=== PATIENT | male | born 1950 | race Caucasian/White ===

== ENCOUNTER → 2017-10-05 | Outpatient (CLI) | payer MEDICARE, OTHER | END | disposition home or self-care (01) | LOC: ECHO 08:58 | DX: I48.2 Chronic atrial fibrillation (principal); I65.23 Occlusion and stenosis of bilateral carotid arteries; I27.20 Pulmonary hypertension, unspecified; I08.1 Rheumatic disorders of both mitral and tricuspid valves; Z86.73 Personal history of transient ischemic attack (TIA), and cerebral infarction without residual deficits | CPT/HCPCS: 93306; 93880 ==

== ENCOUNTER → 2017-10-23 | Outpatient (CLI) | payer MEDICARE ==
[2017-10-23] MEDS: REGADENOSON 0.4 MG/5 ML DISP.SYRIN. IV (10:56)
== END | disposition home or self-care (01) ==
LOC: NM 09:45
DX: Z01.810 Encounter for preprocedural cardiovascular examination (principal); I10 Essential (primary) hypertension; E11.9 Type 2 diabetes mellitus without complications; Z87.891 Personal history of nicotine dependence
CPT/HCPCS: 78452; 93017; 96374; 96375; 96376; A9500; J2785

== ENCOUNTER → 2017-12-23 | Outpatient (CLI) | payer MEDICARE ==
[~2017-12-23] MED LIST: CONTRAST GIVEN. MC
[2017-12-23] MEDS: IOHEXOL 300 MG/ML 100ML VIAL. IV (09:23)
== END | disposition home or self-care (01) ==
LOC: CT 07:29
DX: I70.201 Unspecified atherosclerosis of native arteries of extremities, right leg (principal); I70.1 Atherosclerosis of renal artery; I70.8 Atherosclerosis of other arteries; I10 Essential (primary) hypertension; E11.9 Type 2 diabetes mellitus without complications
CPT/HCPCS: 36415; 75635; 82565; Q9967

== ENCOUNTER 2018-02-11 06:34 | Observation (INO) | payer MEDICARE ==
[~2018-02-11] VITALS: Ht 182.9 cm; Wt 100.3 kg
[2018-02-11] VITALS (15 sets, daily range): BP systolic 112–154; BP diastolic 47–86
[~2018-02-11 06:34] MED LIST changes: +ASPI-630 PO; +ASPI325T11 PO; -CONTRAST GIVEN. MC; +INSU100C4 SQ; +INSU100V13 SQ; +LINA145C PO; +LOSA1TAB22 PO; +METF500T16 PO; +METO-239 PO; +PREG200C PO; +RIVA20TA2 PO; +SIMV40TA3 PO; +TADA5TAB PO
[2018-02-11 07:08] LABS: CALCIUM 9.6 mg/dL (8.5-10.1); CREATININE 0.8 mg/dL (0.7-1.3); POTASSIUM 4.4 mmol/L (3.5-5.1)
[2018-02-11 07:12] LABS: HEMATOCRIT 46.1 % (39.0-53.0); HEMOGLOBIN 16.2 g/dL (13.0-17.5); RED BLOOD COUNT 5.17 x10^6/uL (4.30-5.70); RED CELL DISTRIBUTION WIDTH 14.8 % (11.5-14.5); WHITE BLOOD COUNT 8.8 x10^3/uL (4.0-11.0)
[2018-02-11] MEDS ORDERED: IODIXANOL 320 MG/ML 100 ML VIAL. ONE (07:18)
[2018-02-11] MEDS ORDERED: LIDOCAINE 1% PF 30 ML VIAL. ONE (07:18)
[2018-02-11] MEDS ORDERED: MIDAZOLAM HCL/PF 2 MG/2 ML VIAL. ONE ×2 (08:04→09:08)
[2018-02-11] MEDS ORDERED: fentaNYL PF VIAL 100 MCG/2 ML VIAL ONE ×2 (08:04→09:08)
[2018-02-11] MEDS ORDERED: HEPARIN for IV BOLUS 10,000 UNIT/10 ML VIAL. ONE ×3 (08:19→09:52)
[2018-02-11] MEDS ORDERED: dilTIAZem IV PUSH 25 MG/5 ML VIAL ONE (08:30)
[2018-02-11] MEDS ORDERED: NITROGLYCERIN 4 MG/20 ML SYRINGE for CATH LAB. ONE ×2 (08:30→09:00)
[2018-02-11] MEDS ORDERED: NITROGLYCERIN 200 MCG/2 ML SYRINGE FOR CATH/VASC LAB. ONE (09:28)
[2018-02-11] MEDS ORDERED: fentaNYL PF VIAL 100 MCG/2 ML VIAL IV ONE ×2 (09:30→13:45)
[2018-02-11] MEDS ORDERED: HEPARIN for IV BOLUS 10,000 UNIT/10 ML VIAL. IV ONE (09:30)
[2018-02-11] MEDS ORDERED: LIDOCAINE 1% PF 30 ML VIAL. INJ ONE (09:30)
[2018-02-11] MEDS ORDERED: dilTIAZem INJ 10 MG, NITROGLYCERIN 4MG SYRINGE 4 MG, HEPARIN SODIUM 10,000 UNIT, VIPERS... INT CAT ONE ×5 (09:30)
[2018-02-11] MEDS ORDERED: NITROGLYCERIN 200 MCG/2 ML SYRINGE FOR CATH/VASC LAB. IART ONE (09:30)
[2018-02-11] MEDS ORDERED: IODIXANOL 320 MG/ML 100 ML VIAL. IART ONE (09:30)
[2018-02-11] MEDS ORDERED: MIDAZOLAM HCL/PF 2 MG/2 ML VIAL. IV ONE (09:30)
[2018-02-11] MEDS ORDERED: CONTRAST GIVEN. MC PRN (09:45)
[2018-02-11] MEDS ORDERED: ASPIRIN 325 MG TABLET ONE (10:22)
[2018-02-11] MEDS ORDERED: ASPIRIN 325 MG TABLET PO ONE (10:30)
[2018-02-11] MEDS: IV NORMAL SALINE 1000ML BAG 1,000 ML IV SCH ×2 (10:43→18:13)
[2018-02-11] MEDS ORDERED: traMADol 50 MG TABLET PO PRN (11:45)
--- NOTE | 2018-02-11 12:00 | CARD ---
MR#: [id number] Date of Study: 02/11/2018 Ordering Physician: SANDRA POE, Referring Physician: SANDRA POE, Tech: RT Jules (R) APPROVED REPORT Patient StatusOUT-PATIENT Take Out Waitress: Ishmael Person RT (R) Procedure(s) performed: Moderate Sedation: 167 min Unilateral LLE angiography LSFA atherectomy, COMPLAINT ADJUSTER and stent. MELANIE COMPLAINT ADJUSTER and stent. HISTORY : The patient is a 67 year-old male with a history of . INDICATION FOR PROCEDURE The indication(s) include : Bilateral claudication, Positive angiogram for stenosis: . PROCEDURE NARRATIVE Clinical information: Patient is a 67-year-old man with bilateral lifestyle limiting lower extremity claudication who previ ously underwent a right SFA angioplasty and right external iliac stent returns today for staged inter vention of his left lower extremity. Informed consent: After appropriate discussion of the risks and benefits of the procedure the patient was brought to the catheterization laboratory after written informed consent was obtained. Access: The right groin was prepped and draped in usual sterile fashion. Under 2% lidocaine local anesthesia a 5 Haitian sheath was placed in the right common femoral artery. Next using a 5 Haitian crossover cath eter the left common iliac was accessed and a J-tipped guidewire was placed in the left common femora l artery. Over this guidewire a 6 Haitian Sherwin 45 cm sheath was placed in the left common femoral art yvette. Diagnostic angiography: Unilateral left lower extremity DSA angiography was performed confirming the previously noted lesions in the mid to distal SFA at the level of the abductor canal and a 90% occlusion of the tibial perone al trunk with subtotal occlusions of the peroneal and posterior tibial vessels in the midsegment. The patient has 1 vessel runoff in the form of a anterior tibial vessel. There is distal reconstitution of the posterior tibial artery. A pullback across the external iliac artery revealed a 30 mm gradient and a 80% eccentric calcified lesion. Interventional procedure: With the aid of a fine cross catheter a 0.014 inch command wire was placed in the anterior tibial art yvette and this was exchanged to a Viper wire. Next, orbital atherectomy was performed with a 1.5 mm lester id CSI ld in the mid to distal SFA. Next sequential balloon angioplasty was performed in the mid to distal SFA with a 4.0 x 120 mm [place] balloon followed by a 6.0 x 80 mm chocolate balloon at nominal pressures. Next, the lesion was angioplastied with a admiral paclitaxel coated balloon (6.0 by 120 m m). Post-PVI angiography demonstrated a etq-ihrj-cnzcfget dissection with residual stenosis and there fore a decision was made to place a stent. Next, a Supera 6.0x 150mm stent was placed in the mid to d istal SFA and post-dilated with a 6.0 mm balloon at nominal pressures. Next, attention was turned to the external iliac vessel. The left external iliac was angioplastied with a 6.0 x 20 mm and a 7.0 x 4 0 mm [place] balloons. The lesion was stented with a absolute Pro self-expanding 8.0 x 40 mm stent. Th is was then postdilated with a 7.0 x 40 mm balloon at nominal pressures. Post-PCI angiography reveale d excellent stent expansion in the external iliac and superficial femoral arteries. There was no evid ence of distal muscles a she with excellent one-vessel runoff to the foot. Conclusion 1. Marinette category 3 claudication in the bilateral lower extremities 2. Successful PVI with a angioplasty and stent placement of the left external iliac artery with a 8.0 x 40 mm absolute Pro self-expanding stent 3. Successful PVI with atherectomy, angioplasty, drug-coated balloon angioplasty and stent placement in the mid to distal SFA with a Supera 6 x 150 mm Recommendations Smoking Cessation Aggressive Medical Therapy ASA and Xarelto indefinitely High dose statin therapy Initiate walking program. Signed by : Sandra Poe, Electronically Approved : 02/11/2018 11:59:10
[2018-02-11] MEDS ORDERED: NON FORMULARY ITEM (Insulin Aspart (Novolog) 100 UNIT) SQ SCH (14:00)
[2018-02-11] MEDS: hydroCHLOROthiazide 25 MG TABLET PO SCH (14:01)
[2018-02-11] MEDS: LOSARTAN POTASSIUM 50 MG TABLET. PO SCH (14:01)
[2018-02-11] MEDS: ASPIRIN ENTERIC COATED 325 MG TABLET.DR. PO SCH (14:07)
[2018-02-11] MEDS: HYDROcodone/APAP 5/325MG 1 TAB TABLET PO PRN ×2 (15:01→22:59)
[2018-02-11] MEDS ORDERED: RIVAROXABAN 10 MG TABLET. PO SCH (17:00)
[2018-02-11] MEDS: INSULIN LISPRO 300 UNITS/3 ML INSULN.PEN. SQ SCH (17:08)
[2018-02-11] MEDS ORDERED: MORPHINE SULFATE 4 MG/ML VIAL. IV PRN (19:15)
[2018-02-11] MEDS ORDERED: INSULIN GLARGINE 300 UNITS/3 ML INSULN.PEN. SQ SCH (21:00)
[2018-02-11] MEDS ORDERED: ATORVASTATIN CALCIUM 40 MG TABLET. PO SCH (21:00)
[2018-02-11] MEDS ORDERED: METOPROLOL SUCC 24HR ER 25 MG TAB.ER.24H. PO SCH (21:00)
[2018-02-12 03:34] VITALS: BP 147/67
[2018-02-12 05:23] LABS: CALCIUM 8.7 mg/dL (8.5-10.1); CREATININE 0.8 mg/dL (0.7-1.3); POTASSIUM 3.8 mmol/L (3.5-5.1)
[2018-02-12] MEDS: IV NORMAL SALINE 1000ML BAG 1,000 ML IV SCH ×2 (05:37→05:45)
[2018-02-12 06:44] VITALS: BP 157/72
[2018-02-12] MEDS: INSULIN LISPRO 300 UNITS/3 ML INSULN.PEN. SQ SCH (08:00)
[2018-02-12] MEDS ORDERED: ANTI-COAG MONITOR BY PHARMACY. MC PRN (08:00)
--- NOTE | 2018-02-12 08:49 | PDOC3 ---
*Discharge Summary* Date of Admission: Feb 11, 2018 Date of Discharge: Feb 12, 2018 Admitting Diagnosis PVD with claudication, [place] class 3 CAD with previous PCI hypertension hyperlipidemia permanent atrial fibrillation DM, II erectile dysfunction Final Diagnosis PVD with claudication, [place] class 3; s/p intervention CAD with previous PCI hypertension hyperlipidemia permanent atrial fibrillation DM, II erectile dysfunction Procedures PVI with a angioplasty and stent placement of the left external iliac artery with a 8.0 x 40 mm absolute Pro self-expanding stent PVI with atherectomy, angioplasty, drug-coated balloon angioplasty and stent placement in the mid to distal SFA with a Supera 6 x 150 mm Brief Hospital Course Mr. Ballard is a 67 old male with a known history of PAD and prior intervention to the LLE earlier this month. He returns for treatment of the RLE with details in the procedure report. He has been monitor overnight without complications. Right SKEINER site is soft without bruit auscultated at site ; residual ecchymosis present from prior procedure. DP pulses 1+ bilaterally. Remains in permanent atrial fibrillation and rate controlled. Walking without difficulty. Disposition/Orders: D/C to Home CONDITION AT DISCHARGE: Stable Diet: 2 gr sodium, Cardiac, Consistent Carbohydrate Home Meds Active Scripts Aspirin (ASPIRIN EC) 325 Mg Tablet.dr, 1 TAB PO DAILY, #120 TAB 0 Refills Prov:INDIANA OCONNOR COMPUTER ART INSTRUCTOR 01/27/18 Reported Medications Linaclotide (LINZESS) 145 Mcg Capsule, 145 MCG PO, CAP 01/26/18 Tadalafil (CIALIS) 5 Mg Tablet, 20 MG PO PRN, TAB 01/26/18 Insulin Aspart (NOVOLOG) 100 Unit/1 Ml Cartridge, 100 UNIT SQ TID, EACH 01/26/18 Insulin Detemir (LEVEMIR) 100 Unit/1 Ml Vial, 45 UNIT SQ HS, VIAL 01/26/18 Simvastatin (SIMVASTATIN) 40 Mg Tablet, 40 MG PO HS for FOR CHOLESTEROL, #30 TAB 0 Refills 11/05/17 Rivaroxaban (XARELTO) 20 Mg Tablet, 20 MG PO DAILY, TAB 11/05/17 Pregabalin (LYRICA) 200 Mg Capsule, 200 MG PO BID for 30 Days, CAP 0 Refills 11/05/17 Metoprolol Succinate (METOPROLOL SUCCINATE ( XL )) 25 Mg Tab.er.24h, 50 MG PO HS for FOR HYPERTENSION, #30 TAB 0 Refills 11/05/17 Metformin Hcl (METFORMIN HCL) 500 Mg Tablet, 500 MG PO BIDWMEALS for ANTI- DIABETIC, TAB 0 Refills 11/05/17 Losartan/Hydrochlorothiazide (LOSARTAN-HCTZ 100-25 MG TAB) 1 Each Tablet, 1 EACH PO HS, TAB 11/05/17 Scheduled Aspirin (Aspirin Ec), 1 TAB PO DAILY Insulin Aspart (Novolog), 100 UNIT SQ TID, (Reported) Insulin Detemir (Levemir), 45 UNIT SQ HS, (Reported) Losartan/Hydrochlorothiazide (Losartan-Hctz 100-25 Mg Tab), 1 EACH PO HS, ( Reported) Metformin Hcl (Metformin Hcl), 500 MG PO BIDWMEALS, (Reported) Metoprolol Succinate (Metoprolol Succinate ( Xl )), 50 MG PO HS, (Reported) Pregabalin (Lyrica), 200 MG PO BID, (Reported) Rivaroxaban (Xarelto), 20 MG PO DAILY, (Reported) Simvastatin (Simvastatin), 40 MG PO HS, (Reported) Tadalafil (Cialis), 20 MG PO PRN, (Reported) Miscellaneous Medications Linaclotide (Linzess), 145 MCG PO, (Reported) FOLLOW UP APPOINTMENT: [address] Lida Myles PCP 7-10 days Time Spent Total time spent with patient [30] minutes for coordination of care, counseling , and education. [place] OCONNOR APRN Feb 12, 2018 08:49
[2018-02-12] MEDS: hydroCHLOROthiazide 25 MG TABLET PO SCH (09:00)
[2018-02-12 09:01] VITALS: BP 157/72
[2018-02-12] MEDS: ASPIRIN ENTERIC COATED 325 MG TABLET.DR. PO SCH (09:01)
[2018-02-12] MEDS: LOSARTAN POTASSIUM 50 MG TABLET. PO SCH (09:01)
== END 2018-02-12 10:30 | disposition home or self-care (01) ==
LOC: CCL 06:34 → 2 NORTH 09:30 → INTOOBSV 09:30
PROVIDERS: ADMIT Internal Medicine Cardiovascular Disease; ATTEND Internal Medicine Cardiovascular Disease
DX: I70.213 Atherosclerosis of native arteries of extremities with intermittent claudication, bilateral legs (principal); E11.51 Type 2 diabetes mellitus with diabetic peripheral angiopathy without gangrene; E78.5 Hyperlipidemia, unspecified; I10 Essential (primary) hypertension; I25.10 Atherosclerotic heart disease of native coronary artery without angina pectoris; I48.2 Chronic atrial fibrillation; N52.9 Male erectile dysfunction, unspecified; Z98.61 Coronary angioplasty status
CPT/HCPCS: 36415; 37221; 37227; 80048; 82962; 85027; 85347; 85610; 90471; 90756; 96372; 96374; 96375; 96376; C1724; C1725; C1769; C1877; C1892; C2623; G0378; G0379; J1644; J1815; J2250; J3010; J3490; J7030; 37228; 99152; 99153; Q2035

== ENCOUNTER → 2018-08-20 | Outpatient (CLI) | payer MEDICARE ==
[~2018-08-20] MED LIST changes: +INSU100I17 SQ; -LINA145C PO; +LINZESS145 MCG PO; +METF10007 PO; +OMEP40CA5 PO; +POLY17PO29 PO
--- NOTE | 2018-08-20 15:13 | KCIC ---
Bilateral lower extremity arterial Doppler August 20, 2018 INDICATION: Peripheral arterial disease. Hypertension and smoker. History of stroke. Left mid to distal superficial femoral artery stent. COMPARISON: CTU runoff December 23, 2017 TECHNIQUE: Multiple sonographic images of the bilateral lower extremity arterial system was performed utilizing grayscale, color Doppler and spectral waveform analysis. FINDINGS: Right: There is atheromatous plaque identified throughout the right lower extremity. Biphasic waveforms are identified from the common femoral artery through the popliteal artery. Monophasic waveforms are identified from the posterior tibial artery through the dorsalis pedis artery and anterior tibial artery. Findings are most suggestive of peripheral arterial disease. Peak systolic velocities are detailed below (CM per second) Common femoral artery: 185 Deep femoral artery: 85 Superficial femoral artery, proximal: 111 Mid superficial femoral artery: 122 Superficial femoral artery, distal: 64 Popliteal artery: 73 Posterior tibial artery: 19 Peroneal artery: 26 Anterior tibial artery: 54 Dorsalis pedis artery: 24 Left: There is atheromatous plaque identified throughout the left lower extremity. There is a stent identified descending from the mid to distal superficial femoral artery. Biphasic waveforms are identified from the common femoral artery through the popliteal artery. Monophasic waveforms are identified involving the posterior tibial artery, anterior tibial artery and dorsalis pedis artery. Peroneal artery is not visualized. Peak systolic velocities are detailed below (CM per second) Common femoral artery: 167 Deep femoral artery: 138 Superficial femoral artery, proximal: 127 Mid superficial femoral artery: 85 Superficial femoral artery, distal: 72 Popliteal artery: 85 Posterior tibial artery: 34 Peroneal artery: Not visualized Anterior tibial artery: 53 Dorsalis pedis artery: 57 IMPRESSION: 1. Findings are suggestive of moderate peripheral arterial disease. There is nonvisualization of the left peroneal artery. Otherwise, no definite high-grade stenosis or complete occlusion as detailed above. Electronically signed by: Elda Morfin MD (08/20/2018 3:10 PM) [facility]
== END | disposition home or self-care (01) ==
LOC: KCIC US 12:06
PROVIDERS: ATTEND Internal Medicine Cardiovascular Disease
DX: I70.203 Unspecified atherosclerosis of native arteries of extremities, bilateral legs (principal); F17.200 Nicotine dependence, unspecified, uncomplicated; I10 Essential (primary) hypertension; E11.9 Type 2 diabetes mellitus without complications; Z86.73 Personal history of transient ischemic attack (TIA), and cerebral infarction without residual deficits
CPT/HCPCS: 93925

== ENCOUNTER 2018-10-26 12:17 | Inpatient (IN) | payer MEDICARE ==
[~2018-10-26] VITALS: Ht 182.9 cm; Wt 102.1 kg
[~2018-10-26 12:17] MED LIST changes: -INSU100I17 SQ; -METF10007 PO; -OMEP40CA5 PO; -POLY17PO29 PO
[2018-10-26] MEDS ORDERED: FUROSEMIDE 40 MG/4 ML VIAL. IVP ONE (13:30)
[2018-10-26] MEDS ORDERED: INSU100V13 SQ (13:40)
[2018-10-26] MEDS ORDERED: INSU100I17 SQ (13:40)
[2018-10-26] MEDS ORDERED: METF10007 PO (13:45)
[2018-10-26] MEDS ORDERED: LINZESS145 MCG PO (13:45)
[2018-10-26 13:50] VITALS: BP 183/85
--- NOTE | 2018-10-26 14:24 | EKG ---
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
[2018-10-26] MEDS ORDERED: POLY17PO29 PO (14:25)
[2018-10-26] MEDS ORDERED: NON FORMULARY ITEM (Linaclotide (Linzess) 145 MCG) PO PRN (14:30)
[2018-10-26] MEDS ORDERED: OMEP40CA5 PO (14:54)
[2018-10-26 15:00] VITALS: BP 194/88
[2018-10-26] MEDS ORDERED: DEXTROSE 50% 25 GM / 50ML DISP.SYRIN. IV PRN (15:00)
--- NOTE | 2018-10-26 15:00 | NUR ---
Direct admit from Dr. Pena office. Patient arrived to unit via wheelchair, transferred with minimal assist to bed. Vitals stable, patient alert and oriented x4, at bedside. Orders received and entered. Call light within reach. Will continue to monitor.
[2018-10-26] MEDS: IPRATRPIUM/ALBUTEROL 0.5/2.5MG 3 ML NEBU. NEB SCH ×3 (15:27→23:45)
[2018-10-26] MEDS: hydroCHLOROthiazide 25 MG TABLET PO SCH (15:37)
[2018-10-26] MEDS: LOSARTAN POTASSIUM 50 MG TABLET. PO SCH (15:37)
[2018-10-26] MEDS: predniSONE 10 MG TABLET PO SCH (15:38)
[2018-10-26 16:08] LABS: BASO # 0.1 x10^3/uL (0.0-0.2); BASO % 1 % (0-3); EOS # 0.1 x10^3/uL (0.0-0.7); EOS % 1 % (0-3); HEMATOCRIT 46.6 % (39.0-53.0); HEMOGLOBIN 16.1 g/dL (13.0-17.5); LYMPH # 1.4 x10^3/uL (1.0-4.8); LYMPH % 20 % (24-48); MEAN CORPUSCULAR HEMOGLOBIN 31 pg (25-35); MEAN CORPUSCULAR HGB CONC 35 g/dL (31-37); MEAN CORPUSCULAR VOLUME 89 fL (79-100); MONO # 0.9 x10^3/uL (0.0-1.1); MONO % 12 % (0-9); NEUT # 4.7 x10^3uL (1.8-7.7); NEUT % 66 % (31-73); PLATELET COUNT 132 x10^3/uL (140-400); RED BLOOD COUNT 5.23 x10^6/uL (4.30-5.70); RED CELL DISTRIBUTION WIDTH 14.2 % (11.5-14.5); WHITE BLOOD COUNT 7.1 x10^3/uL (4.0-11.0)
[2018-10-26 16:35] LABS: ALBUMIN 2.7 g/dL (3.4-5.0); ALBUMIN/GLOBULIN RATIO 0.7 (1.0-1.7); CALCIUM 8.8 mg/dL (8.5-10.1); CREATININE 0.9 mg/dL (0.7-1.3); GFR 84.4; POTASSIUM 3.5 mmol/L (3.5-5.1); TOTAL BILIRUBIN 0.7 mg/dL (0.2-1.0); TOTAL PROTEIN 6.5 g/dL (6.4-8.2)
--- NOTE | 2018-10-26 16:42 | CARD ---
MR#: [id number] Date of Study: 10/26/2018 Ordering Physician: ILIR WASSERMAN, Referring Physician: ILIR WASSERMAN Tech: Kary Hurley RDCS APPROVED REPORT EXAM: Two-dimensional and M-mode echocardiogram with Doppler and color Doppler. Other Information Quality : Fair INDICATION Dyspnea Pacemaker RISK FACTORS Smoking 2D DIMENSIONS RVDd2.0 (2.9-3.5cm)Left Atrium(2D)3.8 (1.6-4.0cm) IVSd1.2 (0.7-1.1cm)Aortic Root(2D)2.9 (2.0-3.7cm) LVDd4.8 (3.9-5.9cm)LVOT Diameter2.0 (1.8-2.4cm) PWd1.1 (0.7-1.1cm)LVDs3.8 (2.5-4.0cm) FS (%) 20.3 %SV45.2 ml LVEF(%)50.0 (>50%) Aortic Valve AoV Peak Andres.122.2cm/sAoV VTI22.0cm AO Peak GR.6.0mmHgLVOT Peak Andres.98.2cm/s LVOT VTI 16.71cmAO Mean GR.3mmHg YEFRI (VMAX)2.93kt0UZX (VTI)2.39cm2 Mitral Valve MV E Drlovkus718.8cm/sMV DECEL ZVNI226rk MV A Fgcyjpot50.8cm/sMV SRM92mn E/A Ratio3.7MVA (PHT)5.35cm2 TDI E/Lateral E'16.2E/Medial E'23.5 Tricuspid Valve TR P. Qupeglqi019uu/sRAP JVHSNCKH1wkRl TR Peak Gr.98gbPnOUSC57wzCo Pulmonary Vein S1 Pwpicvdm03.4cm/sD2 Enltnemo62.1cm/s LEFT VENTRICLE The left ventricle is normal size. There is mild concentric left ventricular hypertrophy. Left ventri jose systolic function is normal. The Ejection Fraction is 50-55%. There is normal LV segmental wall m otion. RIGHT VENTRICLE The right ventricle is normal size. The right ventricular systolic function is normal. There are michael ce leads in the right ventricle and atrium. ATRIA The left atrium size is normal. The right atrium size is normal. A device lead is seen in the right a trium consistent with history. The interatrial septum is intact with no evidence for an atrial septal defect or patent foramen ovale as noted on 2-D or Doppler imaging. AORTIC VALVE The aortic valve is mildly thickened but opens well. Doppler and Color Flow revealed no significant a ortic regurgitation. There is no significant aortic valvular stenosis. MITRAL VALVE The mitral valve is calcified but opens well. There is no evidence of mitral valve prolapse. There is no mitral valve stenosis. Doppler and Color-flow revealed trace mitral regurgitation. TRICUSPID VALVE The tricuspid valve is normal in structure and function. Doppler and Color Flow revealed mild tricusp id regurgitation. The PA pressure was estimated at 42 mmHg. There is no tricuspid valve stenosis. PULMONIC VALVE The pulmonic valve is not well visualized. Doppler and Color Flow revealed no pulmonic valvular regur gitation. There is no pulmonic valvular stenosis. GREAT VESSELS The aortic root is normal in size. The ascending aorta is normal in size. The IVC is normal in size a nd collapses >50% with inspiration. PERICARDIAL EFFUSION There is no evidence of significant pericardial effusion. Critical Notification Critical Value: No <Conclusion> The left ventricle is normal size. Left ventricle systolic function is normal. The Ejection Fraction is 50-55%. There is mild concentric left ventricular hypertrophy. There are device leads in the right ventricle and atrium. There is no significant aortic valvular stenosis. Doppler and Color Flow revealed no significant aortic regurgitation. Doppler and Color-flow revealed trace mitral regurgitation. Doppler and Color Flow revealed mild tricuspid regurgitation. The PA pressure was estimated at 42 mmHg. Signed by : Marc Fischer MD Electronically Approved : 10/26/2018 16:41:46
--- NOTE | 2018-10-26 16:56 | RAD ---
EXAM: CHEST 2 VIEWS. HISTORY: Shortness of breath. COMPARISON: None. FINDINGS: Frontal and lateral views of the chest are obtained. A left-sided pacemaker has its leads in the right atrium and right ventricle. Hyperinflation is consistent with chronic obstructive pulmonary disease. There are small bilateral pleural effusions with mild basilar atelectasis. There is no pneumothorax or pleural effusion. The heart is not enlarged. IMPRESSION: 1. Chronic obstructive pulmonary disease. 2. Small bilateral pleural effusions. Mild basilar atelectasis versus trace edema. Electronically signed by: Maddi Ayers MD (10/26/2018 4:53 PM) [facility]
[2018-10-26] MEDS ORDERED: metFORMIN 500 MG TABLET PO SCH (17:00)
[2018-10-26 17:27] VITALS: BP 185/90
[2018-10-26] MEDS: RIVAROXABAN 10 MG TABLET. PO SCH (17:29)
[2018-10-26] MEDS: INSULIN LISPRO 300 UNITS/3 ML INSULN.PEN. SQ SCH (17:32)
[2018-10-26] MEDS: POTASSIUM CHLORIDE 10 MEQ TABLET.ER. PO SCH (18:00)
--- NOTE | 2018-10-26 18:06 | NUR ---
Paged Dr. Gannon regarding patients high blood pressure reading of 185/90. No orders received from Dr. Gannon, will continue to monitor.
[2018-10-26 19:15] VITALS: BP 161/69
[2018-10-26] MEDS: PREGABALIN 50 MG CAPSULE PO SCH (20:35)
[2018-10-26] MEDS: METOPROLOL SUCC 24HR ER 50 MG TAB.ER.24H. PO SCH (20:36)
[2018-10-26] MEDS: INSULIN GLARGINE 300 UNITS/3 ML INSULN.PEN. SQ SCH (20:42)
[2018-10-26] MEDS ORDERED: NON FORMULARY ITEM (Losartan/Hydrochlorothiazide (Losartan-Hctz 100-25 Mg Tab) 1 EACH) PO SCH (21:00)
[2018-10-26] MEDS ORDERED: SIMVASTATIN 40 MG TABLET. PO SCH (21:00)
[2018-10-26] MEDS ORDERED: INSULIN GLARGINE 300 UNITS/3 ML INSULN.PEN. SQ SCH (21:00)
[2018-10-26 22:35] VITALS: BP 155/72
[2018-10-27 03:00] VITALS: BP 181/85
[2018-10-27] MEDS: IPRATRPIUM/ALBUTEROL 0.5/2.5MG 3 ML NEBU. NEB SCH ×6 (03:40→23:56)
[2018-10-27] MEDS: PANTOPRAZOLE 40 MG TABLET.DR. PO SCH (06:20)
[2018-10-27 07:12] VITALS: BP 173/83
[2018-10-27] MEDS: predniSONE 10 MG TABLET PO SCH (08:35)
[2018-10-27] MEDS: PREGABALIN 50 MG CAPSULE PO SCH ×2 (08:36→20:58)
[2018-10-27] MEDS: LOSARTAN POTASSIUM 50 MG TABLET. PO SCH (08:36)
[2018-10-27] MEDS: hydroCHLOROthiazide 25 MG TABLET PO SCH (08:36)
[2018-10-27] MEDS: POLYETHYLENE GLYCOL 3350 17 GM PACKET. PO PRN (08:37)
[2018-10-27] MEDS: INSULIN GLARGINE 300 UNITS/3 ML INSULN.PEN. SQ SCH ×2 (08:46→21:21)
[2018-10-27] MEDS: POTASSIUM CHLORIDE 10 MEQ TABLET.ER. PO SCH ×2 (08:47→17:28)
[2018-10-27] MEDS: INSULIN LISPRO 300 UNITS/3 ML INSULN.PEN. SQ SCH ×3 (08:47→17:41)
[2018-10-27] MEDS ORDERED: amLODIPine BESYLATE 5 MG TABLET PO SCH (09:00)
[2018-10-27] MEDS: methylPREDNISolone SOD SUCC PF 125 MG/2 ML VIAL. IV SCH ×2 (09:00→21:01)
--- NOTE | 2018-10-27 09:08 | PDOC ---
Provider Note Provider Note [id number] DELROY BASS MD Oct 27, 2018 09:08
--- NOTE | 2018-10-27 09:30 | HP ---
ADMIT DATE: 10/26/2018 CHIEF COMPLAINT: Shortness of breath. HISTORY OF PRESENT ILLNESS: A 68-year-old white male with known poorly controlled insulin-dependent diabetes and history of coronary artery disease and peripheral arterial disease, has a long tobacco history and has had increasing cough, wheezing and scant sputum production over the last several days. Chest x-ray was clear with minimal effusions and blood pressure still running high, and sugars are running high on the steroids he is on now. PAST MEDICAL HISTORY: He has had multiple stents in his heart. He has had bypasses in his legs. MEDICATIONS: He is on multiple meds. ALLERGIES: PENICILLIN. IMMUNIZATION STATUS: Up to date. Echocardiogram and MPI apparently in 01/2018 were within normal limits. SOCIAL HISTORY: Still smokes about half pack a day. He is . Nondrinker. Retired. FAMILY HISTORY: Unremarkable. REVIEW OF SYSTEMS: Negative. OBJECTIVE: ENT: All within normal limits. NECK: No bruits, nodes or masses. LUNGS: Good breath sounds, faint expiratory wheezes. No tachypnea. CARDIOVASCULAR: Regular rate. No irregular beat or atrial fibrillation at this time. ABDOMEN: Soft, obese, benign and nontender. EXTREMITIES: Decreased pedal pulses, 1+ edema of the ankles. No joint or skin lesions. He has 1-2+ clubbing of the fingernails. NEUROLOGIC: Physiologic. ASSESSMENT: 1. Acute exacerbation of chronic obstructive pulmonary disease is his primary diagnosis. 2. History of coronary artery disease and peripheral artery disease. 3. Poorly controlled type 2 diabetes mellitus. Last A1c 8.9 in 05/2018. PLAN: IV steroids. Augment his insulin as needed. Respiratory treatments and tobacco avoidance. Echo will be repeated as well, but feels this is more pulmonary than cardiogenic. DELROY BASS MD DR: RIZWANA/gary JOB#: [id number] / [id number]
[2018-10-27 10:37] VITALS: BP 183/88
--- NOTE | 2018-10-27 10:40 | PDOC2 ---
TAMEKA GONZALEZ REVOLVING INVENTORY CLERK 10/27/18 1040: CARDIAC CONSULT DATE OF CONSULT Date of Consult DATE: 10/27/18 TIME: 10:30 REASON FOR CONSULT Reason for Consult: CHF REFERRING PHYSICIAN Referring Physician: trusty SOURCE Source: Chart review, Patient HISTORY OF PRESENT ILLNESS HISTORY OF PRESENT ILLNESS This is a pleasant 68 yo male admitted for complains of SOA. This SOA has been occurring in the last 3 days. Positive for leg edema and orthopnea. No wheez ing but Positive for small productive cough with yellow sputum. No chest pain, palpitations. No dizziness, or passing out. Denies any nausea vomiting. Compliant with his medications but does not check his BP at home. Also he continues to smoke and has tried using vaping as well. PAST MEDICAL HISTORY Cardiovascular: AFIB, CAD, HTN, Hyperlipidemia, Other (PAD; SSS) Pulmonary: No pertinent hx CENTRAL NERVOUS SYSTEM: CVA GI: No pertinent hx Heme/Onc: No pertinent hx Hepatobiliary: No pertinent hx Psych: No pertinent hx Musculoskeletal: Osteoarthritis Rheumatologic: No pertinent hx Infectious disease: No pertinent hx ENT: No pertinent hx Renal/: Other (ED) Endocrine: Diabetes (2) Dermatology: No pertinent hx PAST SURGICAL HISTORY Past Surgical History: Pacemaker, Other (LLE COUNTER INSTALLER/stent, PCI/stents) SOCIAL HISTORY Smoke: <1 pack per day ALCOHOL: occassional Drugs: None Lives: with Family CURRENT MEDICATIONS CURRENT MEDICATIONS Current Medications Medications (Trade) Dose Ordered Sig/Joi Route PRN Reason Start Time Stop Time Status Last Admin Dose Admin Furosemide (Lasix) 40 mg 1X ONCE IVP 10/26/18 13:30 10/26/18 13:31 DC 10/26/18 16:31 Albuterol/ Ipratropium (Duoneb) 3 ml Q4HRS NEB 10/26/18 16:00 10/27/18 07:39 Prednisone (Prednisone) 50 mg DAILY PO 10/26/18 14:00 10/27/18 09:05 DC 10/27/18 08:35 Metoprolol Succinate (Toprol Xl) 50 mg HS PO 10/26/18 21:00 10/26/18 20:36 Pregabalin (Lyrica) 200 mg BID PO 10/26/18 21:00 10/27/18 08:36 Rivaroxaban (Xarelto) 20 mg DAILYWSUP PO 10/26/18 17:00 10/26/18 17:29 Simvastatin (Zocor) 40 mg QHS PO 10/26/18 21:00 10/27/18 08:57 DC 10/26/18 20:35 Polyethylene Glycol (miraLAX PACKET) 17 gm PRN DAILY PRN PO CONSTIPATION 10/27/18 09:00 10/27/18 08:37 Losartan Potassium (Cozaar) 100 mg DAILY PO 10/26/18 15:30 10/27/18 08:36 Hydrochlorothiazide (Hydrodiuril) 25 mg DAILY PO 10/26/18 15:30 10/27/18 08:36 Pantoprazole Sodium (Protonix) 40 mg DAILYAC PO 10/27/18 07:30 10/27/18 06:20 Insulin Glargine (Lantus) 50 units BID SQ 10/26/18 21:00 10/27/18 09:05 DC 10/27/18 08:46 Insulin Human Lispro (HumaLOG) 5 units TIDAC SQ 10/26/18 16:30 10/27/18 09:06 DC 10/27/18 08:47 Potassium Chloride (Klor-Con) 10 meq BID94 PO 10/26/18 18:00 10/27/18 08:47 Amlodipine Besylate (Norvasc) 5 mg DAILY PO 10/27/18 09:00 10/27/18 09:53 ALLERGIES ALLERGIES: Coded Allergies: Penicillins (Verified Allergy, Intermediate, RASH, 02/12/18) ROS Review of System 14 point ROS evaluated wth pertinent positives noted per HPI PHYSICAL EXAM General: Alert, Oriented X3, Cooperative, No acute distress HEENT: Atraumatic, Mucous membr. moist/pink Lungs: Other (faint crackles) Heart: Other (AFIB rate controlled) Abdomen: Soft, No tenderness Extremities: No cyanosis, Other (1-2+ bilateral LE pitting edema) Skin: No breakdown, No significant lesion Neuro: Normal speech, Sensation intact Psych/Mental Status: Mental status NL, Mood NL MUSCULOSKELETAL: Osteoarthritic changes both hands VITALS VITALS Vital Signs Date Time Temp Pulse Resp B/P (MAP) Pulse Ox O2 Delivery O2 Flow Rate FiO2 10/27/18 09:53 60 173/83 10/27/18 08:00 Room Air 10/27/18 07:39 93 10/27/18 07:12 97.5 18 97.5 10/27/18 03:00 2.0 LABS Lab: Laboratory Tests Test 10/26/18 13:19 10/26/18 15:45 10/26/18 16:43 10/26/18 20:33 Glucose (Fingerstick) 192 mg/dL (70-99) 195 mg/dL (70-99) 358 mg/dL (70-99) White Blood Count 7.1 x10^3/uL (4.0-11.0) Red Blood Count 5.23 x10^6/uL (4.30-5.70) Hemoglobin 16.1 g/dL (13.0-17.5) Hematocrit 46.6 % (39.0-53.0) Mean Corpuscular Volume 89 fL (79-100) Mean Corpuscular Hemoglobin 31 pg (25-35) Mean Corpuscular Hemoglobin Concent 35 g/dL (31-37) Red Cell Distribution Width 14.2 % (11.5-14.5) Platelet Count 132 x10^3/uL (140-400) Neutrophils (%) (Auto) 66 % (31-73) Lymphocytes (%) (Auto) 20 % (24-48) Monocytes (%) (Auto) 12 % (0-9) Eosinophils (%) (Auto) 1 % (0-3) Basophils (%) (Auto) 1 % (0-3) Neutrophils # (Auto) 4.7 x10^3uL (1.8-7.7) Lymphocytes # (Auto) 1.4 x10^3/uL (1.0-4.8) Monocytes # (Auto) 0.9 x10^3/uL (0.0-1.1) Eosinophils # (Auto) 0.1 x10^3/uL (0.0-0.7) Basophils # (Auto) 0.1 x10^3/uL (0.0-0.2) Sodium Level 138 mmol/L (136-145) Potassium Level 3.5 mmol/L (3.5-5.1) Chloride Level 100 mmol/L (98-107) Carbon Dioxide Level 29 mmol/L (21-32) Anion Gap 9 (6-14) Blood Urea Nitrogen 17 mg/dL (8-26) Creatinine 0.9 mg/dL (0.7-1.3) Estimated GFR (Cockcroft-Gault) 84.4 BUN/Creatinine Ratio 19 (6-20) Glucose Level 181 mg/dL (70-99) Calcium Level 8.8 mg/dL (8.5-10.1) Total Bilirubin 0.7 mg/dL (0.2-1.0) Aspartate Amino Transf (AST/SGOT) 17 U/L (15-37) Alanine Aminotransferase (ALT/SGPT) 29 U/L (16-63) Alkaline Phosphatase 105 U/L (46-116) HG-Txo-A-Type Natriuretic Peptide 1840 pg/mL (0-124) Total Protein 6.5 g/dL (6.4-8.2) Albumin 2.7 g/dL (3.4-5.0) Albumin/Globulin Ratio 0.7 (1.0-1.7) Test 10/26/18 20:48 10/27/18 08:01 10/27/18 08:50 Glucose (Fingerstick) 401 mg/dL (70-99) 257 mg/dL (70-99) Troponin I Quantitative 0.027 ng/mL (0.000-0.055) ECHOCARDIOGRAM ECHOCARDIOGRAM <Conclusion> The left ventricle is normal size. Left ventricle systolic function is normal. The Ejection Fraction is 50-55%. There is mild concentric left ventricular hypertrophy. There are device leads in the right ventricle and atrium. There is no significant aortic valvular stenosis. Doppler and Color Flow revealed no significant aortic regurgitation. Doppler and Color-flow revealed trace mitral regurgitation. Doppler and Color Flow revealed mild tricuspid regurgitation. The PA pressure was estimated at 42 mmHg. DATE: 10/26/18 1641 ASSESSMENT/PLAN ASSESSMENT/PLAN 1. AECOPD with continued tobaccoism: just started vaping as well 2. Acute on chronic diastolic CHF: COPD and possibly labile BP contributing. Better compensated 3. Permanent AFIB: rate controlled 4. PPM in situ: V paced wuth underlying AFIB. Medtronic 5. PAD: clinically stable 6. HTN: labile 7. HLP 8. CAD; past stents clinically stable Recommendations 1. Continue with secondary prevention measures 2. Smoking and vaping cessation 3. Will note interrogation if any persistent RVR episodes 4. Continue with xarelto for stroke prevention. BB. 5. Could increase norvasc if BP remains labile. Encouraged HBPM 6, Lipids and TSH. Replace K, Lasix x1 today. 7. Will need outpt PFT testing for further treatment of COPD SANDRA POE MD 10/27/18 7896: CARDIAC CONSULT ASSESSMENT/PLAN ASSESSMENT/PLAN Pt. seen and examined. Agree with above ANTENNA DESIGN ENGINEER note. Supportive care. Thanks. TAMEKA GONZALEZ APRN Oct 27, 2018 10:40 SANDRA POE MD Oct 27, 2018 17:47
--- NOTE | 2018-10-27 11:00 | NUR ---
Emar Documentation: Non-administered morning dose of solumedrol since patient had just received PO prednisone dose, advised by Celi in Pharmacy to hold this dose.
[2018-10-27 11:04] LABS: CHOLESTEROL/HDL RATIO 4.4
[2018-10-27] MEDS: ANTI-COAG MONITOR BY PHARMACY. MC PRN (11:10)
[2018-10-27] MEDS ORDERED: FUROSEMIDE 20 MG/2 ML VIAL. IVP ONE ×2 (11:15)
[2018-10-27] MEDS ORDERED: POTASSIUM CHLORIDE 20 MEQ TABLET.ER. PO ONE ×2 (11:15→11:30)
--- NOTE | 2018-10-27 12:35 | NUR ---
SS following for discharge planning. SS reviewed pt chart. Pt is from home and is currently on room air. No discharge needs notes at this time. SS will continue to follow for discharge planning.
[2018-10-27] MEDS ORDERED: MAGNESIUM SULFATE 2GM 50 ML IV ONE (13:00)
[2018-10-27 14:32] VITALS: BP 142/67
[2018-10-27] MEDS: ALPRAZolam 0.5 MG TABLET PO PRN (14:52)
[2018-10-27] MEDS: NICOTINE 21MG PATCH. TD PRN (14:53)
[2018-10-27] MEDS: RIVAROXABAN 10 MG TABLET. PO SCH (17:27)
[2018-10-27 19:27] VITALS: BP 126/56
[2018-10-27] MEDS: METOPROLOL SUCC 24HR ER 50 MG TAB.ER.24H. PO SCH (21:00)
[2018-10-27] MEDS ORDERED: ATORVASTATIN CALCIUM 20 MG TABLET PO SCH (21:00)
[2018-10-27] MEDS: SIMVASTATIN 20 MG TABLET PO SCH (21:01)
[2018-10-27 22:50] VITALS: BP 156/65
[2018-10-28] MEDS: ALPRAZolam 0.5 MG TABLET PO PRN ×2 (00:05→09:50)
[2018-10-28 02:13] LABS: HEMOGLOBIN A1C 9.5 % (4.8-5.6)
[2018-10-28 02:18] VITALS: BP 118/46
[2018-10-28] MEDS: IPRATRPIUM/ALBUTEROL 0.5/2.5MG 3 ML NEBU. NEB SCH ×6 (03:39→23:50)
[2018-10-28] MEDS: PANTOPRAZOLE 40 MG TABLET.DR. PO SCH ×2 (06:15→08:33)
[2018-10-28 07:53] VITALS: BP 130/63
[2018-10-28] MEDS: LOSARTAN POTASSIUM 50 MG TABLET. PO SCH (08:32)
[2018-10-28] MEDS: POTASSIUM CHLORIDE 10 MEQ TABLET.ER. PO SCH ×2 (08:33→17:29)
[2018-10-28] MEDS: PREGABALIN 50 MG CAPSULE PO SCH ×2 (08:33→09:40)
[2018-10-28] MEDS: POLYETHYLENE GLYCOL 3350 17 GM PACKET. PO PRN (08:33)
[2018-10-28] MEDS: hydroCHLOROthiazide 25 MG TABLET PO SCH (08:33)
[2018-10-28] MEDS: methylPREDNISolone SOD SUCC PF 125 MG/2 ML VIAL. IV SCH (08:34)
[2018-10-28] MEDS: INSULIN LISPRO 300 UNITS/3 ML INSULN.PEN. SQ SCH ×3 (08:46→17:34)
[2018-10-28] MEDS: INSULIN GLARGINE 300 UNITS/3 ML INSULN.PEN. SQ SCH ×3 (08:47→21:42)
[2018-10-28] MEDS ORDERED: amLODIPine BESYLATE 10 MG TABLET PO SCH (09:00)
[2018-10-28] MEDS: amLODIPine BESYLATE 5 MG TABLET PO SCH (09:00)
--- NOTE | 2018-10-28 09:22 | PDOC ---
Provider Note Provider Note feels better , still anxious- will reduce metop to see if pacer dependance persists- po pred, add zoloft re anxiety- more insulin- NEEDS TO BE IN HOSPITAL- poss dc 1-2 days DELROY BASS MD Oct 28, 2018 09:22
--- NOTE | 2018-10-28 09:33 | PDOC ---
Provider Note Provider Note vss, good sats, less wheezing- bp rosanna w/ amlo- shira herrera- DELROY BASS MD Oct 28, 2018 09:33
[2018-10-28] MEDS: NICOTINE 21MG PATCH. TD PRN (09:50)
--- NOTE | 2018-10-28 10:19 | PDOC ---
TAMEKA GONZALEZ TRAVEL MANAGER 10/28/18 1018: CARDIO Progress Notes Date and Time Date of Service 10/28/2018 Time of Evaluation 1010 Vitals Vitals Vital Signs Date Time Temp Pulse Resp B/P (MAP) Pulse Ox O2 Delivery O2 Flow Rate FiO2 10/28/18 08:34 60 130/63 10/28/18 07:53 97.3 18 96 Room Air 97.3 10/28/18 02:18 2.0 Weight Weight [ ] Input and Output Intake and Output Intake and Output 10/28/18 06:59 Intake Total 1280 ml Output Total 1850 ml Balance -570 ml Intake Oral 1280 ml Output Urine Total 1850 ml Laboratory Labs Laboratory Tests Test 10/27/18 11:50 10/27/18 17:14 10/27/18 20:40 10/28/18 07:52 Glucose (Fingerstick) 316 mg/dL (70-99) 392 mg/dL (70-99) 276 mg/dL (70-99) 418 mg/dL (70-99) Physical Exam HEENT: Neck Supple W Full Motion Chest: Symmetric LUNGS: Other (crackles) Heart: other (V paced with underlying AFIB) Abdomen: Soft N/T Extremities: Other (1+ bilateral LE pitting edema) Neurology: alert, oriented, follow commands Assessment Assessment 1. AECOPD with continued tobaccoism: just started vaping as well 2. Acute on chronic diastolic CHF: COPD and possibly labile BP contributing. Compensated. EF and WM nml 3. Permanent AFIB: rate controlled 4. PPM in situ: V paced. [facility], 1-2 yrs battery life, does not record RVR episodes, permanent afib VVIR, normal function 5. PAD: clinically stable 6. HTN: now controlled 7. HLP: controlled 8. CAD; past stents clinically stable Recommendations 1. Continue with secondary prevention measures. BMP and Mg today. 2. Smoking and vaping cessation 3. Continue with xarelto for stroke prevention. BB. Encouraged HBPM 6, Lasix PRN 7. Will need outpt PFT testing for further treatment of COPD 8. Follow up in office as scheduled SANDRA POE MD 10/28/18 1515: CARDIO Progress Notes Plan Plan Pt. seen and examined. Agree with above NEW GRAD RN note. Continue supportive care. Will d/w nursing to given amlodipine to avoid afternoon high BP's. Cr stable. TAMEKA GONZALEZ APRN Oct 28, 2018 10:18 SANDRA POE MD Oct 28, 2018 15:15
[2018-10-28 11:00] VITALS: BP 149/63
[2018-10-28 11:20] LABS: CALCIUM 8.8 mg/dL (8.5-10.1); CREATININE 1.1 mg/dL (0.7-1.3); POTASSIUM 3.8 mmol/L (3.5-5.1)
[2018-10-28] MEDS: ANTI-COAG MONITOR BY PHARMACY. MC PRN (12:55)
[2018-10-28 14:57] VITALS: BP 145/69
[2018-10-28] MEDS: RIVAROXABAN 10 MG TABLET. PO SCH (17:29)
[2018-10-28 19:20] VITALS: BP 138/60
[2018-10-28] MEDS ORDERED: SERTRALINE 25 MG TABLET. PO SCH (21:00)
[2018-10-28] MEDS ORDERED: METOPROLOL SUCC 24HR ER 25 MG TAB.ER.24H. PO SCH (21:00)
[2018-10-28] MEDS: SIMVASTATIN 20 MG TABLET PO SCH (21:11)
[2018-10-28 23:41] VITALS: BP 152/70
[2018-10-29 02:59] VITALS: BP 134/71
[2018-10-29] MEDS: IPRATRPIUM/ALBUTEROL 0.5/2.5MG 3 ML NEBU. NEB SCH ×2 (04:00→08:00)
--- NOTE | 2018-10-29 05:22 | NUR ---
Critical BS-Patient girlfriend call to nurses station [id number], stated that something was wrong with patient. Upon assessment of patient he was cool and clammy, with slurred speech. Patient stated that he thinks his BS was low. Checked BS - 52. gave patient 1 amp D50 and patient requested an apple juice. rechecked BS at 0500 BS- 119. patient eating peanut butter crackers. stated " i am feeling a little better but when you fuck with a diabetics sugar like that it does bad things. it makes me feel like shit. These doctors don't know shit, you have to be a diabetic to know how to treat a diabetic." patient also stated that he likes his sugar around 180 and anything lower than that he starts to feel bad. Stated that he was going to be leaving today (10/29) wether the doctors were letting him go or not and that " i am going to keep doing things the way i was before"
[2018-10-29 07:00] VITALS: BP 161/69
[2018-10-29] MEDS: PREGABALIN 50 MG CAPSULE PO SCH (08:21)
[2018-10-29] MEDS: hydroCHLOROthiazide 25 MG TABLET PO SCH (08:22)
[2018-10-29] MEDS: POTASSIUM CHLORIDE 10 MEQ TABLET.ER. PO SCH (08:22)
[2018-10-29] MEDS: LOSARTAN POTASSIUM 50 MG TABLET. PO SCH (08:23)
[2018-10-29 08:24] VITALS: BP 161/69
[2018-10-29] MEDS: NICOTINE 21MG PATCH. TD PRN (08:24)
[2018-10-29] MEDS: POLYETHYLENE GLYCOL 3350 17 GM PACKET. PO PRN (08:24)
[2018-10-29] MEDS: amLODIPine BESYLATE 5 MG TABLET PO SCH (08:24)
[2018-10-29] MEDS: ALPRAZolam 0.5 MG TABLET PO PRN (08:24)
[2018-10-29] MEDS: INSULIN LISPRO 300 UNITS/3 ML INSULN.PEN. SQ SCH (08:48)
--- NOTE | 2018-10-29 08:55 | PDOC ---
Provider Note Provider Note [phone] DELROY BASS MD Oct 29, 2018 08:55
[2018-10-29] MEDS: INSULIN GLARGINE 300 UNITS/3 ML INSULN.PEN. SQ SCH (09:00)
[2018-10-29] MEDS ORDERED: predniSONE 20 MG TABLET PO SCH (09:00)
--- NOTE | 2018-10-29 11:00 | NUR ---
Discharge Note: [facility] [address] [place] Discharge instructions and discharge home medications reviewed with Patient and a copy given. All questions have been answered and understanding verbalized. The following instructions and handouts were given: diabetes and your heart and blood vessels, diabetes FAQ Discontinued IV Patient discharged to home with self care via wheelchair
--- NOTE | 2018-10-29 16:33 | DS ---
DATE OF DISCHARGE: 10/29/2018 HOSPITAL SUMMARY: A 68-year-old white male with known history of coronary artery disease, pacemaker dependent, bradycardia, atrial fibrillation and COPD of chronic tobacco abuse, came in with increasing shortness of breath. CBC and chemistry profile unremarkable. Hemoglobin A1c was high at 9.5. TSH normal. Cholesterol very low at 127. Chest x-ray showed no acute change. He was treated with IV steroids, followed by oral steroids and respiratory treatments and showed improvement. Metoprolol dose was reduced to try to lessen the pacemaker dependence and amlodipine was added for high blood pressure despite multiple meds he is on now. Insulin was increased because of high A1c and steroids, and his sugars were better and improved with greater dose of Lantus. Sertraline was added because of chronic anxiety and some PTSD based on his son's about 20 years ago that he is not fully resolved guilt issues with. He is comfortable to be followed as an outpatient at this point. FINAL DIAGNOSES: 1. Acute exacerbation of chronic obstructive pulmonary disease. 2. Poorly controlled type 2 diabetes mellitus. 3. Posttraumatic stress disorder with chronic anxiety. OPERATIONS, PROCEDURES AND COMPLICATIONS: None. CONSULTATIONS: Dr. Myles, Dr. Sanz. DISPOSITION: Increase his Levemir from 45-60 units twice a day. We will add amlodipine 5 mg a day, prednisone taper over 6 days, sertraline is added at 50 mg daily in advance of seeing Dr. Garner in 1 week to address his anxiety and PTSD. I strongly encouraged to consider outpatient counseling, which he will consider as well. He also has a need for total hip replacement on the right, and he is advised that both poorly controlled diabetes and tobacco use will prevent him from getting that surgery, so he is going to use Nicoderm patches and try not to smoke at this point. PROGNOSIS: Good. DELROY BASS MD DR: RIZWANA/gary JOB#: [id number] / [id number]
== END 2018-10-29 11:02 | disposition home or self-care (01) | DRG 190 ==
LOC: 2 NORTH 12:51
PROVIDERS: ADMIT Family Medicine; ATTEND Family Medicine
DX: J44.1 Chronic obstructive pulmonary disease with (acute) exacerbation (principal); I50.33 Acute on chronic diastolic (congestive) heart failure; I48.2 Chronic atrial fibrillation; I25.10 Atherosclerotic heart disease of native coronary artery without angina pectoris; E11.51 Type 2 diabetes mellitus with diabetic peripheral angiopathy without gangrene; F17.210 Nicotine dependence, cigarettes, uncomplicated; E78.5 Hyperlipidemia, unspecified; I11.0 Hypertensive heart disease with heart failure; I49.5 Sick sinus syndrome; M19.90 Unspecified osteoarthritis, unspecified site; F43.10 Post-traumatic stress disorder, unspecified; E11.65 Type 2 diabetes mellitus with hyperglycemia; Z79.4 Long term (current) use of insulin; Z88.0 Allergy status to penicillin; Z86.73 Personal history of transient ischemic attack (TIA), and cerebral infarction without residual deficits; Z95.0 Presence of cardiac pacemaker
CPT/HCPCS: 36415; 71046; 80048; 80053; 80061; 82962; 83036; 83735; 83880; 84443; 84484; 85025; 93005; 93306; 94640; 94760; 99406; J1815; J1940; J2930; J3475; J7042; J7512; J7620

== ENCOUNTER 2018-11-05 00:42 | Inpatient (IN) | payer MEDICARE ==
[2018-11-05] VITALS (7 sets, daily range): BP systolic 141–217; BP diastolic 66–93
[~2018-11-05] VITALS: Ht 182.9 cm; Wt 92.6 kg
[~2018-11-05 00:42] MED LIST changes: +INSU100I17 SQ; +METF10007 PO; +OMEP40CA5 PO; +POLY17PO29 PO
[2018-11-05] MEDS ORDERED: FAMOTIDINE 20 MG/2 ML VIAL IVP ONE (01:00)
[2018-11-05] MEDS ORDERED: ONDANSETRON PF 4 MG/2 ML VIAL. IV ONE ×2 (01:00→02:15)
[2018-11-05 01:08] LABS: BASO # 0.1 x10^3/uL (0.0-0.2); BASO % 1 % (0-3); EOS % 0 % (0-3); HEMATOCRIT 54.1 % (39.0-53.0); HEMOGLOBIN 18.2 g/dL (13.0-17.5); LYMPH # 2.7 x10^3/uL (1.0-4.8); LYMPH % 13 % (24-48); MEAN CORPUSCULAR HEMOGLOBIN 30 pg (25-35); MEAN CORPUSCULAR HGB CONC 34 g/dL (31-37); MEAN CORPUSCULAR VOLUME 89 fL (79-100); MONO # 1.9 x10^3/uL (0.0-1.1); MONO % 10 % (0-9); NEUT # 15.2 x10^3uL (1.8-7.7); NEUT % 76 % (31-73); PLATELET COUNT 323 x10^3/uL (140-400); RED BLOOD COUNT 6.06 x10^6/uL (4.30-5.70); RED CELL DISTRIBUTION WIDTH 13.9 % (11.5-14.5)
[2018-11-05] MEDS ORDERED: IV NORMAL SALINE 1000ML BAG 1,000 ML IV ONE ×2 (01:15→03:15)
[2018-11-05 01:16] LABS: PROTHROMBIN TIME PATIENT 20.3 SEC (11.7-14.0)
[2018-11-05 01:20] LABS: CALCIUM 9.7 mg/dL (8.5-10.1); CREATININE 0.9 mg/dL (0.7-1.3); GFR 84.4; POTASSIUM 3.8 mmol/L (3.5-5.1)
[2018-11-05 01:25] LABS: ALBUMIN 3.1 g/dL (3.4-5.0); ALBUMIN/GLOBULIN RATIO 0.7 (1.0-1.7); MAGNESIUM 1.6 mg/dL (1.8-2.4); TOTAL BILIRUBIN 0.5 mg/dL (0.2-1.0); TOTAL PROTEIN 7.8 g/dL (6.4-8.2)
[2018-11-05] MEDS ORDERED: CONTRAST GIVEN. MC PRN (01:30)
[2018-11-05] MEDS ORDERED: IOHEXOL 300 MG/ML 100ML VIAL. IV ONE (01:30)
[2018-11-05 01:32] LABS: % LYMPHS 12 % (24-48); % MONOS 9 % (0-10); % SEGS 79 % (35-66); CREATINE KINASE 39 U/L (39-308); PLT ESTIMATE ADEQUATE (ADEQUATE); TOXIC GRANULATION SLIGHT
--- NOTE | 2018-11-05 01:35 | RAD ---
CT head without contrast: Reason for examination: Nausea and vomiting. Facial droop. History of prior CVA. Axial images were obtained through the brain. No contrast was administered. Exposure: One or more of the following individualized dose reduction techniques were utilized for this examination: 1. Automated exposure control 2. Adjustment of the mA and/or kV according to patient size 3. Use of iterative reconstruction technique. Ventricular systems are symmetric and not abnormally dilated. There is some generalized cerebral atrophy present. No midline shift is seen. There is no evidence of intracranial hemorrhage, acute infarct, mass or edema. There is chronic infarct with some encephalomalacia in the left occipital lobe. There is some basal ganglia calcification present on the right. No abnormalities are seen at the orbits. The paranasal sinuses show a large amount of mucosal disease in the right maxillary antrum. The main the paranasal sinuses and mastoid air cells are clear. No acute abnormality seen in the skull. IMPRESSION: Cerebral atrophy. Chronic infarct with encephalomalacia in the left occipital lobe. No acute intracranial abnormality evident. This report was called to Dr. Dickerson in the emergency room at 01:32 on 11/05/2018. Electronically signed by: Ayaka Ross MD (11/05/2018 1:32 AM) [facility]
[2018-11-05 01:41] LABS: BILIRUBIN,URINE NEGATIVE (NEG); CLARITY,URINE CLEAR; COLOR,URINE YELLOW; NITRITE,URINE NEGATIVE (NEG); PH,URINE 6.5; PROTEIN,URINE >=300 mg/dL (NEG-TRACE)
[2018-11-05 01:45] LABS: SQUAMOUS EPITHELIAL CELL,UR OCC /LPF
[2018-11-05] MEDS ORDERED: LABETALOL 20 MG/4 ML DISP.SYRIN. IVP ONE ×2 (01:45→02:15)
[2018-11-05] MEDS ORDERED: NITROGLYCERIN OINT 1 GM PACKET. TP ONE (01:45)
[2018-11-05] MEDS ORDERED: fentaNYL PF VIAL 100 MCG/2 ML VIAL IV ONE (01:45)
[2018-11-05 01:46] LABS: BACTERIA,URINE 0 /HPF (0-FEW)
[2018-11-05] MEDS ORDERED: ASPIRIN RECTAL 300 MG SUPP. PR ONE (02:00)
[2018-11-05] MEDS ORDERED: MAGNESIUM SULFATE 2GM 50 ML IV ONE (02:00)
--- NOTE | 2018-11-05 02:03 | PHYS DOC ---
Past Medical History Past Medical History: Anxiety, CAD, COPD, CVA, Diabetes-Type II, High Cholesterol, Hypertension Additional Past Medical Histor: PTSD, PAD Past Surgical History: Pacemaker Additional Past Surgical Histo: Cardiac Stents, Leg bypass grafts Smoking: Cigarettes Alcohol Use: None Drug Use: None Adult General Chief Complaint Chief Complaint: NAUSEA/VOMITING/DIARRHA HPI HPI 68-year-old male presents with report of dizziness and weakness with associated nausea and vomiting which is been ongoing for the past 30 minutes to 1 hour prior to arrival. Patient reports he has vomited 3 times prior to arrival. EMS was called and gave patient 4 mg of Zofran. Patient reports some increased sweatiness. Denies fever or chills. Reports was recently admitted for COPD exacerbation. Patient was also seen today in the office by Dr. Garner and adri garcia on keflex for presumed right foot cellulitis. Patient reports he just doesn't fell well. Spouse reports he is not acting like himself tonight. Reports some right arm "cramping" discomfort. Reports history of prior CVA. Denies chest pain. Denies trauma. Denies headache. Review of Systems Review of Systems Constitutional: Denies fever or chills Eyes: Denies redness or eye pain HENT: Denies nasal congestion or sore throat Respiratory: Denies cough; reports shortness of breath Cardiovascular: Denies chest pain or palpitations GI: Denies abdominal pain; reports nausea and vomiting : Denies dysuria or hematuria Musculoskeletal: Denies back pain or joint pain Integument: Denies rash or skin lesions Neurologic: Denies headache; reports right arm cramping Complete systems were reviewed and found to be within normal limits, except as documented in this note. Current Medications Current Medications Current Medications Medications (Trade) Dose Ordered Sig/[facility] Start Time Stop Time Status Last Admin Dose Admin Aspirin (Aspirin Rectal Supp) 300 mg 1X ONCE 11/05/18 02:00 11/05/18 02:01 DC 11/05/18 02:37 300 MG Dextrose (Dextrose 50%-Water Syringe) 12.5 gm PRN Q15MIN PRN 11/05/18 02:45 Famotidine (Pepcid Vial) 20 mg 1X ONCE 11/05/18 01:00 11/05/18 01:01 DC 11/05/18 01:41 20 MG Fentanyl Citrate (Fentanyl 2ml Vial) 50 mcg 1X ONCE 11/05/18 01:45 11/05/18 01:55 DC 11/05/18 01:52 50 MCG Info (CONTRAST GIVEN -- Rx MONITORING) 1 each PRN DAILY PRN 11/05/18 01:30 11/07/18 01:29 Insulin Human Lispro (HumaLOG) 0-7 UNITS TIDWMEALS 11/05/18 08:00 UNV Iohexol (Omnipaque 300 Mg/ml) 75 ml 1X ONCE 11/05/18 01:30 11/05/18 01:31 DC 11/05/18 01:32 75 ML Labetalol HCl (Normodyne Iv Push) 10 mg PRN Q2HR PRN 11/05/18 02:45 Magnesium Sulfate 50 ml @ 25 mls/hr 1X ONCE 11/05/18 02:00 11/05/18 03:59 11/05/18 02:37 25 MLS/HR Nitroglycerin (Nitro-Bid Oint) 0.5 inch 1X ONCE 11/05/18 01:45 11/05/18 01:55 DC 11/05/18 01:51 0.5 INCH Ondansetron HCl (Zofran) 4 mg PRN Q8HRS PRN 11/05/18 02:45 11/06/18 02:44 Sodium Chloride 1,000 ml @ 1,000 mls/hr 1X ONCE 11/05/18 01:15 11/05/18 02:14 DC 11/05/18 01:38 1,000 MLS/HR Allergies Allergies Allergies Coded Allergies Type Severity Reaction Last Updated Verified Penicillins Allergy Intermediate RASH 02/12/18 Yes Physical Exam Physical Exam Constitutional: Well developed, well nourished, ill appearing HENT: Normocephalic, atraumatic, oropharynx dry, edentulous Eyes: PERRL, EOMI, conjunctiva normal, no discharge Neck: Normal range of motion, no tenderness, supple, no meningeal signs Cardiovascular: Heart rate normal, regular rhythm Lungs & Thorax: Bilateral breath sounds clear to auscultation, no wheezing Abdomen: Soft, mild distention, LLQ pain on palpation Skin: Clammy, diaphoresis Extremities: No tenderness, ROM intact, mild edema BLE, DP not palpable bilaterally (chronic per patient), right anterior foot erythema noted- hx of recent dx of foot cellulitis Neurologic: Alert and oriented X 3, slight drift to right arm and leg without touching, slurred speech (patient without his dentures) Psychologic: Affect flat, judgement normal Current Patient Data Vital Signs Vital Signs Date Time Temp Pulse Resp B/P (MAP) Pulse Ox O2 Delivery O2 Flow Rate FiO2 11/05/18 02:18 60 206/98 11/05/18 02:03 95 11/05/18 01:52 Room Air 11/05/18 00:51 98.0 98.0 Lab Values Laboratory Tests Test 11/05/18 00:51 11/05/18 01:30 White Blood Count 20.0 x10^3/uL (4.0-11.0) H Red Blood Count 6.06 x10^6/uL (4.30-5.70) H Hemoglobin 18.2 g/dL (13.0-17.5) H Hematocrit 54.1 % (39.0-53.0) H Mean Corpuscular Volume 89 fL (79-100) Mean Corpuscular Hemoglobin 30 pg (25-35) Mean Corpuscular Hemoglobin Concent 34 g/dL (31-37) Red Cell Distribution Width 13.9 % (11.5-14.5) Platelet Count 323 x10^3/uL (140-400) Neutrophils (%) (Auto) 76 % (31-73) H Lymphocytes (%) (Auto) 13 % (24-48) L Monocytes (%) (Auto) 10 % (0-9) H Eosinophils (%) (Auto) 0 % (0-3) Basophils (%) (Auto) 1 % (0-3) Neutrophils # (Auto) 15.2 x10^3uL (1.8-7.7) H Lymphocytes # (Auto) 2.7 x10^3/uL (1.0-4.8) Monocytes # (Auto) 1.9 x10^3/uL (0.0-1.1) H Eosinophils # (Auto) 0.0 x10^3/uL (0.0-0.7) Basophils # (Auto) 0.1 x10^3/uL (0.0-0.2) Segmented Neutrophils % 79 % (35-66) H Lymphocytes % 12 % (24-48) L Monocytes % 9 % (0-10) Toxic Granulation Slight Platelet Estimate Adequate (ADEQUATE) Prothrombin Time 20.3 SEC (11.7-14.0) H Prothrombin Time INR 1.8 (0.8-1.1) H PTT 30 SEC (24-38) Sodium Level 138 mmol/L (136-145) Potassium Level 3.8 mmol/L (3.5-5.1) Chloride Level 97 mmol/L (98-107) L Carbon Dioxide Level 29 mmol/L (21-32) Anion Gap 12 (6-14) Blood Urea Nitrogen 28 mg/dL (8-26) H Creatinine 0.9 mg/dL (0.7-1.3) Estimated GFR (Cockcroft-Gault) 84.4 BUN/Creatinine Ratio 31 (6-20) H Glucose Level 233 mg/dL (70-99) H Calcium Level 9.7 mg/dL (8.5-10.1) Magnesium Level 1.6 mg/dL (1.8-2.4) L Total Bilirubin 0.5 mg/dL (0.2-1.0) Aspartate Amino Transferase (AST) 24 U/L (15-37) Alanine Aminotransferase (ALT) 40 U/L (16-63) Alkaline Phosphatase 144 U/L (46-116) H Creatine Kinase 39 U/L (39-308) Creatine Kinase MB (Mass) 2.4 ng/mL (0.0-3.6) Creatine Kinase MB Relative Index % (0-4) Troponin I Quantitative 0.028 ng/mL (0.000-0.055) QQ-Gvu-I-Type Natriuretic Peptide 659 pg/mL (0-124) H Total Protein 7.8 g/dL (6.4-8.2) Albumin 3.1 g/dL (3.4-5.0) L Albumin/Globulin Ratio 0.7 (1.0-1.7) L Lipase 224 U/L (73-393) Urine Collection Type Unknown Urine Color Yellow Urine Clarity Clear Urine pH 6.5 Urine Specific [place] 1.020 Urine Protein >=300 mg/dL (NEG-TRACE) Urine Glucose (UA) >=1000 mg/dL (NEG) Urine Ketones (Stick) Negative mg/dL (NEG) Urine Blood Moderate (NEG) Urine Nitrite Negative (NEG) Urine Bilirubin Negative (NEG) Urine Urobilinogen Dipstick 1.0 mg/dL (0.2 mg/dL) Urine Leukocyte Esterase Trace (NEG) Urine RBC 11-20 /HPF (0-2) Urine WBC 1-4 /HPF (0-4) Urine Squamous Epithelial Cells Occ /LPF Urine Bacteria 0 /HPF (0-FEW) Urine Mucus Slight /LPF Laboratory Tests 11/05/18 00:51 Laboratory Tests 11/05/18 00:51 EKG EKG @0053 Paced rhythm at 60bpm @0131 Paced rhythm at 60bpm Radiology/Procedures Radiology/Procedures PROCEDURE: CT CODE STROKE HEAD WO CT head without contrast: Reason for examination: Nausea and vomiting. Facial droop. History of prior CVA. Axial images were obtained through the brain. No contrast was administered. Exposure: One or more of the following individualized dose reduction techniques were utilized for this examination: 1. Automated exposure control 2. Adjustment of the mA and/or kV according to patient size 3. Use of iterative reconstruction technique. Ventricular systems are symmetric and not abnormally dilated. There is some generalized cerebral atrophy present. No midline shift is seen. There is no evidence of intracranial hemorrhage, acute infarct, mass or edema. There is chronic infarct with some encephalomalacia in the left occipital lobe. There is some basal ganglia calcification present on the right. No abnormalities are seen at the orbits. The paranasal sinuses show a large amount of mucosal disease in the right maxillary antrum. The main the paranasal sinuses and mastoid air cells are clear. No acute abnormality seen in the skull. IMPRESSION: Cerebral atrophy. Chronic infarct with encephalomalacia in the left occipital lobe. No acute intracranial abnormality evident. This report was called to Dr. Hong in the emergency room at 01:32 on 11/05/2018. Electronically signed by: Ayaka Ross MD (11/05/2018 1:32 AM) [facility] PROCEDURE: CT CHEST ABD PELVIS W/CONTRAST CT chest, abdomen and pelvis with contrast: Reason for examination: Nausea and vomiting. Helical images were obtained through the chest abdomen and pelvis with intravenous administration of 75 cc Omnipaque 300. Reconstruction was performed in sagittal and coronal planes. Exposure: One or more of the following individualized dose reduction techniques were utilized for this examination: 1. Automated exposure control 2. Adjustment of the mA and/or kV according to patient size 3. Use of iterative reconstruction technique. No abnormality seen at the thyroid gland. The trachea and mainstem bronchi show no intraluminal lesions. No abnormality seen at the esophagus. The thoracic aorta shows no aneurysmal dilatation or dissection. The heart size is normal with no pericardial effusion. The lung mejia show some small bulla in the upper lobes bilaterally. There is dependent atelectasis. No consolidative infiltrates or pleural effusions are seen. No pneumothorax is present. There are hypertrophic changes in the spine but no acute bony abnormalities are seen. Pacemaker is present over the left hemithorax. No abnormality seen at the liver, gallbladder, spleen, adrenal glands or pancreas. No acute abnormality is seen at the abdominal aorta or inferior vena cava. The stomach is not distended and shows no wall thickening. The small intestinal tract shows no wall thickening dilatation or evidence of obstruction. There is no evidence of diverticulosis, diverticulitis or colitis. No abnormality seen at the appendix. The kidneys show no renal masses, renal calculi, hydronephrosis or evidence of obstructive uropathy. No abnormality seen at the bladder. The prostate gland is enlarged and contains calcifications. No abnormalities are seen at the seminal vesicles. There is no evidence of free fluid or free air in the abdomen or pelvis. There are some hypertrophic changes in the spine but no acute bony abnormalities are seen. IMPRESSION: Small bullous changes in the upper lobes of the lungs bilaterally. Prostate gland is enlarged and contains calcification. No other acute abnormality seen in the chest, abdomen or pelvis. Electronically signed by: Ayaka Ross MD (11/05/2018 2:24 AM) [facility] Course & Med Decision Making Course & Med Decision Making Pertinent Labs and Imaging studies reviewed. (See chart for details) Patient presents with report of N/V and weakness. Patient appears to have increased weakness on right. Also with some slurred speech although patient is without dentures which he normally speaks with. NIHSS 5. CT head without acute process/hemorrhage. Patient not TPA candidate due to Xarelto use. CT chest/abd/pelvis without acute process. Labs obtained and posted to chart. Magnesium replaced. Leukocytosis with elevated hemoglobin noted. Patient recently started on antibiotics. IVF hydration given. Significantly elevated blood pressure also noted. Labetalol provided. Patient requiring admission for further evaluation and treatment. Discussed with Dr. Gannon (PCP) who is in agreement with admission. Discussed findings and plan with patient and family, who acknowledge understanding and agreement. Dragon Disclaimer Dragon Disclaimer This electronic medical record was generated, in whole or in part, using a voice recognition dictation system. Departure Departure Impression: Primary Impression: Hypertensive urgency Additional Impressions: Weakness Leukocytosis Nausea & vomiting Cellulitis of foot, right Hypomagnesemia Disposition: ADMITTED INPATIENT Admitting Physician: Martir Gannon Condition: GUARDED Referrals: ILIR GARNER MD (PCP) NIHSS Stroke Scale NIH Stroke Scale: NIH Stroke Scale Response (Comments) Value Level of Consciousness: 0 Alert/Responsive 0 LOC Questions: 0 Answers both correctly 0 Best Gaze: 0 Normal 0 Visual: 0 No visual loss 0 Facial Palsy: 1 Minor paralysis (right sided) 1 Motor - Left Arm 0 No drift 0 Motor - Right Arm 1 Drifts but can hold 1 Motor - Left Leg 0 No drift 0 Motor: Right Leg 1 Drift but can hold 1 Limb Ataxia: 1 One limb 1 Sensory: 0 No loss 0 Best Language: 0 Normal 0 Dysathria: 1 Mild to moderate 1 Extinction and Inattention: 0 Normal 0 Total 5 Critical Care Time Critical care time was 30 minutes which includes time at bedside, spent in discussion of patient's care with specialists and/or family members, with interpretation of laboratory and/or radiological studies and is exclusive of procedures. Problem Qualifiers Additional Impressions: Leukocytosis Leukocytosis type: unspecified Qualified Codes: D72.829 - Elevated white blood cell count, unspecified Nausea & vomiting Vomiting type: unspecified Vomiting Intractability: unspecified Qualified Codes: R11.2 - Nausea with vomiting, unspecified MARY GRACE HONG DO Nov 05, 2018 02:02
--- NOTE | 2018-11-05 02:27 | RAD ---
CT chest, abdomen and pelvis with contrast: Reason for examination: Nausea and vomiting. Helical images were obtained through the chest abdomen and pelvis with intravenous administration of 75 cc Omnipaque 300. Reconstruction was performed in sagittal and coronal planes. Exposure: One or more of the following individualized dose reduction techniques were utilized for this examination: 1. Automated exposure control 2. Adjustment of the mA and/or kV according to patient size 3. Use of iterative reconstruction technique. No abnormality seen at the thyroid gland. The trachea and mainstem bronchi show no intraluminal lesions. No abnormality seen at the esophagus. The thoracic aorta shows no aneurysmal dilatation or dissection. The heart size is normal with no pericardial effusion. The lung mejia show some small bulla in the upper lobes bilaterally. There is dependent atelectasis. No consolidative infiltrates or pleural effusions are seen. No pneumothorax is present. There are hypertrophic changes in the spine but no acute bony abnormalities are seen. Pacemaker is present over the left hemithorax. No abnormality seen at the liver, gallbladder, spleen, adrenal glands or pancreas. No acute abnormality is seen at the abdominal aorta or inferior vena cava. The stomach is not distended and shows no wall thickening. The small intestinal tract shows no wall thickening dilatation or evidence of obstruction. There is no evidence of diverticulosis, diverticulitis or colitis. No abnormality seen at the appendix. The kidneys show no renal masses, renal calculi, hydronephrosis or evidence of obstructive uropathy. No abnormality seen at the bladder. The prostate gland is enlarged and contains calcifications. No abnormalities are seen at the seminal vesicles. There is no evidence of free fluid or free air in the abdomen or pelvis. There are some hypertrophic changes in the spine but no acute bony abnormalities are seen. IMPRESSION: Small bullous changes in the upper lobes of the lungs bilaterally. Prostate gland is enlarged and contains calcification. No other acute abnormality seen in the chest, abdomen or pelvis. Electronically signed by: Ayaka Ross MD (11/05/2018 2:24 AM) [facility]
[2018-11-05] MEDS ORDERED: DEXTROSE 50% 25 GM / 50ML DISP.SYRIN. IV PRN (02:45)
[2018-11-05] MEDS ORDERED: LABETALOL 20 MG/4 ML DISP.SYRIN. IVP PRN (02:45)
[2018-11-05] MEDS ORDERED: ONDANSETRON PF 4 MG/2 ML VIAL. IV PRN (02:45)
[2018-11-05] MEDS ORDERED: METOCLOPRAMIDE HCL 10 MG/2 ML VIAL. IV ONE (03:30)
[2018-11-05] MEDS ORDERED: diphenhydrAMINE 50 MG/ML VIAL IVP ONE (03:30)
--- NOTE | 2018-11-05 04:00 | NUR ---
Pt was admitted from ER with c/o n/v, weakness, htn crisis. Pt is lethargic, speech is slurred and visual assessment shows right side facial drop, RUE/RLE weakness. Pt's family states pt started vomiting at home and continued to in the ER. Unable to assess neuro function, but pupils are unequal bilaterally and sluggish to stimulus. Pt has no c/o pain, is currently on 3L NC, will titrate down, Vpaced on telemetry with aflutter. Pt was started on keflex for possible right foot cellulitis, med reconciled, Dr. Gannon/Patsy, to restart meds in a.m. Bed in low/locked position, bed alarm activated, VSS, will continue to monitor for status changes.
[2018-11-05] MEDS ORDERED: FURO20TA3 PO (05:34)
[2018-11-05] MEDS ORDERED: ALPR0.5T6 PO (05:34)
[2018-11-05] MEDS ORDERED: PRED20TA PO (05:34)
[2018-11-05] MEDS ORDERED: CEPH500T PO (05:34)
[2018-11-05] MEDS ORDERED: SERT50TA PO (05:34)
[2018-11-05] MEDS ORDERED: MAGN400T22 PO (05:34)
--- NOTE | 2018-11-05 05:57 | EKG ---
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
[2018-11-05] MEDS: INSULIN LISPRO 300 UNITS/3 ML INSULN.PEN. SQ SCH ×3 (08:18→17:43)
--- NOTE | 2018-11-05 08:29 | PDOC ---
Provider Note Provider Note [id number] DELROY BASS MD Nov 05, 2018 08:29
--- NOTE | 2018-11-05 08:58 | HP ---
ADMIT DATE: 11/05/2018 CHIEF COMPLAINT: Right-sided weakness and aphasia. HISTORY OF PRESENT ILLNESS: A 68-year-old white male with known COPD, poorly controlled diabetes and atrial fibrillation, takes Xarelto and other meds, but his A1c was 9.5 last week when in the hospital for COPD exacerbation. He developed the abrupt onset of right-sided weakness, nausea, vomiting and aphasia during the night. CT scan showed no sign of intracranial bleed or tumor. He was admitted, but did not get TPA because he is already taking Xarelto. PAST MEDICAL HISTORY: Well documented in the old record. He has a pacemaker in place. ALLERGIES: HE HAS ALLERGIES TO PENICILLIN. MEDICATIONS: He is on multiple meds including insulin, but has been poorly compliant in the past. SOCIAL HISTORY: Heavy smoker, , employed, nondrinker. FAMILY HISTORY: Unremarkable. REVIEW OF SYSTEMS: No other known problems except for red, painful foot. He reports he was seen on the day of admission in the office and felt to be a degree of cellulitis. OBJECTIVE: HEENT: He has right-sided lower facial weakness. Pupils round and reactive. EOMs are full. Pharynx is clear. NECK: Revealed no carotid bruits, nodes or thyroid enlargement. LUNGS: Clear with faint wheezes noted and no tachypnea. CARDIOVASCULAR: Irregular rate, pacemaker dependent at 60. ABDOMEN: Benign, soft, nontender. NEUROLOGIC: He is not moving his right arm at all. He can move his right leg somewhat. He has some aphasia and right-sided facial weakness. No upper motor neuron signs are seen. ASSESSMENT: Left-sided cerebrovascular accident with secondary aphasia and right-sided hemiparesis. Risk factors include poorly controlled diabetes, tobacco abuse, chronic obstructive pulmonary disease and hypertension. He is on Xarelto for atrial fibrillation, though compliance is unknown. PLAN: Full stroke evaluation, n.p.o., IV fluids, insulin, labetalol. Family was counseled regarding a very guarded prognosis at this point. DELROY BASS MD DR: RIZWANA/gary JOB#: [id number] / [id number]
[2018-11-05] MEDS: IV 1/2 NORMAL SALINE 1,000 ML IV SCH ×2 (09:20→18:30)
[2018-11-05] MEDS: ASPIRIN RECTAL 300 MG SUPP. PR SCH (09:20)
[2018-11-05] MEDS: INSULIN GLARGINE 300 UNITS/3 ML INSULN.PEN. SQ SCH (09:27)
[2018-11-05] MEDS: LIDOCAINE (700MG/PATCH) PATCH. TD SCH (09:30)
[2018-11-05] MEDS: LABETALOL 20 MG/4 ML DISP.SYRIN. IVP PRN (11:11)
--- NOTE | 2018-11-05 11:43 | PDOC2 ---
TAMEKA GONZALEZ RADIOSONDE SPECIALIST 11/05/18 1143: CARDIAC CONSULT DATE OF CONSULT Date of Consult DATE: 11/05/18 TIME: 11:15 REASON FOR CONSULT Reason for Consult: HTn urgency REFERRING PHYSICIAN Referring Physician: Jayla SOURCE Source: Caregiver (spouse), Chart review HISTORY OF PRESENT ILLNESS HISTORY OF PRESENT ILLNESS This is a 68 yo male admitted for intractable vomiting. He is known to me treated recently for CHF and COPD. His BP at that time was erratic but improved after treatment adjustment. He has been having intractable vomiting in the last 24 hours but no fever and no diarrhea. No chest pain, SOA but noted with coughing spells. He was also noted with possible weakness to his RUE. P resently he is able to follow commands, talk with slightly slurred speech and with left facial droop which the mentioned that the speech is not new but the right facial appears to not move as well and spouse explain the droop possibly from not having his dentures. His RUE weakness which is now a little better per spouse. His spouse was hospitalized from Thursday to Thursday and he was taken care of by other family members. During that time he has refused his meds telling everyone he wants to wait for his and also has been smoking more spouse explaining he may have been stress out from her being in the hospital. He was given prednisone Rx but did not get started wtill this Thursday to which his BG have been high. He also was noted with right foot cellulitis and did not get started on keflex till yesterday. His BP has been high mentioning it was in the 200s on SBP. PAST MEDICAL HISTORY Past Medical History Cardiovascular: AFIB, CAD, HTN, Hyperlipidemia, Other (PAD; SSS) Pulmonary: No pertinent hx CENTRAL NERVOUS SYSTEM: CVA GI: No pertinent hx Heme/Onc: No pertinent hx Hepatobiliary: No pertinent hx Psych: No pertinent hx Musculoskeletal: Osteoarthritis Rheumatologic: No pertinent hx Infectious disease: No pertinent hx ENT: No pertinent hx Renal/: Other (ED) Endocrine: Diabetes (2) Dermatology: No pertinent hx PAST SURGICAL HISTORY Past Surgical History Pacemaker, Other ([employer]LE [employer]NER/stent, PCI/stents) FAMILY HISTORY Family History noncontributory to CV SOCIAL HISTORY Social History Smoke: <1 pack per day ALCOHOL: occassional Drugs: None Lives: with Family CURRENT MEDICATIONS CURRENT MEDICATIONS Current Medications Medications (Trade) Dose Ordered Sig/Joi Route PRN Reason Start Time Stop Time Status Last Admin Dose Admin Ondansetron HCl (Zofran) 4 mg 1X ONCE IV 11/05/18 01:00 11/05/18 01:01 DC 11/05/18 01:41 Famotidine (Pepcid Vial) 20 mg 1X ONCE IVP 11/05/18 01:00 11/05/18 01:01 DC 11/05/18 01:41 Sodium Chloride 1,000 ml @ 1,000 mls/hr 1X ONCE IV 11/05/18 01:15 11/05/18 02:14 DC 11/05/18 01:38 Iohexol (Omnipaque 300 Mg/ml) 75 ml 1X ONCE IV 11/05/18 01:30 11/05/18 01:31 DC 11/05/18 01:32 Labetalol HCl (Normodyne Iv Push) 20 mg 1X ONCE IVP 11/05/18 01:45 11/05/18 01:46 DC 11/05/18 01:38 Aspirin (Aspirin Rectal Supp) 300 mg 1X ONCE HI 11/05/18 02:00 11/05/18 02:01 DC 11/05/18 02:37 Fentanyl Citrate (Fentanyl 2ml Vial) 50 mcg 1X ONCE IV 11/05/18 01:45 11/05/18 01:55 DC 11/05/18 01:52 Nitroglycerin (Nitro-Bid Oint) 0.5 inch 1X ONCE TP 11/05/18 01:45 11/05/18 01:55 DC 11/05/18 01:51 Magnesium Sulfate 50 ml @ 25 mls/hr 1X ONCE IV 11/05/18 02:00 11/05/18 03:59 DC 11/05/18 02:37 Ondansetron HCl (Zofran) 4 mg 1X ONCE IV 11/05/18 02:15 11/05/18 02:16 DC 11/05/18 02:08 Labetalol HCl (Normodyne Iv Push) 20 mg 1X ONCE IVP 11/05/18 02:15 11/05/18 02:16 DC 11/05/18 02:18 Insulin Human Lispro (HumaLOG) 0-7 UNITS TIDWMEALS SQ 11/05/18 08:00 11/05/18 08:18 Labetalol HCl (Normodyne Iv Push) 10 mg PRN Q2HR PRN IVP ELEVATED BP, SEE COMMENTS 11/05/18 02:45 11/05/18 08:28 DC 11/05/18 08:10 Sodium Chloride 1,000 ml @ 100 mls/hr 1X ONCE IV 11/05/18 03:15 11/05/18 13:14 11/05/18 03:16 Metoclopramide HCl (Reglan Vial) 10 mg 1X ONCE IV 11/05/18 03:30 11/05/18 03:31 DC 11/05/18 03:37 Diphenhydramine HCl (Benadryl) 25 mg 1X ONCE IVP 11/05/18 03:30 11/05/18 03:31 DC 11/05/18 03:37 Labetalol HCl (Normodyne Iv Push) 20 mg PRN Q2HR PRN IVP HYPERTENSION 11/05/18 08:30 11/05/18 11:11 Insulin Glargine (Lantus) 30 units DAILY SQ 11/05/18 09:00 11/05/18 09:27 Sodium Chloride 1,000 ml @ 100 mls/hr Q10H IV 11/05/18 08:30 11/05/18 09:20 Aspirin (Aspirin Rectal Supp) 300 mg DAILY HI 11/05/18 09:00 11/05/18 09:20 Lidocaine (Lidoderm) 1 patch DAILY TD 11/05/18 09:30 11/05/18 09:30 ALLERGIES ALLERGIES: Coded Allergies: Penicillins (Verified Allergy, Intermediate, RASH, 02/12/18) ROS Review of System limited due to mentation, details given by spouse PHYSICAL EXAM General: No acute distress, Other (drowsy) HEENT: Atraumatic, Mucous membr. moist/pink, Other (left facial droop) Lungs: Clear to auscultation, Normal air movement Heart: Other (Paced with underlying AFIB rate controlled) Extremities: Other (right foot cellulitis, trace edema 2+ pedal pulse) Neuro: Sensation intact, Other (mils slurred speech) Psych/Mental Status: Other (drowsy) MUSCULOSKELETAL: Osteoarthritic changes both hands, Other (right arm weakness) VITALS VITALS Vital Signs Date Time Temp Pulse Resp B/P (MAP) Pulse Ox O2 Delivery O2 Flow Rate FiO2 11/05/18 11:11 60 178/83 11/05/18 11:00 98.0 18 96 Nasal Cannula 2.0 98.0 LABS Lab: Laboratory Tests Test 11/05/18 00:51 11/05/18 01:10 11/05/18 01:30 11/05/18 03:00 White Blood Count 20.0 x10^3/uL (4.0-11.0) Red Blood Count 6.06 x10^6/uL (4.30-5.70) Hemoglobin 18.2 g/dL (13.0-17.5) Hematocrit 54.1 % (39.0-53.0) Mean Corpuscular Volume 89 fL (79-100) Mean Corpuscular Hemoglobin 30 pg (25-35) Mean Corpuscular Hemoglobin Concent 34 g/dL (31-37) Red Cell Distribution Width 13.9 % (11.5-14.5) Platelet Count 323 x10^3/uL (140-400) Neutrophils (%) (Auto) 76 % (31-73) Lymphocytes (%) (Auto) 13 % (24-48) Monocytes (%) (Auto) 10 % (0-9) Eosinophils (%) (Auto) 0 % (0-3) Basophils (%) (Auto) 1 % (0-3) Neutrophils # (Auto) 15.2 x10^3uL (1.8-7.7) Lymphocytes # (Auto) 2.7 x10^3/uL (1.0-4.8) Monocytes # (Auto) 1.9 x10^3/uL (0.0-1.1) Eosinophils # (Auto) 0.0 x10^3/uL (0.0-0.7) Basophils # (Auto) 0.1 x10^3/uL (0.0-0.2) Segmented Neutrophils % 79 % (35-66) Lymphocytes % 12 % (24-48) Monocytes % 9 % (0-10) Toxic Granulation Slight Platelet Estimate Adequate (ADEQUATE) Prothrombin Time 20.3 SEC (11.7-14.0) Prothromb Time International Ratio 1.8 (0.8-1.1) Activated Partial Thromboplast Time 30 SEC (24-38) Sodium Level 138 mmol/L (136-145) Potassium Level 3.8 mmol/L (3.5-5.1) Chloride Level 97 mmol/L (98-107) Carbon Dioxide Level 29 mmol/L (21-32) Anion Gap 12 (6-14) Blood Urea Nitrogen 28 mg/dL (8-26) Creatinine 0.9 mg/dL (0.7-1.3) Estimated GFR (Cockcroft-Gault) 84.4 BUN/Creatinine Ratio 31 (6-20) Glucose Level 233 mg/dL (70-99) Calcium Level 9.7 mg/dL (8.5-10.1) Magnesium Level 1.6 mg/dL (1.8-2.4) Total Bilirubin 0.5 mg/dL (0.2-1.0) Aspartate Amino Transf (AST/SGOT) 24 U/L (15-37) Alanine Aminotransferase (ALT/SGPT) 40 U/L (16-63) Alkaline Phosphatase 144 U/L (46-116) Creatine Kinase 39 U/L (39-308) Creatine Kinase MB (Mass) 2.4 ng/mL (0.0-3.6) Creatine Kinase MB Relative Index % (0-4) Troponin I Quantitative 0.028 ng/mL (0.000-0.055) PH-Fpl-S-Type Natriuretic Peptide 659 pg/mL (0-124) Total Protein 7.8 g/dL (6.4-8.2) Albumin 3.1 g/dL (3.4-5.0) Albumin/Globulin Ratio 0.7 (1.0-1.7) Lipase 224 U/L (73-393) Glucose (Fingerstick) 196 mg/dL (70-99) Urine Collection Type Unknown Urine Color Yellow Urine Clarity Clear Urine pH 6.5 Urine Specific [place] 1.020 Urine Protein >=300 mg/dL (NEG-TRACE) Urine Glucose (UA) >=1000 mg/dL (NEG) Urine Ketones (Stick) Negative mg/dL (NEG) Urine Blood Moderate (NEG) Urine Nitrite Negative (NEG) Urine Bilirubin Negative (NEG) Urine Urobilinogen Dipstick 1.0 mg/dL (0.2 mg/dL) Urine Leukocyte Esterase Trace (NEG) Urine RBC 11-20 /HPF (0-2) Urine WBC 1-4 /HPF (0-4) Urine Squamous Epithelial Cells Occ /LPF Urine Bacteria 0 /HPF (0-FEW) Urine Mucus Slight /LPF Lactic Acid Level 2.1 mmol/L (0.4-2.0) Test 11/05/18 04:10 11/05/18 05:25 11/05/18 07:30 11/05/18 09:15 Glucose (Fingerstick) 232 mg/dL (70-99) 292 mg/dL (70-99) Lactic Acid Level 2.3 mmol/L (0.4-2.0) Troponin I Quantitative 0.059 ng/mL (0.000-0.055) 0.050 ng/mL (0.000-0.055) ASSESSMENT/PLAN ASSESSMENT/PLAN 1. Hypertensive encephalopathy vs CVA syndrome: Hx of CVA. neurology consulted. CT head negative for acute issues 2. Intractable vomiting: possibly from high BP 3. Malignant HTN: partly due to missed meds for several days, steroid initiation 4. Right foot cellulitis/leukocytosis: 2+pedal pulse. Per PCP 5. COPD with vaping and recently got started back with heavy tobacco use per spouse. 6. Anxiety 7. Permanent AFIB: V paced and rate controlled. Unclear if any missed xarelto. See HPI. 8. PPM in situ: [facility] [place]. recent interrogation with normal function 9. CAD; Clinically stable 10. DM2/HLP 11. Hx of PAD 12. Lactic acidosis with dehydration and cellulitis 13. Mild trop elevation peaked at 0.059, no EKG changes. CP free. Type 2 demand mediated. Assessment 1. Presently NPO and awaiting swallow eval. 2. Restart xarelto for stroke prevention if PO initiated otherwise will need IV anticoagulation pending neuro workup. Secondary prevention measures. 3. IV lopressor for now and change to PO when able. Vasotec IV while off home ARB. Labetolol IV PRN. NTG paste if BP remains labile 4. IVF 5. Discussed with RN, titrate BP meds per trend. SANDRA POE MD 11/08/18 1459: CARDIAC CONSULT ASSESSMENT/PLAN ASSESSMENT/PLAN Late entry for 11/05/2018 Pt. seen and examined. Agree with above LITIGATION LEGAL ASSISTANT note. Supportive care from CV standpoint. TAMEKA GONZALEZ APRN Nov 05, 2018 11:43 SANDRA POE MD Nov 08, 2018 14:59
[2018-11-05] MEDS: NITROGLYCERIN OINT 1 GM PACKET. TP SCH ×3 (12:00→23:53)
[2018-11-05] MEDS: METOPROLOL TARTRATE 5 MG/5 ML VIAL. IVP SCH ×2 (12:00→17:54)
--- NOTE | 2018-11-05 12:12 | NUR ---
Per patient family (significant other) request, 20 units Lantus given for morning blood glucose 292.
--- NOTE | 2018-11-05 12:35 | NUR ---
SS following for discharge planning. SS reviewed pt chart. Pt is from home and is currently requiring oxygen. No discharge needs noted at this time. SS will continue to follow for discharge planning.
[2018-11-05] MEDS: KETOROLAC 30 MG/ML VIAL. IV PRN (12:40)
[2018-11-05] MEDS: ENALAPRILAT 1.25 MG/ML VIAL. IVP SCH ×2 (12:42→18:11)
[2018-11-05 12:43] LABS: BARBITURATES NEG (NEG); BENZODIAZEPINES NEG (NEG); CANNABINOIDS NEG (NEG); COCAINE NEG (NEG); METHADONE NEG (NEG); OPIATES NEG (NEG); PHENCYCLIDINE NEG (NEG)
[2018-11-05 12:46] LABS: AMPHETAMINE/METHAMPHETAMINE NEG (NEG)
[2018-11-05] MEDS: ceFAZolin SODIUM IV Push 1 GM VIAL. IVP SCH ×2 (13:44→20:56)
[2018-11-05] MEDS ORDERED: BARIUM SULFATE 40% (APPLE) 148 GM PWD. PO ONE (13:45)
--- NOTE | 2018-11-05 14:48 | RAD ---
Video dysphasia study, 11/05/2018: HISTORY: Dysphasia, possible aspiration The swallowing mechanism was examined fluoroscopically in the lateral projection while the patient ingested a variety of food materials mixed with barium. 3.0 minutes of fluoroscopy time was utilized. One video fluoroscopic loop was recorded by a member of the speech Department. When ingesting the honey thickened material there was a delay in initiation of pharyngeal peristalsis. This resulted in laryngeal penetration with intermittent denzel aspiration. The chin tuck maneuver did not decrease the laryngeal penetration. We did not attempt swallows with the thin liquid or nectar consistency material. When the patient ingested the pureed material the laryngeal penetration abated with no further aspiration. When ingesting the barium coated solids there was a moderate delay in initiation of pharyngeal peristalsis. There was moderate residue following swallowing. IMPRESSION: Laryngeal penetration and intermittent aspiration of the honey thickened material. No aspiration was observed with the pureed material.
--- NOTE | 2018-11-05 15:31 | RAD ---
Right foot, 2 views, 11/05/2018: HISTORY: Cellulitis No fracture or destructive bony lesion is seen. There are mild scattered degenerative changes particularly at the mid foot level. There is mild inferior and posterior marginal spurring. Arterial calcifications are present. There is mild subcutaneous edema. IMPRESSION: No acute bony abnormality is detected. Electronically signed by: Bart Mcmullen MD (11/05/2018 3:29 PM) [facility]
--- NOTE | 2018-11-05 15:33 | PDOC2 ---
NEUROLOGY CONSULT Date of Admission Date of Admission DATE: 11/05/18 TIME: 15:18 Reason for Consult Reason for Consult: IMPRESSION: Increased weakness in right side UE and LE. Slurred speech. CVA syndrome. Metabolic encephalopathy. Dizziness. Leukocytosis. Vomiting. 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 Dysphagia. CAD s/p stent placement. DM. COPD. HTN. HLD. PAD. Pace maker in site. RECOMMENDATIONS/PLAN: ASA 300 mg rectal, change to PO when can swallow. Repeat HCT on 11/06/18. Lab: see orders. Treat medical diseases. No MRI due to pacemaker. Discussed with his -to-be at bedside on 11/05/18. HISTORY OF THE PRESENT ILLNESS: This is a 68-y-old male patient with above medical diseases and old stroke in left occipital lobe per HCT and consequence of right side hemiparesis. He was noted increased weakness in his right and slurred speech on 11/04/18, but his symptoms improved in some degree on 11/05/18. He has intractable vomiting in the last 24 hours but no fever and no diarrhea. PAST MEDICAL HISTORY Cardiovascular: AFIB, CAD, HTN, Hyperlipidemia, Other (PAD; SSS) Pulmonary: No pertinent hx CENTRAL NERVOUS SYSTEM: CVA GI: No pertinent hx Heme/Onc: No pertinent hx Hepatobiliary: No pertinent hx Psych: No pertinent hx Musculoskeletal: Osteoarthritis Rheumatologic: No pertinent hx Infectious disease: No pertinent hx ENT: No pertinent hx Renal/: Other (ED) Endocrine: Diabetes (2) Dermatology: No pertinent hx PAST SURGICAL HISTORY Pacemaker, Other ([employer]/stent, PCI/stents) FAMILY HISTORY Noncontributory to CV ALLERGIES Coded Allergies: Penicillins (Verified Allergy, Intermediate, RASH, 02/12/18) SOCIAL HISTORY Smoke: <1 pack per day ALCOHOL: occassional Drugs: None Lives: with Family MEDICATIONS: Refer to MAR REVIEW OF SYSTEMS: Constitutional: No malnutrition, weight loss, cachexia. Head: No traumatic brain or head injury. Skin: No edema, or rash. Ear: No infection. Eyes: No vision loss or color blindness. Nose: No bleeding or purulent discharges. Hearing: Hearing decrease. Neck: No injury. Cardiac: CAD, Pacemaker Placement, HTN, HLD. Pulmonary: No COPD. GI: Vomiting.. Urinary/genital: UTI. Endocrinologic: Diabetes Mellitus. Skeletomuscular: No muscular atrophy, deformity. Neurological: see HP. Psychiatric: Denies drug use/abuse. Otherwise, not [id number] review of systems. PHYSICAL EXAMINATION: General appearance is in acute distress. HEENT: Normocephalic and nontraumatic. Eyes, nose, ears, and throat are unremarkable. Neck is supple. No lymphadenopathy. No crepitus. Cardiovascular: S1, S2, regular rate and rhythm. Pulmonary: Clear to auscultation bilaterally. Abdomen: Bowel sounds are positive. Extremities: No rash, lesions, or edema. No restriction of range of motion NEUROLOGICAL EXAMINATION: Drowsiness. Not oriented to time, place but knew person. PERRL. EOMI. CN: Old right VII mild palsy. Muscle tone: Increased in right UE and NUNO. Within normal in left side. Muscle strength: 3+ right side, 5 left side. DTR: 1-2 Plantar reflex: Neutral response bilaterally Gait: not examined in bed. Sensory exam: no acute abnormal findings. No cerebellar signs elicited. F-T-N test fine. Current Medications Current Medications Current Medications Ondansetron HCl (Zofran) 4 mg 1X ONCE IV Last administered on 11/05/18at 01:41; Start 11/05/18 at 01:00; Stop 11/05/18 at 01:01; Status DC Famotidine (Pepcid Vial) 20 mg 1X ONCE IVP Last administered on 11/05/18at 01:41; Start 11/05/18 at 01:00; Stop 11/05/18 at 01:01; Status DC Sodium Chloride 1,000 ml @ 1,000 mls/hr 1X ONCE IV Last administered on 11/05/18at 01:38; Start 11/05/18 at 01:15; Stop 11/05/18 at 02:14; Status DC Iohexol (Omnipaque 300 Mg/ml) 75 ml 1X ONCE IV Last administered on 11/05/18at 01:32; Start 11/05/18 at 01:30; Stop 11/05/18 at 01:31; Status DC Info (CONTRAST GIVEN -- Rx MONITORING) 1 each PRN DAILY PRN MC SEE COMMENTS; Start 11/05/18 at 01:30; Stop 11/07/18 at 01:29 Labetalol HCl (Normodyne Iv Push) 20 mg 1X ONCE IVP Last administered on 11/05/18 01:38; Start 11/05/18 at 01:45; Stop 11/05/18 at 01:46; Status DC Aspirin (Aspirin Rectal Supp) 300 mg 1X ONCE MT Last administered on 11/05/18at 02:37; Start 11/05/18 at 02:00; Stop 11/05/18 at 02:01; Status DC Fentanyl Citrate (Fentanyl 2ml Vial) 50 mcg 1X ONCE IV Last administered on 11/05/18at 01:52; Start 11/05/18 at 01:45; Stop 11/05/18 at 01:55; Status DC Nitroglycerin (Nitro-Bid Oint) 0.5 inch 1X ONCE TP Last administered on 11/05/18 01:51; Start 11/05/18 at 01:45; Stop 11/05/18 at 01:55; Status DC Magnesium Sulfate 50 ml @ 25 mls/hr 1X ONCE IV Last administered on 11/05/18 02:37; Start 11/05/18 at 02:00; Stop 11/05/18 at 03:59; Status DC Ondansetron HCl (Zofran) 4 mg 1X ONCE IV Last administered on 11/05/18at 02:08; Start 11/05/18 at 02:15; Stop 11/05/18 at 02:16; Status DC Labetalol HCl (Normodyne Iv Push) 20 mg 1X ONCE IVP Last administered on 11/05/18 02:18; Start 11/05/18 at 02:15; Stop 11/05/18 at 02:16; Status DC Ondansetron HCl (Zofran) 4 mg PRN Q8HRS PRN IV NAUSEA/VOMITING Last administered on 11/05/18at 13:50; Start 11/05/18 at 02:45; Stop 11/06/18 at 02:44 Insulin Human Lispro (HumaLOG) 0-7 UNITS TIDWMEALS SQ Last administered on 11/05/18at 12:49; Start 11/05/18 at 08:00 Dextrose (Dextrose 50%-Water Syringe) 12.5 gm PRN Q15MIN PRN IV SEE COMMENTS; Start 11/05/18 at 02:45 Labetalol HCl (Normodyne Iv Push) 10 mg PRN Q2HR PRN IVP ELEVATED BP, SEE COMMENTS Last administered on 11/05/18 08:10; Start 11/05/18 at 02:45; Stop 11/05/18 at 08:28; Status DC Sodium Chloride 1,000 ml @ 100 mls/hr 1X ONCE IV Last administered on 03:16; Start 11/05/18 at 03:15; Stop 11/05/18 at 13:14; Status DC Metoclopramide HCl (Reglan Vial) 10 mg 1X ONCE IV Last administered on 11/05/18 03:37; Start 11/05/18 at 03:30; Stop 11/05/18 at 03:31; Status DC Diphenhydramine HCl (Benadryl) 25 mg 1X ONCE IVP Last administered on 11/05/18 03:37; Start 11/05/18 at 03:30; Stop 11/05/18 at 03:31; Status DC Nitroglycerin (Nitro-Bid Oint) 0.5 inch Q6HRS TP ; Start 11/05/18 at 12:00 Labetalol HCl (Normodyne Iv Push) 20 mg PRN Q2HR PRN IVP HYPERTENSION Last administered on 11/05/18 11:11; Start 11/05/18 at 08:30 Insulin Glargine (Lantus) 30 units DAILY SQ Last administered on 11/05/18 09:27; Start 11/05/18 at 09:00 Sodium Chloride 1,000 ml @ 100 mls/hr Q10H IV Last administered on 11/05/18 09:20; Start 11/05/18 at 08:30 Aspirin (Aspirin Rectal Supp) 300 mg DAILY MT Last administered on 11/05/18 09:20; Start 11/05/18 at 09:00 Lidocaine (Lidoderm) 1 patch DAILY TD Last administered on 11/05/18 09:30; Start 11/05/18 at 09:30 Miscellaneous (Lidoderm Patch Removal) 1 ea QHS MC ; Start 11/05/18 at 21:00 Metoprolol Tartrate (Lopressor Vial) 5 mg Q6HRS IVP ; Start 11/05/18 at 12:00 Enalaprilat (Vasotec Inj) 1.25 mg Q6HRS IVP Last administered on 6/14/19at 12:42; Start 11/05/18 at 12:00 Cefazolin Sodium 50 ml @ 100 mls/hr Q8HRS IV ; Start 11/05/18 at 14:00; Stop 11/06/18 at 18:00; Status UNV Ketorolac Tromethamine (Toradol 30mg Vial) 30 mg PRN Q6HRS PRN IV PAIN Last administered on 11/05/18at 12:40; Start 11/05/18 at 12:00; Stop 11/10/18 at 11:59 Cefazolin Sodium (Ancef) 1 gm Q8HRS IVP Last administered on 11/05/18at 13:44; Start 11/05/18 at 13:00 Barium Sulfate (Varibar Thin Liquid Apple) 148 gm 1X ONCE PO Last administered on 11/05/18at 13:45; Start 11/05/18 at 13:45; Stop 11/05/18 at 13:46; Status DC Active Scripts Active Aspirin Ec (Aspirin) 325 Mg Tablet.dr 1 Tab PO DAILY Reported Cephalexin 500 Mg Tablet 1 Tab PO TID 7 Days Prednisone 20 Mg Tablet 1 Tab PO DAILY 3 Days Mag-Oxide (Magnesium Oxide) 400 Mg Tablet 1 Tab PO DAILY Alprazolam 0.5 Mg Tablet 1 Tab PO PRN DAILY PRN Furosemide 20 Mg Tablet 1 Tab PO DAILY Zoloft (Sertraline Hcl) 50 Mg Tablet 50 Mg PO DAILY Omeprazole 40 Mg Capsule.dr 1 Cap PO DAILY Miralax (Polyethylene Glycol 3350) 17 Gm Powd.pack 1 Packet PO PRN DAILY PRN Linzess (Linaclotide) 145 Mcg Capsule 145 Mcg PO PRN DAILY PRN Metformin Hcl 1,000 Mg Tablet 1,000 Mg PO BIDWMEALS Novolog Flexpen (Insulin Aspart) 100 Unit/1 Ml Insuln.pen 0-10 Unit SQ TIDAC Levemir (Insulin Detemir) 100 Unit/1 Ml Vial 45 Unit SQ BID Simvastatin 40 Mg Tablet 40 Mg PO HS Xarelto (Rivaroxaban) 20 Mg Tablet 20 Mg PO DAILY Lyrica (Pregabalin) 200 Mg Capsule 200 Mg PO BID 30 Days Metoprolol Succinate ( Xl ) (Metoprolol Succinate) 25 Mg Tab.er.24h 50 Mg PO HS Losartan-Hctz 100-25 Mg Tab (Losartan/Hydrochlorothiazide) 1 Each Tablet 1 Each PO HS Allergies Allergies: Allergies Coded Allergies Type Severity Reaction Last Updated Verified Penicillins Allergy Intermediate RASH 02/12/18 Yes ROS Review of System The patient denies any associated fevers, chills, headache, ear pain, rhinorrhea, sore throat, stiff neck, productive cough, chest pain, shortness of breath, back or flank pain, abdominal pain, nausea, vomiting, diarrhea, constipation, dysuria, rash, numbness, weakness, tingling, incontinence, difficulty ambulating, or diaphoresis. Physical Exam Physical Exam General: Well developed, well nourished, no acute distress, well appearing HEENT: Pupils equally round and reactive to light, EOMI, no discharge, normal conjunctiva Neck: Supple, no nuchal rigidity, no JVD, trachea midline, no tenderness Cardiac: RRR, no murmurs, no gallops, no rubs Chest/Lungs: CTAB, no wheeze, no rhonchi, no crackles Abdomen: soft, non-distended, no guarding, no peritoneal signs, non-tender Back: No tenderness Extremities: no edema, pulses intact, non-tender,capillary refill <3 sec bilateral upper and lower extremities, Neuro: Alert and oriented x 4, no focal deficits, normal speech Vitals Vitals: Vital Signs Date Time Temp Pulse Resp B/P (MAP) Pulse Ox O2 Delivery O2 Flow Rate FiO2 11/05/18 15:00 98.0 60 18 154/72 (99) 97 Nasal Cannula 2.0 98.0 Labs Labs Laboratory Tests Test 11/05/18 00:51 11/05/18 01:10 11/05/18 01:30 11/05/18 03:00 White Blood Count 20.0 x10^3/uL (4.0-11.0) Red Blood Count 6.06 x10^6/uL (4.30-5.70) Hemoglobin 18.2 g/dL (13.0-17.5) Hematocrit 54.1 % (39.0-53.0) Mean Corpuscular Volume 89 fL (79-100) Mean Corpuscular Hemoglobin 30 pg (25-35) Mean Corpuscular Hemoglobin Concent 34 g/dL (31-37) Red Cell Distribution Width 13.9 % (11.5-14.5) Platelet Count 323 x10^3/uL (140-400) Neutrophils (%) (Auto) 76 % (31-73) Lymphocytes (%) (Auto) 13 % (24-48) Monocytes (%) (Auto) 10 % (0-9) Eosinophils (%) (Auto) 0 % (0-3) Basophils (%) (Auto) 1 % (0-3) Neutrophils # (Auto) 15.2 x10^3uL (1.8-7.7) Lymphocytes # (Auto) 2.7 x10^3/uL (1.0-4.8) Monocytes # (Auto) 1.9 x10^3/uL (0.0-1.1) Eosinophils # (Auto) 0.0 x10^3/uL (0.0-0.7) Basophils # (Auto) 0.1 x10^3/uL (0.0-0.2) Segmented Neutrophils % 79 % (35-66) Lymphocytes % 12 % (24-48) Monocytes % 9 % (0-10) Toxic Granulation Slight Platelet Estimate Adequate (ADEQUATE) Prothrombin Time 20.3 SEC (11.7-14.0) Prothromb Time International Ratio 1.8 (0.8-1.1) Activated Partial Thromboplast Time 30 SEC (24-38) Sodium Level 138 mmol/L (136-145) Potassium Level 3.8 mmol/L (3.5-5.1) Chloride Level 97 mmol/L (98-107) Carbon Dioxide Level 29 mmol/L (21-32) Anion Gap 12 (6-14) Blood Urea Nitrogen 28 mg/dL (8-26) Creatinine 0.9 mg/dL (0.7-1.3) Estimated GFR (Cockcroft-Gault) 84.4 BUN/Creatinine Ratio 31 (6-20) Glucose Level 233 mg/dL (70-99) Calcium Level 9.7 mg/dL (8.5-10.1) Magnesium Level 1.6 mg/dL (1.8-2.4) Total Bilirubin 0.5 mg/dL (0.2-1.0) Aspartate Amino Transf (AST/SGOT) 24 U/L (15-37) Alanine Aminotransferase (ALT/SGPT) 40 U/L (16-63) Alkaline Phosphatase 144 U/L (46-116) Creatine Kinase 39 U/L (39-308) Creatine Kinase MB (Mass) 2.4 ng/mL (0.0-3.6) Creatine Kinase MB Relative Index % (0-4) Troponin I Quantitative 0.028 ng/mL (0.000-0.055) OW-[id number]-Type Natriuretic Peptide 659 pg/mL (0-124) Total Protein 7.8 g/dL (6.4-8.2) Albumin 3.1 g/dL (3.4-5.0) Albumin/Globulin Ratio 0.7 (1.0-1.7) Lipase 224 U/L (73-393) Glucose (Fingerstick) 196 mg/dL (70-99) Urine Collection Type Unknown Urine Color Yellow Urine Clarity Clear Urine pH 6.5 Urine Specific Stuart 1.020 Urine Protein >=300 mg/dL (NEG-TRACE) Urine Glucose (UA) >=1000 mg/dL (NEG) Urine Ketones (Stick) Negative mg/dL (NEG) Urine Blood Moderate (NEG) Urine Nitrite Negative (NEG) Urine Bilirubin Negative (NEG) Urine Urobilinogen Dipstick 1.0 mg/dL (0.2 mg/dL) Urine Leukocyte Esterase Trace (NEG) Urine RBC 11-20 /HPF (0-2) Urine WBC 1-4 /HPF (0-4) Urine Squamous Epithelial Cells Occ /LPF Urine Bacteria 0 /HPF (0-FEW) Urine Mucus Slight /LPF Lactic Acid Level 2.1 mmol/L (0.4-2.0) Test 11/05/18 04:10 11/05/18 05:25 11/05/18 07:30 11/05/18 09:15 Glucose (Fingerstick) 232 mg/dL (70-99) 292 mg/dL (70-99) Lactic Acid Level 2.3 mmol/L (0.4-2.0) Troponin I Quantitative 0.059 ng/mL (0.000-0.055) 0.050 ng/mL (0.000-0.055) Test 11/05/18 10:18 11/05/18 11:31 Urine Opiates Screen Neg (NEG) Urine Methadone Screen Neg (NEG) Urine Barbiturates Neg (NEG) Urine Phencyclidine Screen Neg (NEG) Urine Amphetamine/Methamphetamine Neg (NEG) Urine Benzodiazepines Screen Neg (NEG) Urine Cocaine Screen Neg (NEG) Urine Cannabinoids Screen Neg (NEG) Urine Ethyl Alcohol Neg (NEG) Glucose (Fingerstick) 279 mg/dL (70-99) Laboratory Tests Test 11/05/18 00:51 11/05/18 01:10 11/05/18 01:30 11/05/18 03:00 White Blood Count 20.0 x10^3/uL (4.0-11.0) Red Blood Count 6.06 x10^6/uL (4.30-5.70) Hemoglobin 18.2 g/dL (13.0-17.5) Hematocrit 54.1 % (39.0-53.0) Mean Corpuscular Volume 89 fL (79-100) Mean Corpuscular Hemoglobin 30 pg (25-35) Mean Corpuscular Hemoglobin Concent 34 g/dL (31-37) Red Cell Distribution Width 13.9 % (11.5-14.5) Platelet Count 323 x10^3/uL (140-400) Neutrophils (%) (Auto) 76 % (31-73) Lymphocytes (%) (Auto) 13 % (24-48) Monocytes (%) (Auto) 10 % (0-9) Eosinophils (%) (Auto) 0 % (0-3) Basophils (%) (Auto) 1 % (0-3) Neutrophils # (Auto) 15.2 x10^3uL (1.8-7.7) Lymphocytes # (Auto) 2.7 x10^3/uL (1.0-4.8) Monocytes # (Auto) 1.9 x10^3/uL (0.0-1.1) Eosinophils # (Auto) 0.0 x10^3/uL (0.0-0.7) Basophils # (Auto) 0.1 x10^3/uL (0.0-0.2) Segmented Neutrophils % 79 % (35-66) Lymphocytes % 12 % (24-48) Monocytes % 9 % (0-10) Toxic Granulation Slight Platelet Estimate Adequate (ADEQUATE) Prothrombin Time 20.3 SEC (11.7-14.0) Prothromb Time International Ratio 1.8 (0.8-1.1) Activated Partial Thromboplast Time 30 SEC (24-38) Sodium Level 138 mmol/L (136-145) Potassium Level 3.8 mmol/L (3.5-5.1) Chloride Level 97 mmol/L (98-107) Carbon Dioxide Level 29 mmol/L (21-32) Anion Gap 12 (6-14) Blood Urea Nitrogen 28 mg/dL (8-26) Creatinine 0.9 mg/dL (0.7-1.3) Estimated GFR (Cockcroft-Gault) 84.4 BUN/Creatinine Ratio 31 (6-20) Glucose Level 233 mg/dL (70-99) Calcium Level 9.7 mg/dL (8.5-10.1) Magnesium Level 1.6 mg/dL (1.8-2.4) Total Bilirubin 0.5 mg/dL (0.2-1.0) Aspartate Amino Transf (AST/SGOT) 24 U/L (15-37) Alanine Aminotransferase (ALT/SGPT) 40 U/L (16-63) Alkaline Phosphatase 144 U/L (46-116) Creatine Kinase 39 U/L (39-308) Creatine Kinase MB (Mass) 2.4 ng/mL (0.0-3.6) Creatine Kinase MB Relative Index % (0-4) Troponin I Quantitative 0.028 ng/mL (0.000-0.055) [id number]-Gvk-[id number]-Type Natriuretic Peptide 659 pg/mL (0-124) Total Protein 7.8 g/dL (6.4-8.2) Albumin 3.1 g/dL (3.4-5.0) Albumin/Globulin Ratio 0.7 (1.0-1.7) Lipase 224 U/L (73-393) Glucose (Fingerstick) 196 mg/dL (70-99) Urine Collection Type Unknown Urine Color Yellow Urine Clarity Clear Urine pH 6.5 Urine Specific Stuart 1.020 Urine Protein >=300 mg/dL (NEG-TRACE) Urine Glucose (UA) >=1000 mg/dL (NEG) Urine Ketones (Stick) Negative mg/dL (NEG) Urine Blood Moderate (NEG) Urine Nitrite Negative (NEG) Urine Bilirubin Negative (NEG) Urine Urobilinogen Dipstick 1.0 mg/dL (0.2 mg/dL) Urine Leukocyte Esterase Trace (NEG) Urine RBC 11-20 /HPF (0-2) Urine WBC 1-4 /HPF (0-4) Urine Squamous Epithelial Cells Occ /LPF Urine Bacteria 0 /HPF (0-FEW) Urine Mucus Slight /LPF Lactic Acid Level 2.1 mmol/L (0.4-2.0) Test 11/05/18 04:10 11/05/18 05:25 11/05/18 07:30 11/05/18 09:15 Glucose (Fingerstick) 232 mg/dL (70-99) 292 mg/dL (70-99) Lactic Acid Level 2.3 mmol/L (0.4-2.0) Troponin I Quantitative 0.059 ng/mL (0.000-0.055) 0.050 ng/mL (0.000-0.055) Test 11/05/18 10:18 11/05/18 11:31 Urine Opiates Screen Neg (NEG) Urine Methadone Screen Neg (NEG) Urine Barbiturates Neg (NEG) Urine Phencyclidine Screen Neg (NEG) Urine Amphetamine/Methamphetamine Neg (NEG) Urine Benzodiazepines Screen Neg (NEG) Urine Cocaine Screen Neg (NEG) Urine Cannabinoids Screen Neg (NEG) Urine Ethyl Alcohol Neg (NEG) Glucose (Fingerstick) 279 mg/dL (70-99) PEYTON AVALOS MD Nov 05, 2018 15:33
--- NOTE | 2018-11-05 19:02 | CONS ---
DATE OF CONSULTATION: 11/05/2018 ATTENDING PHYSICIAN: Dr. Gannon. The patient was seen at the request of Dr. aGnnon for rehab evaluation. HISTORY OF PRESENT ILLNESS: This is a 68-year-old right-handed male with known chronic obstructive pulmonary disease, poorly controlled diabetes mellitus and atrial fibrillation, taking Xarelto and also permanent pacemaker placement in the past. Afterwards, he was on disability, also had old cerebrovascular accident with residual mild right upper and lower extremity incoordination, but he has been independent with his walking. Once in a while, he has to use a cane, especially recently since he had right hip joint injected for pain. The patient was noted with hemoglobin A1c of 9.5 last week when in the hospital for COPD exacerbation. He developed abrupt onset of right-sided weakness, nausea, vomiting and aphasia during last night. CT scan failed to reveal any evidence of new cerebrovascular accident or bleeding tumor. He did not receive TPA as he is already taking Xarelto. ALLERGIES: THE PATIENT IS KNOWN ALLERGIC TO PENICILLIN. He lives with his , has 3 steps with railing to enter the house plus there is a stair lift for stairs inside the house. The patient apparently is having numbness, tingling kind of pain in his feet. The patient used to be a heavy smoker. His does not work. PHYSICAL EXAMINATION: Today revealed a middle-aged male. He is somewhat lethargic. He is supine in bed, receiving oxygen by nasal cannula. He moves all 4 extremities voluntarily where he seems to have 4+/5 grade muscle strength with significant incoordination of right upper and lower extremities. Deep tendon reflexes are exaggerated in his right upper extremity and at right knee, absent at both ankles. He had equal perception of touch and pinprick sensation bilaterally. He had minimal tenderness to palpation over right sacroiliac joint area and right trochanteric bursa and some pain on range of motion of right hip. The patient needs help with bed mobility. I have not tested his transfers or ambulation skills at this time. He had right central facial paresis. I did not see any obvious visual field cut, but apparently, he had some right visual field neglect prior to this present stroke residuals from his old cerebrovascular accident. He had extensor plantar response on the right side. ASSESSMENT: A middle-aged male with known hypertension, old cerebrovascular accident with residual mild right upper and lower extremity incoordination and right visual field neglect with increased right upper and lower extremity incoordination and right central facial paresis probably from new onset cerebrovascular accident. No evidence of any new cerebral bleed. The patient with diabetes mellitus with peripheral neuropathy, hypertension, probably degenerative disk disease of lumbar vertebrae with lower back pain and mild right trochanteric bursitis. No clinical evidence of ongoing lumbar radiculopathy. RECOMMENDATION: To ask Physical Therapy, Occupational Therapy and Speech Pathology to see him to help with his deficits. To consider transfer to inpatient rehabilitation program when medically stable for continued inpatient rehabilitation program on as needed basis. Dr. Gannon, I appreciate asking me to participate in the care of this interesting patient. I will be glad to follow him with you as needed for his rehabilitation. ELISEO DUENAS MD DR: CARLEE/gary JOB#: [id number] / [id number]
[2018-11-05] MEDS: AMINO AC 3%/ELECTROLYTE/GLYCER 1,000 ML IV SCH (20:51)
[2018-11-05] MEDS: PATCH REMOVAL. MC SCH (20:52)
[2018-11-06] MEDS: ENALAPRILAT 1.25 MG/ML VIAL. IVP SCH ×4 (00:16→18:40)
[2018-11-06 03:00] VITALS: BP 161/79
[2018-11-06] MEDS: IV 1/2 NORMAL SALINE 1,000 ML IV SCH ×2 (04:30→14:26)
[2018-11-06] MEDS: NITROGLYCERIN OINT 1 GM PACKET. TP SCH ×3 (05:46→18:00)
[2018-11-06 05:47] LABS: CHOLESTEROL/HDL RATIO 4.6
[2018-11-06] MEDS: METOPROLOL TARTRATE 5 MG/5 ML VIAL. IVP SCH ×4 (05:48→18:00)
[2018-11-06] MEDS: ceFAZolin SODIUM IV Push 1 GM VIAL. IVP SCH ×3 (06:22→21:16)
[2018-11-06 07:00] VITALS: BP 169/69
--- NOTE | 2018-11-06 09:11 | RAD ---
EXAM: Carotid Doppler sonogram. HISTORY: Carotid stenosis. TECHNIQUE: Silva scale and color Doppler sonographic evaluation of the neck with spectral waveform analysis was performed and static images are submitted for review. FINDINGS: RIGHT: The peak systolic velocity within the common carotid artery is 81 cm/sec. The peak systolic velocity within the internal carotid artery is 102 cm/sec and the end diastolic velocity within the internal carotid artery is 19 cm/sec. The ICA/CCA ratio is 1.15. Grayscale images demonstrate no grayscale stenosis. LEFT: The peak systolic velocity within the common carotid artery is 63 cm/sec. The peak systolic velocity within the internal carotid artery is 165 cm/sec and the end diastolic velocity within the internal carotid artery is 22 cm/sec. The ICA/CCA ratio is 2.1. Grayscale images demonstrate moderate mostly calcified plaquing at the carotid bulb extending to the origin of the internal carotid artery. There is antegrade flow within both vertebral arteries. IMPRESSION: 1. 50-69% stenosis within the left internal carotid artery. PQRS Compliance Statement - Stenosis calculations for CT, MR and conventional angiography are based upon measurement of the distal ICA diameter in accordance with the NASCET methodology. Stenosis calculations for carotid ultrasound studies are derived from validated velocity criteria which are known to correlate with the NASCET methodology. Electronically signed by: Maddi Ayers MD (11/06/2018 9:08 AM) [facility]
--- NOTE | 2018-11-06 09:38 | RAD ---
EXAM: CT HEAD WITHOUT CONTRAST. HISTORY: Right weakness. TECHNIQUE: Computed tomography of the head was performed without intravenous contrast. COMPARISON: 11/05/2018. FINDINGS: There is no intracranial hemorrhage. A subacute infarct in the left thalamus measures 12 mm. There is a chronic infarct in the left occipital lobe medially. A chronic lacunar infarct is noted in the left putamen. There is mild chronic microangiopathic white matter change elsewhere. Prominence of the lateral ventricles and hemispheric sulci indicates moderate atrophy. There is fluid and moderate mucosal thickening in the right maxillary sinus. Lateral portions of the sphenoid sinus are opacified. There are changes of bilateral cataract surgery. The temporal bones are unremarkable. The calvarium reveals no suspicious lesions. There are atherosclerotic calcifications of the internal carotid and vertebral arteries. IMPRESSION: 1. Subacute 12 mm infarct in the left thalamus. 2. Chronic left basal ganglia and occipital infarcts. 3. Moderate atrophy. 4. Acute right maxillary sinusitis. *One or more of the following individualized dose reduction techniques were utilized for this examination: 1. Automated exposure control. 2. Adjustment of the mA and/or kV according to patient size. 3. Use of iterative reconstruction technique. Electronically signed by: Maddi Ayers MD (11/06/2018 9:35 AM) [facility]
[2018-11-06] MEDS: ASPIRIN RECTAL 300 MG SUPP. PR SCH (09:40)
[2018-11-06] MEDS: AMINO AC 3%/ELECTROLYTE/GLYCER 1,000 ML IV SCH ×2 (09:40→21:16)
[2018-11-06] MEDS: LIDOCAINE (700MG/PATCH) PATCH. TD SCH (09:40)
[2018-11-06] MEDS: INSULIN GLARGINE 300 UNITS/3 ML INSULN.PEN. SQ SCH (09:52)
--- NOTE | 2018-11-06 09:52 | PDOC ---
PROGRESS NOTES Subjective Subjective He c/o low back and right hip pain with mobility. Objective Objective Vital Signs Date Time Temp Pulse Resp B/P (MAP) Pulse Ox O2 Delivery O2 Flow Rate FiO2 11/06/18 07:00 98.1 59 12 169/69 (102) 94 Nasal Cannula 2.5 98.1 Intake and Output 11/06/18 07:00 Intake Total 740 ml Output Total 350 ml Balance 390 ml Intake Oral 0 ml IV Total 740 ml Output Urine Total 350 ml Physical Exam Physical Exam He is alert,comfortable and he continues with right central facial paresis,right upper and lower extremity [id number]. He apparently failed video dysphagia study yesterday. I hope it's from his lethargy yesterday. He had some low back and hip pain with mobility from his DDD of lumbar vertebrae with mild trochanteric bursitis. Repeat CT scan revealed left thalamic infarct,which is n ew. Assessment Assessment Problems Medical Problems: (1) Cellulitis of foot, right Status: Acute (2) Hypertensive urgency Status: Acute (3) Hypomagnesemia Status: Acute (4) Leukocytosis Status: Acute (5) Nausea & vomiting Status: Acute (6) Weakness Status: Acute Plan Plan of Care To continue present rehab efforts as tolerated and to rehab unit when medically stable. Comment Review of Relevant I have reviewed the following items sara (where applicable) has been applied. Labs Laboratory Tests Test 11/05/18 00:51 11/05/18 01:10 11/05/18 01:30 11/05/18 03:00 White Blood Count 20.0 x10^3/uL (4.0-11.0) Red Blood Count 6.06 x10^6/uL (4.30-5.70) Hemoglobin 18.2 g/dL (13.0-17.5) Hematocrit 54.1 % (39.0-53.0) Mean Corpuscular Volume 89 fL (79-100) Mean Corpuscular Hemoglobin 30 pg (25-35) Mean Corpuscular Hemoglobin Concent 34 g/dL (31-37) Red Cell Distribution Width 13.9 % (11.5-14.5) Platelet Count 323 x10^3/uL (140-400) Neutrophils (%) (Auto) 76 % (31-73) Lymphocytes (%) (Auto) 13 % (24-48) Monocytes (%) (Auto) 10 % (0-9) Eosinophils (%) (Auto) 0 % (0-3) Basophils (%) (Auto) 1 % (0-3) Neutrophils # (Auto) 15.2 x10^3uL (1.8-7.7) Lymphocytes # (Auto) 2.7 x10^3/uL (1.0-4.8) Monocytes # (Auto) 1.9 x10^3/uL (0.0-1.1) Eosinophils # (Auto) 0.0 x10^3/uL (0.0-0.7) Basophils # (Auto) 0.1 x10^3/uL (0.0-0.2) Segmented Neutrophils % 79 % (35-66) Lymphocytes % 12 % (24-48) Monocytes % 9 % (0-10) Toxic Granulation Slight Platelet Estimate Adequate (ADEQUATE) Prothrombin Time 20.3 SEC (11.7-14.0) Prothromb Time International Ratio 1.8 (0.8-1.1) Activated Partial Thromboplast Time 30 SEC (24-38) Sodium Level 138 mmol/L (136-145) Potassium Level 3.8 mmol/L (3.5-5.1) Chloride Level 97 mmol/L (98-107) Carbon Dioxide Level 29 mmol/L (21-32) Anion Gap 12 (6-14) Blood Urea Nitrogen 28 mg/dL (8-26) Creatinine 0.9 mg/dL (0.7-1.3) Estimated GFR (Cockcroft-Gault) 84.4 BUN/Creatinine Ratio 31 (6-20) Glucose Level 233 mg/dL (70-99) Calcium Level 9.7 mg/dL (8.5-10.1) Magnesium Level 1.6 mg/dL (1.8-2.4) Total Bilirubin 0.5 mg/dL (0.2-1.0) Aspartate Amino Transf (AST/SGOT) 24 U/L (15-37) Alanine Aminotransferase (ALT/SGPT) 40 U/L (16-63) Alkaline Phosphatase 144 U/L (46-116) Creatine Kinase 39 U/L (39-308) Creatine Kinase MB (Mass) 2.4 ng/mL (0.0-3.6) Creatine Kinase MB Relative Index % (0-4) Troponin I Quantitative 0.028 ng/mL (0.000-0.055) BJ-Glc-X-Type Natriuretic Peptide 659 pg/mL (0-124) Total Protein 7.8 g/dL (6.4-8.2) Albumin 3.1 g/dL (3.4-5.0) Albumin/Globulin Ratio 0.7 (1.0-1.7) Lipase 224 U/L (73-393) Glucose (Fingerstick) 196 mg/dL (70-99) Urine Collection Type Unknown Urine Color Yellow Urine Clarity Clear Urine pH 6.5 Urine Specific [place] 1.020 Urine Protein >=300 mg/dL (NEG-TRACE) Urine Glucose (UA) >=1000 mg/dL (NEG) Urine Ketones (Stick) Negative mg/dL (NEG) Urine Blood Moderate (NEG) Urine Nitrite Negative (NEG) Urine Bilirubin Negative (NEG) Urine Urobilinogen Dipstick 1.0 mg/dL (0.2 mg/dL) Urine Leukocyte Esterase Trace (NEG) Urine RBC 11-20 /HPF (0-2) Urine WBC 1-4 /HPF (0-4) Urine Squamous Epithelial Cells Occ /LPF Urine Bacteria 0 /HPF (0-FEW) Urine Mucus Slight /LPF Lactic Acid Level 2.1 mmol/L (0.4-2.0) Test 11/05/18 04:10 11/05/18 05:25 11/05/18 07:30 11/05/18 09:15 Glucose (Fingerstick) 232 mg/dL (70-99) 292 mg/dL (70-99) Lactic Acid Level 2.3 mmol/L (0.4-2.0) Troponin I Quantitative 0.059 ng/mL (0.000-0.055) 0.050 ng/mL (0.000-0.055) Test 11/05/18 10:18 11/05/18 11:31 11/05/18 17:34 11/05/18 20:42 Urine Opiates Screen Neg (NEG) Urine Methadone Screen Neg (NEG) Urine Barbiturates Neg (NEG) Urine Phencyclidine Screen Neg (NEG) Urine Amphetamine/Methamphetamine Neg (NEG) Urine Benzodiazepines Screen Neg (NEG) Urine Cocaine Screen Neg (NEG) Urine Cannabinoids Screen Neg (NEG) Urine Ethyl Alcohol Neg (NEG) Glucose (Fingerstick) 279 mg/dL (70-99) 239 mg/dL (70-99) 211 mg/dL (70-99) Test 11/06/18 04:15 11/06/18 07:43 Triglycerides Level 127 mg/dL (0-150) Cholesterol Level 110 mg/dL (0-200) LDL Cholesterol, Calculated 61 mg/dL (0-100) VLDL Cholesterol, Calculated 25 mg/dL (0-40) Non-HDL Cholesterol Calculated 86 mg/dL (0-129) HDL Cholesterol 24 mg/dL (40-60) Cholesterol/HDL Ratio 4.6 Glucose (Fingerstick) 211 mg/dL (70-99) Laboratory Tests Test 11/05/18 10:18 11/05/18 11:31 11/05/18 17:34 11/05/18 20:42 Urine Opiates Screen Neg (NEG) Urine Methadone Screen Neg (NEG) Urine Barbiturates Neg (NEG) Urine Phencyclidine Screen Neg (NEG) Urine Amphetamine/Methamphetamine Neg (NEG) Urine Benzodiazepines Screen Neg (NEG) Urine Cocaine Screen Neg (NEG) Urine Cannabinoids Screen Neg (NEG) Urine Ethyl Alcohol Neg (NEG) Glucose (Fingerstick) 279 mg/dL (70-99) 239 mg/dL (70-99) 211 mg/dL (70-99) Test 11/06/18 04:15 11/06/18 07:43 Triglycerides Level 127 mg/dL (0-150) Cholesterol Level 110 mg/dL (0-200) LDL Cholesterol, Calculated 61 mg/dL (0-100) VLDL Cholesterol, Calculated 25 mg/dL (0-40) Non-HDL Cholesterol Calculated 86 mg/dL (0-129) HDL Cholesterol 24 mg/dL (40-60) Cholesterol/HDL Ratio 4.6 Glucose (Fingerstick) 211 mg/dL (70-99) Medications Current Medications Ondansetron HCl (Zofran) 4 mg 1X ONCE IV Last administered on 11/05/18at 01:41; Start 11/05/18 at 01:00; Stop 11/05/18 at 01:01; Status DC Famotidine (Pepcid Vial) 20 mg 1X ONCE IVP Last administered on 11/05/18at 01:41; Start 11/05/18 at 01:00; Stop 11/05/18 at 01:01; Status DC Sodium Chloride 1,000 ml @ 1,000 mls/hr 1X ONCE IV Last administered on 11/05/18at 01:38; Start 11/05/18 at 01:15; Stop 11/05/18 at 02:14; Status DC Iohexol (Omnipaque 300 Mg/ml) 75 ml 1X ONCE IV Last administered on 11/05/18at 01:32; Start 11/05/18 at 01:30; Stop 11/05/18 at 01:31; Status DC Info (CONTRAST GIVEN -- Rx MONITORING) 1 each PRN DAILY PRN MC SEE COMMENTS; Start 11/05/18 at 01:30; Stop 11/07/18 at 01:29 Labetalol HCl (Normodyne Iv Push) 20 mg 1X ONCE IVP Last administered on 11/05/18at 01:38; Start 11/05/18 at 01:45; Stop 11/05/18 at 01:46; Status DC Aspirin (Aspirin Rectal Supp) 300 mg 1X ONCE MA Last administered on 11/05/18at 02:37; Start 11/05/18 at 02:00; Stop 11/05/18 at 02:01; Status DC Fentanyl Citrate (Fentanyl 2ml Vial) 50 mcg 1X ONCE IV Last administered on 11/05/18at 01:52; Start 11/05/18 at 01:45; Stop 11/05/18 at 01:55; Status DC Nitroglycerin (Nitro-Bid Oint) 0.5 inch 1X ONCE TP Last administered on 11/05/18at 01:51; Start 11/05/18 at 01:45; Stop 11/05/18 at 01:55; Status DC Magnesium Sulfate 50 ml @ 25 mls/hr 1X ONCE IV Last administered on 11/05/18at 02:37; Start 11/05/18 at 02:00; Stop 11/05/18 at 03:59; Status DC Ondansetron HCl (Zofran) 4 mg 1X ONCE IV Last administered on 11/05/18at 02:08; Start 11/05/18 at 02:15; Stop 11/05/18 at 02:16; Status DC Labetalol HCl (Normodyne Iv Push) 20 mg 1X ONCE IVP Last administered on 11/05/18at 02:18; Start 11/05/18 at 02:15; Stop 11/05/18 at 02:16; Status DC Ondansetron HCl (Zofran) 4 mg PRN Q8HRS PRN IV NAUSEA/VOMITING Last administ ered on 11/05/18at 13:50; Start 11/05/18 at 02:45; Stop 11/06/18 at 02:44; Status DC Insulin Human Lispro (HumaLOG) 0-7 UNITS TIDWMEALS SQ Last administered on 11/05/18at 17:43; Start 11/05/18 at 08:00 Dextrose (Dextrose 50%-Water Syringe) 12.5 gm PRN Q15MIN PRN IV SEE COMMENTS; Start 11/05/18 at 02:45 Labetalol HCl (Normodyne Iv Push) 10 mg PRN Q2HR PRN IVP ELEVATED BP, SEE COMM ENTS Last administered on 11/05/18 08:10; Start 11/05/18 at 02:45; Stop 11/05/18 at 08:28; Status DC Sodium Chloride 1,000 ml @ 100 mls/hr 1X ONCE IV Last administered on 11/05/18at 03:16; Start 11/05/18 at 03:15; Stop 11/05/18 at 13:14; Status DC Metoclopramide HCl (Reglan Vial) 10 mg 1X ONCE IV Last administered on 11/05/18at 03:37; Start 11/05/18 at 03:30; Stop 11/05/18 at 03:31; Status DC Diphenhydramine HCl (Benadryl) 25 mg 1X ONCE IVP Last administered on 11/05/18at 03:37; Start 11/05/18 at 03:30; Stop 11/05/18 at 03:31; Status DC Nitroglycerin (Nitro-Bid Oint) 0.5 inch Q6HRS TP ; Start 11/05/18 at 12:00 Labetalol HCl (Normodyne Iv Push) 20 mg PRN Q2HR PRN IVP HYPERTENSION Last administered on 11/05/18at 11:11; Start 11/05/18 at 08:30 Insulin Glargine (Lantus) 30 units DAILY SQ Last administered on 11/05/18at 09:27; Start 11/05/18 at 09:00 Sodium Chloride 1,000 ml @ 100 mls/hr Q10H IV Last administered on 11/05/18 09:20; Start 11/05/18 at 08:30 Aspirin (Aspirin Rectal Supp) 300 mg DAILY MA Last administered on 11/05/18 09:20; Start 11/05/18 at 09:00 Lidocaine (Lidoderm) 1 patch DAILY TD Last administered on 11/05/18 09:30; Start 11/05/18 at 09:30 Miscellaneous (Lidoderm Patch Removal) 1 ea QHS MC Last administered on 11/05/18 20:52; Start 11/05/18 at 21:00 Metoprolol Tartrate (Lopressor Vial) 5 mg Q6HRS IVP ; Start 11/05/18 at 12:00 Enalaprilat (Vasotec Inj) 1.25 mg Q6HRS IVP Last administered on 11/06/18 06:22; Start 11/05/18 at 12:00 Cefazolin Sodium 50 ml @ 100 mls/hr Q8HRS IV ; Start 11/05/18 at 14:00; Stop 11/06/18 at 18:00; Status UNV Ketorolac Tromethamine (Toradol 30mg Vial) 30 mg PRN Q6HRS PRN IV PAIN Last administered on 11/05/18 12:40; Start 11/05/18 at 12:00; Stop 11/10/18 at 11:59 Cefazolin Sodium (Ancef) 1 gm Q8HRS IVP Last administered on 11/06/18 06:22; Start 11/05/18 at 13:00 Barium Sulfate (Varibar Thin Liquid Apple) 148 gm 1X ONCE PO Last administered on 11/05/18 13:45; Start 11/05/18 at 13:45; Stop 11/05/18 at 13:46; Status DC Amino Acids/ Glycerin/ Electrolytes 1,000 ml @ 80 mls/hr [id number] IV Last administered on 11/05/18 20:51; Start 11/05/18 at 19:00 Active Scripts Active Aspirin Ec (Aspirin) 325 Mg Tablet.dr 1 Tab PO DAILY Reported Cephalexin 500 Mg Tablet 1 Tab PO TID 7 Days Prednisone 20 Mg Tablet 1 Tab PO DAILY 3 Days Mag-Oxide (Magnesium Oxide) 400 Mg Tablet 1 Tab PO DAILY Alprazolam 0.5 Mg Tablet 1 Tab PO PRN DAILY PRN Furosemide 20 Mg Tablet 1 Tab PO DAILY Zoloft (Sertraline Hcl) 50 Mg Tablet 50 Mg PO DAILY Omeprazole 40 Mg Capsule.dr 1 Cap PO DAILY Miralax (Polyethylene Glycol 3350) 17 Gm Powd.pack 1 Packet PO PRN DAILY PRN Linzess (Linaclotide) 145 Mcg Capsule 145 Mcg PO PRN DAILY PRN Metformin Hcl 1,000 Mg Tablet 1,000 Mg PO BIDWMEALS Novolog Flexpen (Insulin Aspart) 100 Unit/1 Ml Insuln.pen 0-10 Unit SQ TIDAC Levemir (Insulin Detemir) 100 Unit/1 Ml Vial 45 Unit SQ BID Simvastatin 40 Mg Tablet 40 Mg PO HS Xarelto (Rivaroxaban) 20 Mg Tablet 20 Mg PO DAILY Lyrica (Pregabalin) 200 Mg Capsule 200 Mg PO BID 30 Days Metoprolol Succinate ( Xl ) (Metoprolol Succinate) 25 Mg Tab.er.24h 50 Mg PO HS Losartan-Hctz 100-25 Mg Tab (Losartan/Hydrochlorothiazide) 1 Each Tablet 1 Each PO HS Vitals/I & O Vital Sign - Last 24 Hours 11/05/18 11/05/18 11/05/18 11/05/18 11:00 11:11 12:25 12:42 Temp 98.0 98.0 Pulse 60 60 60 60 Resp 18 B/P (MAP) 178/83 (114) 178/83 153/81 (105) 160/76 Pulse Ox 96 O2 Delivery Nasal Cannula O2 Flow Rate 2.0 11/05/18 11/05/18 11/05/18 11/05/18 15:00 18:11 19:00 20:00 Temp 98.0 98.5 98.0 98.5 Pulse 60 60 68 Resp 18 16 B/P (MAP) 154/72 (99) 159/74 176/79 (111) Pulse Ox 97 98 O2 Delivery Nasal Cannula Nasal Cannula Nasal Cannula O2 Flow Rate 2.0 2.0 2.0 11/05/18 11/05/18 11/06/18 11/06/18 23:18 23:53 00:00 00:16 Temp 98.4 98.4 Pulse 60 60 60 60 Resp 16 B/P (MAP) 141/66 (91) 141/66 141/66 141/66 Pulse Ox 98 O2 Delivery Nasal Cannula O2 Flow Rate 2.0 11/06/18 11/06/18 11/06/18 11/06/18 03:00 05:46 05:48 06:22 Temp 98.8 98.8 Pulse 60 60 60 60 Resp 16 B/P (MAP) 161/79 (106) 161/79 161/79 161/79 Pulse Ox 95 O2 Delivery Nasal Cannula O2 Flow Rate 2.0 11/06/18 07:00 Temp 98.1 98.1 Pulse 59 Resp 12 B/P (MAP) 169/69 (102) Pulse Ox 94 O2 Delivery Nasal Cannula O2 Flow Rate 2.5 Intake and Output 11/05/18 11/05/18 11/06/18 15:00 23:00 07:00 Intake Total 0 ml 0 ml 740 ml Output Total 150 ml 200 ml Balance 0 ml -150 ml 540 ml ELISEO DUENAS MD Nov 06, 2018 09:52
[2018-11-06] MEDS: INSULIN LISPRO 300 UNITS/3 ML INSULN.PEN. SQ SCH ×3 (09:53→17:00)
--- NOTE | 2018-11-06 10:40 | NUR ---
20 units of lantus given instead of 30 units per patients family request. Education given to patients family about insulin. They said they understand but still would like us to only give 20 units.
[2018-11-06 11:00] VITALS: BP 166/73
--- NOTE | 2018-11-06 11:54 | PDOC ---
PROGRESS NOTES Subjective Subjective Patient seen and examined He is feeling better today. Objective Objective Vital Signs Date Time Temp Pulse Resp B/P (MAP) Pulse Ox O2 Delivery O2 Flow Rate FiO2 11/06/18 11:00 97.8 60 12 166/73 (104) 97 Nasal Cannula 2.5 97.8 Intake and Output 11/06/18 07:00 Intake Total 740 ml Output Total 350 ml Balance 390 ml Intake Oral 0 ml IV Total 740 ml Output Urine Total 350 ml Physical Exam Abdomen: Normal bowel sounds Heart: Regular rate General: mild distress Lungs: Clear to auscultation Assessment Assessment Problems Medical Problems: (1) Cellulitis of foot, right Status: Acute (2) Hypertensive urgency Status: Acute (3) Hypomagnesemia Status: Acute (4) Leukocytosis Status: Acute (5) Nausea & vomiting Status: Acute (6) Weakness Status: Acute 1. Hypertensive encephalopathy vs CVA syndrome: Hx of CVA. neurology following. CT head scan shows a subacute 12 mm infarct in the left thalamus. Ultrasound sh ows a 50-69% left internal carotid artery stenosis. 2. Intractable vomiting: Improved. 3. Malignant HTN: Improved on restarting medications. 4. Right foot cellulitis/leukocytosis: 2+pedal pulse. Per PCP 5. COPD with vaping and recently got started back with heavy tobacco use per spouse. 6. Anxiety 7. Permanent AFIB: V paced and rate controlled. Unclear if any missed xarelto. 8. PPM in situ: [facility]. recent interrogation with normal function 9. CAD; Clinically stable 10. DM2/HLP 11. Hx of PAD 12. Mild trop elevation peaked at 0.059, no EKG changes. CP free. Type 2 demand mediated. Echo on 10/26/18 shows normal ejection fraction at 50-55%, mild tricuspid regurgitation and a pulmonary artery pressure 42 mmHg. Comment Review of Relevant I have reviewed the following items sara (where applicable) has been applied. Labs Laboratory Tests Test 11/05/18 00:51 11/05/18 01:10 11/05/18 01:30 11/05/18 03:00 White Blood Count 20.0 x10^3/uL (4.0-11.0) Red Blood Count 6.06 x10^6/uL (4.30-5.70) Hemoglobin 18.2 g/dL (13.0-17.5) Hematocrit 54.1 % (39.0-53.0) Mean Corpuscular Volume 89 fL (79-100) Mean Corpuscular Hemoglobin 30 pg (25-35) Mean Corpuscular Hemoglobin Concent 34 g/dL (31-37) Red Cell Distribution Width 13.9 % (11.5-14.5) Platelet Count 323 x10^3/uL (140-400) Neutrophils (%) (Auto) 76 % (31-73) Lymphocytes (%) (Auto) 13 % (24-48) Monocytes (%) (Auto) 10 % (0-9) Eosinophils (%) (Auto) 0 % (0-3) Basophils (%) (Auto) 1 % (0-3) Neutrophils # (Auto) 15.2 x10^3uL (1.8-7.7) Lymphocytes # (Auto) 2.7 x10^3/uL (1.0-4.8) Monocytes # (Auto) 1.9 x10^3/uL (0.0-1.1) Eosinophils # (Auto) 0.0 x10^3/uL (0.0-0.7) Basophils # (Auto) 0.1 x10^3/uL (0.0-0.2) Segmented Neutrophils % 79 % (35-66) Lymphocytes % 12 % (24-48) Monocytes % 9 % (0-10) Toxic Granulation Slight Platelet Estimate Adequate (ADEQUATE) Prothrombin Time 20.3 SEC (11.7-14.0) Prothromb Time International Ratio 1.8 (0.8-1.1) Activated Partial Thromboplast Time 30 SEC (24-38) Sodium Level 138 mmol/L (136-145) Potassium Level 3.8 mmol/L (3.5-5.1) Chloride Level 97 mmol/L (98-107) Carbon Dioxide Level 29 mmol/L (21-32) Anion Gap 12 (6-14) Blood Urea Nitrogen 28 mg/dL (8-26) Creatinine 0.9 mg/dL (0.7-1.3) Estimated GFR (Cockcroft-Gault) 84.4 BUN/Creatinine Ratio 31 (6-20) Glucose Level 233 mg/dL (70-99) Calcium Level 9.7 mg/dL (8.5-10.1) Magnesium Level 1.6 mg/dL (1.8-2.4) Total Bilirubin 0.5 mg/dL (0.2-1.0) Aspartate Amino Transf (AST/SGOT) 24 U/L (15-37) Alanine Aminotransferase (ALT/SGPT) 40 U/L (16-63) Alkaline Phosphatase 144 U/L (46-116) Creatine Kinase 39 U/L (39-308) Creatine Kinase MB (Mass) 2.4 ng/mL (0.0-3.6) Creatine Kinase MB Relative Index % (0-4) Troponin I Quantitative 0.028 ng/mL (0.000-0.055) LG-Fch-O-Type Natriuretic Peptide 659 pg/mL (0-124) Total Protein 7.8 g/dL (6.4-8.2) Albumin 3.1 g/dL (3.4-5.0) Albumin/Globulin Ratio 0.7 (1.0-1.7) Lipase 224 U/L (73-393) Glucose (Fingerstick) 196 mg/dL (70-99) Urine Collection Type Unknown Urine Color Yellow Urine Clarity Clear Urine pH 6.5 Urine Specific Virgin 1.020 Urine Protein >=300 mg/dL (NEG-TRACE) Urine Glucose (UA) >=1000 mg/dL (NEG) Urine Ketones (Stick) Negative mg/dL (NEG) Urine Blood Moderate (NEG) Urine Nitrite Negative (NEG) Urine Bilirubin Negative (NEG) Urine Urobilinogen Dipstick 1.0 mg/dL (0.2 mg/dL) Urine Leukocyte Esterase Trace (NEG) Urine RBC 11-20 /HPF (0-2) Urine WBC 1-4 /HPF (0-4) Urine Squamous Epithelial Cells Occ /LPF Urine Bacteria 0 /HPF (0-FEW) Urine Mucus Slight /LPF Lactic Acid Level 2.1 mmol/L (0.4-2.0) Test 11/05/18 04:10 11/05/18 05:25 11/05/18 07:30 11/05/18 09:15 Glucose (Fingerstick) 232 mg/dL (70-99) 292 mg/dL (70-99) Lactic Acid Level 2.3 mmol/L (0.4-2.0) Troponin I Quantitative 0.059 ng/mL (0.000-0.055) 0.050 ng/mL (0.000-0.055) Test 11/05/18 10:18 11/05/18 11:31 11/05/18 17:34 11/05/18 20:42 Urine Opiates Screen Neg (NEG) Urine Methadone Screen Neg (NEG) Urine Barbiturates Neg (NEG) Urine Phencyclidine Screen Neg (NEG) Urine Amphetamine/Methamphetamine Neg (NEG) Urine Benzodiazepines Screen Neg (NEG) Urine Cocaine Screen Neg (NEG) Urine Cannabinoids Screen Neg (NEG) Urine Ethyl Alcohol Neg (NEG) Glucose (Fingerstick) 279 mg/dL (70-99) 239 mg/dL (70-99) 211 mg/dL (70-99) Test 11/06/18 04:15 11/06/18 07:43 Triglycerides Level 127 mg/dL (0-150) Cholesterol Level 110 mg/dL (0-200) LDL Cholesterol, Calculated 61 mg/dL (0-100) VLDL Cholesterol, Calculated 25 mg/dL (0-40) Non-HDL Cholesterol Calculated 86 mg/dL (0-129) HDL Cholesterol 24 mg/dL (40-60) Cholesterol/HDL Ratio 4.6 Glucose (Fingerstick) 211 mg/dL (70-99) Laboratory Tests Test 11/05/18 17:34 11/05/18 20:42 11/06/18 04:15 11/06/18 07:43 Glucose (Fingerstick) 239 mg/dL (70-99) 211 mg/dL (70-99) 211 mg/dL (70-99) Triglycerides Level 127 mg/dL (0-150) Cholesterol Level 110 mg/dL (0-200) LDL Cholesterol, Calculated 61 mg/dL (0-100) VLDL Cholesterol, Calculated 25 mg/dL (0-40) Non-HDL Cholesterol Calculated 86 mg/dL (0-129) HDL Cholesterol 24 mg/dL (40-60) Cholesterol/HDL Ratio 4.6 Medications Current Medications Ondansetron HCl (Zofran) 4 mg 1X ONCE IV Last administered on 11/05/18at 01:41; Start 11/05/18 at 01:00; Stop 11/05/18 at 01:01; Status DC Famotidine (Pepcid Vial) 20 mg 1X ONCE IVP Last administered on 11/05/18at 01:41; Start 11/05/18 at 01:00; Stop 11/05/18 at 01:01; Status DC Sodium Chloride 1,000 ml @ 1,000 mls/hr 1X ONCE IV Last administered on 11/05/18at 01:38; Start 11/05/18 at 01:15; Stop 11/05/18 at 02:14; Status DC Iohexol (Omnipaque 300 Mg/ml) 75 ml 1X ONCE IV Last administered on 11/05/18at 01:32; Start 11/05/18 at 01:30; Stop 11/05/18 at 01:31; Status DC Info (CONTRAST GIVEN -- Rx MONITORING) 1 each PRN DAILY PRN MC SEE COMMENTS; Start 11/05/18 at 01:30; Stop 11/07/18 at 01:29 Labetalol HCl (Normodyne Iv Push) 20 mg 1X ONCE IVP Last administered on 11/05/18at 01:38; Start 11/05/18 at 01:45; Stop 11/05/18 at 01:46; Status DC Aspirin (Aspirin Rectal Supp) 300 mg 1X ONCE MN Last administered on 11/05/18at 02:37; Start 11/05/18 at 02:00; Stop 11/05/18 at 02:01; Status DC Fentanyl Citrate (Fentanyl 2ml Vial) 50 mcg 1X ONCE IV Last administered on 11/05/18at 01:52; Start 11/05/18 at 01:45; Stop 11/05/18 at 01:55; Status DC Nitroglycerin (Nitro-Bid Oint) 0.5 inch 1X ONCE TP Last administered on 11/05/18at 01:51; Start 11/05/18 at 01:45; Stop 11/05/18 at 01:55; Status DC Magnesium Sulfate 50 ml @ 25 mls/hr 1X ONCE IV Last administered on 11/05/18at 02:37; Start 11/05/18 at 02:00; Stop 11/05/18 at 03:59; Status DC Ondansetron HCl (Zofran) 4 mg 1X ONCE IV Last administered on 11/05/18 02:08; Start 11/05/18 at 02:15; Stop 11/05/18 at 02:16; Status DC Labetalol HCl (Normodyne Iv Push) 20 mg 1X ONCE IVP Last administered on 11/05/18 02:18; Start 11/05/18 at 02:15; Stop 11/05/18 at 02:16; Status DC Ondansetron HCl (Zofran) 4 mg PRN Q8HRS PRN IV NAUSEA/VOMITING Last administered on 11/05/18at 13:50; Start 11/05/18 at 02:45; Stop 11/06/18 at 02:44; Status DC Insulin Human Lispro (HumaLOG) 0-7 UNITS TIDWMEALS SQ Last administered on 11/06/18 09:53; Start 11/05/18 at 08:00 Dextrose (Dextrose 50%-Water Syringe) 12.5 gm PRN Q15MIN PRN IV SEE COMMENTS; Start 11/05/18 at 02:45 Labetalol HCl (Normodyne Iv Push) 10 mg PRN Q2HR PRN IVP ELEVATED BP, SEE COMMENTS Last administered on 11/05/18at 08:10; Start 11/05/18 at 02:45; Stop 11/05/18 at 08:28; Status DC Sodium Chloride 1,000 ml @ 100 mls/hr 1X ONCE IV Last administered on 11/05/18 03:16; Start 11/05/18 at 03:15; Stop 11/05/18 at 13:14; Status DC Metoclopramide HCl (Reglan Vial) 10 mg 1X ONCE IV Last administered on 11/05/18at 03:37; Start 11/05/18 at 03:30; Stop 11/05/18 at 03:31; Status DC Diphenhydramine HCl (Benadryl) 25 mg 1X ONCE IVP Last administered on 11/05/18at 03:37; Start 11/05/18 at 03:30; Stop 11/05/18 at 03:31; Status DC Nitroglycerin (Nitro-Bid Oint) 0.5 inch Q6HRS TP ; Start 11/05/18 at 12:00 Labetalol HCl (Normodyne Iv Push) 20 mg PRN Q2HR PRN IVP HYPERTENSION Last administered on 11/05/18at 11:11; Start 11/05/18 at 08:30 Insulin Glargine (Lantus) 30 units DAILY SQ Last administered on 11/06/18at 09:52; Start 11/05/18 at 09:00 Sodium Chloride 1,000 ml @ 100 mls/hr Q10H IV Last administered on 11/05/18 09:20; Start 11/05/18 at 08:30 Aspirin (Aspirin Rectal Supp) 300 mg DAILY MN Last administered on 11/06/18 09:40; Start 11/05/18 at 09:00 Lidocaine (Lidoderm) 1 patch DAILY TD Last administered on 11/06/18 09:40; Start 11/05/18 at 09:30 Miscellaneous (Lidoderm Patch Removal) 1 ea QHS MC Last administered on 11/05/18 20:52; Start 11/05/18 at 21:00 Metoprolol Tartrate (Lopressor Vial) 5 mg Q6HRS IVP ; Start 11/05/18 at 12:00 Enalaprilat (Vasotec Inj) 1.25 mg Q6HRS IVP Last administered on 11/06/18 06:22; Start 11/05/18 at 12:00 Cefazolin Sodium 50 ml @ 100 mls/hr Q8HRS IV ; Start 11/05/18 at 14:00; Stop 11/06/18 at 18:00; Status UNV Ketorolac Tromethamine (Toradol 30mg Vial) 30 mg PRN Q6HRS PRN IV PAIN Last administered on 11/05/18 12:40; Start 11/05/18 at 12:00; Stop 11/10/18 at 11:59 Cefazolin Sodium (Ancef) 1 gm Q8HRS IVP Last administered on 11/06/18 06:22; Start 11/05/18 at 13:00 Barium Sulfate (Varibar Thin Liquid Apple) 148 gm 1X ONCE PO Last administered on 11/05/18 13:45; Start 11/05/18 at 13:45; Stop 11/05/18 at 13:46; Status DC Amino Acids/ Glycerin/ Electrolytes 1,000 ml @ 80 mls/hr [id number] IV Last administered on 11/06/18 09:40; Start 11/05/18 at 19:00 Active Scripts Active Aspirin Ec (Aspirin) 325 Mg Tablet.dr 1 Tab PO DAILY Reported Cephalexin 500 Mg Tablet 1 Tab PO TID 7 Days Prednisone 20 Mg Tablet 1 Tab PO DAILY 3 Days Mag-Oxide (Magnesium Oxide) 400 Mg Tablet 1 Tab PO DAILY Alprazolam 0.5 Mg Tablet 1 Tab PO PRN DAILY PRN Furosemide 20 Mg Tablet 1 Tab PO DAILY Zoloft (Sertraline Hcl) 50 Mg Tablet 50 Mg PO DAILY Omeprazole 40 Mg Capsule.dr 1 Cap PO DAILY Miralax (Polyethylene Glycol 3350) 17 Gm Powd.pack 1 Packet PO PRN DAILY PRN Linzess (Linaclotide) 145 Mcg Capsule 145 Mcg PO PRN DAILY PRN Metformin Hcl 1,000 Mg Tablet 1,000 Mg PO BIDWMEALS Novolog Flexpen (Insulin Aspart) 100 Unit/1 Ml Insuln.pen 0-10 Unit SQ TIDAC Levemir (Insulin Detemir) 100 Unit/1 Ml Vial 45 Unit SQ BID Simvastatin 40 Mg Tablet 40 Mg PO HS Xarelto (Rivaroxaban) 20 Mg Tablet 20 Mg PO DAILY Lyrica (Pregabalin) 200 Mg Capsule 200 Mg PO BID 30 Days Metoprolol Succinate ( Xl ) (Metoprolol Succinate) 25 Mg Tab.er.24h 50 Mg PO HS Losartan-Hctz 100-25 Mg Tab (Losartan/Hydrochlorothiazide) 1 Each Tablet 1 Each PO HS Vitals/I & O Vital Sign - Last 24 Hours 11/05/18 11/05/18 11/05/18 11/05/18 12:25 12:42 15:00 18:11 Temp 98.0 98.0 Pulse 60 60 60 60 Resp 18 B/P (MAP) 153/81 (105) 160/76 154/72 (99) 159/74 Pulse Ox 97 O2 Delivery Nasal Cannula O2 Flow Rate 2.0 11/05/18 11/05/18 11/05/18 11/05/18 19:00 20:00 23:18 23:53 Temp 98.5 98.4 98.5 98.4 Pulse 68 60 60 Resp 16 16 B/P (MAP) 176/79 (111) 141/66 (91) 141/66 Pulse Ox 98 98 O2 Delivery Nasal Cannula Nasal Cannula Nasal Cannula O2 Flow Rate 2.0 2.0 2.0 11/06/18 11/06/18 11/06/18 11/06/18 00:00 00:16 03:00 05:46 Temp 98.8 98.8 Pulse 60 60 60 60 Resp 16 B/P (MAP) 141/66 141/66 161/79 (106) 161/79 Pulse Ox 95 O2 Delivery Nasal Cannula O2 Flow Rate 2.0 11/06/18 11/06/18 11/06/18 11/06/18 05:48 06:22 07:00 11:00 Temp 98.1 97.8 98.1 97.8 Pulse 60 60 59 60 Resp 12 12 B/P (MAP) 161/79 161/79 169/69 (102) 166/73 (104) Pulse Ox 94 97 O2 Delivery Nasal Cannula Nasal Cannula O2 Flow Rate 2.5 2.5 Intake and Output 11/05/18 11/05/18 11/06/18 15:00 23:00 07:00 Intake Total 0 ml 0 ml 740 ml Output Total 150 ml 200 ml Balance 0 ml -150 ml 540 ml KENDY LARA MD Nov 06, 2018 11:54
[2018-11-06] MEDS: ONDANSETRON PF 4 MG/2 ML VIAL. IV PRN ×2 (13:15→22:30)
[2018-11-06 15:00] VITALS: BP 134/68
--- NOTE | 2018-11-06 18:34 | NUR ---
Dr. Cummings paged around 1000 this am. Received no call back. Second attempt unsuccessful. Tried to inform them of new stroke. Talked to Dr. Thayer when he was rounding about anticoagulation. He recommended lovenox but asked to defer to neurology r/t new stroke. Dr. Blanco was paged this pm about anticoagulation. Patients current condition and history explained to Dr. Blanco. Dr. Blanco stated that they will continue to monitor the patient and no other orders were given at this time.
[2018-11-06 19:30] VITALS: BP 161/81
--- NOTE | 2018-11-06 19:39 | PN ---
DATE: 11/06/2018 ROOM: 258. SUBJECTIVE: The patient is awake, alert with multiple family members in attendance. Family believes his speech is a little bit better today. OBJECTIVE: VITAL SIGNS: Stable. He is afebrile. GENERAL: He has partial right hemiparesis and definite dysphagia on exam. He did fail a swallow test and is n.p.o. currently. CHEST: Clear. HEART: Regular. ABDOMEN: Benign. He does have a pacemaker present in the left upper chest and has a paced rhythm with my assumption he has an underlying rhythm of AFib as he has been on Xarelto for this prior to admission. The patient does admit to taking the Xarelto, but has not been taking his aspirin on a regular basis prior to this admission. CT scanning shows subacute left thalamic infarct of 12 mm, which I think explains all of his current symptoms. IMPRESSION: 1. Cerebrovascular accident. 2. Hypertension. 3. Diabetes. 4. Dysphagia due to cerebrovascular accident. PLAN: Continue present therapy. I am going to ask nursing who is going to call waiter/waitress captain regarding him being off his Xarelto at this point in time, whether we would want to go to some sort of Lovenox, like for the short term. An repeat CBC with leukocytosis present on admission and magnesium with him being low and that will be repeated in the morning. He will need therapy. CECILIA COLMENARES MD DR: DELPHINE/gary JOB#: [id number] / [id number]
--- NOTE | 2018-11-06 20:00 | NUR ---
Pt had been taking xarelto at home for his afib/flutter, VTE was proposed to cardiology but deferred to neurology. Dr. Yancey, neurology, ordered a NG tube to be placed and pts xarelto restarted and crushed. Spoke with pt, significant other Yasmine, and pts daughter Shelley, about the purpose of NG being placed and restarting the pts xarelto. Pt and family refused placement of NG, stating "it will just make him upset and angry, and pt agreed." Pt and family want to discuss other options with doctors in a.m. Will continue to monitor for status changes.
[2018-11-06] MEDS: PATCH REMOVAL. MC SCH (20:48)
[2018-11-06] MEDS: KETOROLAC 30 MG/ML VIAL. IV PRN (22:26)
[2018-11-06 23:40] VITALS: BP 167/86
[2018-11-07] MEDS: ENALAPRILAT 1.25 MG/ML VIAL. IVP SCH ×5 (00:20→23:43)
[2018-11-07 03:26] VITALS: BP 216/99
[2018-11-07] MEDS: LABETALOL 20 MG/4 ML DISP.SYRIN. IVP PRN (03:42)
[2018-11-07 05:15] LABS: BASO % 0 % (0-3); EOS # 0.1 x10^3/uL (0.0-0.7); EOS % 1 % (0-3); HEMATOCRIT 42.7 % (39.0-53.0); HEMOGLOBIN 14.6 g/dL (13.0-17.5); LYMPH # 1.6 x10^3/uL (1.0-4.8); LYMPH % 14 % (24-48); MEAN CORPUSCULAR HEMOGLOBIN 31 pg (25-35); MEAN CORPUSCULAR HGB CONC 34 g/dL (31-37); MEAN CORPUSCULAR VOLUME 90 fL (79-100); MONO % 9 % (0-9); NEUT # 8.1 x10^3uL (1.8-7.7); NEUT % 75 % (31-73); PLATELET COUNT 199 x10^3/uL (140-400); RED BLOOD COUNT 4.77 x10^6/uL (4.30-5.70); WHITE BLOOD COUNT 10.8 x10^3/uL (4.0-11.0)
[2018-11-07 05:32] LABS: CALCIUM 8.1 mg/dL (8.5-10.1); CREATININE 0.6 mg/dL (0.7-1.3); GFR 134.8; MAGNESIUM 1.9 mg/dL (1.8-2.4); POTASSIUM 3.5 mmol/L (3.5-5.1)
[2018-11-07] MEDS: NITROGLYCERIN OINT 1 GM PACKET. TP SCH ×5 (05:58→23:43)
[2018-11-07] MEDS: METOPROLOL TARTRATE 5 MG/5 ML VIAL. IVP SCH ×4 (06:39→18:34)
[2018-11-07] MEDS: ceFAZolin SODIUM IV Push 1 GM VIAL. IVP SCH ×3 (06:39→22:47)
[2018-11-07 07:00] VITALS: BP 175/82
[2018-11-07] MEDS: KETOROLAC 30 MG/ML VIAL. IV PRN ×2 (08:40→22:47)
[2018-11-07] MEDS: LIDOCAINE (700MG/PATCH) PATCH. TD SCH (08:40)
[2018-11-07] MEDS: ASPIRIN RECTAL 300 MG SUPP. PR SCH (08:40)
[2018-11-07] MEDS: ONDANSETRON PF 4 MG/2 ML VIAL. IV PRN ×2 (08:47→14:02)
[2018-11-07] MEDS: INSULIN GLARGINE 300 UNITS/3 ML INSULN.PEN. SQ SCH (08:54)
[2018-11-07] MEDS: INSULIN LISPRO 300 UNITS/3 ML INSULN.PEN. SQ SCH ×3 (08:55→17:00)
[2018-11-07 11:00] VITALS: BP 163/72
[2018-11-07] MEDS ORDERED: cloNIDine TTS-1 1 PATCH PATCH.TDWK TD SCH (13:00)
[2018-11-07] MEDS: AMINO AC 3%/ELECTROLYTE/GLYCER 1,000 ML IV SCH (14:02)
[2018-11-07 15:00] VITALS: BP 143/71
--- NOTE | 2018-11-07 18:11 | PDOC ---
PROGRESS NOTES Assessment Problems Medical Problems: (1) Cellulitis of foot, right Status: Acute (2) Hypertensive urgency Status: Acute (3) Hypomagnesemia Status: Acute (4) Leukocytosis Status: Acute (5) Nausea & vomiting Status: Acute (6) Weakness Status: Acute Plan Metabolic encephalopathy CVA. Dizziness. Leukocytosis. Vomiting. 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 Dysphagia. CAD s/p stent placement. DM. CT brain showing some of acute infarct in left thalamus with areas of chronic lacunar strokes with changes noted for atrophy. Patient has history of A fib on anticoagulation. If patient is not able to take po will recommend changed to injectable anticoagulation Will get MRI of brain to evaluate further will get 2-D echo carotid Doppler PT OT speech evaluation. Plan discussed with patient, patient's family at bedside in detail Subjective Patient is resting in bed. Family at bedside. Denies any complaint of headache nausea or vomiting. Objective Vital Signs Date Time Temp Pulse Resp B/P (MAP) Pulse Ox O2 Delivery O2 Flow Rate FiO2 11/07/18 15:00 97.8 60 14 143/71 (95) 95 Room Air 97.8 11/07/18 11:00 2.0 Intake and Output 11/07/18 06:59 Intake Total 1705 ml Output Total 1325 ml Balance 380 ml Intake Oral 0 ml IV Total 1705 ml Output Urine Total 1325 ml PHYSICAL EXAM General appearance is in acute distress. HEENT: Normocephalic and nontraumatic. Eyes, nose, ears, and throat are unremarkable. Neck is supple. No lymphadenopathy. No crepitus. Cardiovascular: S1, S2, regular rate and rhythm. Pulmonary: Clear to auscultation bilaterally. Abdomen: Bowel sounds are positive. Extremities: No rash, lesions, or edema. No restriction of range of motion NEUROLOGICAL EXAMINATION: sleepy PERRL. EOMI. CN: Old right VII mild palsy.. Muscle strength: 3+ right side weakness , 5/5 left side. DTR: 1-2 Plantar reflex: Neutral response bilaterally Gait: not examined in bed. Sensory exam: no acute abnormal findings. No cerebellar signs elicited. F-T-N test fine. Review of Relevant I have reviewed the following items sara (where applicable) has been applied. Labs Laboratory Tests Test 11/05/18 20:42 11/06/18 04:15 11/06/18 07:43 11/06/18 12:16 Glucose (Fingerstick) 211 mg/dL (70-99) 211 mg/dL (70-99) 229 mg/dL (70-99) Triglycerides Level 127 mg/dL (0-150) Cholesterol Level 110 mg/dL (0-200) LDL Cholesterol, Calculated 61 mg/dL (0-100) VLDL Cholesterol, Calculated 25 mg/dL (0-40) Non-HDL Cholesterol Calculated 86 mg/dL (0-129) HDL Cholesterol 24 mg/dL (40-60) Cholesterol/HDL Ratio 4.6 Test 11/06/18 17:33 11/06/18 20:38 11/07/18 04:30 11/07/18 07:11 Glucose (Fingerstick) 158 mg/dL (70-99) 167 mg/dL (70-99) 194 mg/dL (70-99) White Blood Count 10.8 x10^3/uL (4.0-11.0) Red Blood Count 4.77 x10^6/uL (4.30-5.70) Hemoglobin 14.6 g/dL (13.0-17.5) Hematocrit 42.7 % (39.0-53.0) Mean Corpuscular Volume 90 fL (79-100) Mean Corpuscular Hemoglobin 31 pg (25-35) Mean Corpuscular Hemoglobin Concent 34 g/dL (31-37) Red Cell Distribution Width 14.0 % (11.5-14.5) Platelet Count 199 x10^3/uL (140-400) Neutrophils (%) (Auto) 75 % (31-73) Lymphocytes (%) (Auto) 14 % (24-48) Monocytes (%) (Auto) 9 % (0-9) Eosinophils (%) (Auto) 1 % (0-3) Basophils (%) (Auto) 0 % (0-3) Neutrophils # (Auto) 8.1 x10^3uL (1.8-7.7) Lymphocytes # (Auto) 1.6 x10^3/uL (1.0-4.8) Monocytes # (Auto) 1.0 x10^3/uL (0.0-1.1) Eosinophils # (Auto) 0.1 x10^3/uL (0.0-0.7) Basophils # (Auto) 0.0 x10^3/uL (0.0-0.2) Sodium Level 138 mmol/L (136-145) Potassium Level 3.5 mmol/L (3.5-5.1) Chloride Level 103 mmol/L (98-107) Carbon Dioxide Level 30 mmol/L (21-32) Anion Gap 5 (6-14) Blood Urea Nitrogen 19 mg/dL (8-26) Creatinine 0.6 mg/dL (0.7-1.3) Estimated GFR (Cockcroft-Gault) 134.8 Glucose Level 183 mg/dL (70-99) Calcium Level 8.1 mg/dL (8.5-10.1) Magnesium Level 1.9 mg/dL (1.8-2.4) Test 11/07/18 11:39 11/07/18 16:59 Glucose (Fingerstick) 178 mg/dL (70-99) 146 mg/dL (70-99) Laboratory Tests Test 11/06/18 20:38 11/07/18 04:30 11/07/18 07:11 11/07/18 11:39 Glucose (Fingerstick) 167 mg/dL (70-99) 194 mg/dL (70-99) 178 mg/dL (70-99) White Blood Count 10.8 x10^3/uL (4.0-11.0) Red Blood Count 4.77 x10^6/uL (4.30-5.70) Hemoglobin 14.6 g/dL (13.0-17.5) Hematocrit 42.7 % (39.0-53.0) Mean Corpuscular Volume 90 fL (79-100) Mean Corpuscular Hemoglobin 31 pg (25-35) Mean Corpuscular Hemoglobin Concent 34 g/dL (31-37) Red Cell Distribution Width 14.0 % (11.5-14.5) Platelet Count 199 x10^3/uL (140-400) Neutrophils (%) (Auto) 75 % (31-73) Lymphocytes (%) (Auto) 14 % (24-48) Monocytes (%) (Auto) 9 % (0-9) Eosinophils (%) (Auto) 1 % (0-3) Basophils (%) (Auto) 0 % (0-3) Neutrophils # (Auto) 8.1 x10^3uL (1.8-7.7) Lymphocytes # (Auto) 1.6 x10^3/uL (1.0-4.8) Monocytes # (Auto) 1.0 x10^3/uL (0.0-1.1) Eosinophils # (Auto) 0.1 x10^3/uL (0.0-0.7) Basophils # (Auto) 0.0 x10^3/uL (0.0-0.2) Sodium Level 138 mmol/L (136-145) Potassium Level 3.5 mmol/L (3.5-5.1) Chloride Level 103 mmol/L (98-107) Carbon Dioxide Level 30 mmol/L (21-32) Anion Gap 5 (6-14) Blood Urea Nitrogen 19 mg/dL (8-26) Creatinine 0.6 mg/dL (0.7-1.3) Estimated GFR (Cockcroft-Gault) 134.8 Glucose Level 183 mg/dL (70-99) Calcium Level 8.1 mg/dL (8.5-10.1) Magnesium Level 1.9 mg/dL (1.8-2.4) Test 11/07/18 16:59 Glucose (Fingerstick) 146 mg/dL (70-99) Microbiology 11/05/18 Urine Culture - Final, Complete 11/05/18 Urine Culture Result 1 (MERVAT) - Final, Complete Medications Current Medications Ondansetron HCl (Zofran) 4 mg 1X ONCE IV Last administered on 11/05/18at 01:41; Start 11/05/18 at 01:00; Stop 11/05/18 at 01:01; Status DC Famotidine (Pepcid Vial) 20 mg 1X ONCE IVP Last administered on 11/05/18at 01:41; Start 11/05/18 at 01:00; Stop 11/05/18 at 01:01; Status DC Sodium Chloride 1,000 ml @ 1,000 mls/hr 1X ONCE IV Last administered on 11/05/18at 01:38; Start 11/05/18 at 01:15; Stop 11/05/18 at 02:14; Status DC Iohexol (Omnipaque 300 Mg/ml) 75 ml 1X ONCE IV Last administered on 11/05/18at 01:32; Start 11/05/18 at 01:30; Stop 11/05/18 at 01:31; Status DC Info (CONTRAST GIVEN -- Rx MONITORING) 1 each PRN DAILY PRN MC SEE COMMENTS; Start 11/05/18 at 01:30; Stop 11/07/18 at 01:29; Status DC Labetalol HCl (Normodyne Iv Push) 20 mg 1X ONCE IVP Last administered on 11/05/18at 01:38; Start 11/05/18 at 01:45; Stop 11/05/18 at 01:46; Status DC Aspirin (Aspirin Rectal Supp) 300 mg 1X ONCE NE Last administered on 11/05/18at 02:37; Start 11/05/18 at 02:00; Stop 11/05/18 at 02:01; Status DC Fentanyl Citrate (Fentanyl 2ml Vial) 50 mcg 1X ONCE IV Last administered on 11/05/18at 01:52; Start 11/05/18 at 01:45; Stop 11/05/18 at 01:55; Status DC Nitroglycerin (Nitro-Bid Oint) 0.5 inch 1X ONCE TP Last administered on 11/05/18at 01:51; Start 11/05/18 at 01:45; Stop 11/05/18 at 01:55; Status DC Magnesium Sulfate 50 ml @ 25 mls/hr 1X ONCE IV Last administered on 11/05/18at 02:37; Start 11/05/18 at 02:00; Stop 11/05/18 at 03:59; Status DC Ondansetron HCl (Zofran) 4 mg 1X ONCE IV Last administered on 11/05/18at 02:08; Start 11/05/18 at 02:15; Stop 11/05/18 at 02:16; Status DC Labetalol HCl (Normodyne Iv Push) 20 mg 1X ONCE IVP Last administered on 11/05/18at 02:18; Start 11/05/18 at 02:15; Stop 11/05/18 at 02:16; Status DC Ondansetron HCl (Zofran) 4 mg PRN Q8HRS PRN IV NAUSEA/VOMITING Last administered on 11/05/18at 13:50; Start 11/05/18 at 02:45; Stop 11/06/18 at 02:44; Status DC Insulin Human Lispro (HumaLOG) 0-7 UNITS TIDWMEALS SQ Last administered on 11/07/18 08:55; Start 11/05/18 at 08:00 Dextrose (Dextrose 50%-Water Syringe) 12.5 gm PRN Q15MIN PRN IV SEE COMMENTS; Start 11/05/18 at 02:45 Labetalol HCl (Normodyne Iv Push) 10 mg PRN Q2HR PRN IVP ELEVATED BP, SEE COMMENTS Last administered on 11/05/18 08:10; Start 11/05/18 at 02:45; Stop 11/05/18 at 08:28; Status DC Sodium Chloride 1,000 ml @ 100 mls/hr 1X ONCE IV Last administered on 11/05/18 03:16; Start 11/05/18 at 03:15; Stop 11/05/18 at 13:14; Status DC Metoclopramide HCl (Reglan Vial) 10 mg 1X ONCE IV Last administered on 11/05/18 03:37; Start 11/05/18 at 03:30; Stop 11/05/18 at 03:31; Status DC Diphenhydramine HCl (Benadryl) 25 mg 1X ONCE IVP Last administered on 11/05/18 03:37; Start 11/05/18 at 03:30; Stop 11/05/18 at 03:31; Status DC Nitroglycerin (Nitro-Bid Oint) 0.5 inch Q6HRS TP ; Start 11/05/18 at 12:00 Labetalol HCl (Normodyne Iv Push) 20 mg PRN Q2HR PRN IVP HYPERTENSION Last administered on 11/07/18 03:42; Start 11/05/18 at 08:30 Insulin Glargine (Lantus) 30 units DAILY SQ Last administered on 11/07/18 08:54; Start 11/05/18 at 09:00 Sodium Chloride 1,000 ml @ 100 mls/hr Q10H IV Last administered on 11/05/18 09:20; Start 11/05/18 at 08:30; Stop 11/07/18 at 00:06; Status DC Aspirin (Aspirin Rectal Supp) 300 mg DAILY NE Last administered on 11/07/18 08:40; Start 11/05/18 at 09:00 Lidocaine (Lidoderm) 1 patch DAILY TD Last administered on 11/07/18 08:40; Start 11/05/18 at 09:30 Miscellaneous (Lidoderm Patch Removal) 1 ea QHS MC Last administered on 20:48; Start 11/05/18 at 21:00 Metoprolol Tartrate (Lopressor Vial) 5 mg Q6HRS IVP Last administered on 11/07/18 12:29; Start 11/05/18 at 12:00 Enalaprilat (Vasotec Inj) 1.25 mg Q6HRS IVP Last administered on 11/07/18 10:31; Start 11/05/18 at 12:00 Cefazolin Sodium 50 ml @ 100 mls/hr Q8HRS IV ; Start 11/05/18 at 14:00; Stop 11/06/18 at 18:00; Status UNV Ketorolac Tromethamine (Toradol 30mg Vial) 30 mg PRN Q6HRS PRN IV PAIN Last administered on 11/07/18 08:40; Start 11/05/18 at 12:00; Stop 11/10/18 at 11:59 Cefazolin Sodium (Ancef) 1 gm Q8HRS IVP Last administered on 11/07/18 14:05; Start 11/05/18 at 13:00 Barium Sulfate (Varibar Thin Liquid Apple) 148 gm 1X ONCE PO Last administered on 11/05/18 13:45; Start 11/05/18 at 13:45; Stop 11/05/18 at 13:46; Status DC Amino Acids/ Glycerin/ Electrolytes 1,000 ml @ 80 mls/hr [id number] IV Last administered on 11/07/18 14:02; Start 11/05/18 at 19:00 Ondansetron HCl (Zofran) 4 mg PRN Q4HRS PRN IV NAUSEA/VOMITING Last administered on 11/07/18 14:02; Start 11/06/18 at 13:00 Clonidine HCl (Catapres Tts-1) 1 patch WEEKLY TD Last administered on 11/07/18 12:57; Start 11/07/18 at 13:00 Enoxaparin Sodium (Lovenox Per Pharmacy Treatment Dosing) 1 each PRN DAILY PRN MC SEE COMMENTS; Start 11/07/18 at 15:15 Enoxaparin Sodium (Lovenox 100mg Syringe) 100 mg Q12HR SQ Last administered on 11/07/18at 15:53; Start 11/07/18 at 15:00 Active Scripts Active Aspirin Ec (Aspirin) 325 Mg Tablet.dr 1 Tab PO DAILY Reported Cephalexin 500 Mg Tablet 1 Tab PO TID 7 Days Prednisone 20 Mg Tablet 1 Tab PO DAILY 3 Days Mag-Oxide (Magnesium Oxide) 400 Mg Tablet 1 Tab PO DAILY Alprazolam 0.5 Mg Tablet 1 Tab PO PRN DAILY PRN Furosemide 20 Mg Tablet 1 Tab PO DAILY Zoloft (Sertraline Hcl) 50 Mg Tablet 50 Mg PO DAILY Omeprazole 40 Mg Capsule. 1 Cap PO DAILY Miralax (Polyethylene Glycol 3350) 17 Gm Powd.pack 1 Packet PO PRN DAILY PRN Linzess (Linaclotide) 145 Mcg Capsule 145 Mcg PO PRN DAILY PRN Metformin Hcl 1,000 Mg Tablet 1,000 Mg PO BIDWMEALS Novolog Flexpen (Insulin Aspart) 100 Unit/1 Ml Insuln.pen 0-10 Unit SQ TIDAC Levemir (Insulin Detemir) 100 Unit/1 Ml Vial 45 Unit SQ BID Simvastatin 40 Mg Tablet 40 Mg PO HS Xarelto (Rivaroxaban) 20 Mg Tablet 20 Mg PO DAILY Lyrica (Pregabalin) 200 Mg Capsule 200 Mg PO BID 30 Days Metoprolol Succinate ( Xl ) (Metoprolol Succinate) 25 Mg Tab.er.24h 50 Mg PO HS Losartan-Hctz 100-25 Mg Tab (Losartan/Hydrochlorothiazide) 1 Each Tablet 1 Each PO HS Vitals/I & O Vital Sign - Last 24 Hours 11/06/18 11/06/18 11/06/18 11/06/18 18:40 19:30 20:00 23:40 Temp 97.5 97.9 97.5 97.9 Pulse 60 60 60 Resp 22 B/P (MAP) 183/93 161/81 (107) 167/86 (113) Pulse Ox 96 96 O2 Delivery Nasal Cannula Nasal Cannula Nasal Cannula O2 Flow Rate 2.0 2.0 2.0 11/07/18 11/07/18 11/07/18 11/07/18 00:00 00:00 00:20 03:26 Temp 98.2 98.2 Pulse 60 60 60 60 Resp 22 B/P (MAP) 167/86 167/86 167/86 216/99 (138) Pulse Ox 94 O2 Delivery Nasal Cannula O2 Flow Rate 2.0 11/07/18 11/07/18 11/07/18 11/07/18 03:42 05:58 06:00 06:39 Pulse 60 60 60 60 B/P (MAP) 216/99 139/64 139/64 139/64 11/07/18 11/07/18 11/07/18 11/07/18 07:00 07:26 10:31 11:00 Temp 97.5 97.5 97.5 97.5 Pulse 60 60 60 Resp 12 12 B/P (MAP) 175/82 (113) 168/81 163/72 (102) Pulse Ox 98 97 O2 Delivery Room Air Nasal Cannula Nasal Cannula O2 Flow Rate 2.0 2.0 11/07/18 11/07/18 11/07/18 12:00 12:29 15:00 Temp 97.8 97.8 Pulse 60 60 60 Resp 14 B/P (MAP) 168/81 168/81 143/71 (95) Pulse Ox 95 O2 Delivery Room Air Intake and Output 11/06/18 11/06/18 11/07/18 14:59 22:59 06:59 Intake Total 1705 ml Output Total 200 ml 525 ml 600 ml Balance -200 ml -525 ml 1105 ml GERALDINE PATINO MD Nov 07, 2018 18:11
[2018-11-07 19:55] VITALS: BP 181/85
[2018-11-07] MEDS: PATCH REMOVAL. MC SCH (21:00)
--- NOTE | 2018-11-07 22:35 | PN ---
DATE: 11/07/2018 SUBJECTIVE: The patient is awake, alert. is present at the bedside. They both believe he is speaking better and I would agree by talking to him today. They have questions about the swallow again. On further questioning, the patient has lost a fair amount of weight over the last year or so and has what sounds like early satiety and may need a gastric emptying test prior to discharge once he is able to swallow. He states he does not know where his right hand is all the time and has a prior right field cut from his prior occipital infarct. OBJECTIVE: VITAL SIGNS: Stable. He is afebrile. Blood pressure is somewhat elevated. I am going to add Catapres patch in the short term here until he is able to swallow again, which I would anticipate will be coming next week with his speech improving. CHEST: Clear. HEART: Regular. ABDOMEN: Benign. EXTREMITIES: Without cyanosis, clubbing, edema. NEUROLOGIC: Again speech is improved. International Project Manager on the right is somewhat improved. There is definitely some incoordination of the right hand on having him point. IMPRESSION: 1. Acute left thalamic cerebrovascular accident. 2. Hypertension. 3. Diabetes. 4. Dysphagia. 5. Possible gastroparesis. PLAN: Continue present therapy. Add the Catapres patch for his blood pressure at this point in time. Anticoagulation at this point is per Neurology, they had suggested a possible NG tube with giving him the Xarelto, which he has refused and I will leave that up to them upon seeing him today for the underlying AFib. In addition, his leukocytosis has resolved and his magnesium has returned to normal on this morning's lab. CECILIA COLMENARES MD DR: DELPHINE/gary JOB#: [id number] / [id number]
[2018-11-07 23:18] VITALS: BP 174/97
[2018-11-08] MEDS: METOPROLOL TARTRATE 5 MG/5 ML VIAL. IVP SCH ×4 (00:18→19:45)
[2018-11-08 03:15] VITALS: BP 157/105
[2018-11-08] MEDS: AMINO AC 3%/ELECTROLYTE/GLYCER 1,000 ML IV SCH ×3 (04:25→22:00)
[2018-11-08] MEDS: ceFAZolin SODIUM IV Push 1 GM VIAL. IVP SCH ×3 (06:21→22:26)
[2018-11-08] MEDS: NITROGLYCERIN OINT 1 GM PACKET. TP SCH ×3 (06:21→18:27)
[2018-11-08] MEDS: ENALAPRILAT 1.25 MG/ML VIAL. IVP SCH ×4 (06:22→22:25)
[2018-11-08 07:22] VITALS: BP 201/91
[2018-11-08] MEDS: INSULIN LISPRO 300 UNITS/3 ML INSULN.PEN. SQ SCH (08:00)
--- NOTE | 2018-11-08 08:58 | PDOC ---
Provider Note Provider Note bp labile on 4 meds- glucose ok- R foot less red on ancef- swallow re- eval toda- R arm weaknes less,speech better- cons dr agustin re rehab placement DELROY BASS MD Nov 08, 2018 08:58
[2018-11-08] MEDS ORDERED: INSULIN GLARGINE 300 UNITS/3 ML INSULN.PEN. SQ SCH (09:00)
--- NOTE | 2018-11-08 09:11 | PDOC ---
PROGRESS NOTES Subjective Subjective He admits left side low back pain while rolling in bed. Objective Objective Vital Signs Date Time Temp Pulse Resp B/P (MAP) Pulse Ox O2 Delivery O2 Flow Rate FiO2 11/08/18 07:23 60 201/91 11/08/18 03:15 97.8 12 96 Room Air 97.8 11/07/18 19:30 2.0 Intake and Output 11/08/18 07:00 Intake Total 0 ml Output Total 900 ml Balance -900 ml Intake Oral 0 ml Output Urine Total 900 ml Physical Exam Physical Exam He is supine in bed and continues with right central facial paresis and right hemiparesis and mobility,self care and swallowing deficits. He had tenderness to palpation over sacroiliac joints. Assessment Assessment Problems Medical Problems: (1) Cellulitis of foot, right Status: Acute (2) Hypertensive urgency Status: Acute (3) Hypomagnesemia Status: Acute (4) Leukocytosis Status: Acute (5) Nausea & vomiting Status: Acute (6) Weakness Status: Acute Plan Plan of Care To proceed with sacroiliac joint injection to help ease his pain. To in-patient rehab unit when medically stable. Comment Review of Relevant I have reviewed the following items sara (where applicable) has been applied. Labs Laboratory Tests Test 11/06/18 12:16 11/06/18 17:33 11/06/18 20:38 11/07/18 04:30 Glucose (Fingerstick) 229 mg/dL (70-99) 158 mg/dL (70-99) 167 mg/dL (70-99) White Blood Count 10.8 x10^3/uL (4.0-11.0) Red Blood Count 4.77 x10^6/uL (4.30-5.70) Hemoglobin 14.6 g/dL (13.0-17.5) Hematocrit 42.7 % (39.0-53.0) Mean Corpuscular Volume 90 fL (79-100) Mean Corpuscular Hemoglobin 31 pg (25-35) Mean Corpuscular Hemoglobin Concent 34 g/dL (31-37) Red Cell Distribution Width 14.0 % (11.5-14.5) Platelet Count 199 x10^3/uL (140-400) Neutrophils (%) (Auto) 75 % (31-73) Lymphocytes (%) (Auto) 14 % (24-48) Monocytes (%) (Auto) 9 % (0-9) Eosinophils (%) (Auto) 1 % (0-3) Basophils (%) (Auto) 0 % (0-3) Neutrophils # (Auto) 8.1 x10^3uL (1.8-7.7) Lymphocytes # (Auto) 1.6 x10^3/uL (1.0-4.8) Monocytes # (Auto) 1.0 x10^3/uL (0.0-1.1) Eosinophils # (Auto) 0.1 x10^3/uL (0.0-0.7) Basophils # (Auto) 0.0 x10^3/uL (0.0-0.2) Sodium Level 138 mmol/L (136-145) Potassium Level 3.5 mmol/L (3.5-5.1) Chloride Level 103 mmol/L (98-107) Carbon Dioxide Level 30 mmol/L (21-32) Anion Gap 5 (6-14) Blood Urea Nitrogen 19 mg/dL (8-26) Creatinine 0.6 mg/dL (0.7-1.3) Estimated GFR (Cockcroft-Gault) 134.8 Glucose Level 183 mg/dL (70-99) Calcium Level 8.1 mg/dL (8.5-10.1) Magnesium Level 1.9 mg/dL (1.8-2.4) Test 11/07/18 07:11 11/07/18 11:39 11/07/18 16:59 11/07/18 20:20 Glucose (Fingerstick) 194 mg/dL (70-99) 178 mg/dL (70-99) 146 mg/dL (70-99) 114 mg/dL (70-99) Test 11/07/18 23:48 11/08/18 07:43 Glucose (Fingerstick) 85 mg/dL (70-99) 112 mg/dL (70-99) Laboratory Tests Test 11/07/18 11:39 11/07/18 16:59 11/07/18 20:20 11/07/18 23:48 Glucose (Fingerstick) 178 mg/dL (70-99) 146 mg/dL (70-99) 114 mg/dL (70-99) 85 mg/dL (70-99) Test 11/08/18 07:43 Glucose (Fingerstick) 112 mg/dL (70-99) Microbiology 11/05/18 Urine Culture - Final, Complete 11/05/18 Urine Culture Result 1 (MERVAT) - Final, Complete Medications Current Medications Ondansetron HCl (Zofran) 4 mg 1X ONCE IV Last administered on 11/05/18 01:41; Start 11/05/18 at 01:00; Stop 11/05/18 at 01:01; Status DC Famotidine (Pepcid Vial) 20 mg 1X ONCE IVP Last administered on 11/05/18at 01:41; Start 11/05/18 at 01:00; Stop 11/05/18 at 01:01; Status DC Sodium Chloride 1,000 ml @ 1,000 mls/hr 1X ONCE IV Last administered on 11/05/18at 01:38; Start 11/05/18 at 01:15; Stop 11/05/18 at 02:14; Status DC Iohexol (Omnipaque 300 Mg/ml) 75 ml 1X ONCE IV Last administered on 11/05/18at 01:32; Start 11/05/18 at 01:30; Stop 11/05/18 at 01:31; Status DC Info (CONTRAST GIVEN -- Rx MONITORING) 1 each PRN DAILY PRN MC SEE COMMENTS; Start 11/05/18 at 01:30; Stop 11/07/18 at 01:29; Status DC Labetalol HCl (Normodyne Iv Push) 20 mg 1X ONCE IVP Last administered on 11/05/18at 01:38; Start 11/05/18 at 01:45; Stop 11/05/18 at 01:46; Status DC Aspirin (Aspirin Rectal Supp) 300 mg 1X ONCE CO Last administered on 11/05/18at 02:37; Start 11/05/18 at 02:00; Stop 11/05/18 at 02:01; Status DC Fentanyl Citrate (Fentanyl 2ml Vial) 50 mcg 1X ONCE IV Last administered on 11/05/18at 01:52; Start 11/05/18 at 01:45; Stop 11/05/18 at 01:55; Status DC Nitroglycerin (Nitro-Bid Oint) 0.5 inch 1X ONCE TP Last administered on 11/05/18at 01:51; Start 11/05/18 at 01:45; Stop 11/05/18 at 01:55; Status DC Magnesium Sulfate 50 ml @ 25 mls/hr 1X ONCE IV Last administered on 11/05/18at 02:37; Start 11/05/18 at 02:00; Stop 11/05/18 at 03:59; Status DC Ondansetron HCl (Zofran) 4 mg 1X ONCE IV Last administered on 11/05/18at 02:08; Start 11/05/18 at 02:15; Stop 11/05/18 at 02:16; Status DC Labetalol HCl (Normodyne Iv Push) 20 mg 1X ONCE IVP Last administered on 11/05/18at 02:18; Start 11/05/18 at 02:15; Stop 11/05/18 at 02:16; Status DC Ondansetron HCl (Zofran) 4 mg PRN Q8HRS PRN IV NAUSEA/VOMITING Last administered on 11/05/18at 13:50; Start 11/05/18 at 02:45; Stop 11/06/18 at 02:44; Status DC Insulin Human Lispro (HumaLOG) 0-7 UNITS TIDWMEALS SQ Last administered on 11/07/18at 08:55; Start 11/05/18 at 08:00; Stop 11/08/18 at 08:37; Status DC Dextrose (Dextrose 50%-Water Syringe) 12.5 gm PRN Q15MIN PRN IV SEE COMMENTS; Start 11/05/18 at 02:45 Labetalol HCl (Normodyne Iv Push) 10 mg PRN Q2HR PRN IVP ELEVATED BP, SEE COMMENTS Last administered on 11/05/18at 08:10; Start 11/05/18 at 02:45; Stop 11/05/18 at 08:28; Status DC Sodium Chloride 1,000 ml @ 100 mls/hr 1X ONCE IV Last administered on 11/05/18at 03:16; Start 11/05/18 at 03:15; Stop 11/05/18 at 13:14; Status DC Metoclopramide HCl (Reglan Vial) 10 mg 1X ONCE IV Last administered on 11/05/18at 03:37; Start 11/05/18 at 03:30; Stop 11/05/18 at 03:31; Status DC Diphenhydramine HCl (Benadryl) 25 mg 1X ONCE IVP Last administered on 11/05/18 03:37; Start 11/05/18 at 03:30; Stop 11/05/18 at 03:31; Status DC Nitroglycerin (Nitro-Bid Oint) 0.5 inch Q6HRS TP Last administered on 11/08/18 06:21; Start 11/05/18 at 12:00 Labetalol HCl (Normodyne Iv Push) 20 mg PRN Q2HR PRN IVP HYPERTENSION Last administered on 11/07/18 03:42; Start 11/05/18 at 08:30 Insulin Glargine (Lantus) 30 units DAILY SQ Last administered on 11/07/18 08:54; Start 11/05/18 at 09:00; Stop 11/08/18 at 08:37; Status DC Sodium Chloride 1,000 ml @ 100 mls/hr Q10H IV Last administered on 11/05/18 0 9:20; Start 11/05/18 at 08:30; Stop 11/07/18 at 00:06; Status DC Aspirin (Aspirin Rectal Supp) 300 mg DAILY CO Last administered on 11/07/18 08:40; Start 11/05/18 at 09:00 Lidocaine (Lidoderm) 1 patch DAILY TD Last administered on 11/07/18 08:40; Start 11/05/18 at 09:30 Miscellaneous (Lidoderm Patch Removal) 1 ea QHS MC Last administered on 11/07/18 21:00; Start 11/05/18 at 21:00 Metoprolol Tartrate (Lopressor Vial) 5 mg Q6HRS IVP Last administered on 11/08/18 07:23; Start 11/05/18 at 12:00 Enalaprilat (Vasotec Inj) 1.25 mg Q6HRS IVP Last administered on 11/08/18 06:22; Start 11/05/18 at 12:00 Cefazolin Sodium 50 ml @ 100 mls/hr Q8HRS IV ; Start 11/05/18 at 14:00; Stop 11/06/18 at 18:00; Status UNV Ketorolac Tromethamine (Toradol 30mg Vial) 30 mg PRN Q6HRS PRN IV PAIN Last administered on 6/16/19at 22:47; Start 11/05/18 at 12:00; Stop 11/10/18 at 11:59 Cefazolin Sodium (Ancef) 1 gm Q8HRS IVP Last administered on 11/08/18at 06:21; Start 11/05/18 at 13:00 Barium Sulfate (Varibar Thin Liquid Apple) 148 gm 1X ONCE PO Last administered on 11/05/18at 13:45; Start 11/05/18 at 13:45; Stop 11/05/18 at 13:46; Status DC Amino Acids/ Glycerin/ Electrolytes 1,000 ml @ 80 mls/hr [id number] IV Last administered on 11/08/18at 04:25; Start 11/05/18 at 19:00 Ondansetron HCl (Zofran) 4 mg PRN Q4HRS PRN IV NAUSEA/VOMITING Last administered on 11/07/18at 14:02; Start 11/06/18 at 13:00 Clonidine HCl (Catapres Tts-1) 1 patch WEEKLY TD Last administered on 11/07/18at 12:57; Start 11/07/18 at 13:00 Enoxaparin Sodium (Lovenox Per Pharmacy Treatment Dosing) 1 each PRN DAILY PRN MC SEE COMMENTS; Start 11/07/18 at 15:15 Enoxaparin Sodium (Lovenox 100mg Syringe) 100 mg Q12HR SQ Last administered on 11/07/18at 21:13; Start 11/07/18 at 15:00 Insulin Glargine (Lantus) 26 units DAILY SQ ; Start 11/08/18 at 09:00 Lorazepam (Ativan Inj) 1 mg PRN Q6HRS PRN IV ANXIETY / AGITATION; Start 11/08/18 at 08:45 Active Scripts Active Aspirin Ec (Aspirin) 325 Mg Tablet.dr 1 Tab PO DAILY Reported Cephalexin 500 Mg Tablet 1 Tab PO TID 7 Days Prednisone 20 Mg Tablet 1 Tab PO DAILY 3 Days Mag-Oxide (Magnesium Oxide) 400 Mg Tablet 1 Tab PO DAILY Alprazolam 0.5 Mg Tablet 1 Tab PO PRN DAILY PRN Furosemide 20 Mg Tablet 1 Tab PO DAILY Zoloft (Sertraline Hcl) 50 Mg Tablet 50 Mg PO DAILY Omeprazole 40 Mg Capsule.dr 1 Cap PO DAILY Miralax (Polyethylene Glycol 3350) 17 Gm Powd.pack 1 Packet PO PRN DAILY PRN Linzess (Linaclotide) 145 Mcg Capsule 145 Mcg PO PRN DAILY PRN Metformin Hcl 1,000 Mg Tablet 1,000 Mg PO BIDWMEALS Novolog Flexpen (Insulin Aspart) 100 Unit/1 Ml Insuln.pen 0-10 Unit SQ TIDAC Levemir (Insulin Detemir) 100 Unit/1 Ml Vial 45 Unit SQ BID Simvastatin 40 Mg Tablet 40 Mg PO HS Xarelto (Rivaroxaban) 20 Mg Tablet 20 Mg PO DAILY Lyrica (Pregabalin) 200 Mg Capsule 200 Mg PO BID 30 Days Metoprolol Succinate ( Xl ) (Metoprolol Succinate) 25 Mg Tab.er.24h 50 Mg PO HS Losartan-Hctz 100-25 Mg Tab (Losartan/Hydrochlorothiazide) 1 Each Tablet 1 Each PO HS Vitals/I & O Vital Sign - Last 24 Hours 11/07/18 11/07/18 11/07/18 11/07/18 10:31 11:00 12:00 12:29 Temp 97.5 97.5 Pulse 60 60 60 60 Resp 12 B/P (MAP) 168/81 163/72 (102) 168/81 168/81 Pulse Ox 97 O2 Delivery Nasal Cannula O2 Flow Rate 2.0 11/07/18 11/07/18 11/07/18 11/07/18 15:00 18:34 19:15 19:30 Temp 97.8 97.8 Pulse 60 60 60 Resp 14 B/P (MAP) 143/71 (95) 189/84 196/84 Pulse Ox 95 O2 Delivery Room Air Nasal Cannula O2 Flow Rate 2.0 11/07/18 11/07/18 11/07/18 11/07/18 19:55 23:18 23:43 23:43 Temp 98.4 97.8 98.4 97.8 Pulse 60 60 60 60 Resp 17 12 B/P (MAP) 181/85 (117) 174/97 (122) 174/97 174/97 Pulse Ox 95 95 O2 Delivery Room Air Room Air 11/08/18 11/08/18 11/08/18 11/08/18 00:18 03:15 06:21 06:22 Temp 97.8 97.8 Pulse 60 60 60 60 Resp 12 B/P (MAP) 150/65 157/105 (122) 157/105 157/105 Pulse Ox 96 O2 Delivery Room Air 11/08/18 11/08/18 07:22 07:23 Pulse 60 60 B/P (MAP) 201/91 (127) 201/91 Intake and Output 11/07/18 11/07/18 11/08/18 15:00 23:00 07:00 Intake Total 0 ml Output Total 250 ml 150 ml 500 ml Balance -250 ml -150 ml -500 ml ELISEO DUENAS MD Nov 08, 2018 09:11
[2018-11-08] MEDS ORDERED: BUPIVACAINE MPF 0.25% 10 ML VIAL. IJ ONE (09:15)
[2018-11-08] MEDS ORDERED: methylPREDNISolone ACETATE 40 MG/ML VIAL. IM ONE (09:15)
[2018-11-08] MEDS: ASPIRIN RECTAL 300 MG SUPP. PR SCH (09:27)
[2018-11-08] MEDS: LIDOCAINE (700MG/PATCH) PATCH. TD SCH (09:28)
[2018-11-08] MEDS: ONDANSETRON PF 4 MG/2 ML VIAL. IV PRN (09:45)
--- NOTE | 2018-11-08 10:25 | PDOC4 ---
PROCEDURE Procedure At his request,I have injected painful left sacroiliac joint under aseptic skin technique with alcohol swab, with 2 ml of 0.25% bupivacaine solution mixed with 1 ml of methylprednisone 40 mg/ 1 ml solution and he tolerated the procedure satisfactorily without any side effects. ELISEO DUENAS MD Nov 08, 2018 10:25
[2018-11-08 10:50] VITALS: BP 150/71
--- NOTE | 2018-11-08 12:25 | NUR ---
SS following up with discharge planning. PT/OT recommended acute rehabilitation. SS met with pt and pt's spouse in room and discussed acute rehabilitation and options. Pt and pt's spouse agreeable to [facility] as first choice, ; fax [phone], and [facility] as a second choice, ; fax [phone]. SS phoned and faxed referral to [facility]. SS awaiting acceptance decision and will proceed accordingly. Pt's RN notified.
[2018-11-08] MEDS: ANTI-COAG MONITOR BY PHARMACY. MC PRN ×2 (12:44→12:46)
--- NOTE | 2018-11-08 13:06 | NUR ---
SS following up with discharge planning. [facility] contacted SS and declined stating they are out of network with pt's HMO plan. SS phoned and faxed referral to [facility], ; fax [phone]. SS will await acceptance decision and insurance determination and will proceed accordingly.
--- NOTE | 2018-11-08 14:55 | PDOC ---
PROGRESS NOTES Assessment Assessment Subacute left thalamus infarct, 1.2 cm. Increased weakness in right side UE and LE. Slurred speech. Metabolic encephalopathy. Carotid A stenosis, left side 50-69%. Dizziness. Leukocytosis. Vomiting. 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 Dysphagia. CAD s/p stent placement. DM. COPD. HTN. HLD. PAD. Pace maker in site. RECOMMENDATIONS/PLAN: ASA 300 mg rectal, change to PO when can swallow. Repeated HCT on 11/06/18. Treat medical diseases. No MRI due to pacemaker. See Vascular Surgery for carotid A stenosis. [place]. His stroke is thought posterior circulation etiology. Discussed with his -to-be at bedside on 11/08/18. Lipids: WNL. HISTORY OF THE PRESENT ILLNESS: This is a 68-y-old male patient with above medical diseases and old stroke in left occipital lobe per HCT and consequence of right side hemiparesis. He was noted increased weakness in his right and slurred speech on 11/04/18, but his symptoms improved in some degree on 11/05/18. He has intractable vomiting in the last 24 hours but no fever and no diarrhea. PAST MEDICAL HISTORY Cardiovascular: AFIB, CAD, HTN, Hyperlipidemia, Other (PAD; SSS) Pulmonary: No pertinent hx CENTRAL NERVOUS SYSTEM: CVA GI: No pertinent hx Heme/Onc: No pertinent hx Hepatobiliary: No pertinent hx Psych: No pertinent hx Musculoskeletal: Osteoarthritis Rheumatologic: No pertinent hx Infectious disease: No pertinent hx ENT: No pertinent hx Renal/: Other (ED) Endocrine: Diabetes (2) Dermatology: No pertinent hx PAST SURGICAL HISTORY Pacemaker, Other (LLE CAR SPOTTER/stent, PCI/stents) FAMILY HISTORY Noncontributory to CV ALLERGIES Coded Allergies: Penicillins (Verified Allergy, Intermediate, RASH, 02/12/18) SOCIAL HISTORY Smoke: <1 pack per day ALCOHOL: occassional Drugs: None Lives: with Family MEDICATIONS: Refer to [facility] REVIEW OF SYSTEMS: Constitutional: No malnutrition, weight loss, cachexia. Head: No traumatic brain or head injury. Skin: No edema, or rash. Ear: No infection. Eyes: No vision loss or color blindness. Nose: No bleeding or purulent discharges. Hearing: Hearing decrease. Neck: No injury. Cardiac: CAD, Pacemaker Placement, HTN, HLD. Pulmonary: No COPD. GI: Vomiting.. Urinary/genital: UTI. Endocrinologic: Diabetes Mellitus. Skeletomuscular: No muscular atrophy, deformity. Neurological: see HP. Psychiatric: Denies drug use/abuse. Otherwise, not [id number] review of systems. PHYSICAL EXAMINATION: General appearance is in subacute distress. HEENT: Normocephalic and nontraumatic. Eyes, nose, ears, and throat are unremarkable. Neck is supple. No lymphadenopathy. No crepitus. Cardiovascular: S1, S2, regular rate and rhythm. Pulmonary: Clear to auscultation bilaterally. Abdomen: Bowel sounds are positive. Extremities: No rash, lesions, or edema. No restriction of range of motion NEUROLOGICAL EXAMINATION: Drowsiness. Not oriented to time, place but knew person. PERRL. EOMI. CN: Old right VII mild palsy. Muscle tone: Increased in right UE and LE. Within normal in left side. Muscle strength: 3+ right side, 5 left side. DTR: 1-2 Plantar reflex: Neutral response bilaterally Gait: not examined in bed. Sensory exam: no acute abnormal findings. No cerebellar signs elicited. F-T-N test fine. Objective Objective Vital Signs Date Time Temp Pulse Resp B/P (MAP) Pulse Ox O2 Delivery O2 Flow Rate FiO2 11/08/18 12:46 60 142/61 11/08/18 10:50 97.7 18 98 Room Air 97.7 11/07/18 19:30 2.0 Intake and Output 11/08/18 06:59 Intake Total 0 ml Output Total 900 ml Balance -900 ml Intake Oral 0 ml Output Urine Total 900 ml Vitals Signs Vitals VS - Last 72 Hours, by Label Date Time Temp Pulse Resp B/P (MAP) Pulse Ox O2 Delivery O2 Flow Rate FiO2 11/08/18 12:46 60 142/61 11/08/18 12:39 60 142/61 11/08/18 10:50 97.7 60 18 150/71 (97) 98 Room Air 97.7 11/08/18 08:00 Nasal Cannula 11/08/18 07:23 60 201/91 11/08/18 07:22 60 201/91 (127) 11/08/18 06:22 60 157/105 11/08/18 06:21 60 157/105 11/08/18 03:15 97.8 60 12 157/105 (122) 96 Room Air 97.8 11/08/18 00:18 60 150/65 11/07/18 23:43 60 174/97 11/07/18 23:43 60 174/97 11/07/18 23:18 97.8 60 12 174/97 (122) 95 Room Air 97.8 11/07/18 19:55 98.4 60 17 181/85 (117) 95 Room Air 98.4 11/07/18 19:30 Nasal Cannula 2.0 11/07/18 19:15 60 196/84 11/07/18 18:34 60 189/84 11/07/18 15:00 97.8 60 14 143/71 (95) 95 Room Air 97.8 11/07/18 12:29 60 168/81 11/07/18 12:00 60 168/81 11/07/18 11:00 97.5 60 12 163/72 (102) 97 Nasal Cannula 2.0 97.5 11/07/18 10:31 60 168/81 11/07/18 07:26 Nasal Cannula 2.0 11/07/18 07:00 97.5 60 12 175/82 (113) 98 Room Air 97.5 Laboratory Laboratory Laboratory Tests Test 11/07/18 16:59 11/07/18 20:20 11/07/18 23:48 11/08/18 07:43 Glucose (Fingerstick) 146 mg/dL (70-99) 114 mg/dL (70-99) 85 mg/dL (70-99) 112 mg/dL (70-99) Test 11/08/18 11:29 Glucose (Fingerstick) 139 mg/dL (70-99) Microbiology 11/05/18 Urine Culture - Final, Complete 11/05/18 Urine Culture Result 1 (MERVAT) - Final, Complete Medication Medications Current Medications Bupivacaine HCl (Sensorcaine-Mpf 0.25%) 10 ml 1X ONCE IJ Last administered on 11/08/18at 09:15; Start 11/08/18 at 09:15; Stop 11/08/18 at 09:16; Status DC Enoxaparin Sodium (Lovenox 100mg Syringe) 100 mg Q12HR SQ Last administered on 11/08/18at 09:27; Start 11/07/18 at 15:00 Enoxaparin Sodium (Lovenox Per Pharmacy Treatment Dosing) 1 each PRN DAILY PRN MC SEE COMMENTS; Start 11/07/18 at 15:15 Info (Anti-Coagulation Monitoring By Pharmacy) 1 each PRN DAILY PRN MC SEE COMMENTS Last administered on 11/08/18at 12:46; Start 11/08/18 at 12:45 Insulin Glargine (Lantus) 26 units DAILY SQ ; Start 11/08/18 at 09:00 Lorazepam (Ativan Inj) 1 mg PRN Q6HRS PRN IV ANXIETY / AGITATION Last administered on 11/08/18at 09:44; Start 11/08/18 at 08:45 Methylprednisolone Acetate (DEPO-Medrol 40MG VIAL) 40 mg 1X ONCE IM Last administered on 11/08/18at 09:15; Start 11/08/18 at 09:15; Stop 11/08/18 at 09:16; Status DC Comment Review of Relevant I have reviewed the following items sara (where applicable) has been applied. PEYTON AVALOS MD Nov 08, 2018 14:55
[2018-11-08 15:00] VITALS: BP 159/76
[2018-11-08 20:40] VITALS: BP 186/84
[2018-11-08] MEDS: PATCH REMOVAL. MC SCH (21:00)
[2018-11-08 23:00] VITALS: BP 175/81
[2018-11-09] MEDS: NITROGLYCERIN OINT 1 GM PACKET. TP SCH ×5 (02:42→23:12)
[2018-11-09] MEDS: METOPROLOL TARTRATE 5 MG/5 ML VIAL. IVP SCH ×4 (02:47→18:04)
[2018-11-09 03:15] VITALS: BP 166/78
[2018-11-09] MEDS: ceFAZolin SODIUM IV Push 1 GM VIAL. IVP SCH ×3 (06:03→22:58)
[2018-11-09] MEDS: ENALAPRILAT 1.25 MG/ML VIAL. IVP SCH (06:05)
[2018-11-09 07:00] VITALS: BP 162/77
[2018-11-09] MEDS: AMINO AC 3%/ELECTROLYTE/GLYCER 1,000 ML IV SCH ×2 (08:33→21:47)
[2018-11-09] MEDS: ASPIRIN RECTAL 300 MG SUPP. PR SCH (08:33)
[2018-11-09] MEDS: LIDOCAINE (700MG/PATCH) PATCH. TD SCH (08:34)
--- NOTE | 2018-11-09 08:57 | PDOC ---
PROGRESS NOTES Subjective Subjective No new complaints. Objective Objective Vital Signs Date Time Temp Pulse Resp B/P (MAP) Pulse Ox O2 Delivery O2 Flow Rate FiO2 11/09/18 07:00 98.2 59 12 162/77 (105) 94 Room Air 98.2 11/07/18 19:30 2.0 Intake and Output 11/09/18 06:59 Intake Total 0 ml Output Total 650 ml Balance -650 ml Intake Oral 0 ml Output Urine Total 650 ml Physical Exam Physical Exam He is alert,comfortable,supine in bed and continues with right central facialparesis and [id number] using right upper and lower extremities and dysphagia. He is participating with therapy and some easing of back pain. Assessment Assessment Problems Medical Problems: (1) Cellulitis of foot, right Status: Acute (2) Hypertensive urgency Status: Acute (3) Hypomagnesemia Status: Acute (4) Leukocytosis Status: Acute (5) Nausea & vomiting Status: Acute (6) Weakness Status: Acute Plan Plan of Care To rehab unit or SNF of choice to his family when we decide on her nutritional needs. He may need PEG tube placement. Comment Review of Relevant I have reviewed the following items sara (where applicable) has been applied. Labs Laboratory Tests Test 11/07/18 11:39 11/07/18 16:59 11/07/18 20:20 11/07/18 23:48 Glucose (Fingerstick) 178 mg/dL (70-99) 146 mg/dL (70-99) 114 mg/dL (70-99) 85 mg/dL (70-99) Test 11/08/18 07:43 11/08/18 11:29 11/08/18 17:06 11/08/18 21:28 Glucose (Fingerstick) 112 mg/dL (70-99) 139 mg/dL (70-99) 151 mg/dL (70-99) 154 mg/dL (70-99) Test 11/09/18 07:27 Glucose (Fingerstick) 190 mg/dL (70-99) Laboratory Tests Test 11/08/18 11:29 11/08/18 17:06 11/08/18 21:28 11/09/18 07:27 Glucose (Fingerstick) 139 mg/dL (70-99) 151 mg/dL (70-99) 154 mg/dL (70-99) 190 mg/dL (70-99) Microbiology 11/05/18 Urine Culture - Final, Complete 11/05/18 Urine Culture Result 1 (MERVAT) - Final, Complete Medications Current Medications Ondansetron HCl (Zofran) 4 mg 1X ONCE IV Last administered on 11/05/18at 01:41; Start 11/05/18 at 01:00; Stop 11/05/18 at 01:01; Status DC Famotidine (Pepcid Vial) 20 mg 1X ONCE IVP Last administered on 11/05/18at 01:41; Start 11/05/18 at 01:00; Stop 11/05/18 at 01:01; Status DC Sodium Chloride 1,000 ml @ 1,000 mls/hr 1X ONCE IV Last administered on 11/05/18at 01:38; Start 11/05/18 at 01:15; Stop 11/05/18 at 02:14; Status DC Iohexol (Omnipaque 300 Mg/ml) 75 ml 1X ONCE IV Last administered on 11/05/18at 01:32; Start 11/05/18 at 01:30; Stop 11/05/18 at 01:31; Status DC Info (CONTRAST GIVEN -- Rx MONITORING) 1 each PRN DAILY PRN MC SEE COMMENTS; Start 11/05/18 at 01:30; Stop 11/07/18 at 01:29; Status DC Labetalol HCl (Normodyne Iv Push) 20 mg 1X ONCE IVP Last administered on 11/05/18at 01:38; Start 11/05/18 at 01:45; Stop 11/05/18 at 01:46; Status DC Aspirin (Aspirin Rectal Supp) 300 mg 1X ONCE AK Last administered on 11/05/18at 02:37; Start 11/05/18 at 02:00; Stop 11/05/18 at 02:01; Status DC Fentanyl Citrate (Fentanyl 2ml Vial) 50 mcg 1X ONCE IV Last administered on 11/05/18at 01:52; Start 11/05/18 at 01:45; Stop 11/05/18 at 01:55; Status DC Nitroglycerin (Nitro-Bid Oint) 0.5 inch 1X ONCE TP Last administered on 11/05/18at 01:51; Start 11/05/18 at 01:45; Stop 11/05/18 at 01:55; Status DC Magnesium Sulfate 50 ml @ 25 mls/hr 1X ONCE IV Last administered on 11/05/18at 02:37; Start 11/05/18 at 02:00; Stop 11/05/18 at 03:59; Status DC Ondansetron HCl (Zofran) 4 mg 1X ONCE IV Last administered on 11/05/18at 02:08; Start 11/05/18 at 02:15; Stop 11/05/18 at 02:16; Status DC Labetalol HCl (Normodyne Iv Push) 20 mg 1X ONCE IVP Last administered on 11/05/18at 02:18; Start 11/05/18 at 02:15; Stop 11/05/18 at 02:16; Status DC Ondansetron HCl (Zofran) 4 mg PRN Q8HRS PRN IV NAUSEA/VOMITING Last administered on 11/05/18at 13:50; Start 11/05/18 at 02:45; Stop 11/06/18 at 02:44; Status DC Insulin Human Lispro (HumaLOG) 0-7 UNITS TIDWMEALS SQ Last administered on 11/07/18at 08:55; Start 11/05/18 at 08:00; Stop 11/08/18 at 08:37; Status DC Dextrose (Dextrose 50%-Water Syringe) 12.5 gm PRN Q15MIN PRN IV SEE COMMENTS; Start 11/05/18 at 02:45 Labetalol HCl (Normodyne Iv Push) 10 mg PRN Q2HR PRN IVP ELEVATED BP, SEE COMMENTS Last administered on 11/05/18at 08:10; Start 11/05/18 at 02:45; Stop 11/05/18 at 08:28; Status DC Sodium Chloride 1,000 ml @ 100 mls/hr 1X ONCE IV Last administered on 11/05/18at 03:16; Start 11/05/18 at 03:15; Stop 11/05/18 at 13:14; Status DC Metoclopramide HCl (Reglan Vial) 10 mg 1X ONCE IV Last administered on 11/05/18at 03:37; Start 11/05/18 at 03:30; Stop 11/05/18 at 03:31; Status DC Diphenhydramine HCl (Benadryl) 25 mg 1X ONCE IVP Last administered on 6/14/19at 03:37; Start 11/05/18 at 03:30; Stop 11/05/18 at 03:31; Status DC Nitroglycerin (Nitro-Bid Oint) 0.5 inch Q6HRS TP Last administered on 11/09/18 06:08; Start 11/05/18 at 12:00 Labetalol HCl (Normodyne Iv Push) 20 mg PRN Q2HR PRN IVP HYPERTENSION Last administered on 11/07/18 03:42; Start 11/05/18 at 08:30 Insulin Glargine (Lantus) 30 units DAILY SQ Last administered on 11/07/18 08:54; Start 11/05/18 at 09:00; Stop 11/08/18 at 08:37; Status DC Sodium Chloride 1,000 ml @ 100 mls/hr Q10H IV Last administered on 11/05/18 09:20; Start 11/05/18 at 08:30; Stop 11/07/18 at 00:06; Status DC Aspirin (Aspirin Rectal Supp) 300 mg DAILY AK Last administered on 11/09/18 08:33; Start 11/05/18 at 09:00 Lidocaine (Lidoderm) 1 patch DAILY TD Last administered on 11/09/18 08:34; Start 11/05/18 at 09:30 Miscellaneous (Lidoderm Patch Removal) 1 ea QHS MC Last administered on 11/08/18 21:00; Start 11/05/18 at 21:00 Metoprolol Tartrate (Lopressor Vial) 5 mg Q6HRS IVP Last administered on 11/09/18 06:16; Start 11/05/18 at 12:00 Enalaprilat (Vasotec Inj) 1.25 mg Q6HRS IVP Last administered on 11/09/18 06:05; Start 11/05/18 at 12:00 Cefazolin Sodium 50 ml @ 100 mls/hr Q8HRS IV ; Start 11/05/18 at 14:00; Stop 11/06/18 at 18:00; Status UNV Ketorolac Tromethamine (Toradol 30mg Vial) 30 mg PRN Q6HRS PRN IV PAIN Last administered on 11/07/18 22:47; Start 11/05/18 at 12:00; Stop 11/10/18 at 11:59 Cefazolin Sodium (Ancef) 1 gm Q8HRS IVP Last administered on 11/09/18 06:03; Start 11/05/18 at 13:00 Barium Sulfate (Varibar Thin Liquid Apple) 148 gm 1X ONCE PO Last administered on 11/05/18 13:45; Start 11/05/18 at 13:45; Stop 11/05/18 at 13:46; Status DC Amino Acids/ Glycerin/ Electrolytes 1,000 ml @ 100 mls/hr Q10H IV Last ad ministered on 11/09/18 08:33; Start 11/05/18 at 19:00 Ondansetron HCl (Zofran) 4 mg PRN Q4HRS PRN IV NAUSEA/VOMITING Last admi nistered on 11/08/18 09:45; Start 11/06/18 at 13:00 Clonidine HCl (Catapres Tts-1) 1 patch WEEKLY TD Last administered on 11/07/18at 12:57; Start 11/07/18 at 13:00 Enoxaparin Sodium (Lovenox Per Pharmacy Treatment Dosing) 1 each PRN DAILY PRN MC SEE COMMENTS; Start 11/07/18 at 15:15 Enoxaparin Sodium (Lovenox 100mg Syringe) 100 mg Q12HR SQ Last administered on 11/09/18 08:33; Start 11/07/18 at 15:00 Insulin Glargine (Lantus) 26 units DAILY SQ ; Start 11/08/18 at 09:00 Lorazepam (Ativan Inj) 1 mg PRN Q6HRS PRN IV ANXIETY / AGITATION Last administered on 11/08/18at 09:44; Start 11/08/18 at 08:45 Methylprednisolone Acetate (DEPO-Medrol 40MG VIAL) 40 mg 1X ONCE IM Last administered on 11/08/18 09:15; Start 11/08/18 at 09:15; Stop 11/08/18 at 09:16; Status DC Bupivacaine HCl (Sensorcaine-Mpf 0.25%) 10 ml 1X ONCE IJ Last administered on 11/08/18 09:15; Start 11/08/18 at 09:15; Stop 11/08/18 at 09:16; Status DC Info (Anti-Coagulation Monitoring By Pharmacy) 1 each PRN DAILY PRN MC SEE COMMENTS Last administered on 11/08/18at 12:46; Start 11/08/18 at 12:45 Active Scripts Active Aspirin Ec (Aspirin) 325 Mg Tablet. 1 Tab PO DAILY Reported Cephalexin 500 Mg Tablet 1 Tab PO TID 7 Days Prednisone 20 Mg Tablet 1 Tab PO DAILY 3 Days Mag-Oxide (Magnesium Oxide) 400 Mg Tablet 1 Tab PO DAILY Alprazolam 0.5 Mg Tablet 1 Tab PO PRN DAILY PRN Furosemide 20 Mg Tablet 1 Tab PO DAILY Zoloft (Sertraline Hcl) 50 Mg Tablet 50 Mg PO DAILY Omeprazole 40 Mg Capsule. 1 Cap PO DAILY Miralax (Polyethylene Glycol 3350) 17 Gm Powd.pack 1 Packet PO PRN DAILY PRN Linzess (Linaclotide) 145 Mcg Capsule 145 Mcg PO PRN DAILY PRN Metformin Hcl 1,000 Mg Tablet 1,000 Mg PO BIDWMEALS Novolog Flexpen (Insulin Aspart) 100 Unit/1 Ml Insuln.pen 0-10 Unit SQ TIDAC Levemir (Insulin Detemir) 100 Unit/1 Ml Vial 45 Unit SQ BID Simvastatin 40 Mg Tablet 40 Mg PO HS Xarelto (Rivaroxaban) 20 Mg Tablet 20 Mg PO DAILY Lyrica (Pregabalin) 200 Mg Capsule 200 Mg PO BID 30 Days Metoprolol Succinate ( Xl ) (Metoprolol Succinate) 25 Mg Tab.er.24h 50 Mg PO HS Losartan-Hctz 100-25 Mg Tab (Losartan/Hydrochlorothiazide) 1 Each Tablet 1 Each PO HS Vitals/I & O Vital Sign - Last 24 Hours 11/08/18 11/08/18 11/08/18 11/08/18 10:50 12:39 12:46 15:00 Temp 97.7 97.6 97.7 97.6 Pulse 60 60 60 60 Resp 18 16 B/P (MAP) 150/71 (97) 142/61 142/61 159/76 (103) Pulse Ox 98 96 O2 Delivery Room Air Room Air 11/08/18 11/08/18 11/08/18 11/08/18 15:25 18:27 18:30 19:45 Pulse 60 60 60 60 B/P (MAP) 159/76 179/73 179/73 200/87 11/08/18 11/08/18 11/08/18 11/08/18 20:00 20:40 22:25 23:00 Temp 98.2 98.0 98.2 98.0 Pulse 60 60 63 Resp 16 16 B/P (MAP) 186/84 (118) 198/90 175/81 (112) Pulse Ox 94 95 O2 Delivery Room Air Room Air Room Air 11/09/18 11/09/18 11/09/18 11/09/18 02:42 02:47 03:15 06:05 Temp 97.9 97.9 Pulse 63 63 60 60 Resp 16 B/P (MAP) 175/81 175/81 166/78 (107) 171/79 Pulse Ox 94 O2 Delivery Room Air 11/09/18 11/09/18 11/09/18 06:08 06:16 07:00 Temp 98.2 98.2 Pulse 60 60 59 Resp 12 B/P (MAP) 179/79 172/78 162/77 (105) Pulse Ox 94 O2 Delivery Room Air Intake and Output 11/08/18 11/08/18 11/09/18 14:59 22:59 06:59 Intake Total 0 ml Output Total 400 ml 250 ml Balance -400 ml -250 ml Nutrition Consultation Dietary Evaluation: Recommendations by RD: PPN/TPN Comments: Continue w/PPN for short-term non-oral nutrition needs Advance diet within 24 - 72 hrs as able 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
--- NOTE | 2018-11-09 08:58 | PDOC ---
Provider Note Provider Note vss, glucose good, bp fair on 4 drugs- d/w him option of peg given failed swallow- gi consult made to consider- ppn until then DELROY BASS MD Nov 09, 2018 08:58
[2018-11-09] MEDS: INSULIN GLARGINE 300 UNITS/3 ML INSULN.PEN. SQ SCH (09:12)
[2018-11-09 11:00] VITALS: BP 144/67
[2018-11-09] MEDS: ENALAPRILAT 2.5 MG/2 ML VIAL. IVP SCH ×3 (12:01→23:11)
--- NOTE | 2018-11-09 12:28 | PDOC2 ---
GI CONSULT Reason For Consult: Consideration for PEG HPI: HPI: 68 y/o male who had a stroke and has failed swallow evaluations. We are asked to see re: possible PEG placement. He and have previously d/w Dr. Gannon - they do not want an NG tube. Has been on PPN. Might have had an ulcer years ago, maybe had an EGD in [place], [place]. No heartburn/reflux, previous dysphagia, vomiting, abd pain, diarrhea, constipation, hematochezia, melena, or weight loss. Has a little nausea - attributes to being hungry. No previous colonoscopy. No GB, liver, or pancreas history. Previously on Xarelto, currently on Lovenox and ASA FL. 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, hip surgery FH: Family History: Cancer (uncle - unknown kind) Social History: Smoke: <1 pack per day ALCOHOL: occassional Drugs: None ROS: GEN: Denies fevers, chills, sweats HEENT: Denies blurred vision, sore throat CV: Denies chest pain RESP: Denies shortness of air, cough GI: Per HPI : Denies hematuria, dysuria ENDO: Denies weight changes NEURO: Denies confusion, dizziness MSK: +weakness (right) SKIN: Denies jaundice, pruritus Vitals: Vitals: Vital Signs Date Time Temp Pulse Resp B/P (MAP) Pulse Ox O2 Delivery O2 Flow Rate FiO2 11/09/18 12:01 60 144/67 11/09/18 11:00 97.9 16 93 Room Air 97.9 11/09/18 08:00 2.0 Labs: Labs: Laboratory Tests Test 11/08/18 17:06 11/08/18 21:28 11/09/18 07:27 Glucose (Fingerstick) 151 mg/dL (70-99) 154 mg/dL (70-99) 190 mg/dL (70-99) Allergies: Coded Allergies: Penicillins (Verified Allergy, Intermediate, RASH, 02/12/18) Medications: Current Medications Medications (Trade) Dose Ordered Sig/Joi Route PRN Reason Start Time Stop Time Status Last Admin Dose Admin Info (Anti-Coagulation Monitoring By Pharmacy) 1 each PRN DAILY PRN MC SEE COMMENTS 11/08/18 12:45 11/08/18 12:46 Insulin Glargine (Lantus) 24 units DAILY SQ 11/09/18 09:00 11/09/18 09:12 Enalaprilat (Vasotec Inj) 1.25 mg Q6HRS IVP 11/09/18 12:00 11/09/18 12:01 Imaging: Imaging: C/A/P CT IMPRESSION: Small bullous changes in the upper lobes of the lungs bilaterally. Prostate gland is enlarged and contains calcification. No other acute abnormality seen in the chest, abdomen or pelvis. Head CT IMPRESSION: Cerebral atrophy. Chronic infarct with encephalomalacia in the left occipital lobe. No acute intracranial abnormality evident. Right foot x-ray IMPRESSION: No acute bony abnormality is detected. Videoswallow IMPRESSION: Laryngeal penetration and intermittent aspiration of the honey thickened material. No aspiration was observed with the pureed material. Carotid Doppler Study IMPRESSION: 1. 50-69% stenosis within the left internal carotid artery. Head CT IMPRESSION: 1. Subacute 12 mm infarct in the left thalamus. 2. Chronic left basal ganglia and occipital infarcts. 3. Moderate atrophy. 4. Acute right maxillary sinusitis. PRECISION HONER Dysphagia F/U: Pt continues w/ consistent overt & subtle s/s aspiration w/ PO intake, though frequency of s/s has decreased since SOC. Pt continues to need non-oral nutrition for immediate future. Repeat videoswallow eval not indicated d/t consistent overt s/s aspiration present clinically. See [facility]CISION [facility]ONER Swallow Tx Note 11/08/18 for add'l details. Recommendations: Continue NPO meds & nutrition. Will continue PRECISION HONER f/u per POC. PE: GEN: NAD, up in chair HEENT: Atraumatic LUNGS: CTAB HEART: RRR ABD: NABS, S/ND/NT EXTREMITY: right-sided weakness SKIN: No rashes, no jaundice NEURO/PSYCH: A & O �3 A/P: A/P: CVA, dysphagia, need for non-oral nutrition Remote h/o "ulcer" CRC screen - none A Fib, CAD, PVD -- PRECISION HONER note indicates swallowing issues have improved but still not safe for PO intake. Discussed PEG procedure w/ possible risks w/ pt and spouse - they would like to proceed. Will review timing w/ Dr. Nicole along w/ Lovenox and ASA. Note on Ancef. INR was 1.8 on 11/05 - will recheck. TAMIKO RODRIGUEZ Nov 09, 2018 12:28
--- NOTE | 2018-11-09 13:14 | NUR ---
SS following up with discharge planning. Pt accepted at [facility] pending insurance authorization. SS will await insurance authorization from [facility] and will proceed accordingly with discharge planning.
[2018-11-09 15:00] VITALS: BP 137/77
[2018-11-09 15:25] LABS: PROTHROMBIN TIME PATIENT 15.1 SEC (11.7-14.0)
--- NOTE | 2018-11-09 17:52 | PDOC ---
PROGRESS NOTES Assessment Assessment Subacute left thalamus infarct, 1.2 cm. Increased weakness in right side UE and LE. Slurred speech. Metabolic encephalopathy. Carotid A stenosis, left side 50-69%. Dizziness. Leukocytosis. Vomiting. 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 Dysphagia. CAD s/p stent placement. DM. COPD. HTN. HLD. PAD. Pace maker in site. RECOMMENDATIONS/PLAN: ASA 300 mg rectal, change to PO when can swallow. Treat medical diseases. Control hyperglycemia. No MRI due to pacemaker. See Vascular Surgery for carotid A stenosis. [place]. His stroke is thought posterior circulation etiology. Discussed with his -to-be at bedside on 11/09/18. Lipids: WNL. HISTORY OF THE PRESENT ILLNESS: This is a 68-y-old male patient with above medical diseases and old stroke in left occipital lobe per HCT and consequence of right side hemiparesis. He was noted increased weakness in his right and slurred speech on 11/04/18, but his symptoms improved in some degree on 11/05/18. PAST MEDICAL HISTORY Cardiovascular: AFIB, CAD, HTN, Hyperlipidemia, Other (PAD; SSS) Pulmonary: No pertinent hx CENTRAL NERVOUS SYSTEM: CVA GI: No pertinent hx Heme/Onc: No pertinent hx Hepatobiliary: No pertinent hx Psych: No pertinent hx Musculoskeletal: Osteoarthritis Rheumatologic: No pertinent hx Infectious disease: No pertinent hx ENT: No pertinent hx Renal/: Other (ED) Endocrine: Diabetes (2) Dermatology: No pertinent hx PAST SURGICAL HISTORY Pacemaker, Other (LLE RELIEF MATE/stent, PCI/stents) FAMILY HISTORY Noncontributory to CV ALLERGIES Coded Allergies: Penicillins (Verified Allergy, Intermediate, RASH, 02/12/18) SOCIAL HISTORY Smoke: <1 pack per day ALCOHOL: occassional Drugs: None Lives: with Family MEDICATIONS: Refer to [facility] REVIEW OF SYSTEMS: Constitutional: No malnutrition, weight loss, cachexia. Head: No traumatic brain or head injury. Skin: No edema, or rash. Ear: No infection. Eyes: No vision loss or color blindness. Nose: No bleeding or purulent discharges. Hearing: Hearing decrease. Neck: No injury. Cardiac: CAD, Pacemaker Placement, HTN, HLD. Pulmonary: No COPD. GI: Vomiting.. Urinary/genital: UTI. Endocrinologic: Diabetes Mellitus. Skeletomuscular: No muscular atrophy, deformity. Neurological: see HP. Psychiatric: Denies drug use/abuse. Otherwise, not [id number] review of systems. PHYSICAL EXAMINATION: General appearance is in subacute distress. HEENT: Normocephalic and nontraumatic. Eyes, nose, ears, and throat are unremarkable. Neck is supple. No lymphadenopathy. No crepitus. Cardiovascular: S1, S2, regular rate and rhythm. Pulmonary: Clear to auscultation bilaterally. Abdomen: Bowel sounds are positive. Extremities: No rash, lesions, or edema. No restriction of range of motion NEUROLOGICAL EXAMINATION: Awake. Not fully oriented to time, but knew place and person. PERRL. EOMI. CN: Old right VII mild palsy. Muscle tone: Increased in right UE and LE. Within normal in left side. Muscle strength: 4 right side, 5 left side. DTR: 1-2 Plantar reflex: Neutral response bilaterally Gait: not examined in bed. Sensory exam: no acute abnormal findings. No cerebellar signs elicited. F-T-N test fine. Objective Objective Vital Signs Date Time Temp Pulse Resp B/P (MAP) Pulse Ox O2 Delivery O2 Flow Rate FiO2 11/09/18 15:00 97.5 60 16 137/77 (97) 97 Room Air 97.5 11/09/18 08:00 2.0 Intake and Output 11/09/18 07:00 Intake Total 0 ml Output Total 650 ml Balance -650 ml Intake Oral 0 ml Output Urine Total 650 ml Vitals Signs Vitals VS - Last 72 Hours, by Label Date Time Temp Pulse Resp B/P (MAP) Pulse Ox O2 Delivery O2 Flow Rate FiO2 11/09/18 15:00 97.5 60 16 137/77 (97) 97 Room Air 97.5 11/09/18 13:48 60 144/67 11/09/18 12:01 60 144/67 11/09/18 12:01 60 144/67 11/09/18 11:00 97.9 60 16 144/67 (92) 93 Room Air 97.9 11/09/18 08:00 Room Air 2.0 11/09/18 07:00 98.2 59 12 162/77 (105) 94 Room Air 98.2 11/09/18 06:16 60 172/78 11/09/18 06:08 60 179/79 11/09/18 06:05 60 171/79 11/09/18 03:15 97.9 60 16 166/78 (107) 94 Room Air 97.9 11/09/18 02:47 63 175/81 11/09/18 02:42 63 175/81 11/08/18 23:00 98.0 63 16 175/81 (112) 95 Room Air 98.0 11/08/18 22:25 60 198/90 11/08/18 20:40 98.2 60 16 186/84 (118) 94 Room Air 98.2 11/08/18 20:00 Room Air 11/08/18 19:45 60 200/87 11/08/18 18:30 60 179/73 11/08/18 18:27 60 179/73 11/08/18 15:25 60 159/76 11/08/18 15:00 97.6 60 16 159/76 (103) 96 Room Air 97.6 11/08/18 12:46 60 142/61 11/08/18 12:39 60 142/61 11/08/18 10:50 97.7 60 18 150/71 (97) 98 Room Air 97.7 11/08/18 08:00 Nasal Cannula 11/08/18 07:23 60 201/91 11/08/18 07:22 60 201/91 (127) Laboratory Laboratory Laboratory Tests Test 11/08/18 21:28 11/09/18 07:27 11/09/18 12:32 11/09/18 14:45 Glucose (Fingerstick) 154 mg/dL (70-99) 190 mg/dL (70-99) 181 mg/dL (70-99) Prothrombin Time 15.1 SEC (11.7-14.0) Prothromb Time International Ratio 1.2 (0.8-1.1) Test 11/09/18 17:14 Glucose (Fingerstick) 167 mg/dL (70-99) Microbiology 11/05/18 Urine Culture - Final, Complete 11/05/18 Urine Culture Result 1 (MERVAT) - Final, Complete Medication Medications Current Medications Enalaprilat (Vasotec Inj) 1.25 mg Q6HRS IVP Last administered on 11/09/18at 12:01; Start 11/09/18 at 12:00 Insulin Glargine (Lantus) 24 units DAILY SQ Last administered on 11/09/18at 09:12; Start 11/09/18 at 09:00 Comment Review of Relevant I have reviewed the following items sara (where applicable) has been applied. PEYTON AVALOS MD Nov 09, 2018 17:52
--- NOTE | 2018-11-09 18:18 | PDOC ---
CARDIOLOGY PROGRESS NOTE SUBJECTIVE: No acute cardiac events overnight. Slowly improving neurologically. BP stable. OBJECTIVE: Vital SIgns: Vital Signs Date Time Temp Pulse Resp B/P (MAP) Pulse Ox O2 Delivery O2 Flow Rate FiO2 11/09/18 18:04 60 137/77 11/09/18 15:00 97.5 16 97 Room Air 97.5 11/09/18 08:00 2.0 I & O Intake and Output 11/09/18 07:00 Intake Total 0 ml Output Total 650 ml Balance -650 ml Intake Oral 0 ml Output Urine Total 650 ml Objective: Irregular heart tones no edema. soft abd right sided weakness persists. CURRENT MEDICATIONS: Current Medications Medications (Trade) Dose Ordered Sig/Joi Start Time Stop Time Status Last Admin Dose Admin Amino Acids/ Glycerin/ Electrolytes 1,000 ml @ 100 mls/hr Q10H 11/05/18 19:00 11/09/18 08:33 80 MLS/HR Aspirin (Aspirin Rectal Supp) 300 mg DAILY 11/05/18 09:00 11/09/18 08:33 300 MG Barium Sulfate (Varibar Thin Liquid Apple) 148 gm 1X ONCE 11/05/18 13:45 11/05/18 13:46 DC 11/05/18 13:45 148 GM Bupivacaine HCl (Sensorcaine-Mpf 0.25%) 10 ml 1X ONCE 11/08/18 09:15 11/08/18 09:16 DC 11/08/18 09:15 10 ML Cefazolin Sodium (Ancef) 1 gm Q8HRS 11/05/18 13:00 11/09/18 13:47 1 GM Clonidine HCl (Catapres Tts-1) 1 patch WEEKLY 11/07/18 13:00 11/07/18 12:57 1 PATCH Dextrose (Dextrose 50%-Water Syringe) 12.5 gm PRN Q15MIN PRN 11/05/18 02:45 Diphenhydramine HCl (Benadryl) 25 mg 1X ONCE 11/05/18 03:30 11/05/18 03:31 DC 11/05/18 03:37 25 MG Enalaprilat (Vasotec Inj) 1.25 mg Q6HRS 11/09/18 12:00 11/09/18 18:04 1.25 MG Enoxaparin Sodium (Lovenox 100mg Syringe) 100 mg Q12HR 11/07/18 15:00 11/09/18 08:33 100 MG Enoxaparin Sodium (Lovenox Per Pharmacy Treatment Dosing) 1 each PRN DAILY PRN 11/07/18 15:15 Famotidine (Pepcid Vial) 20 mg 1X ONCE 11/05/18 01:00 11/05/18 01:01 DC 11/05/18 01:41 20 MG Fentanyl Citrate (Fentanyl 2ml Vial) 50 mcg 1X ONCE 11/05/18 01:45 11/05/18 01:55 DC 11/05/18 01:52 50 MCG Info (Anti-Coagulation Monitoring By Pharmacy) 1 each PRN DAILY PRN 11/08/18 12:45 11/08/18 12:46 1 EACH Info (CONTRAST GIVEN -- Rx MONITORING) 1 each PRN DAILY PRN 11/05/18 01:30 11/07/18 01:29 DC Insulin Glargine (Lantus) 24 units DAILY 11/09/18 09:00 11/09/18 09:12 24 UNITS Insulin Human Lispro (HumaLOG) 0-7 UNITS TIDWMEALS 11/05/18 08:00 11/08/18 08:37 DC 11/07/18 08:55 3 UNITS Iohexol (Omnipaque 300 Mg/ml) 75 ml 1X ONCE 11/05/18 01:30 11/05/18 01:31 DC 11/05/18 01:32 75 ML Ketorolac Tromethamine (Toradol 30mg Vial) 30 mg PRN Q6HRS PRN 11/05/18 12:00 11/10/18 11:59 11/07/18 22:47 30 MG Labetalol HCl (Normodyne Iv Push) 20 mg PRN Q2HR PRN 11/05/18 08:30 11/07/18 03:42 20 MG Lidocaine (Lidoderm) 1 patch DAILY 11/05/18 09:30 11/09/18 08:34 1 PATCH Lorazepam (Ativan Inj) 1 mg PRN Q6HRS PRN 11/08/18 08:45 11/08/18 09:44 1 MG Magnesium Sulfate 50 ml @ 25 mls/hr 1X ONCE 11/05/18 02:00 11/05/18 03:59 DC 11/05/18 02:37 25 MLS/HR Methylprednisolone Acetate (DEPO-Medrol 40MG VIAL) 40 mg 1X ONCE 11/08/18 09:15 11/08/18 09:16 DC 11/08/18 09:15 40 MG Metoclopramide HCl (Reglan Vial) 10 mg 1X ONCE 11/05/18 03:30 11/05/18 03:31 DC 11/05/18 03:37 10 MG Metoprolol Tartrate (Lopressor Vial) 5 mg Q6HRS 11/05/18 12:00 11/09/18 18:04 5 MG Miscellaneous (Lidoderm Patch Removal) 1 ea QHS 11/05/18 21:00 11/08/18 21:00 1 EA Nitroglycerin (Nitro-Bid Oint) 0.5 inch Q6HRS 11/05/18 12:00 11/09/18 18:03 0.5 INCH Ondansetron HCl (Zofran) 4 mg PRN Q4HRS PRN 11/06/18 13:00 11/08/18 09:45 4 MG Sodium Chloride 1,000 ml @ 100 mls/hr Q10H 11/05/18 08:30 11/07/18 00:06 DC 11/05/18 09:20 100 MLS/HR DIAGNOSTIC TESTING: No new labs ASSESSMENT: 1. CVA with right sided weakness. 2. HTN 3. Permanent afib 4. PAD PLAN: 1. Continue present meds. 2. When able to take p.o, restart home meds. 3. Moderate left carotid disease. Given stroke, would qualify for revasc ularization. Agree with neurology for outpt referral for CE[facility]. Supportive care. Thanks. SANDRA POE MD Nov 09, 2018 18:18
[2018-11-09 19:47] VITALS: BP 140/67
[2018-11-09] MEDS: PATCH REMOVAL. MC SCH (21:00)
[2018-11-09] MEDS: KETOROLAC 30 MG/ML VIAL. IV PRN (22:37)
[2018-11-09 23:45] VITALS: BP 147/71
[2018-11-10] MEDS: METOPROLOL TARTRATE 5 MG/5 ML VIAL. IVP SCH ×4 (00:03→17:35)
[2018-11-10 03:58] VITALS: BP 154/76
[2018-11-10 04:49] LABS: BASO % 0 % (0-3); EOS # 0.1 x10^3/uL (0.0-0.7); EOS % 1 % (0-3); HEMATOCRIT 39.9 % (39.0-53.0); HEMOGLOBIN 13.7 g/dL (13.0-17.5); LYMPH # 1.5 x10^3/uL (1.0-4.8); LYMPH % 18 % (24-48); MEAN CORPUSCULAR HEMOGLOBIN 31 pg (25-35); MEAN CORPUSCULAR HGB CONC 34 g/dL (31-37); MEAN CORPUSCULAR VOLUME 89 fL (79-100); MONO # 0.8 x10^3/uL (0.0-1.1); MONO % 9 % (0-9); NEUT # 6.2 x10^3uL (1.8-7.7); NEUT % 72 % (31-73); PLATELET COUNT 185 x10^3/uL (140-400); RED BLOOD COUNT 4.47 x10^6/uL (4.30-5.70); RED CELL DISTRIBUTION WIDTH 13.9 % (11.5-14.5); WHITE BLOOD COUNT 8.7 x10^3/uL (4.0-11.0)
[2018-11-10 05:17] LABS: CALCIUM 8.3 mg/dL (8.5-10.1); CREATININE 0.7 mg/dL (0.7-1.3); GFR 112.8; POTASSIUM 4.1 mmol/L (3.5-5.1)
[2018-11-10] MEDS: NITROGLYCERIN OINT 1 GM PACKET. TP SCH ×4 (06:00→23:48)
[2018-11-10] MEDS: ceFAZolin SODIUM IV Push 1 GM VIAL. IVP SCH (06:10)
[2018-11-10] MEDS: ENALAPRILAT 2.5 MG/2 ML VIAL. IVP SCH ×4 (06:20→23:54)
[2018-11-10 07:00] VITALS: BP 146/74
[2018-11-10] MEDS: AMINO AC 3%/ELECTROLYTE/GLYCER 1,000 ML IV SCH ×2 (07:26→21:22)
--- NOTE | 2018-11-10 08:33 | PDOC ---
Provider Note Provider Note vss, bp /glucose ok- labs same- still want to do peg if needed, will see if speech can re-eval today- rest of meds same DELROY BASS MD Nov 10, 2018 08:33
[2018-11-10] MEDS: LIDOCAINE (700MG/PATCH) PATCH. TD SCH (08:53)
[2018-11-10] MEDS: ASPIRIN RECTAL 300 MG SUPP. PR SCH (08:54)
[2018-11-10] MEDS: INSULIN GLARGINE 300 UNITS/3 ML INSULN.PEN. SQ SCH (09:05)
--- NOTE | 2018-11-10 09:07 | PDOC ---
PROGRESS NOTES Subjective Subjective He admits low back pain that disturbed his sleep last night. Objective Objective Vital Signs Date Time Temp Pulse Resp B/P (MAP) Pulse Ox O2 Delivery O2 Flow Rate FiO2 11/10/18 07:00 97.6 60 14 146/74 (98) 94 Room Air 97.6 11/09/18 08:00 2.0 Intake and Output 11/10/18 07:00 Intake Total 1000 ml Output Total 650 ml Balance 350 ml Intake Oral 0 ml IV Total 1000 ml Output Urine Total 650 ml Physical Exam Physical Exam He is sitting in bedside recliner and he continues with mild right hemiparesis,right central facial paresis and apparently speech pathology feels he is making progress with his dysphagia but he continues with being NPO. He had small nodular lesion just above left sacroiliac joint area injection site,tender to pressure,may be small hematoma and on right side he had bigger subcutaneous cystic lesion in his buttock area,may be a lipoma or hematoma. 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) Status: Acute (2) Cellulitis of foot, right Status: Acute (3) Hemiparesis affecting right side as late effect of cerebrovascular accident (CVA) Status: Acute (4) Hypertensive encephalopathy Status: Acute (5) Hypertensive urgency Status: Acute (6) Hypomagnesemia Status: Acute (7) Left thalamic infarction Status: Acute (8) Leukocytosis Status: Acute (9) Malignant essential hypertension Status: Acute (10) Metabolic encephalopathy Status: Acute (11) Nausea & vomiting Status: Acute (12) Persistent atrial fibrillation Status: Acute (13) Right maxillary sinusitis Status: Acute (14) Vomiting Status: Acute (15) Weakness Status: Acute Plan Plan of Care As he could not have lumbar epidural steroid injection,secondary to being on anticoagulation,and being on NPO status,to try fentanyl patch for better pain control. To hold off rehab unit transfer until we decide on his swallowing. Comment Review of Relevant I have reviewed the following items sara (where applicable) has been applied. Labs Laboratory Tests Test 11/08/18 11:29 11/08/18 17:06 11/08/18 21:28 11/09/18 07:27 Glucose (Fingerstick) 139 mg/dL (70-99) 151 mg/dL (70-99) 154 mg/dL (70-99) 190 mg/dL (70-99) Test 11/09/18 12:32 11/09/18 14:45 11/09/18 17:14 11/09/18 21:07 Glucose (Fingerstick) 181 mg/dL (70-99) 167 mg/dL (70-99) 140 mg/dL (70-99) Prothrombin Time 15.1 SEC (11.7-14.0) Prothromb Time International Ratio 1.2 (0.8-1.1) Test 11/10/18 03:20 11/10/18 03:25 11/10/18 07:36 Sodium Level 137 mmol/L (136-145) Potassium Level 4.1 mmol/L (3.5-5.1) Chloride Level 104 mmol/L (98-107) Carbon Dioxide Level 27 mmol/L (21-32) Anion Gap 6 (6-14) Blood Urea Nitrogen 23 mg/dL (8-26) Creatinine 0.7 mg/dL (0.7-1.3) Estimated GFR (Cockcroft-Gault) 112.8 Glucose Level 132 mg/dL (70-99) Calcium Level 8.3 mg/dL (8.5-10.1) White Blood Count 8.7 x10^3/uL (4.0-11.0) Red Blood Count 4.47 x10^6/uL (4.30-5.70) Hemoglobin 13.7 g/dL (13.0-17.5) Hematocrit 39.9 % (39.0-53.0) Mean Corpuscular Volume 89 fL (79-100) Mean Corpuscular Hemoglobin 31 pg (25-35) Mean Corpuscular Hemoglobin Concent 34 g/dL (31-37) Red Cell Distribution Width 13.9 % (11.5-14.5) Platelet Count 185 x10^3/uL (140-400) Neutrophils (%) (Auto) 72 % (31-73) Lymphocytes (%) (Auto) 18 % (24-48) Monocytes (%) (Auto) 9 % (0-9) Eosinophils (%) (Auto) 1 % (0-3) Basophils (%) (Auto) 0 % (0-3) Neutrophils # (Auto) 6.2 x10^3uL (1.8-7.7) Lymphocytes # (Auto) 1.5 x10^3/uL (1.0-4.8) Monocytes # (Auto) 0.8 x10^3/uL (0.0-1.1) Eosinophils # (Auto) 0.1 x10^3/uL (0.0-0.7) Basophils # (Auto) 0.0 x10^3/uL (0.0-0.2) Glucose (Fingerstick) 137 mg/dL (70-99) Laboratory Tests Test 11/09/18 12:32 11/09/18 14:45 11/09/18 17:14 11/09/18 21:07 Glucose (Fingerstick) 181 mg/dL (70-99) 167 mg/dL (70-99) 140 mg/dL (70-99) Prothrombin Time 15.1 SEC (11.7-14.0) Prothromb Time International Ratio 1.2 (0.8-1.1) Test 11/10/18 03:20 11/10/18 03:25 11/10/18 07:36 Sodium Level 137 mmol/L (136-145) Potassium Level 4.1 mmol/L (3.5-5.1) Chloride Level 104 mmol/L (98-107) Carbon Dioxide Level 27 mmol/L (21-32) Anion Gap 6 (6-14) Blood Urea Nitrogen 23 mg/dL (8-26) Creatinine 0.7 mg/dL (0.7-1.3) Estimated GFR (Cockcroft-Gault) 112.8 Glucose Level 132 mg/dL (70-99) Calcium Level 8.3 mg/dL (8.5-10.1) White Blood Count 8.7 x10^3/uL (4.0-11.0) Red Blood Count 4.47 x10^6/uL (4.30-5.70) Hemoglobin 13.7 g/dL (13.0-17.5) Hematocrit 39.9 % (39.0-53.0) Mean Corpuscular Volume 89 fL (79-100) Mean Corpuscular Hemoglobin 31 pg (25-35) Mean Corpuscular Hemoglobin Concent 34 g/dL (31-37) Red Cell Distribution Width 13.9 % (11.5-14.5) Platelet Count 185 x10^3/uL (140-400) Neutrophils (%) (Auto) 72 % (31-73) Lymphocytes (%) (Auto) 18 % (24-48) Monocytes (%) (Auto) 9 % (0-9) Eosinophils (%) (Auto) 1 % (0-3) Basophils (%) (Auto) 0 % (0-3) Neutrophils # (Auto) 6.2 x10^3uL (1.8-7.7) Lymphocytes # (Auto) 1.5 x10^3/uL (1.0-4.8) Monocytes # (Auto) 0.8 x10^3/uL (0.0-1.1) Eosinophils # (Auto) 0.1 x10^3/uL (0.0-0.7) Basophils # (Auto) 0.0 x10^3/uL (0.0-0.2) Glucose (Fingerstick) 137 mg/dL (70-99) Microbiology 11/05/18 Urine Culture - Final, Complete 11/05/18 Urine Culture Result 1 (MERVAT) - Final, Complete Medications Current Medications Ondansetron HCl (Zofran) 4 mg 1X ONCE IV Last administered on 11/05/18at 01:41; Start 11/05/18 at 01:00; Stop 11/05/18 at 01:01; Status DC Famotidine (Pepcid Vial) 20 mg 1X ONCE IVP Last administered on 11/05/18at 01:41; Start 11/05/18 at 01:00; Stop 11/05/18 at 01:01; Status DC Sodium Chloride 1,000 ml @ 1,000 mls/hr 1X ONCE IV Last administered on 11/05/18at 01:38; Start 11/05/18 at 01:15; Stop 11/05/18 at 02:14; Status DC Iohexol (Omnipaque 300 Mg/ml) 75 ml 1X ONCE IV Last administered on 11/05/18at 01:32; Start 11/05/18 at 01:30; Stop 11/05/18 at 01:31; Status DC Info (CONTRAST GIVEN -- Rx MONITORING) 1 each PRN DAILY PRN MC SEE COMMENTS; Start 11/05/18 at 01:30; Stop 11/07/18 at 01:29; Status DC Labetalol HCl (Normodyne Iv Push) 20 mg 1X ONCE IVP Last administered on 11/05/18at 01:38; Start 11/05/18 at 01:45; Stop 11/05/18 at 01:46; Status DC Aspirin (Aspirin Rectal Supp) 300 mg 1X ONCE GA Last administered on 11/05/18at 02:37; Start 11/05/18 at 02:00; Stop 11/05/18 at 02:01; Status DC Fentanyl Citrate (Fentanyl 2ml Vial) 50 mcg 1X ONCE IV Last administered on 11/05/18at 01:52; Start 11/05/18 at 01:45; Stop 11/05/18 at 01:55; Status DC Nitroglycerin (Nitro-Bid Oint) 0.5 inch 1X ONCE TP Last administered on 11/05/18at 01:51; Start 11/05/18 at 01:45; Stop 11/05/18 at 01:55; Status DC Magnesium Sulfate 50 ml @ 25 mls/hr 1X ONCE IV Last administered on 11/05/18at 02:37; Start 11/05/18 at 02:00; Stop 11/05/18 at 03:59; Status DC Ondansetron HCl (Zofran) 4 mg 1X ONCE IV Last administered on 11/05/18at 02:08; Start 11/05/18 at 02:15; Stop 11/05/18 at 02:16; Status DC Labetalol HCl (Normodyne Iv Push) 20 mg 1X ONCE IVP Last administered on 11/05/18at 02:18; Start 11/05/18 at 02:15; Stop 11/05/18 at 02:16; Status DC Ondansetron HCl (Zofran) 4 mg PRN Q8HRS PRN IV NAUSEA/VOMITING Last administered on 11/05/18at 13:50; Start 11/05/18 at 02:45; Stop 11/06/18 at 02:44; Status DC Insulin Human Lispro (HumaLOG) 0-7 UNITS TIDWMEALS SQ Last administered on 11/07/18at 08:55; Start 11/05/18 at 08:00; Stop 11/08/18 at 08:37; Status DC Dextrose (Dextrose 50%-Water Syringe) 12.5 gm PRN Q15MIN PRN IV SEE COMMENTS; Start 11/05/18 at 02:45 Labetalol HCl (Normodyne Iv Push) 10 mg PRN Q2HR PRN IVP ELEVATED BP, SEE COMMENTS Last administered on 11/05/18at 08:10; Start 11/05/18 at 02:45; Stop 11/05/18 at 08:28; Status DC Sodium Chloride 1,000 ml @ 100 mls/hr 1X ONCE IV Last administered on 9at 03:16; Start 11/05/18 at 03:15; Stop 11/05/18 at 13:14; Status DC Metoclopramide HCl (Reglan Vial) 10 mg 1X ONCE IV Last administered on 11/05/18at 03:37; Start 11/05/18 at 03:30; Stop 11/05/18 at 03:31; Status DC Diphenhydramine HCl (Benadryl) 25 mg 1X ONCE IVP Last administered on 11/05/18at 03:37; Start 11/05/18 at 03:30; Stop 11/05/18 at 03:31; Status DC Nitroglycerin (Nitro-Bid Oint) 0.5 inch Q6HRS TP Last administered on 11/09/18at 23:12; Start 11/05/18 at 12:00 Labetalol HCl (Normodyne Iv Push) 20 mg PRN Q2HR PRN IVP HYPERTENSION Last administered on 11/07/18at 03:42; Start 11/05/18 at 08:30 Insulin Glargine (Lantus) 30 units DAILY SQ Last administered on 11/07/18at 08:54; Start 11/05/18 at 09:00; Stop 11/08/18 at 08:37; Status DC Sodium Chloride 1,000 ml @ 100 mls/hr Q10H IV Last administered on 11/05/18at 09:20; Start 11/05/18 at 08:30; Stop 11/07/18 at 00:06; Status DC Aspirin (Aspirin Rectal Supp) 300 mg DAILY GA Last administered on 11/09/18at 08:33; Start 11/05/18 at 09:00 Lidocaine (Lidoderm) 1 patch DAILY TD Last administered on 11/09/18at 08:34; Start 11/05/18 at 09:30 Miscellaneous (Lidoderm Patch Removal) 1 ea QHS MC Last administered on 11/09/18at 21:00; Start 11/05/18 at 21:00 Metoprolol Tartrate (Lopressor Vial) 5 mg Q6HRS IVP Last administered on 11/10/18 06:28; Start 11/05/18 at 12:00 Enalaprilat (Vasotec Inj) 1.25 mg Q6HRS IVP Last administered on 11/09/18 06:05; Start 11/05/18 at 12:00; Stop 11/09/18 at 11:55; Status DC Cefazolin Sodium 50 ml @ 100 mls/hr Q8HRS IV ; Start 11/05/18 at 14:00; Stop 11/06/18 at 18:00; Status UNV Ketorolac Tromethamine (Toradol 30mg Vial) 30 mg PRN Q6HRS PRN IV PAIN Last administered on 11/09/18 22:37; Start 11/05/18 at 12:00; Stop 11/10/18 at 11:59 Cefazolin Sodium (Ancef) 1 gm Q8HRS IVP Last administered on 11/10/18 06:10; Start 11/05/18 at 13:00; Stop 11/10/18 at 08:34; Status DC Barium Sulfate (Varibar Thin Liquid Apple) 148 gm 1X ONCE PO Last administered on 11/05/18 13:45; Start 11/05/18 at 13:45; Stop 11/05/18 at 13:46; Status DC Amino Acids/ Glycerin/ Electrolytes 1,000 ml @ 100 mls/hr Q10H IV Last administered on 11/10/18at 07:26; Start 11/05/18 at 19:00 Ondansetron HCl (Zofran) 4 mg PRN Q4HRS PRN IV NAUSEA/VOMITING Last administered on 11/08/18 09:45; Start 11/06/18 at 13:00 Clonidine HCl (Catapres Tts-1) 1 patch WEEKLY TD Last administered on 11/07/18 12:57; Start 11/07/18 at 13:00; Stop 11/10/18 at 08:38; Status DC Enoxaparin Sodium (Lovenox Per Pharmacy Treatment Dosing) 1 each PRN DAILY PRN MC SEE COMMENTS; Start 11/07/18 at 15:15 Enoxaparin Sodium (Lovenox 100mg Syringe) 100 mg Q12HR SQ Last administered on 11/09/18at 21:47; Start 11/07/18 at 15:00 Insulin Glargine (Lantus) 26 units DAILY SQ ; Start 11/08/18 at 09:00; Stop 11/09/18 at 09:00; Status DC Lorazepam (Ativan Inj) 1 mg PRN Q6HRS PRN IV ANXIETY / AGITATION Last administered on 11/08/18at 09:44; Start 11/08/18 at 08:45 Methylprednisolone Acetate (DEPO-Medrol 40MG VIAL) 40 mg 1X ONCE IM Last administered on 11/08/18at 09:15; Start 11/08/18 at 09:15; Stop 11/08/18 at 09:16; Status DC Bupivacaine HCl (Sensorcaine-Mpf 0.25%) 10 ml 1X ONCE IJ Last administered on 11/08/18at 09:15; Start 11/08/18 at 09:15; Stop 11/08/18 at 09:16; Status DC Info (Anti-Coagulation Monitoring By Pharmacy) 1 each PRN DAILY PRN MC SEE COMMENTS Last administered on 11/08/18at 12:46; Start 11/08/18 at 12:45 Insulin Glargine (Lantus) 24 units DAILY SQ Last administered on 11/09/18at 09:12; Start 11/09/18 at 09:00 Enalaprilat (Vasotec Inj) 1.25 mg Q6HRS IVP Last administered on 11/10/18at 06:20; Start 11/09/18 at 12:00 Active Scripts Active Aspirin Ec (Aspirin) 325 Mg Tablet.dr 1 Tab PO DAILY Reported Cephalexin 500 Mg Tablet 1 Tab PO TID 7 Days Prednisone 20 Mg Tablet 1 Tab PO DAILY 3 Days Mag-Oxide (Magnesium Oxide) 400 Mg Tablet 1 Tab PO DAILY Alprazolam 0.5 Mg Tablet 1 Tab PO PRN DAILY PRN Furosemide 20 Mg Tablet 1 Tab PO DAILY Zoloft (Sertraline Hcl) 50 Mg Tablet 50 Mg PO DAILY Omeprazole 40 Mg Capsule.dr 1 Cap PO DAILY Miralax (Polyethylene Glycol 3350) 17 Gm Powd.pack 1 Packet PO PRN DAILY PRN Linzess (Linaclotide) 145 Mcg Capsule 145 Mcg PO PRN DAILY PRN Metformin Hcl 1,000 Mg Tablet 1,000 Mg PO BIDWMEALS Novolog Flexpen (Insulin Aspart) 100 Unit/1 Ml Insuln.pen 0-10 Unit SQ TIDAC Levemir (Insulin Detemir) 100 Unit/1 Ml Vial 45 Unit SQ BID Simvastatin 40 Mg Tablet 40 Mg PO HS Xarelto (Rivaroxaban) 20 Mg Tablet 20 Mg PO DAILY Lyrica (Pregabalin) 200 Mg Capsule 200 Mg PO BID 30 Days Metoprolol Succinate ( Xl ) (Metoprolol Succinate) 25 Mg Tab.er.24h 50 Mg PO HS Losartan-Hctz 100-25 Mg Tab (Losartan/Hydrochlorothiazide) 1 Each Tablet 1 Each PO HS Vitals/I & O Vital Sign - Last 24 Hours 11/09/18 11/09/18 11/09/18 11/09/18 11:00 12:01 12:01 13:48 Temp 97.9 97.9 Pulse 60 60 60 60 Resp 16 B/P (MAP) 144/67 (92) 144/67 144/67 144/67 Pulse Ox 93 O2 Delivery Room Air 11/09/18 11/09/18 11/09/18 11/09/18 15:00 18:03 18:04 18:04 Temp 97.5 97.5 Pulse 60 60 60 60 Resp 16 B/P (MAP) 137/77 (97) 137/77 137/77 137/77 Pulse Ox 97 O2 Delivery Room Air 11/09/18 11/09/18 11/09/18 11/09/18 19:47 20:00 23:11 23:12 Temp 97.7 97.7 Pulse 60 60 60 Resp 16 B/P (MAP) 140/67 (91) 140/67 140/67 Pulse Ox 96 O2 Delivery Room Air Room Air 11/09/18 11/10/18 11/10/18 11/10/18 23:45 00:03 03:58 06:20 Temp 97.5 98.1 97.5 98.1 Pulse 60 60 60 60 Resp 16 16 B/P (MAP) 147/71 (96) 147/71 154/76 (102) 169/83 Pulse Ox 95 96 O2 Delivery Room Air Room Air 11/10/18 11/10/18 06:28 07:00 Temp 97.6 97.6 Pulse 60 60 Resp 14 B/P (MAP) 153/72 146/74 (98) Pulse Ox 94 O2 Delivery Room Air Intake and Output 11/09/18 11/09/18 11/10/18 15:00 23:00 07:00 Intake Total 0 ml 1000 ml 0 ml Output Total 500 ml 150 ml Balance 0 ml 500 ml -150 ml Nutrition Consultation Dietary Evaluation: Recommendations by RD: PPN/TPN Comments: Continue w/PPN for short-term non-oral nutrition needs Advance diet within 24 - 72 hrs as able 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
--- NOTE | 2018-11-10 09:21 | PDOC ---
Subjective: Subjective: Tired - didn't sleep well due to back pain. asks about nutrition if he's not going to have a feeding tube. Objective: Objective: On TPN. Vital Signs: Vital Signs Date Time Temp Pulse Resp B/P (MAP) Pulse Ox O2 Delivery O2 Flow Rate FiO2 11/10/18 07:00 97.6 60 14 146/74 (98) 94 Room Air 97.6 11/09/18 08:00 2.0 Labs: Laboratory Tests Test 11/09/18 12:32 11/09/18 14:45 11/09/18 17:14 11/09/18 21:07 Glucose (Fingerstick) 181 mg/dL 167 mg/dL 140 mg/dL Prothrombin Time 15.1 SEC Prothromb Time International Ratio 1.2 Test 11/10/18 03:20 11/10/18 03:25 11/10/18 07:36 Sodium Level 137 mmol/L Potassium Level 4.1 mmol/L Chloride Level 104 mmol/L Carbon Dioxide Level 27 mmol/L Anion Gap 6 Blood Urea Nitrogen 23 mg/dL Creatinine 0.7 mg/dL Estimated GFR (Cockcroft-Gault) 112.8 Glucose Level 132 mg/dL Calcium Level 8.3 mg/dL White Blood Count 8.7 x10^3/uL Red Blood Count 4.47 x10^6/uL Hemoglobin 13.7 g/dL Hematocrit 39.9 % Mean Corpuscular Volume 89 fL Mean Corpuscular Hemoglobin 31 pg Mean Corpuscular Hemoglobin Concent 34 g/dL Red Cell Distribution Width 13.9 % Platelet Count 185 x10^3/uL Neutrophils (%) (Auto) 72 % Lymphocytes (%) (Auto) 18 % Monocytes (%) (Auto) 9 % Eosinophils (%) (Auto) 1 % Basophils (%) (Auto) 0 % Neutrophils # (Auto) 6.2 x10^3uL Lymphocytes # (Auto) 1.5 x10^3/uL Monocytes # (Auto) 0.8 x10^3/uL Eosinophils # (Auto) 0.1 x10^3/uL Basophils # (Auto) 0.0 x10^3/uL Glucose (Fingerstick) 137 mg/dL PE: GEN: NAD - looks better today, sitting up in chair LUNGS: CTAB HEART: RRR ABD: S/ND/NT NEURO/PSYCH: A & O �3 A/P: CVA, dysphagia -- Follow STOCK TRADER evals - pt and like the idea of "wait and see" but also wondering if he needs more nutrition now - still doesn't want NG tube. TAMIKO RODRIGUEZ Nov 10, 2018 09:21
[2018-11-10] MEDS: fentaNYL 25MCG/HR PATCH 1 PATCH PATCH.TD72 TD SCH (09:48)
[2018-11-10] MEDS: ANTI-COAG MONITOR BY PHARMACY. MC PRN (10:22)
[2018-11-10 11:00] VITALS: BP 155/74
[2018-11-10 15:00] VITALS: BP 102/69
--- NOTE | 2018-11-10 15:04 | PDOC ---
PROGRESS NOTES Assessment Assessment Subacute left thalamus infarct, 1.2 cm. Increased weakness in right side UE and LE. Slurred speech. Metabolic encephalopathy. Carotid A stenosis, left side 50-69%. Dizziness. Leukocytosis. Vomiting. 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 Dysphagia. CAD s/p stent placement. DM. COPD. HTN. HLD. PAD. Pace maker in site. RECOMMENDATIONS/PLAN: ASA 300 mg rectal, change to PO when can swallow. Repeat swallow test on 11/10/18. Treat medical diseases. Control hyperglycemia. No MRI due to pacemaker. See Vascular Surgery for carotid A stenosis. [place]. His stroke is thought posterior circulation etiology. Discussed with his -to-be at bedside on 11/09/18. Lipids: WNL. HISTORY OF THE PRESENT ILLNESS: This is a 68-y-old male patient with above medical diseases and old stroke in left occipital lobe per HCT and consequence of right side hemiparesis. He was noted increased weakness in his right and slurred speech on 11/04/18, but his symptoms improved in some degree on 11/05/18. PAST MEDICAL HISTORY Cardiovascular: AFIB, CAD, HTN, Hyperlipidemia, Other (PAD; SSS) Pulmonary: No pertinent hx CENTRAL NERVOUS SYSTEM: CVA GI: No pertinent hx Heme/Onc: No pertinent hx Hepatobiliary: No pertinent hx Psych: No pertinent hx Musculoskeletal: Osteoarthritis Rheumatologic: No pertinent hx Infectious disease: No pertinent hx ENT: No pertinent hx Renal/: Other (ED) Endocrine: Diabetes (2) Dermatology: No pertinent hx PAST SURGICAL HISTORY Pacemaker, Other (LLE SENIOR CARE ASSISTANT/stent, PCI/stents) FAMILY HISTORY Noncontributory to CV ALLERGIES Coded Allergies: Penicillins (Verified Allergy, Intermediate, RASH, 02/12/18) SOCIAL HISTORY Smoke: <1 pack per day ALCOHOL: occassional Drugs: None Lives: with Family MEDICATIONS: Refer to MAR REVIEW OF SYSTEMS: Constitutional: No malnutrition, weight loss, cachexia. Head: No traumatic brain or head injury. Skin: No edema, or rash. Ear: No infection. Eyes: No vision loss or color blindness. Nose: No bleeding or purulent discharges. Hearing: Hearing decrease. Neck: No injury. Cardiac: CAD, Pacemaker Placement, HTN, HLD. Pulmonary: No COPD. GI: Vomiting.. Urinary/genital: UTI. Endocrinologic: Diabetes Mellitus. Skeletomuscular: No muscular atrophy, deformity. Neurological: see HP. Psychiatric: Denies drug use/abuse. Otherwise, not [id number] review of systems. PHYSICAL EXAMINATION: General appearance is in subacute distress. HEENT: Normocephalic and nontraumatic. Eyes, nose, ears, and throat are unremarkable. Neck is supple. No lymphadenopathy. No crepitus. Cardiovascular: S1, S2, regular rate and rhythm. Pulmonary: Clear to auscultation bilaterally. Abdomen: Bowel sounds are positive. Extremities: No rash, lesions, or edema. No restriction of range of motion NEUROLOGICAL EXAMINATION: Awake. Not fully oriented to time, but knew place and person. PERRL. EOMI. CN: Old right VII mild palsy. Muscle tone: Increased in right UE and LE. Within normal in left side. Muscle strength: 4 right side, 5 left side. DTR: 1-2 Plantar reflex: Neutral response bilaterally Gait: not examined in bed. Sensory exam: no acute abnormal findings. No cerebellar signs elicited. F-T-N test fine. Objective Objective Vital Signs Date Time Temp Pulse Resp B/P (MAP) Pulse Ox O2 Delivery O2 Flow Rate FiO2 11/10/18 15:00 97.7 60 18 102/69 (80) 96 Room Air 97.7 11/10/18 08:00 2.0 Intake and Output 11/10/18 07:00 Intake Total 1000 ml Output Total 650 ml Balance 350 ml Intake Oral 0 ml IV Total 1000 ml Output Urine Total 650 ml Vitals Signs Vitals VS - Last 72 Hours, by Label Date Time Temp Pulse Resp B/P (MAP) Pulse Ox O2 Delivery O2 Flow Rate FiO2 11/10/18 15:00 97.7 60 18 102/69 (80) 96 Room Air 97.7 11/10/18 12:08 60 146/74 11/10/18 12:02 60 146/74 11/10/18 12:02 60 146/74 11/10/18 11:00 98.0 60 16 155/74 (101) 95 Room Air 98.0 11/10/18 09:48 20 Room Air 11/10/18 08:00 Room Air 2.0 11/10/18 07:00 97.6 60 14 146/74 (98) 94 Room Air 97.6 11/10/18 06:28 60 153/72 11/10/18 06:20 60 169/83 11/10/18 03:58 98.1 60 16 154/76 (102) 96 Room Air 98.1 11/10/18 00:03 60 147/71 11/09/18 23:45 97.5 60 16 147/71 (96) 95 Room Air 97.5 11/09/18 23:12 60 140/67 11/09/18 23:11 60 140/67 11/09/18 20:00 Room Air 11/09/18 19:47 97.7 60 16 140/67 (91) 96 Room Air 97.7 11/09/18 18:04 60 137/77 11/09/18 18:04 60 137/77 11/09/18 18:03 60 137/77 11/09/18 15:00 97.5 60 16 137/77 (97) 97 Room Air 97.5 11/09/18 13:48 60 144/67 11/09/18 12:01 60 144/67 11/09/18 12:01 60 144/67 11/09/18 11:00 97.9 60 16 144/67 (92) 93 Room Air 97.9 11/09/18 08:00 Room Air 2.0 11/09/18 07:00 98.2 59 12 162/77 (105) 94 Room Air 98.2 Laboratory Laboratory Laboratory Tests Test 11/09/18 17:14 11/09/18 21:07 11/10/18 03:20 11/10/18 03:25 Glucose (Fingerstick) 167 mg/dL (70-99) 140 mg/dL (70-99) Sodium Level 137 mmol/L (136-145) Potassium Level 4.1 mmol/L (3.5-5.1) Chloride Level 104 mmol/L (98-107) Carbon Dioxide Level 27 mmol/L (21-32) Anion Gap 6 (6-14) Blood Urea Nitrogen 23 mg/dL (8-26) Creatinine 0.7 mg/dL (0.7-1.3) Estimated GFR (Cockcroft-Gault) 112.8 Glucose Level 132 mg/dL (70-99) Calcium Level 8.3 mg/dL (8.5-10.1) White Blood Count 8.7 x10^3/uL (4.0-11.0) Red Blood Count 4.47 x10^6/uL (4.30-5.70) Hemoglobin 13.7 g/dL (13.0-17.5) Hematocrit 39.9 % (39.0-53.0) Mean Corpuscular Volume 89 fL (79-100) Mean Corpuscular Hemoglobin 31 pg (25-35) Mean Corpuscular Hemoglobin Concent 34 g/dL (31-37) Red Cell Distribution Width 13.9 % (11.5-14.5) Platelet Count 185 x10^3/uL (140-400) Neutrophils (%) (Auto) 72 % (31-73) Lymphocytes (%) (Auto) 18 % (24-48) Monocytes (%) (Auto) 9 % (0-9) Eosinophils (%) (Auto) 1 % (0-3) Basophils (%) (Auto) 0 % (0-3) Neutrophils # (Auto) 6.2 x10^3uL (1.8-7.7) Lymphocytes # (Auto) 1.5 x10^3/uL (1.0-4.8) Monocytes # (Auto) 0.8 x10^3/uL (0.0-1.1) Eosinophils # (Auto) 0.1 x10^3/uL (0.0-0.7) Basophils # (Auto) 0.0 x10^3/uL (0.0-0.2) Test 11/10/18 07:36 11/10/18 12:02 11/10/18 13:00 Glucose (Fingerstick) 137 mg/dL (70-99) 138 mg/dL (70-99) Low Molecular Weight Heparin 1.16 IU/mL Microbiology 11/05/18 Urine Culture - Final, Complete 11/05/18 Urine Culture Result 1 (MERVAT) - Final, Complete Medication Medications Current Medications Enoxaparin Sodium (Lovenox 80mg Syringe) 80 mg Q12HR SQ ; Start 11/10/18 at 21:00 Fentanyl (Duragesic 25mcg/ Hr Patch) 1 patch Q3DAYS TD Last administered on 11/10/18at 09:48; Start 11/10/18 at 09:00 Comment Review of Relevant I have reviewed the following items sara (where applicable) has been applied. PEYTON AVALOS MD Nov 10, 2018 15:04
[2018-11-10] MEDS: CLOTRIMAZOLE 10 MG TROCHE. MM SCH ×2 (17:35→20:36)
[2018-11-10 19:04] VITALS: BP 148/73
[2018-11-10] MEDS: PATCH REMOVAL. MC SCH (21:00)
[2018-11-10 22:39] VITALS: BP 168/77
[2018-11-11 02:24] VITALS: BP 157/77
[2018-11-11] MEDS: NITROGLYCERIN OINT 1 GM PACKET. TP SCH ×3 (06:00→17:39)
[2018-11-11] MEDS: AMINO AC 3%/ELECTROLYTE/GLYCER 1,000 ML IV SCH ×2 (06:23→17:18)
[2018-11-11] MEDS: METOPROLOL TARTRATE 5 MG/5 ML VIAL. IVP SCH ×4 (06:24→17:39)
[2018-11-11] MEDS: CLOTRIMAZOLE 10 MG TROCHE. MM SCH ×5 (06:25→21:57)
[2018-11-11] MEDS: ENALAPRILAT 2.5 MG/2 ML VIAL. IVP SCH ×3 (06:25→18:24)
[2018-11-11 07:00] VITALS: BP 155/76
--- NOTE | 2018-11-11 08:03 | PDOC ---
Provider Note Provider Note vss, bp ok, no change in status- still declined dobbhoff- speech to se today re swallow- sleeping at present DELROY BASS MD Nov 11, 2018 08:03
[2018-11-11] MEDS: LIDOCAINE (700MG/PATCH) PATCH. TD SCH (09:24)
[2018-11-11] MEDS: ASPIRIN RECTAL 300 MG SUPP. PR SCH (09:24)
--- NOTE | 2018-11-11 09:24 | PDOC ---
PROGRESS NOTES Subjective Subjective No new complaints. Objective Objective Vital Signs Date Time Temp Pulse Resp B/P (MAP) Pulse Ox O2 Delivery O2 Flow Rate FiO2 11/11/18 07:00 98.0 60 12 155/76 (102) 96 Room Air 98.0 11/10/18 08:00 2.0 Intake and Output 11/11/18 06:59 Intake Total 1570 ml Output Total 1775 ml Balance -205 ml Intake Oral 0 ml IV Total 1570 ml Output Urine Total 1775 ml Physical Exam Physical Exam He is awake,supine in bed and no change with heis right central facial paresis and [id number] using right upper and lower extremities and he did walk for 30' with physical therapy yesterday. Speech pathology is still worried about potential aspiration and feels he needs non oral feedings for a while and it is too early for repeat video dysphagia study. 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) Status: Acute (2) Cellulitis of foot, right Status: Acute (3) Dizziness Status: Acute (4) Dysphagia Status: Acute (5) Hemiparesis affecting right side as late effect of cerebrovascular accident (CVA) Status: Acute (6) Hypertensive encephalopathy Status: Acute (7) Hypertensive urgency Status: Acute (8) Hypomagnesemia Status: Acute (9) Left thalamic infarction Status: Acute (10) Leukocytosis Status: Acute (11) Malignant essential hypertension Status: Acute (12) Metabolic encephalopathy Status: Acute (13) Nausea & vomiting Status: Acute (14) Persistent atrial fibrillation Status: Acute (15) Right maxillary sinusitis Status: Acute (16) Vomiting Status: Acute (17) Weakness Status: Acute Plan Plan of Care To ask to proceed with PEG tube placement and to rehab unit when medically stable,hopefully early next week. Comment Review of Relevant I have reviewed the following items sara (where applicable) has been applied. Labs Laboratory Tests Test 11/09/18 12:32 11/09/18 14:45 11/09/18 17:14 11/09/18 21:07 Glucose (Fingerstick) 181 mg/dL (70-99) 167 mg/dL (70-99) 140 mg/dL (70-99) Prothrombin Time 15.1 SEC (11.7-14.0) Prothromb Time International Ratio 1.2 (0.8-1.1) Test 11/10/18 03:20 11/10/18 03:25 11/10/18 07:36 11/10/18 12:02 Sodium Level 137 mmol/L (136-145) Potassium Level 4.1 mmol/L (3.5-5.1) Chloride Level 104 mmol/L (98-107) Carbon Dioxide Level 27 mmol/L (21-32) Anion Gap 6 (6-14) Blood Urea Nitrogen 23 mg/dL (8-26) Creatinine 0.7 mg/dL (0.7-1.3) Estimated GFR (Cockcroft-Gault) 112.8 Glucose Level 132 mg/dL (70-99) Calcium Level 8.3 mg/dL (8.5-10.1) White Blood Count 8.7 x10^3/uL (4.0-11.0) Red Blood Count 4.47 x10^6/uL (4.30-5.70) Hemoglobin 13.7 g/dL (13.0-17.5) Hematocrit 39.9 % (39.0-53.0) Mean Corpuscular Volume 89 fL (79-100) Mean Corpuscular Hemoglobin 31 pg (25-35) Mean Corpuscular Hemoglobin Concent 34 g/dL (31-37) Red Cell Distribution Width 13.9 % (11.5-14.5) Platelet Count 185 x10^3/uL (140-400) Neutrophils (%) (Auto) 72 % (31-73) Lymphocytes (%) (Auto) 18 % (24-48) Monocytes (%) (Auto) 9 % (0-9) Eosinophils (%) (Auto) 1 % (0-3) Basophils (%) (Auto) 0 % (0-3) Neutrophils # (Auto) 6.2 x10^3uL (1.8-7.7) Lymphocytes # (Auto) 1.5 x10^3/uL (1.0-4.8) Monocytes # (Auto) 0.8 x10^3/uL (0.0-1.1) Eosinophils # (Auto) 0.1 x10^3/uL (0.0-0.7) Basophils # (Auto) 0.0 x10^3/uL (0.0-0.2) Glucose (Fingerstick) 137 mg/dL (70-99) 138 mg/dL (70-99) Test 11/10/18 13:00 11/10/18 17:08 11/10/18 20:57 11/11/18 07:06 Low Molecular Weight Heparin 1.16 IU/mL Glucose (Fingerstick) 126 mg/dL (70-99) 111 mg/dL (70-99) 101 mg/dL (70-99) Laboratory Tests Test 11/10/18 12:02 11/10/18 13:00 11/10/18 17:08 11/10/18 20:57 Glucose (Fingerstick) 138 mg/dL (70-99) 126 mg/dL (70-99) 111 mg/dL (70-99) Low Molecular Weight Heparin 1.16 IU/mL Test 11/11/18 07:06 Glucose (Fingerstick) 101 mg/dL (70-99) Microbiology 11/05/18 Urine Culture - Final, Complete 11/05/18 Urine Culture Result 1 (MERVAT) - Final, Complete Medications Current Medications Ondansetron HCl (Zofran) 4 mg 1X ONCE IV Last administered on 11/05/18at 01:41; Start 11/05/18 at 01:00; Stop 11/05/18 at 01:01; Status DC Famotidine (Pepcid Vial) 20 mg 1X ONCE IVP Last administered on 11/05/18at 01:41; Start 11/05/18 at 01:00; Stop 11/05/18 at 01:01; Status DC Sodium Chloride 1,000 ml @ 1,000 mls/hr 1X ONCE IV Last administered on 11/05/18at 01:38; Start 11/05/18 at 01:15; Stop 11/05/18 at 02:14; Status DC Iohexol (Omnipaque 300 Mg/ml) 75 ml 1X ONCE IV Last administered on 11/05/18at 01:32; Start 11/05/18 at 01:30; Stop 11/05/18 at 01:31; Status DC Info (CONTRAST GIVEN -- Rx MONITORING) 1 each PRN DAILY PRN MC SEE COMMENTS; Start 11/05/18 at 01:30; Stop 11/07/18 at 01:29; Status DC Labetalol HCl (Normodyne Iv Push) 20 mg 1X ONCE IVP Last administered on 11/05/18at 01:38; Start 11/05/18 at 01:45; Stop 11/05/18 at 01:46; Status DC Aspirin (Aspirin Rectal Supp) 300 mg 1X ONCE AL Last administered on 11/05/18at 02:37; Start 11/05/18 at 02:00; Stop 11/05/18 at 02:01; Status DC Fentanyl Citrate (Fentanyl 2ml Vial) 50 mcg 1X ONCE IV Last administered on 11/05/18at 01:52; Start 11/05/18 at 01:45; Stop 11/05/18 at 01:55; Status DC Nitroglycerin (Nitro-Bid Oint) 0.5 inch 1X ONCE TP Last administered on 11/05/18at 01:51; Start 11/05/18 at 01:45; Stop 11/05/18 at 01:55; Status DC Magnesium Sulfate 50 ml @ 25 mls/hr 1X ONCE IV Last administered on 11/05/18at 02:37; Start 11/05/18 at 02:00; Stop 11/05/18 at 03:59; Status DC Ondansetron HCl (Zofran) 4 mg 1X ONCE IV Last administered on 11/05/18at 02:08; Start 11/05/18 at 02:15; Stop 11/05/18 at 02:16; Status DC Labetalol HCl (Normodyne Iv Push) 20 mg 1X ONCE IVP Last administered on 11/05/18at 02:18; Start 11/05/18 at 02:15; Stop 11/05/18 at 02:16; Status DC Ondansetron HCl (Zofran) 4 mg PRN Q8HRS PRN IV NAUSEA/VOMITING Last administered on 11/05/18at 13:50; Start 11/05/18 at 02:45; Stop 11/06/18 at 02:44; Status DC Insulin Human Lispro (HumaLOG) 0-7 UNITS TIDWMEALS SQ Last administered on 11/07/18at 08:55; Start 11/05/18 at 08:00; Stop 11/08/18 at 08:37; Status DC Dextrose (Dextrose 50%-Water Syringe) 12.5 gm PRN Q15MIN PRN IV SEE COMMENTS; Start 11/05/18 at 02:45 Labetalol HCl (Normodyne Iv Push) 10 mg PRN Q2HR PRN IVP ELEVATED BP, SEE COMMENTS Last administered on 11/05/18 08:10; Start 11/05/18 at 02:45; Stop 11/05/18 at 08:28; Status DC Sodium Chloride 1,000 ml @ 100 mls/hr 1X ONCE IV Last administered on 11/05/18 03:16; Start 11/05/18 at 03:15; Stop 11/05/18 at 13:14; Status DC Metoclopramide HCl (Reglan Vial) 10 mg 1X ONCE IV Last administered on 11/05/18 03:37; Start 11/05/18 at 03:30; Stop 11/05/18 at 03:31; Status DC Diphenhydramine HCl (Benadryl) 25 mg 1X ONCE IVP Last administered on 11/05/18 03:37; Start 11/05/18 at 03:30; Stop 11/05/18 at 03:31; Status DC Nitroglycerin (Nitro-Bid Oint) 0.5 inch Q6HRS TP Last administered on 11/10/18 12:08; Start 11/05/18 at 12:00 Labetalol HCl (Normodyne Iv Push) 20 mg PRN Q2HR PRN IVP HYPERTENSION Last administered on 11/07/18 03:42; Start 11/05/18 at 08:30 Insulin Glargine (Lantus) 30 units DAILY SQ Last administered on 11/07/18 08:54; Start 11/05/18 at 09:00; Stop 11/08/18 at 08:37; Status DC Sodium Chloride 1,000 ml @ 100 mls/hr Q10H IV Last administered on 11/05/18 09:20; Start 11/05/18 at 08:30; Stop 11/07/18 at 00:06; Status DC Aspirin (Aspirin Rectal Supp) 300 mg DAILY AL Last administered on 11/10/18 08:54; Start 11/05/18 at 09:00 Lidocaine (Lidoderm) 1 patch DAILY TD Last administered on 11/10/18 08:53; Start 11/05/18 at 09:30 Miscellaneous (Lidoderm Patch Removal) 1 ea QHS MC Last administered on 6/18/19at 21:00; Start 11/05/18 at 21:00 Metoprolol Tartrate (Lopressor Vial) 5 mg Q6HRS IVP Last administered on 9at 06:24; Start 11/05/18 at 12:00 Enalaprilat (Vasotec Inj) 1.25 mg Q6HRS IVP Last administered on 11/09/18at 06:05; Start 11/05/18 at 12:00; Stop 11/09/18 at 11:55; Status DC Cefazolin Sodium 50 ml @ 100 mls/hr Q8HRS IV ; Start 11/05/18 at 14:00; Stop 11/06/18 at 18:00; Status UNV Ketorolac Tromethamine (Toradol 30mg Vial) 30 mg PRN Q6HRS PRN IV PAIN Last administered on 11/09/18at 22:37; Start 11/05/18 at 12:00; Stop 11/10/18 at 11:59; Status DC Cefazolin Sodium (Ancef) 1 gm Q8HRS IVP Last administered on 11/10/18at 06:10; Start 11/05/18 at 13:00; Stop 11/10/18 at 08:34; Status DC Barium Sulfate (Varibar Thin Liquid Apple) 148 gm 1X ONCE PO Last administered on 11/05/18at 13:45; Start 11/05/18 at 13:45; Stop 11/05/18 at 13:46; Status DC Amino Acids/ Glycerin/ Electrolytes 1,000 ml @ 100 mls/hr Q10H IV Last administered on 11/11/18at 06:23; Start 11/05/18 at 19:00 Ondansetron HCl (Zofran) 4 mg PRN Q4HRS PRN IV NAUSEA/VOMITING Last administered on 11/08/18at 09:45; Start 11/06/18 at 13:00 Clonidine HCl (Catapres Tts-1) 1 patch WEEKLY TD Last administered on 11/07/18at 12:57; Start 11/07/18 at 13:00; Stop 11/10/18 at 08:38; Status DC Enoxaparin Sodium (Lovenox Per Pharmacy Treatment Dosing) 1 each PRN DAILY PRN MC SEE COMMENTS; Start 11/07/18 at 15:15 Enoxaparin Sodium (Lovenox 100mg Syringe) 100 mg Q12HR SQ Last administered on 11/10/18 08:53; Start 11/07/18 at 15:00; Stop 11/10/18 at 14:45; Status DC Insulin Glargine (Lantus) 26 units DAILY SQ ; Start 11/08/18 at 09:00; Stop 11/09/18 at 09:00; Status DC Lorazepam (Ativan Inj) 1 mg PRN Q6HRS PRN IV ANXIETY / AGITATION Last administered on 11/08/18at 09:44; Start 11/08/18 at 08:45 Methylprednisolone Acetate (DEPO-Medrol 40MG VIAL) 40 mg 1X ONCE IM Last administered on 11/08/18 09:15; Start 11/08/18 at 09:15; Stop 11/08/18 at 09:16; Status DC Bupivacaine HCl (Sensorcaine-Mpf 0.25%) 10 ml 1X ONCE IJ Last administered on 11/08/18at 09:15; Start 11/08/18 at 09:15; Stop 11/08/18 at 09:16; Status DC Info (Anti-Coagulation Monitoring By Pharmacy) 1 each PRN DAILY PRN MC SEE COMMENTS Last administered on 11/10/18at 10:22; Start 11/08/18 at 12:45 Insulin Glargine (Lantus) 24 units DAILY SQ Last administered on 11/10/18 09:05; Start 11/09/18 at 09:00 Enalaprilat (Vasotec Inj) 1.25 mg Q6HRS IVP Last administered on 11/11/18 06:25; Start 11/09/18 at 12:00 Fentanyl (Duragesic 25mcg/ Hr Patch) 1 patch Q3DAYS TD Last administered on 11/10/18 09:48; Start 11/10/18 at 09:00 Enoxaparin Sodium (Lovenox 80mg Syringe) 80 mg Q12HR SQ Last administered on 11/10/18 20:36; Start 11/10/18 at 21:00 Clotrimazole (Mycelex) 10 mg 5XDAY MM Last administered on 11/11/18 06:25; Start 11/10/18 at 18:00 Active Scripts Active Aspirin Ec (Aspirin) 325 Mg Tablet.dr 1 Tab PO DAILY Reported Cephalexin 500 Mg Tablet 1 Tab PO TID 7 Days Prednisone 20 Mg Tablet 1 Tab PO DAILY 3 Days Mag-Oxide (Magnesium Oxide) 400 Mg Tablet 1 Tab PO DAILY Alprazolam 0.5 Mg Tablet 1 Tab PO PRN DAILY PRN Furosemide 20 Mg Tablet 1 Tab PO DAILY Zoloft (Sertraline Hcl) 50 Mg Tablet 50 Mg PO DAILY Omeprazole 40 Mg Capsule.dr 1 Cap PO DAILY Miralax (Polyethylene Glycol 3350) 17 Gm Powd.pack 1 Packet PO PRN DAILY PRN Linzess (Linaclotide) 145 Mcg Capsule 145 Mcg PO PRN DAILY PRN Metformin Hcl 1,000 Mg Tablet 1,000 Mg PO BIDWMEALS Novolog Flexpen (Insulin Aspart) 100 Unit/1 Ml Insuln.pen 0-10 Unit SQ TIDAC Levemir (Insulin Detemir) 100 Unit/1 Ml Vial 45 Unit SQ BID Simvastatin 40 Mg Tablet 40 Mg PO HS Xarelto (Rivaroxaban) 20 Mg Tablet 20 Mg PO DAILY Lyrica (Pregabalin) 200 Mg Capsule 200 Mg PO BID 30 Days Metoprolol Succinate ( Xl ) (Metoprolol Succinate) 25 Mg Tab.er.24h 50 Mg PO HS Losartan-Hctz 100-25 Mg Tab (Losartan/Hydrochlorothiazide) 1 Each Tablet 1 Each PO HS Vitals/I & O Vital Sign - Last 24 Hours 11/10/18 11/10/18 11/10/18 11/10/18 09:48 11:00 12:02 12:02 Temp 98.0 98.0 Pulse 60 60 60 Resp 20 16 B/P (MAP) 155/74 (101) 146/74 146/74 Pulse Ox 95 O2 Delivery Room Air Room Air 11/10/18 11/10/18 11/10/18 11/10/18 12:08 15:00 17:35 17:35 Temp 97.7 97.7 Pulse 60 60 60 60 Resp 18 B/P (MAP) 146/74 102/69 (80) 102/69 102/69 Pulse Ox 96 O2 Delivery Room Air 11/10/18 11/10/18 11/10/18 11/10/18 17:35 19:04 20:00 22:39 Temp 97.8 97.7 97.8 97.7 Pulse 60 60 60 Resp 16 16 B/P (MAP) 102/69 148/73 (98) 168/77 (107) Pulse Ox 95 97 O2 Delivery Room Air Room Air Room Air 11/10/18 11/10/18 11/11/18 11/11/18 23:48 23:54 00:00 02:24 Temp 97.6 97.6 Pulse 60 60 60 60 Resp 16 B/P (MAP) 168/77 168/77 157/77 157/77 (103) Pulse Ox 94 O2 Delivery Room Air 11/11/18 11/11/18 11/11/18 11/11/18 06:00 06:24 06:25 07:00 Temp 98.0 98.0 Pulse 60 60 60 60 Resp 12 B/P (MAP) 152/74 152/74 152/74 155/76 (102) Pulse Ox 96 O2 Delivery Room Air Intake and Output 11/10/18 11/10/18 11/11/18 14:59 22:59 06:59 Intake Total 0 ml 1570 ml Output Total 250 ml 350 ml 1175 ml Balance -250 ml -350 ml 395 ml Nutrition Consultation Dietary Evaluation: Recommendations by RD: PPN/TPN Comments: Continue w/PPN for short-term non-oral nutrition needs REC TF per following pending PEG placement: Glucerna 1.5 bolus feeds, 2 cans TID (6 cans total/day) w/75 ml water flushes before and after each can Expected Outcomes/Goals: Diet advancement - not met, new goal established New goal: TF via PEG pending placement Malnutrition Findings: Food and Nutrition Intake (Mod: <75% est energy req 7days Weight Status: Overweight ELISEO DUENAS MD Nov 11, 2018 09:24
[2018-11-11] MEDS: INSULIN GLARGINE 300 UNITS/3 ML INSULN.PEN. SQ SCH (09:32)
[2018-11-11 10:41] VITALS: BP 135/68
--- NOTE | 2018-11-11 13:14 | PDOC ---
Subjective: Subjective: Magali upset - says pt's daughter was upset earlier - "discouraging" speech evaluation and they don't want him to be depressed and give up. (Daughter not present when I saw.) She mentioned he coughed when he took a big gulp of water - questioning the significance of this because he has a "smoker's cough" and he has "coughed while eating for years." She discusses many things - initial videoswallow report was "exaggerated" and says they were told that he was getting better (first passed "1 out of 4 steps" and then passed "3 out of 4"). They are worried about nutrition - still not interested in Dobhoff/NGT. She is also worried about possibility of infection w/ PEG placement. She says her brother had an infection (but did not have a PEG tube) and things spiraled out of control. She has a doctor's appointment this afternoon but she wants to talk with Dr. Nicole. Says his speech is less clear today because he's upset. Objective: Objective: D/w Keerthi/COOLER TENDER yesterday - no improvement when she evaluated on 11/10. Also reviewed with her this afternoon. Additionally d/w DOYLE Duval. Remains on PPN. Vital Signs: Vital Signs Date Time Temp Pulse Resp B/P (MAP) Pulse Ox O2 Delivery O2 Flow Rate FiO2 11/11/18 10:41 98.0 60 12 135/68 (90) 97 Room Air 98.0 11/10/18 08:00 2.0 Labs: Laboratory Tests Test 11/10/18 17:08 11/10/18 20:57 11/11/18 07:06 Glucose (Fingerstick) 126 mg/dL 111 mg/dL 101 mg/dL PE: GEN: NAD, up in chair ABD: S/ND/NT NEURO/PSYCH: A & O �3, very calm, pleasant, speech a bit less clear compared to my encounter yesterday morning A/P: CVA, dysphagia -- Family upset w/ lack of improvement. Will review all w/ Dr. Nicole. TAMIKO RODRIGUEZ Nov 11, 2018 13:14
--- NOTE | 2018-11-11 14:32 | NUR ---
Dysphagia Follow Up: Pt pleasant and cooperative PO trials/swallow re-assessment w/ single ice chips, honey thick liquids and puree. Hyolaryngeal excursion grossly WNLs to minimally decreased via palp. S/s aspiration noted on 40% of po trials of puree & honey thick liquid, typically throat clearing and delayed cough that was NOT present during 15 min of tx prior to PO. Pt demo'd pattern of throat clear p.swallow which eventually led up to overt coughing. This remains concerning for aspiration, c/w results from videoswallow eval 11/05/18 which noted silent aspiration, along w/ subtle s/s aspiration. No safe consistency identified. Repeat videoswallow eval premature, given continued subtle and overt s/s aspiration. ALERTNESS HAS NOT BEEN A FACTOR IN RESULTS. Pt has min-mild R labial weakness, min lingual weakness to resistance today. IMPRESSIONS: Continued Moderate oropharyngeal dysphagia w/ aspiration of honey thick liquids & puree, (solids n/a). Pt demo'd pattern of throat clear p.swallow which eventually led up to overt coughing. Suspect con't pharyngeal delay (as noted on videoswallow), though mild, impacts swallow and con't to contribute to s/s aspiration. However, s/s remain present, as does aspiration risk. Etiology of current dysphagia is c/w acute CVA. See videoswallow rpt of 11/05 for details. Pt alertness was NOT a factor in current results. RECOMMENDATIONS: Continue NPO meds and nutrition. Pt may con't to require non-oral nutrition for immediate future. Recommend repeat videoswallow prior to advancing to PO diet d/t silent aspiration. Will continue ZIGZAG ELASTIC ATTACHER f/u per POC.
[2018-11-11 15:00] VITALS: BP 132/66
--- NOTE | 2018-11-11 18:19 | PDOC ---
PROGRESS NOTES Assessment Assessment Subacute left thalamus infarct, 1.2 cm. Increased weakness in right side UE and LE. Slurred speech. Metabolic encephalopathy. Carotid A stenosis, left side 50-69%. Dizziness. Leukocytosis. Vomiting. 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 Dysphagia. CAD s/p stent placement. DM. COPD. HTN. HLD. PAD. Pace maker in site. RECOMMENDATIONS/PLAN: ASA 300 mg rectal, change to PO when can swallow. Suggest PEG after failed swallow test. Treat medical diseases. Control hyperglycemia. No MRI due to pacemaker. See Vascular Surgery for carotid A stenosis. [place]. His stroke is thought posterior circulation etiology. Discussed with his -to-be at bedside on 11/09/18. Lipids: WNL. HISTORY OF THE PRESENT ILLNESS: This is a 68-y-old male patient with above medical diseases and old stroke in left occipital lobe per HCT and consequence of right side hemiparesis. He was noted increased weakness in his right and slurred speech on 11/04/18, but his symptoms improved in some degree on 11/05/18. PAST MEDICAL HISTORY Cardiovascular: AFIB, CAD, HTN, Hyperlipidemia, Other (PAD; SSS) Pulmonary: No pertinent hx CENTRAL NERVOUS SYSTEM: CVA GI: No pertinent hx Heme/Onc: No pertinent hx Hepatobiliary: No pertinent hx Psych: No pertinent hx Musculoskeletal: Osteoarthritis Rheumatologic: No pertinent hx Infectious disease: No pertinent hx ENT: No pertinent hx Renal/: Other (ED) Endocrine: Diabetes (2) Dermatology: No pertinent hx PAST SURGICAL HISTORY Pacemaker, Other (LLE WIRE THREADER/stent, PCI/stents) FAMILY HISTORY Noncontributory to CV ALLERGIES Coded Allergies: Penicillins (Verified Allergy, Intermediate, RASH, 02/12/18) SOCIAL HISTORY Smoke: <1 pack per day ALCOHOL: occassional Drugs: None Lives: with Family MEDICATIONS: Refer to [facility] REVIEW OF SYSTEMS: Constitutional: No malnutrition, weight loss, cachexia. Head: No traumatic brain or head injury. Skin: No edema, or rash. Ear: No infection. Eyes: No vision loss or color blindness. Nose: No bleeding or purulent discharges. Hearing: Hearing decrease. Neck: No injury. Cardiac: CAD, Pacemaker Placement, HTN, HLD. Pulmonary: No COPD. GI: Vomiting.. Urinary/genital: UTI. Endocrinologic: Diabetes Mellitus. Skeletomuscular: No muscular atrophy, deformity. Neurological: see HP. Psychiatric: Denies drug use/abuse. Otherwise, not [id number] review of systems. PHYSICAL EXAMINATION: General appearance is in subacute distress. HEENT: Normocephalic and nontraumatic. Eyes, nose, ears, and throat are unremarkable. Neck is supple. No lymphadenopathy. No crepitus. Cardiovascular: S1, S2, regular rate and rhythm. Pulmonary: Clear to auscultation bilaterally. Abdomen: Bowel sounds are positive. Extremities: No rash, lesions, or edema. No restriction of range of motion NEUROLOGICAL EXAMINATION: Awake. Not fully oriented to time, but knew place and person. PERRL. EOMI. CN: Old right VII mild palsy. Muscle tone: Increased in right UE and LE. Within normal in left side. Muscle strength: 4 right side, 5 left side. DTR: 1-2 Plantar reflex: Neutral response bilaterally Gait: not examined in bed. Sensory exam: no acute abnormal findings. No cerebellar signs elicited. F-T-N test fine. Objective Objective Vital Signs Date Time Temp Pulse Resp B/P (MAP) Pulse Ox O2 Delivery O2 Flow Rate FiO2 11/11/18 17:39 60 155/61 11/11/18 15:00 98.1 16 92 Room Air 98.1 11/10/18 08:00 2.0 Intake and Output 11/11/18 07:00 Intake Total 1570 ml Output Total 1775 ml Balance -205 ml Intake Oral 0 ml IV Total 1570 ml Output Urine Total 1775 ml Vitals Signs Vitals VS - Last 72 Hours, by Label Date Time Temp Pulse Resp B/P (MAP) Pulse Ox O2 Delivery O2 Flow Rate FiO2 11/11/18 17:39 60 155/61 11/11/18 17:39 60 155/61 11/11/18 15:00 98.1 60 16 132/66 (88) 92 Room Air 98.1 11/11/18 14:26 60 132/66 11/11/18 13:22 60 131/55 11/11/18 13:02 60 131/55 11/11/18 10:41 98.0 60 12 135/68 (90) 97 Room Air 98.0 11/11/18 08:00 Room Air 11/11/18 07:00 98.0 60 12 155/76 (102) 96 Room Air 98.0 11/11/18 06:25 60 152/74 11/11/18 06:24 60 152/74 11/11/18 06:00 60 152/74 11/11/18 02:24 97.6 60 16 157/77 (103) 94 Room Air 97.6 11/11/18 00:00 60 157/77 11/10/18 23:54 60 168/77 11/10/18 23:48 60 168/77 11/10/18 22:39 97.7 60 16 168/77 (107) 97 Room Air 97.7 11/10/18 20:00 Room Air 11/10/18 19:04 97.8 60 16 148/73 (98) 95 Room Air 97.8 11/10/18 17:35 60 102/69 11/10/18 17:35 60 102/69 11/10/18 17:35 60 102/69 11/10/18 15:00 97.7 60 18 102/69 (80) 96 Room Air 97.7 11/10/18 12:08 60 146/74 11/10/18 12:02 60 146/74 11/10/18 12:02 60 146/74 11/10/18 11:00 98.0 60 16 155/74 (101) 95 Room Air 98.0 11/10/18 09:48 20 Room Air 11/10/18 08:00 Room Air 2.0 11/10/18 07:00 97.6 60 14 146/74 (98) 94 Room Air 97.6 Laboratory Laboratory Laboratory Tests Test 11/10/18 20:57 11/11/18 07:06 11/11/18 11:49 11/11/18 17:07 Glucose (Fingerstick) 111 mg/dL (70-99) 101 mg/dL (70-99) 122 mg/dL (70-99) 123 mg/dL (70-99) Microbiology 11/05/18 Urine Culture - Final, Complete 11/05/18 Urine Culture Result 1 (MERVAT) - Final, Complete Medication Medications Current Medications Enoxaparin Sodium (Lovenox 80mg Syringe) 80 mg Q12HR SQ Last administered on 11/11/18at 09:24; Start 11/10/18 at 21:00 Comment Review of Relevant I have reviewed the following items sara (where applicable) has been applied. PEYTON AVALOS MD Nov 11, 2018 18:19
[2018-11-11 19:12] VITALS: BP 139/62
[2018-11-11] MEDS: PATCH REMOVAL. MC SCH (20:31)
[2018-11-11 23:25] VITALS: BP 142/65
[2018-11-12] MEDS: METOPROLOL TARTRATE 5 MG/5 ML VIAL. IVP SCH ×4 (00:38→18:42)
[2018-11-12] MEDS: ENALAPRILAT 2.5 MG/2 ML VIAL. IVP SCH ×4 (00:38→17:55)
[2018-11-12] MEDS: AMINO AC 3%/ELECTROLYTE/GLYCER 1,000 ML IV SCH ×3 (02:51→23:52)
[2018-11-12 03:18] VITALS: BP 150/69
[2018-11-12] MEDS: NITROGLYCERIN OINT 1 GM PACKET. TP SCH ×4 (06:00→18:00)
[2018-11-12] MEDS: CLOTRIMAZOLE 10 MG TROCHE. MM SCH ×5 (06:38→22:00)
[2018-11-12 07:00] VITALS: BP 153/79
--- NOTE | 2018-11-12 09:10 | PDOC ---
Provider Note Provider Note VSS, GLUCOSE OK- SAD RE DYSPHAGIA- IS WILLING TO PROCEED ONLY W/ PEG, NO DOBBHOFF- meds same for now, cont ppn until enteral access DELROY BASS MD Nov 12, 2018 09:10
[2018-11-12] MEDS: ASPIRIN RECTAL 300 MG SUPP. PR SCH (09:41)
[2018-11-12] MEDS: LIDOCAINE (700MG/PATCH) PATCH. TD SCH (09:45)
[2018-11-12] MEDS: INSULIN GLARGINE 300 UNITS/3 ML INSULN.PEN. SQ SCH (09:54)
[2018-11-12 11:00] VITALS: BP 188/69
--- NOTE | 2018-11-12 11:10 | NUR ---
Ss following up with discharge planning. Per physician note pt is now agreeable to peg tube. SS provided [facility] with an update. SS will continue to follow for discharge planning.
--- NOTE | 2018-11-12 11:36 | PDOC ---
Subjective: Subjective: No new issues. They are interested in repeating videoswallow at some point. Objective: Vital Signs: Vital Signs Date Time Temp Pulse Resp B/P (MAP) Pulse Ox O2 Delivery O2 Flow Rate FiO2 11/12/18 11:17 60 188/69 11/12/18 11:00 97.4 20 94 Room Air 97.4 Labs: Laboratory Tests Test 11/11/18 11:49 11/11/18 17:07 11/11/18 20:12 11/12/18 07:44 Glucose (Fingerstick) 122 mg/dL 123 mg/dL 115 mg/dL 122 mg/dL PE: GEN: NAD LUNGS: CTAB HEART: RRR ABD: S/ND/NT NEURO/PSYCH: A & O �3 A/P: CVA, dysphagia -- Await ongoing LINEMAN eval/treatment. TAMIKO RODRIGUEZ Nov 12, 2018 11:36
--- NOTE | 2018-11-12 14:00 | PDOC ---
PROGRESS NOTES Subjective Subjective No new complaints. Objective Objective Vital Signs Date Time Temp Pulse Resp B/P (MAP) Pulse Ox O2 Delivery O2 Flow Rate FiO2 11/12/18 11:17 60 188/69 11/12/18 11:00 97.4 20 94 Room Air 97.4 11/10/18 08:00 2.0 l Intake and Output 11/12/18 07:00 Intake Total 1121.89 ml Output Total 1325 ml Balance -203.11 ml Intake Oral 0 ml IV Total 1121.89 ml Output Urine Total 1325 ml Physical Exam Physical Exam He is supine in bedside recliner and participating satisfactorily with therapies and walking but continues with dysphagia. 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) Status: Acute (2) Cellulitis of foot, right Status: Acute (3) Dizziness Status: Acute (4) Dysphagia Status: Acute (5) Hemiparesis affecting right side as late effect of cerebrovascular accident (CVA) Status: Acute (6) Hypertensive encephalopathy Status: Acute (7) Hypertensive urgency Status: Acute (8) Hypomagnesemia Status: Acute (9) Left thalamic infarction Status: Acute (10) Leukocytosis Status: Acute (11) Malignant essential hypertension Status: Acute (12) Metabolic encephalopathy Status: Acute (13) Nausea & vomiting Status: Acute (14) Persistent atrial fibrillation Status: Acute (15) Right maxillary sinusitis Status: Acute (16) Vomiting Status: Acute (17) Weakness Status: Acute Plan Plan of Care To ask GI to proceed with PEG tube placement. Comment Review of Relevant I have reviewed the following items sara (where applicable) has been applied. Labs Laboratory Tests Test 11/10/18 17:08 11/10/18 20:57 11/11/18 07:06 11/11/18 11:49 Glucose (Fingerstick) 126 mg/dL (70-99) 111 mg/dL (70-99) 101 mg/dL (70-99) 122 mg/dL (70-99) Test 11/11/18 17:07 11/11/18 20:12 11/12/18 07:44 11/12/18 12:01 Glucose (Fingerstick) 123 mg/dL (70-99) 115 mg/dL (70-99) 122 mg/dL (70-99) 129 mg/dL (70-99) Laboratory Tests Test 11/11/18 17:07 11/11/18 20:12 11/12/18 07:44 11/12/18 12:01 Glucose (Fingerstick) 123 mg/dL (70-99) 115 mg/dL (70-99) 122 mg/dL (70-99) 129 mg/dL (70-99) Microbiology 11/05/18 Urine Culture - Final, Complete 11/05/18 Urine Culture Result 1 (MERVAT) - Final, Complete Medications Current Medications Ondansetron HCl (Zofran) 4 mg 1X ONCE IV Last administered on 11/05/18 01:41; Start 11/05/18 at 01:00; Stop 11/05/18 at 01:01; Status DC Famotidine (Pepcid Vial) 20 mg 1X ONCE IVP Last administered on 11/05/18at 01:41; Start 11/05/18 at 01:00; Stop 11/05/18 at 01:01; Status DC Sodium Chloride 1,000 ml @ 1,000 mls/hr 1X ONCE IV Last administered on 11/05/18at 01:38; Start 11/05/18 at 01:15; Stop 11/05/18 at 02:14; Status DC Iohexol (Omnipaque 300 Mg/ml) 75 ml 1X ONCE IV Last administered on 11/05/18at 01:32; Start 11/05/18 at 01:30; Stop 11/05/18 at 01:31; Status DC Info (CONTRAST GIVEN -- Rx MONITORING) 1 each PRN DAILY PRN MC SEE COMMENTS; Start 11/05/18 at 01:30; Stop 11/07/18 at 01:29; Status DC Labetalol HCl (Normodyne Iv Push) 20 mg 1X ONCE IVP Last administered on 11/05/18at 01:38; Start 11/05/18 at 01:45; Stop 11/05/18 at 01:46; Status DC Aspirin (Aspirin Rectal Supp) 300 mg 1X ONCE RI Last administered on 11/05/18at 02:37; Start 11/05/18 at 02:00; Stop 11/05/18 at 02:01; Status DC Fentanyl Citrate (Fentanyl 2ml Vial) 50 mcg 1X ONCE IV Last administered on 11/05/18at 01:52; Start 11/05/18 at 01:45; Stop 11/05/18 at 01:55; Status DC Nitroglycerin (Nitro-Bid Oint) 0.5 inch 1X ONCE TP Last administered on 11/05/18at 01:51; Start 11/05/18 at 01:45; Stop 11/05/18 at 01:55; Status DC Magnesium Sulfate 50 ml @ 25 mls/hr 1X ONCE IV Last administered on 11/05/18at 02:37; Start 11/05/18 at 02:00; Stop 11/05/18 at 03:59; Status DC Ondansetron HCl (Zofran) 4 mg 1X ONCE IV Last administered on 11/05/18at 02:08; Start 11/05/18 at 02:15; Stop 11/05/18 at 02:16; Status DC Labetalol HCl (Normodyne Iv Push) 20 mg 1X ONCE IVP Last administered on 11/05/18at 02:18; Start 11/05/18 at 02:15; Stop 11/05/18 at 02:16; Status DC Ondansetron HCl (Zofran) 4 mg PRN Q8HRS PRN IV NAUSEA/VOMITING Last administered on 11/05/18at 13:50; Start 11/05/18 at 02:45; Stop 11/06/18 at 02:44; Status DC Insulin Human Lispro (HumaLOG) 0-7 UNITS TIDWMEALS SQ Last administered on 11/07/18at 08:55; Start 11/05/18 at 08:00; Stop 11/08/18 at 08:37; Status DC Dextrose (Dextrose 50%-Water Syringe) 12.5 gm PRN Q15MIN PRN IV SEE COMMENTS; Start 11/05/18 at 02:45 Labetalol HCl (Normodyne Iv Push) 10 mg PRN Q2HR PRN IVP ELEVATED BP, SEE COMMENTS Last administered on 11/05/18at 08:10; Start 11/05/18 at 02:45; Stop 11/05/18 at 08:28; Status DC Sodium Chloride 1,000 ml @ 100 mls/hr 1X ONCE IV Last administered on 11/05/18at 03:16; Start 11/05/18 at 03:15; Stop 11/05/18 at 13:14; Status DC Metoclopramide HCl (Reglan Vial) 10 mg 1X ONCE IV Last administered on 11/05/18 03:37; Start 11/05/18 at 03:30; Stop 11/05/18 at 03:31; Status DC Diphenhydramine HCl (Benadryl) 25 mg 1X ONCE IVP Last administered on 11/05/18 03:37; Start 11/05/18 at 03:30; Stop 11/05/18 at 03:31; Status DC Nitroglycerin (Nitro-Bid Oint) 0.5 inch Q6HRS TP Last administered on 11/11/18 17:39; Start 11/05/18 at 12:00 Labetalol HCl (Normodyne Iv Push) 20 mg PRN Q2HR PRN IVP HYPERTENSION Last administered on 11/07/18 03:42; Start 11/05/18 at 08:30 Insulin Glargine (Lantus) 30 units DAILY SQ Last administered on 11/07/18 08:54; Start 11/05/18 at 09:00; Stop 11/08/18 at 08:37; Status DC Sodium Chloride 1,000 ml @ 100 mls/hr Q10H IV Last administered on 11/05/18at 0 9:20; Start 11/05/18 at 08:30; Stop 11/07/18 at 00:06; Status DC Aspirin (Aspirin Rectal Supp) 300 mg DAILY RI Last administered on 11/12/18at 09:41; Start 11/05/18 at 09:00 Lidocaine (Lidoderm) 1 patch DAILY TD Last administered on 11/12/18 09:45; Start 11/05/18 at 09:30 Miscellaneous (Lidoderm Patch Removal) 1 ea QHS MC Last administered on 11/11/18 20:31; Start 11/05/18 at 21:00 Metoprolol Tartrate (Lopressor Vial) 5 mg Q6HRS IVP Last administered on 11/12/18 06:38; Start 11/05/18 at 12:00 Enalaprilat (Vasotec Inj) 1.25 mg Q6HRS IVP Last administered on 11/09/18 06:05; Start 11/05/18 at 12:00; Stop 11/09/18 at 11:55; Status DC Cefazolin Sodium 50 ml @ 100 mls/hr Q8HRS IV ; Start 11/05/18 at 14:00; Stop 11/06/18 at 18:00; Status UNV Ketorolac Tromethamine (Toradol 30mg Vial) 30 mg PRN Q6HRS PRN IV PAIN Last administered on 11/09/18 22:37; Start 11/05/18 at 12:00; Stop 11/10/18 at 11:59; Status DC Cefazolin Sodium (Ancef) 1 gm Q8HRS IVP Last administered on 11/10/18 06:10; Start 11/05/18 at 13:00; Stop 11/10/18 at 08:34; Status DC Barium Sulfate (Varibar Thin Liquid Apple) 148 gm 1X ONCE PO Last administered on 11/05/18 13:45; Start 11/05/18 at 13:45; Stop 11/05/18 at 13:46; Status DC Amino Acids/ Glycerin/ Electrolytes 1,000 ml @ 100 mls/hr Q10H IV Last administered on 11/12/18at 02:51; Start 11/05/18 at 19:00 Ondansetron HCl (Zofran) 4 mg PRN Q4HRS PRN IV NAUSEA/VOMITING Last administered on 11/08/18 09:45; Start 11/06/18 at 13:00 Clonidine HCl (Catapres Tts-1) 1 patch WEEKLY TD Last administered on 11/07/18 12:57; Start 11/07/18 at 13:00; Stop 11/10/18 at 08:38; Status DC Enoxaparin Sodium (Lovenox Per Pharmacy Treatment Dosing) 1 each PRN DAILY PRN MC SEE COMMENTS; Start 11/07/18 at 15:15 Enoxaparin Sodium (Lovenox 100mg Syringe) 100 mg Q12HR SQ Last administered on 11/10/18 08:53; Start 11/07/18 at 15:00; Stop 11/10/18 at 14:45; Status DC Insulin Glargine (Lantus) 26 units DAILY SQ ; Start 11/08/18 at 09:00; Stop 11/09/18 at 09:00; Status DC Lorazepam (Ativan Inj) 1 mg PRN Q6HRS PRN IV ANXIETY / AGITATION Last administered on 11/08/18 09:44; Start 11/08/18 at 08:45 Methylprednisolone Acetate (DEPO-Medrol 40MG VIAL) 40 mg 1X ONCE IM Last administered on 11/08/18 09:15; Start 11/08/18 at 09:15; Stop 11/08/18 at 09:16; Status DC Bupivacaine HCl (Sensorcaine-Mpf 0.25%) 10 ml 1X ONCE IJ Last administered on 11/08/18 09:15; Start 11/08/18 at 09:15; Stop 11/08/18 at 09:16; Status DC Info (Anti-Coagulation Monitoring By Pharmacy) 1 each PRN DAILY PRN MC SEE COMMENTS Last administered on 11/10/18 10:22; Start 11/08/18 at 12:45 Insulin Glargine (Lantus) 24 units DAILY SQ Last administered on 11/12/18 09:54; Start 11/09/18 at 09:00 Enalaprilat (Vasotec Inj) 1.25 mg Q6HRS IVP Last administered on 11/12/18 11:17; Start 11/09/18 at 12:00 Fentanyl (Duragesic 25mcg/ Hr Patch) 1 patch Q3DAYS TD Last administered on 11/10/18 09:48; Start 11/10/18 at 09:00 Enoxaparin Sodium (Lovenox 80mg Syringe) 80 mg Q12HR SQ Last administered on 11/12/18 09:47; Start 11/10/18 at 21:00 Clotrimazole (Mycelex) 10 mg 5XDAY MM Last administered on 11/12/18 06:38; Start 11/10/18 at 18:00 Active Scripts Active Aspirin Ec (Aspirin) 325 Mg Tablet.dr 1 Tab PO DAILY Reported Cephalexin 500 Mg Tablet 1 Tab PO TID 7 Days Prednisone 20 Mg Tablet 1 Tab PO DAILY 3 Days Mag-Oxide (Magnesium Oxide) 400 Mg Tablet 1 Tab PO DAILY Alprazolam 0.5 Mg Tablet 1 Tab PO PRN DAILY PRN Furosemide 20 Mg Tablet 1 Tab PO DAILY Zoloft (Sertraline Hcl) 50 Mg Tablet 50 Mg PO DAILY Omeprazole 40 Mg Capsule.dr 1 Cap PO DAILY Miralax (Polyethylene Glycol 3350) 17 Gm Powd.pack 1 Packet PO PRN DAILY PRN Linzess (Linaclotide) 145 Mcg Capsule 145 Mcg PO PRN DAILY PRN Metformin Hcl 1,000 Mg Tablet 1,000 Mg PO BIDWMEALS Novolog Flexpen (Insulin Aspart) 100 Unit/1 Ml Insuln.pen 0-10 Unit SQ TIDAC Levemir (Insulin Detemir) 100 Unit/1 Ml Vial 45 Unit SQ BID Simvastatin 40 Mg Tablet 40 Mg PO HS Xarelto (Rivaroxaban) 20 Mg Tablet 20 Mg PO DAILY Lyrica (Pregabalin) 200 Mg Capsule 200 Mg PO BID 30 Days Metoprolol Succinate ( Xl ) (Metoprolol Succinate) 25 Mg Tab.er.24h 50 Mg PO HS Losartan-Hctz 100-25 Mg Tab (Losartan/Hydrochlorothiazide) 1 Each Tablet 1 Each PO HS Vitals/I & O Vital Sign - Last 24 Hours 11/11/18 11/11/18 11/11/18 11/11/18 14:26 15:00 17:39 17:39 Temp 98.1 98.1 Pulse 60 60 60 60 Resp 16 B/P (MAP) 132/66 132/66 (88) 155/61 155/61 Pulse Ox 92 O2 Delivery Room Air 11/11/18 11/11/18 11/11/18 11/11/18 18:24 19:12 20:00 23:25 Temp 97.5 97.9 97.5 97.9 Pulse 60 57 60 Resp 18 16 B/P (MAP) 155/61 139/62 (87) 142/65 (90) Pulse Ox 96 98 O2 Delivery Room Air Room Air Room Air 11/12/18 11/12/18 11/12/18 11/12/18 00:00 00:38 00:38 03:18 Temp 97.6 97.6 Pulse 60 60 60 60 Resp 20 B/P (MAP) 142/65 142/65 142/65 150/69 (96) Pulse Ox 95 O2 Delivery Room Air 11/12/18 11/12/18 11/12/18 11/12/18 06:38 06:38 07:00 07:15 Temp 97.7 97.7 Pulse 60 60 60 Resp 20 B/P (MAP) 150/69 150/69 153/79 (103) Pulse Ox 94 O2 Delivery Room Air Room Air 11/12/18 11/12/18 11:00 11:17 Temp 97.4 97.4 Pulse 60 60 Resp 20 B/P (MAP) 188/69 (108) 188/69 Pulse Ox 94 O2 Delivery Room Air Intake and Output 11/11/18 11/11/18 11/12/18 15:00 23:00 07:00 Intake Total 1121.89 ml 0 ml Output Total 425 ml 900 ml Balance -425 ml 1121.89 ml -900 ml Nutrition Consultation Dietary Evaluation: Recommendations by RD: PPN/TPN Comments: Continue w/PPN for short-term non-oral nutrition needs REC TF per following pending PEG placement: Glucerna 1.5 bolus feeds, 2 cans TID (6 cans total/day) w/75 ml water flushes before and after each can Expected Outcomes/Goals: Diet advancement - not met, new goal established New goal: TF via PEG pending placement Malnutrition Findings: Food and Nutrition Intake (Mod: <75% est energy req 7days Weight Status: Overweight ELISEO DUENAS MD Nov 12, 2018 14:00
[2018-11-12 15:00] VITALS: BP 154/72
--- NOTE | 2018-11-12 16:20 | PDOC ---
PROGRESS NOTES Assessment Assessment Subacute left thalamus infarct, 1.2 cm. Increased weakness in right side UE and LE. Slurred speech. Metabolic encephalopathy. Carotid A stenosis, left side 50-69%. Dizziness. Leukocytosis. Vomiting. 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 Dysphagia. CAD s/p stent placement. DM. COPD. HTN. HLD. PAD. Pace maker in site. RECOMMENDATIONS/PLAN: ASA 300 mg rectal, change to PO when can swallow. Suggest PEG after failed swallow test. Treat medical diseases. Control hyperglycemia. No MRI due to pacemaker. See Vascular Surgery for carotid A stenosis. [place]. His stroke is thought posterior circulation etiology. Discussed with his -to-be at bedside on 11/09/18. Lipids: WNL. HISTORY OF THE PRESENT ILLNESS: This is a 68-y-old male patient with above medical diseases and old stroke in left occipital lobe per HCT and consequence of right side hemiparesis. He was noted increased weakness in his right and slurred speech on 11/04/18, but his symptoms improved in some degree on 11/05/18. PAST MEDICAL HISTORY Cardiovascular: AFIB, CAD, HTN, Hyperlipidemia, Other (PAD; SSS) Pulmonary: No pertinent hx CENTRAL NERVOUS SYSTEM: CVA GI: No pertinent hx Heme/Onc: No pertinent hx Hepatobiliary: No pertinent hx Psych: No pertinent hx Musculoskeletal: Osteoarthritis Rheumatologic: No pertinent hx Infectious disease: No pertinent hx ENT: No pertinent hx Renal/: Other (ED) Endocrine: Diabetes (2) Dermatology: No pertinent hx PAST SURGICAL HISTORY Pacemaker, Other (LLE HOP WEIGHER/stent, PCI/stents) FAMILY HISTORY Noncontributory to CV ALLERGIES Coded Allergies: Penicillins (Verified Allergy, Intermediate, RASH, 02/12/18) SOCIAL HISTORY Smoke: <1 pack per day ALCOHOL: occassional Drugs: None Lives: with Family MEDICATIONS: Refer to [facility] REVIEW OF SYSTEMS: Constitutional: No malnutrition, weight loss, cachexia. Head: No traumatic brain or head injury. Skin: No edema, or rash. Ear: No infection. Eyes: No vision loss or color blindness. Nose: No bleeding or purulent discharges. Hearing: Hearing decrease. Neck: No injury. Cardiac: CAD, Pacemaker Placement, HTN, HLD. Pulmonary: No COPD. GI: Vomiting.. Urinary/genital: UTI. Endocrinologic: Diabetes Mellitus. Skeletomuscular: No muscular atrophy, deformity. Neurological: see HP. Psychiatric: Denies drug use/abuse. Otherwise, not [id number] review of systems. PHYSICAL EXAMINATION: General appearance is in subacute distress. HEENT: Normocephalic and nontraumatic. Eyes, nose, ears, and throat are unremarkable. Neck is supple. No lymphadenopathy. No crepitus. Cardiovascular: S1, S2, regular rate and rhythm. Pulmonary: Clear to auscultation bilaterally. Abdomen: Bowel sounds are positive. Extremities: No rash, lesions, or edema. No restriction of range of motion NEUROLOGICAL EXAMINATION: Awake. Not fully oriented to time, but knew place and person. PERRL. EOMI. CN: Old right VII mild palsy. Muscle tone: Increased in right UE and LE. Within normal in left side. Muscle strength: 4 right side, 5 left side. DTR: 1-2 Plantar reflex: Neutral response bilaterally Gait: not examined in bed. Sensory exam: no acute abnormal findings. No cerebellar signs elicited. F-T-N test fine. Objective Objective Vital Signs Date Time Temp Pulse Resp B/P (MAP) Pulse Ox O2 Delivery O2 Flow Rate FiO2 11/12/18 15:00 97.6 60 20 154/72 (99) 97 Room Air 97.6 Intake and Output 11/12/18 07:00 Intake Total 1121.89 ml Output Total 1325 ml Balance -203.11 ml Intake Oral 0 ml IV Total 1121.89 ml Output Urine Total 1325 ml Vitals Signs Vitals VS - Last 72 Hours, by Label Date Time Temp Pulse Resp B/P (MAP) Pulse Ox O2 Delivery O2 Flow Rate FiO2 11/12/18 15:00 97.6 60 20 154/72 (99) 97 Room Air 97.6 11/12/18 13:56 60 138/75 11/12/18 11:17 60 188/69 11/12/18 11:00 97.4 60 20 188/69 (108) 94 Room Air 97.4 11/12/18 07:15 Room Air 11/12/18 07:00 97.7 60 20 153/79 (103) 94 Room Air 97.7 11/12/18 06:38 60 150/69 11/12/18 06:38 60 150/69 11/12/18 03:18 97.6 60 20 150/69 (96) 95 Room Air 97.6 11/12/18 00:38 60 142/65 11/12/18 00:38 60 142/65 11/12/18 00:00 60 142/65 11/11/18 23:25 97.9 60 16 142/65 (90) 98 Room Air 97.9 11/11/18 20:00 Room Air 11/11/18 19:12 97.5 57 18 139/62 (87) 96 Room Air 97.5 11/11/18 18:24 60 155/61 11/11/18 17:39 60 155/61 11/11/18 17:39 60 155/61 11/11/18 15:00 98.1 60 16 132/66 (88) 92 Room Air 98.1 11/11/18 14:26 60 132/66 11/11/18 13:22 60 131/55 11/11/18 13:02 60 131/55 11/11/18 10:41 98.0 60 12 135/68 (90) 97 Room Air 98.0 11/11/18 08:00 Room Air 11/11/18 07:00 98.0 60 12 155/76 (102) 96 Room Air 98.0 Laboratory Laboratory Laboratory Tests Test 11/11/18 17:07 11/11/18 20:12 11/12/18 07:44 11/12/18 12:01 Glucose (Fingerstick) 123 mg/dL (70-99) 115 mg/dL (70-99) 122 mg/dL (70-99) 129 mg/dL (70-99) Microbiology 11/05/18 Urine Culture - Final, Complete 11/05/18 Urine Culture Result 1 (MERVAT) - Final, Complete Comment Review of Relevant I have reviewed the following items sara (where applicable) has been applied. PEYTON AVALOS MD Nov 12, 2018 16:20
[2018-11-12 19:30] VITALS: BP 132/69
--- NOTE | 2018-11-12 19:42 | NUR ---
Patient is agreeable to Dobbhoff or peg tube now. Spoke with Reina with GI earlier today & they could possibly place peg tube Thursday or Thursday if that is what patient & Dr. Gannon wants to do. Message left for Dr. Gannon to call back to discuss.
[2018-11-12] MEDS: PATCH REMOVAL. MC SCH (21:00)
[2018-11-12 23:50] VITALS: BP 171/76
[2018-11-13] MEDS: METOPROLOL TARTRATE 5 MG/5 ML VIAL. IVP SCH ×5 (00:24→23:52)
[2018-11-13] MEDS: ENALAPRILAT 2.5 MG/2 ML VIAL. IVP SCH ×5 (00:25→23:53)
[2018-11-13 03:30] VITALS: BP 170/75
[2018-11-13] MEDS: NITROGLYCERIN OINT 1 GM PACKET. TP SCH ×4 (06:00→17:52)
[2018-11-13] MEDS: CLOTRIMAZOLE 10 MG TROCHE. MM SCH ×5 (06:09→21:15)
[2018-11-13 07:00] VITALS: BP 163/71
[2018-11-13] MEDS: LIDOCAINE (700MG/PATCH) PATCH. TD SCH (09:00)
[2018-11-13] MEDS: AMINO AC 3%/ELECTROLYTE/GLYCER 1,000 ML IV SCH ×2 (09:29→17:51)
[2018-11-13] MEDS: ASPIRIN RECTAL 300 MG SUPP. PR SCH (09:29)
[2018-11-13] MEDS: fentaNYL 25MCG/HR PATCH 1 PATCH PATCH.TD72 TD SCH (09:31)
[2018-11-13] MEDS: INSULIN GLARGINE 300 UNITS/3 ML INSULN.PEN. SQ SCH (09:31)
[2018-11-13 11:00] VITALS: BP 154/72
--- NOTE | 2018-11-13 12:18 | PDOC ---
PROGRESS NOTES Subjective Subjective He had no new complaints. Objective Objective Vital Signs Date Time Temp Pulse Resp B/P (MAP) Pulse Ox O2 Delivery O2 Flow Rate FiO2 11/13/18 09:31 95 Room Air 2.0 11/13/18 07:00 97.5 60 18 163/71 (101) 97.5 Intake and Output 11/13/18 07:00 Intake Total 2770 ml Output Total 1550 ml Balance 1220 ml Intake Oral 0 ml IV Total 2770 ml Output Urine Total 1550 ml Physical Exam Physical Exam He continues with right central facial paresis and [id number] using his right upper and lower extremities with associated mobility,self care and swallowing deficits. 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) Status: Acute (2) Cellulitis of foot, right Status: Acute (3) Dizziness Status: Acute (4) Dysphagia Status: Acute (5) Hemiparesis affecting right side as late effect of cerebrovascular accident (CVA) Status: Acute (6) Hypertensive encephalopathy Status: Acute (7) Hypertensive urgency Status: Acute (8) Hypomagnesemia Status: Acute (9) Left thalamic infarction Status: Acute (10) Leukocytosis Status: Acute (11) Malignant essential hypertension Status: Acute (12) Metabolic encephalopathy Status: Acute (13) Nausea & vomiting Status: Acute (14) Persistent atrial fibrillation Status: Acute (15) Right maxillary sinusitis Status: Acute (16) Vomiting Status: Acute (17) Weakness Status: Acute Plan Plan of Care Hopefully PEG tube placement of 11/15/2018 and to rehab unit on 11/16 or 11/17/2018 when he is medically stable. Comment Review of Relevant I have reviewed the following items sara (where applicable) has been applied. Labs Laboratory Tests Test 11/11/18 17:07 11/11/18 20:12 11/12/18 07:44 11/12/18 12:01 Glucose (Fingerstick) 123 mg/dL (70-99) 115 mg/dL (70-99) 122 mg/dL (70-99) 129 mg/dL (70-99) Test 11/12/18 17:12 11/12/18 20:56 11/13/18 07:52 11/13/18 11:31 Glucose (Fingerstick) 130 mg/dL (70-99) 122 mg/dL (70-99) 154 mg/dL (70-99) 153 mg/dL (70-99) Laboratory Tests Test 11/12/18 17:12 11/12/18 20:56 11/13/18 07:52 11/13/18 11:31 Glucose (Fingerstick) 130 mg/dL (70-99) 122 mg/dL (70-99) 154 mg/dL (70-99) 153 mg/dL (70-99) Microbiology 11/05/18 Urine Culture - Final, Complete 11/05/18 Urine Culture Result 1 (MERVAT) - Final, Complete Medications Current Medications Ondansetron HCl (Zofran) 4 mg 1X ONCE IV Last administered on 11/05/18at 01:41; Start 11/05/18 at 01:00; Stop 11/05/18 at 01:01; Status DC Famotidine (Pepcid Vial) 20 mg 1X ONCE IVP Last administered on 11/05/18at 01:41; Start 11/05/18 at 01:00; Stop 11/05/18 at 01:01; Status DC Sodium Chloride 1,000 ml @ 1,000 mls/hr 1X ONCE IV Last administered on 11/05/18at 01:38; Start 11/05/18 at 01:15; Stop 11/05/18 at 02:14; Status DC Iohexol (Omnipaque 300 Mg/ml) 75 ml 1X ONCE IV Last administered on 11/05/18at 01:32; Start 11/05/18 at 01:30; Stop 11/05/18 at 01:31; Status DC Info (CONTRAST GIVEN -- Rx MONITORING) 1 each PRN DAILY PRN MC SEE COMMENTS; Start 11/05/18 at 01:30; Stop 11/07/18 at 01:29; Status DC Labetalol HCl (Normodyne Iv Push) 20 mg 1X ONCE IVP Last administered on 11/05/18at 01:38; Start 11/05/18 at 01:45; Stop 11/05/18 at 01:46; Status DC Aspirin (Aspirin Rectal Supp) [address] Last administered on 11/05/18at 02:37; Start 11/05/18 at 02:00; Stop 11/05/18 at 02:01; Status DC Fentanyl Citrate (Fentanyl 2ml Vial) 50 mcg 1X ONCE IV Last administered on 11/05/18at 01:52; Start 11/05/18 at 01:45; Stop 11/05/18 at 01:55; Status DC Nitroglycerin (Nitro-Bid Oint) 0.5 inch 1X ONCE TP Last administered on 11/05/18at 01:51; Start 11/05/18 at 01:45; Stop 11/05/18 at 01:55; Status DC Magnesium Sulfate 50 ml @ 25 mls/hr 1X ONCE IV Last administered on 11/05/18at 02:37; Start 11/05/18 at 02:00; Stop 11/05/18 at 03:59; Status DC Ondansetron HCl (Zofran) 4 mg 1X ONCE IV Last administered on 11/05/18at 02:08; Start 11/05/18 at 02:15; Stop 11/05/18 at 02:16; Status DC Labetalol HCl (Normodyne Iv Push) 20 mg 1X ONCE IVP Last administered on 11/05/18at 02:18; Start 11/05/18 at 02:15; Stop 11/05/18 at 02:16; Status DC Ondansetron HCl (Zofran) 4 mg PRN Q8HRS PRN IV NAUSEA/VOMITING Last administered on 11/05/18at 13:50; Start 11/05/18 at 02:45; Stop 11/06/18 at 02:44; Status DC Insulin Human Lispro (HumaLOG) 0-7 UNITS TIDWMEALS SQ Last administered on 11/07/18at 08:55; Start 11/05/18 at 08:00; Stop 11/08/18 at 08:37; Status DC Dextrose (Dextrose 50%-Water Syringe) 12.5 gm PRN Q15MIN PRN IV SEE COMMENTS; Start 11/05/18 at 02:45 Labetalol HCl (Normodyne Iv Push) 10 mg PRN Q2HR PRN IVP ELEVATED BP, SEE COMMENTS Last administered on 11/05/18at 08:10; Start 11/05/18 at 02:45; Stop 11/05/18 at 08:28; Status DC Sodium Chloride 1,000 ml @ 100 mls/hr 1X ONCE IV Last administered on 11/05/18at 03:16; Start 11/05/18 at 03:15; Stop 11/05/18 at 13:14; Status DC Metoclopramide HCl (Reglan Vial) 10 mg 1X ONCE IV Last administered on 11/05/18 03:37; Start 11/05/18 at 03:30; Stop 11/05/18 at 03:31; Status DC Diphenhydramine HCl (Benadryl) 25 mg 1X ONCE IVP Last administered on 11/05/18 03:37; Start 11/05/18 at 03:30; Stop 11/05/18 at 03:31; Status DC Nitroglycerin (Nitro-Bid Oint) 0.5 inch Q6HRS TP Last administered on 11/11/18 17:39; Start 11/05/18 at 12:00 Labetalol HCl (Normodyne Iv Push) 20 mg PRN Q2HR PRN IVP HYPERTENSION Last administered on 11/07/18 03:42; Start 11/05/18 at 08:30 Insulin Glargine (Lantus) 30 units DAILY SQ Last administered on 11/07/18 08:54; Start 11/05/18 at 09:00; Stop 11/08/18 at 08:37; Status DC Sodium Chloride 1,000 ml @ 100 mls/hr Q10H IV Last administered on 11/05/18 09:20; Start 11/05/18 at 08:30; Stop 11/07/18 at 00:06; Status DC Aspirin (Aspirin Rectal Supp) [address] Last administered on 11/13/18 09:29; Start 11/05/18 at 09:00 Lidocaine (Lidoderm) 1 patch DAILY TD Last administered on 11/12/18at 09:45; Start 11/05/18 at 09:30 Miscellaneous (Lidoderm Patch Removal) 1 ea QHS MC Last administered on 11/12/18 21:00; Start 11/05/18 at 21:00 Metoprolol Tartrate (Lopressor Vial) 5 mg Q6HRS IVP Last administered on 11/13/18 06:00; Start 11/05/18 at 12:00 Enalaprilat (Vasotec Inj) 1.25 mg Q6HRS IVP Last administered on 11/09/18 06:05; Start 11/05/18 at 12:00; Stop 11/09/18 at 11:55; Status DC Cefazolin Sodium 50 ml @ 100 mls/hr Q8HRS IV ; Start 11/05/18 at 14:00; Stop 11/06/18 at 18:00; Status UNV Ketorolac Tromethamine (Toradol 30mg Vial) 30 mg PRN Q6HRS PRN IV PAIN Last administered on 11/09/18at 22:37; Start 11/05/18 at 12:00; Stop 11/10/18 at 11:59; Status DC Cefazolin Sodium (Ancef) 1 gm Q8HRS IVP Last administered on 11/10/18at 06:10; Start 11/05/18 at 13:00; Stop 11/10/18 at 08:34; Status DC Barium Sulfate (Varibar Thin Liquid Apple) 148 gm 1X ONCE PO Last administered on 11/05/18at 13:45; Start 11/05/18 at 13:45; Stop 11/05/18 at 13:46; Status DC Amino Acids/ Glycerin/ Electrolytes 1,000 ml @ 100 mls/hr Q10H IV Last administered on 11/13/18at 09:29; Start 11/05/18 at 19:00 Ondansetron HCl (Zofran) 4 mg PRN Q4HRS PRN IV NAUSEA/VOMITING Last administered on 11/08/18at 09:45; Start 11/06/18 at 13:00 Clonidine HCl (Catapres Tts-1) 1 patch WEEKLY TD Last administered on 11/07/18at 12:57; Start 11/07/18 at 13:00; Stop 11/10/18 at 08:38; Status DC Enoxaparin Sodium (Lovenox Per Pharmacy Treatment Dosing) 1 each PRN DAILY PRN MC SEE COMMENTS; Start 11/07/18 at 15:15 Enoxaparin Sodium (Lovenox 100mg Syringe) 100 mg Q12HR SQ Last administered on 11/10/18at 08:53; Start 11/07/18 at 15:00; Stop 11/10/18 at 14:45; Status DC Insulin Glargine (Lantus) 26 units DAILY SQ ; Start 11/08/18 at 09:00; Stop 11/09/18 at 09:00; Status DC Lorazepam (Ativan Inj) 1 mg PRN Q6HRS PRN IV ANXIETY / AGITATION Last administered on 11/08/18 09:44; Start 11/08/18 at 08:45 Methylprednisolone Acetate (DEPO-Medrol 40MG VIAL) 40 mg 1X ONCE IM Last administered on 11/08/18 09:15; Start 11/08/18 at 09:15; Stop 11/08/18 at 09:16; Status DC Bupivacaine HCl (Sensorcaine-Mpf 0.25%) 10 ml 1X ONCE IJ Last administered on 11/08/18 09:15; Start 11/08/18 at 09:15; Stop 11/08/18 at 09:16; Status DC Info (Anti-Coagulation Monitoring By Pharmacy) 1 each PRN DAILY PRN MC SEE COMMENTS Last administered on 11/10/18 10:22; Start 11/08/18 at 12:45 Insulin Glargine (Lantus) 24 units DAILY SQ Last administered on 11/13/18 09:31; Start 11/09/18 at 09:00 Enalaprilat (Vasotec Inj) 1.25 mg Q6HRS IVP Last administered on 11/13/18 06:14; Start 11/09/18 at 12:00 Fentanyl (Duragesic 25mcg/ Hr Patch) 1 patch Q3DAYS TD Last administered on 11/13/18 09:31; Start 11/10/18 at 09:00 Enoxaparin Sodium (Lovenox 80mg Syringe) 80 mg Q12HR SQ Last administered on 11/13/18 09:30; Start 11/10/18 at 21:00 Clotrimazole (Mycelex) 10 mg 5XDAY MM Last administered on 11/13/18 09:29; Start 11/10/18 at 18:00 Active Scripts Active Aspirin Ec (Aspirin) 325 Mg Tablet. 1 Tab PO DAILY Reported Cephalexin 500 Mg Tablet 1 Tab PO TID 7 Days Prednisone 20 Mg Tablet 1 Tab PO DAILY 3 Days Mag-Oxide (Magnesium Oxide) 400 Mg Tablet 1 Tab PO DAILY Alprazolam 0.5 Mg Tablet 1 Tab PO PRN DAILY PRN Furosemide 20 Mg Tablet 1 Tab PO DAILY Zoloft (Sertraline Hcl) 50 Mg Tablet 50 Mg PO DAILY Omeprazole 40 Mg Capsule. 1 Cap PO DAILY Miralax (Polyethylene Glycol 3350) 17 Gm Powd.pack 1 Packet PO PRN DAILY PRN Linzess (Linaclotide) 145 Mcg Capsule 145 Mcg PO PRN DAILY PRN Metformin Hcl 1,000 Mg Tablet 1,000 Mg PO BIDWMEALS Novolog Flexpen (Insulin Aspart) 100 Unit/1 Ml Insuln.pen 0-10 Unit SQ TIDAC Levemir (Insulin Detemir) 100 Unit/1 Ml Vial 45 Unit SQ BID Simvastatin 40 Mg Tablet 40 Mg PO HS Xarelto (Rivaroxaban) 20 Mg Tablet 20 Mg PO DAILY Lyrica (Pregabalin) 200 Mg Capsule 200 Mg PO BID 30 Days Metoprolol Succinate ( Xl ) (Metoprolol Succinate) 25 Mg Tab.er.24h 50 Mg PO HS Losartan-Hctz 100-25 Mg Tab (Losartan/Hydrochlorothiazide) 1 Each Tablet 1 Each PO HS Vitals/I & O Vital Sign - Last 24 Hours 11/12/18 11/12/18 11/12/18 11/12/18 13:56 15:00 17:55 18:42 Temp 97.6 97.6 Pulse 60 60 60 60 Resp 20 B/P (MAP) 138/75 154/72 (99) 154/68 147/60 Pulse Ox 97 O2 Delivery Room Air 11/12/18 11/12/18 11/12/18 11/13/18 19:30 20:14 23:50 00:24 Temp 98.0 97.5 98.0 97.5 Pulse 60 60 60 Resp 16 18 B/P (MAP) 132/69 (90) 171/76 (107) 177/76 Pulse Ox 96 97 O2 Delivery Room Air Room Air Room Air O2 Flow Rate 2.0 11/13/18 11/13/18 11/13/18 11/13/18 00:25 03:30 06:00 06:00 Temp 97.7 97.7 Pulse 60 59 60 60 Resp 18 B/P (MAP) 177/76 170/75 (106) 170/75 170/75 Pulse Ox 98 O2 Delivery Room Air 11/13/18 11/13/18 11/13/18 11/13/18 06:14 07:00 08:00 09:31 Temp 97.5 97.5 Pulse 60 60 Resp 18 B/P (MAP) 170/75 163/71 (101) Pulse Ox 95 95 O2 Delivery Room Air Room Air Room Air O2 Flow Rate 2.0 2.0 2.0 Intake and Output 11/12/18 11/12/18 11/13/18 15:00 23:00 07:00 Intake Total 1570 ml 1200 ml Output Total 450 ml 1100 ml Balance 1570 ml -450 ml 100 ml Nutrition Consultation Dietary Evaluation: Recommendations by RD: PPN/TPN Comments: Continue w/PPN for short-term non-oral nutrition needs REC TF per following pending PEG placement: Glucerna 1.5 bolus feeds, 2 cans TID (6 cans total/day) w/75 ml water flushes before and after each can If dobhoff placed while awaiting decision regarding PEG, recommend TF per following: Glucerna 1.2@20 ml/hr, increase 10 ml q8 hrs as tolerated to goal rate 60 ml/hr w/150 ml water flushes q4 hrs Expected Outcomes/Goals: Diet advancement - not met, new goal established New goal: TF via PEG pending placement - not met, goal ongoing Malnutrition Findings: Food and Nutrition Intake (Mod: <75% est energy req 7days Weight Status: Overweight ELISEO DUENAS MD Nov 13, 2018 12:18
--- NOTE | 2018-11-13 12:26 | PDOC ---
Provider Note Provider Note stable,glu ok- he will proceedb w/ peg now, timing pending- can be off anitcoags as needed DELROY BASS MD Nov 13, 2018 12:26
[2018-11-13 15:00] VITALS: BP 103/85
[2018-11-13 19:45] VITALS: BP 158/76
[2018-11-13] MEDS: PATCH REMOVAL. MC SCH (21:00)
[2018-11-13 23:42] VITALS: BP 150/69
[2018-11-14 03:15] VITALS: BP 173/81
[2018-11-14] MEDS: AMINO AC 3%/ELECTROLYTE/GLYCER 1,000 ML IV SCH ×3 (03:21→22:40)
[2018-11-14] MEDS: METOPROLOL TARTRATE 5 MG/5 ML VIAL. IVP SCH ×3 (05:35→18:22)
[2018-11-14] MEDS: NITROGLYCERIN OINT 1 GM PACKET. TP SCH ×5 (05:35→23:58)
[2018-11-14] MEDS: ENALAPRILAT 2.5 MG/2 ML VIAL. IVP SCH ×4 (05:36→23:57)
[2018-11-14] MEDS: CLOTRIMAZOLE 10 MG TROCHE. MM SCH ×5 (05:48→21:35)
[2018-11-14 07:00] VITALS: BP 132/69
[2018-11-14] MEDS: LIDOCAINE (700MG/PATCH) PATCH. TD SCH (08:43)
[2018-11-14] MEDS: INSULIN GLARGINE 300 UNITS/3 ML INSULN.PEN. SQ SCH (08:49)
--- NOTE | 2018-11-14 10:54 | PDOC ---
Provider Note Provider Note vss, glucose still good ,, no new sxs- off asa/lovenox in advance of peg- DELROY BASS MD Nov 14, 2018 10:54
[2018-11-14 11:00] VITALS: BP 145/90
[2018-11-14] MEDS: ceFAZolin SODIUM 1 GM in IV DEXTROSE 5% 50 ML IV SCH ×2 (12:56→21:38)
[2018-11-14 15:00] VITALS: BP 135/72
--- NOTE | 2018-11-14 15:43 | PDOC ---
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) Status: Acute (2) Cellulitis of foot, right Status: Acute (3) Dizziness Status: Acute (4) Dysphagia Status: Acute (5) Hemiparesis affecting right side as late effect of cerebrovascular accident (CVA) Status: Acute (6) Hypertensive encephalopathy Status: Acute (7) Hypertensive urgency Status: Acute (8) Hypomagnesemia Status: Acute (9) Left thalamic infarction Status: Acute (10) Leukocytosis Status: Acute (11) Malignant essential hypertension Status: Acute (12) Metabolic encephalopathy Status: Acute (13) Nausea & vomiting Status: Acute (14) Persistent atrial fibrillation Status: Acute (15) Right maxillary sinusitis Status: Acute (16) Vomiting Status: Acute (17) Weakness Status: Acute Subacute left thalamus infarct, 1.2 cm. Carotid artery stenosis, left side 50-69%. 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 Dysphagia. S/P Pacemaker. Plan ASA 300 mg rectal, change to PO when PEG placed Awaiting PEG No MRI due to pacemaker. SNU Subjective no complaints Objective Vital Signs Date Time Temp Pulse Resp B/P (MAP) Pulse Ox O2 Delivery O2 Flow Rate FiO2 11/14/18 13:39 66 132/69 11/14/18 11:00 98.5 18 95 Room Air 98.5 11/14/18 08:00 2.0 Intake and Output 11/14/18 07:00 Intake Total 2402 ml Output Total 2100 ml Balance 302 ml Intake Oral 2 ml IV Total 1200 ml Blood Product IV Normal Saline Flush 1200 ml Output Urine Total 2100 ml PHYSICAL EXAM Alert. Oriented to time, place and person. PERRL. EOMI. CN: right central facial weakness, otherwise no focal findings. Muscle tone: normal. Muscle strength: 4/5 right hemiparesis, normal strength on left DTR: 1+ Plantar reflex: flexor Gait: not examined in bed. Sensory exam: no abnormal findings. Cerebellar: Dysmetric on right. Review of Relevant I have reviewed the following items sara (where applicable) has been applied. Labs Laboratory Tests Test 11/12/18 17:12 11/12/18 20:56 11/13/18 07:52 11/13/18 11:31 Glucose (Fingerstick) 130 mg/dL (70-99) 122 mg/dL (70-99) 154 mg/dL (70-99) 153 mg/dL (70-99) Test 11/13/18 17:16 11/13/18 21:09 11/14/18 08:27 11/14/18 12:12 Glucose (Fingerstick) 106 mg/dL (70-99) 102 mg/dL (70-99) 113 mg/dL (70-99) 135 mg/dL (70-99) Laboratory Tests Test 11/13/18 17:16 11/13/18 21:09 11/14/18 08:27 11/14/18 12:12 Glucose (Fingerstick) 106 mg/dL (70-99) 102 mg/dL (70-99) 113 mg/dL (70-99) 135 mg/dL (70-99) Microbiology 11/05/18 Urine Culture - Final, Complete 11/05/18 Urine Culture Result 1 (MERVAT) - Final, Complete Medications Current Medications Ondansetron HCl (Zofran) 4 mg 1X ONCE IV Last administered on 11/05/18at 01:41; Start 11/05/18 at 01:00; Stop 11/05/18 at 01:01; Status DC Famotidine (Pepcid Vial) 20 mg 1X ONCE IVP Last administered on 11/05/18at 01:41; Start 11/05/18 at 01:00; Stop 11/05/18 at 01:01; Status DC Sodium Chloride 1,000 ml @ 1,000 mls/hr 1X ONCE IV Last administered on 11/05/18at 01:38; Start 11/05/18 at 01:15; Stop 11/05/18 at 02:14; Status DC Iohexol (Omnipaque 300 Mg/ml) 75 ml 1X ONCE IV Last administered on 11/05/18at 01:32; Start 11/05/18 at 01:30; Stop 11/05/18 at 01:31; Status DC Info (CONTRAST GIVEN -- Rx MONITORING) 1 each PRN DAILY PRN MC SEE COMMENTS; Start 11/05/18 at 01:30; Stop 11/07/18 at 01:29; Status DC Labetalol HCl (Normodyne Iv Push) 20 mg 1X ONCE IVP Last administered on 11/05/18at 01:38; Start 11/05/18 at 01:45; Stop 11/05/18 at 01:46; Status DC Aspirin (Aspirin Rectal Supp) 300 mg 1X ONCE [place] Last administered on 11/05/18at 02:37; Start 11/05/18 at 02:00; Stop 11/05/18 at 02:01; Status DC Fentanyl Citrate (Fentanyl 2ml Vial) 50 mcg 1X ONCE IV Last administered on 11/05/18at 01:52; Start 11/05/18 at 01:45; Stop 11/05/18 at 01:55; Status DC Nitroglycerin (Nitro-Bid Oint) 0.5 inch 1X ONCE TP Last administered on 11/05/18at 01:51; Start 11/05/18 at 01:45; Stop 11/05/18 at 01:55; Status DC Magnesium Sulfate 50 ml @ 25 mls/hr 1X ONCE IV Last administered on 11/05/18at 02:37; Start 11/05/18 at 02:00; Stop 11/05/18 at 03:59; Status DC Ondansetron HCl (Zofran) 4 mg 1X ONCE IV Last administered on 11/05/18at 02:08; Start 11/05/18 at 02:15; Stop 11/05/18 at 02:16; Status DC Labetalol HCl (Normodyne Iv Push) 20 mg 1X ONCE IVP Last administered on 11/05/18at 02:18; Start 11/05/18 at 02:15; Stop 11/05/18 at 02:16; Status DC Ondansetron HCl (Zofran) 4 mg PRN Q8HRS PRN IV NAUSEA/VOMITING Last adminis tered on 11/05/18at 13:50; Start 11/05/18 at 02:45; Stop 11/06/18 at 02:44; Status DC Insulin Human Lispro (HumaLOG) 0-7 UNITS TIDWMEALS SQ Last administered on 11/07/18at 08:55; Start 11/05/18 at 08:00; Stop 11/08/18 at 08:37; Status DC Dextrose (Dextrose 50%-Water Syringe) 12.5 gm PRN Q15MIN PRN IV SEE COMMENTS; Start 11/05/18 at 02:45 Labetalol HCl (Normodyne Iv Push) 10 mg PRN Q2HR PRN IVP ELEVATED BP, SEE COMMENTS Last administered on 11/05/18 08:10; Start 11/05/18 at 02:45; Stop 11/05/18 at 08:28; Status DC Sodium Chloride 1,000 ml @ 100 mls/hr 1X ONCE IV Last administered on 11/05/18 03:16; Start 11/05/18 at 03:15; Stop 11/05/18 at 13:14; Status DC Metoclopramide HCl (Reglan Vial) 10 mg 1X ONCE IV Last administered on 11/05/18 03:37; Start 11/05/18 at 03:30; Stop 11/05/18 at 03:31; Status DC Diphenhydramine HCl (Benadryl) 25 mg 1X ONCE IVP Last administered on 11/05/18 03:37; Start 11/05/18 at 03:30; Stop 11/05/18 at 03:31; Status DC Nitroglycerin (Nitro-Bid Oint) 0.5 inch Q6HRS TP Last administered on 11/14/18 12:20; Start 11/05/18 at 12:00 Labetalol HCl (Normodyne Iv Push) 20 mg PRN Q2HR PRN IVP HYPERTENSION Last administered on 11/07/18 03:42; Start 11/05/18 at 08:30 Insulin Glargine (Lantus) 30 units DAILY SQ Last administered on 11/07/18 08:54; Start 11/05/18 at 09:00; Stop 11/08/18 at 08:37; Status DC Sodium Chloride 1,000 ml @ 100 mls/hr Q10H IV Last administered on 11/05/18 09:20; Start 11/05/18 at 08:30; Stop 11/07/18 at 00:06; Status DC Aspirin (Aspirin Rectal Supp) 300 mg DAILY [place] Last administered on 11/13/18 09:29; Start 11/05/18 at 09:00; Stop 11/13/18 at 12:28; Status DC Lidocaine (Lidoderm) 1 patch DAILY TD Last administered on 11/12/18 09:45; Start 11/05/18 at 09:30 Miscellaneous (Lidoderm Patch Removal) 1 ea QHS MC Last administered on 11/13/18at 21:00; Start 11/05/18 at 21:00 Metoprolol Tartrate (Lopressor Vial) 5 mg Q6HRS IVP Last administered on 11/14/18at 13:39; Start 11/05/18 at 12:00 Enalaprilat (Vasotec Inj) 1.25 mg Q6HRS IVP Last administered on 11/09/18 06:05; Start 11/05/18 at 12:00; Stop 11/09/18 at 11:55; Status DC Cefazolin Sodium 50 ml @ 100 mls/hr Q8HRS IV ; Start 11/05/18 at 14:00; Stop 11/06/18 at 18:00; Status UNV Ketorolac Tromethamine (Toradol 30mg Vial) 30 mg PRN Q6HRS PRN IV PAIN Last administered on 11/09/18at 22:37; Start 11/05/18 at 12:00; Stop 11/10/18 at 11:59; Status DC Cefazolin Sodium (Ancef) 1 gm Q8HRS IVP Last administered on 11/10/18at 06:10; Start 11/05/18 at 13:00; Stop 11/10/18 at 08:34; Status DC Barium Sulfate (Varibar Thin Liquid Apple) 148 gm 1X ONCE PO Last administered on 11/05/18at 13:45; Start 11/05/18 at 13:45; Stop 11/05/18 at 13:46; Status DC Amino Acids/ Glycerin/ Electrolytes 1,000 ml @ 100 mls/hr Q10H IV Last administered on 11/14/18at 08:43; Start 11/05/18 at 19:00 Ondansetron HCl (Zofran) 4 mg PRN Q4HRS PRN IV NAUSEA/VOMITING Last administered on 11/08/18at 09:45; Start 11/06/18 at 13:00 Clonidine HCl (Catapres Tts-1) 1 patch WEEKLY TD Last administered on 11/07/18at 12:57; Start 11/07/18 at 13:00; Stop 11/10/18 at 08:38; Status DC Enoxaparin Sodium (Lovenox Per Pharmacy Treatment Dosing) 1 each PRN DAILY PRN MC SEE COMMENTS; Start 11/07/18 at 15:15; Stop 11/13/18 at 13:15; Status DC Enoxaparin Sodium (Lovenox 100mg Syringe) 100 mg Q12HR SQ Last administered on 11/10/18 08:53; Start 11/07/18 at 15:00; Stop 11/10/18 at 14:45; Status DC Insulin Glargine (Lantus) 26 units DAILY SQ ; Start 11/08/18 at 09:00; Stop 11/09/18 at 09:00; Status DC Lorazepam (Ativan Inj) 1 mg PRN Q6HRS PRN IV ANXIETY / AGITATION Last administered on 11/08/18at 09:44; Start 11/08/18 at 08:45 Methylprednisolone Acetate (DEPO-Medrol 40MG VIAL) 40 mg 1X ONCE IM Last administered on 11/08/18at 09:15; Start 11/08/18 at 09:15; Stop 11/08/18 at 09:16; Status DC Bupivacaine HCl (Sensorcaine-Mpf 0.25%) 10 ml 1X ONCE IJ Last administered on 11/08/18at 09:15; Start 11/08/18 at 09:15; Stop 11/08/18 at 09:16; Status DC Info (Anti-Coagulation Monitoring By Pharmacy) 1 each PRN DAILY PRN MC SEE COMMENTS Last administered on 11/10/18at 10:22; Start 11/08/18 at 12:45 Insulin Glargine (Lantus) 24 units DAILY SQ Last administered on 11/14/18 08:49; Start 11/09/18 at 09:00; Stop 11/14/18 at 10:46; Status DC Enalaprilat (Vasotec Inj) 1.25 mg Q6HRS IVP Last administered on 11/14/18 12:57; Start 11/09/18 at 12:00 Fentanyl (Duragesic 25mcg/ Hr Patch) 1 patch Q3DAYS TD Last administered on 11/13/18 09:31; Start 11/10/18 at 09:00 Enoxaparin Sodium (Lovenox 80mg Syringe) 80 mg Q12HR SQ Last administered on 11/13/18at 21:15; Start 11/10/18 at 21:00; Stop 11/14/18 at 08:00; Status DC Clotrimazole (Mycelex) 10 mg 5XDAY MM Last administered on 11/14/18at 13:38; Start 11/10/18 at 18:00 Insulin Glargine (Lantus) 20 units DAILY SQ ; Start 11/15/18 at 09:00 Cefazolin Sodium 1 gm/Dextrose 50 ml @ 100 mls/hr Q12HR IV Last administered on 11/14/18at 12:56; Start 11/14/18 at 12:00 Active Scripts Active Aspirin Ec (Aspirin) 325 Mg Tablet.dr 1 Tab PO DAILY Reported Cephalexin 500 Mg Tablet 1 Tab PO TID 7 Days Prednisone 20 Mg Tablet 1 Tab PO DAILY 3 Days Mag-Oxide (Magnesium Oxide) 400 Mg Tablet 1 Tab PO DAILY Alprazolam 0.5 Mg Tablet 1 Tab PO PRN DAILY PRN Furosemide 20 Mg Tablet 1 Tab PO DAILY Zoloft (Sertraline Hcl) 50 Mg Tablet 50 Mg PO DAILY Omeprazole 40 Mg Capsule.dr 1 Cap PO DAILY Miralax (Polyethylene Glycol 3350) 17 Gm Powd.pack 1 Packet PO PRN DAILY PRN Linzess (Linaclotide) 145 Mcg Capsule 145 Mcg PO PRN DAILY PRN Metformin Hcl 1,000 Mg Tablet 1,000 Mg PO BIDWMEALS Novolog Flexpen (Insulin Aspart) 100 Unit/1 Ml Insuln.pen 0-10 Unit SQ TIDAC Levemir (Insulin Detemir) 100 Unit/1 Ml Vial 45 Unit SQ BID Simvastatin 40 Mg Tablet 40 Mg PO HS Xarelto (Rivaroxaban) 20 Mg Tablet 20 Mg PO DAILY Lyrica (Pregabalin) 200 Mg Capsule 200 Mg PO BID 30 Days Metoprolol Succinate ( Xl ) (Metoprolol Succinate) 25 Mg Tab.er.24h 50 Mg PO HS Losartan-Hctz 100-25 Mg Tab (Losartan/Hydrochlorothiazide) 1 Each Tablet 1 Each PO HS Vitals/I & O Vital Sign - Last 24 Hours 11/13/18 11/13/18 11/13/18 11/13/18 17:52 17:52 18:16 19:26 Pulse 60 60 60 B/P (MAP) 159/90 159/90 145/74 O2 Delivery Room Air 11/13/18 11/13/18 11/13/18 11/13/18 19:45 23:42 23:52 23:53 Temp 98.0 97.9 98.0 97.9 Pulse 60 60 60 60 Resp 22 17 B/P (MAP) 158/76 (103) 150/69 (96) 180/69 180/69 Pulse Ox 96 94 O2 Delivery Room Air Room Air 11/14/18 11/14/18 11/14/18 11/14/18 00:00 03:15 05:35 05:35 Temp 97.7 97.7 Pulse 60 60 60 60 Resp 18 B/P (MAP) 180/69 173/81 (111) 173/81 173/81 Pulse Ox 96 O2 Delivery Room Air 11/14/18 11/14/18 11/14/18 11/14/18 05:36 07:00 08:00 11:00 Temp 98.4 98.5 98.4 98.5 Pulse 60 66 60 Resp 18 18 B/P (MAP) 173/81 132/69 (90) 145/90 (108) Pulse Ox 94 95 O2 Delivery Room Air Room Air Room Air O2 Flow Rate 2.0 11/14/18 11/14/18 11/14/18 12:20 12:57 13:39 Pulse 66 66 66 B/P (MAP) 132/69 132/69 132/69 Intake and Output 11/13/18 11/13/18 11/14/18 15:00 23:00 07:00 Intake Total 1202 ml 1200 ml Output Total 400 ml 1000 ml 700 ml Balance -400 ml 202 ml 500 ml DAI SMITH MD Nov 14, 2018 15:43
[2018-11-14 19:36] VITALS: BP 162/68
[2018-11-14] MEDS: PATCH REMOVAL. MC SCH (21:00)
[2018-11-14 23:06] VITALS: BP 152/70
[2018-11-15] MEDS: METOPROLOL TARTRATE 5 MG/5 ML VIAL. IVP SCH ×4 (00:15→18:54)
[2018-11-15 03:41] VITALS: BP 128/64
[2018-11-15] MEDS: CLOTRIMAZOLE 10 MG TROCHE. MM SCH ×5 (05:48→23:04)
[2018-11-15] MEDS: ENALAPRILAT 2.5 MG/2 ML VIAL. IVP SCH ×3 (05:49→18:05)
[2018-11-15] MEDS: NITROGLYCERIN OINT 1 GM PACKET. TP SCH ×3 (06:00→19:01)
[2018-11-15 07:00] VITALS: BP 176/73
--- NOTE | 2018-11-15 08:48 | PDOC ---
PROGRESS NOTES Subjective Subjective He c/o continued low back soreness. Objective Objective Vital Signs Date Time Temp Pulse Resp B/P (MAP) Pulse Ox O2 Delivery O2 Flow Rate FiO2 11/15/18 07:00 97.5 60 14 176/73 (107) 95 Room Air 97.5 11/14/18 08:00 2.0 Intake and Output 11/15/18 07:00 Intake Total 950 ml Output Total 1200 ml Balance -250 ml Intake Oral 0 ml IV Total 950 ml Output Urine Total 1200 ml Physical Exam Physical Exam He is alert,supine in bed and continues with right upper and lower extremity [id number] and mobility and self care limitations. He had subcutaneous cystic lesions just above his sacroiliac joints bilaterally. I have injected his left sacroiliac joint and in a patient on anticoagulation he can have small bleeding at site of injection but he had these hematomas bilaterally just above his sacroiliac joints. He is participating with physical,occupational therapy and speech pathology and speech pathology plans for repeat video dysphagia study this AM and plans for PEG tube placement if he could not eat. 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) Status: Acute (2) Cellulitis of foot, right Status: Acute (3) Dizziness Status: Acute (4) Dysphagia Status: Acute (5) Hemiparesis affecting right side as late effect of cerebrovascular accident (CVA) Status: Acute (6) Hypertensive encephalopathy Status: Acute (7) Hypertensive urgency Status: Acute (8) Hypomagnesemia Status: Acute (9) Left thalamic infarction Status: Acute (10) Leukocytosis Status: Acute (11) Malignant essential hypertension Status: Acute (12) Metabolic encephalopathy Status: Acute (13) Nausea & vomiting Status: Acute (14) Persistent atrial fibrillation Status: Acute (15) Right maxillary sinusitis Status: Acute (16) Vomiting Status: Acute (17) Weakness Status: Acute Plan Plan of Care To obtain CT scan of lumbar vertebrae to better evaluate his sacroiliac joint area hematomas. Comment Review of Relevant I have reviewed the following items sara (where applicable) has been applied. Labs Laboratory Tests Test 11/13/18 11:31 11/13/18 17:16 11/13/18 21:09 11/14/18 08:27 Glucose (Fingerstick) 153 mg/dL (70-99) 106 mg/dL (70-99) 102 mg/dL (70-99) 113 mg/dL (70-99) Test 11/14/18 12:12 11/14/18 17:03 11/14/18 21:08 Glucose (Fingerstick) 135 mg/dL (70-99) 110 mg/dL (70-99) 93 mg/dL (70-99) Laboratory Tests Test 11/14/18 12:12 11/14/18 17:03 11/14/18 21:08 Glucose (Fingerstick) 135 mg/dL (70-99) 110 mg/dL (70-99) 93 mg/dL (70-99) Microbiology 11/05/18 Urine Culture - Final, Complete 11/05/18 Urine Culture Result 1 (MERVAT) - Final, Complete Medications Current Medications Ondansetron HCl (Zofran) 4 mg 1X ONCE IV Last administered on 11/05/18 01:41; Start 11/05/18 at 01:00; Stop 11/05/18 at 01:01; Status DC Famotidine (Pepcid Vial) 20 mg 1X ONCE IVP Last administered on 11/05/18at 01:41; Start 11/05/18 at 01:00; Stop 11/05/18 at 01:01; Status DC Sodium Chloride 1,000 ml @ 1,000 mls/hr 1X ONCE IV Last administered on 11/05/18at 01:38; Start 11/05/18 at 01:15; Stop 11/05/18 at 02:14; Status DC Iohexol (Omnipaque 300 Mg/ml) 75 ml 1X ONCE IV Last administered on 11/05/18at 01:32; Start 11/05/18 at 01:30; Stop 11/05/18 at 01:31; Status DC Info (CONTRAST GIVEN -- Rx MONITORING) 1 each PRN DAILY PRN MC SEE COMMENTS; Start 11/05/18 at 01:30; Stop 11/07/18 at 01:29; Status DC Labetalol HCl (Normodyne Iv Push) 20 mg 1X ONCE IVP Last administered on 11/05/18at 01:38; Start 11/05/18 at 01:45; Stop 11/05/18 at 01:46; Status DC Aspirin (Aspirin Rectal Supp) 300 mg 1X ONCE LA Last administered on 11/05/18at 02:37; Start 11/05/18 at 02:00; Stop 11/05/18 at 02:01; Status DC Fentanyl Citrate (Fentanyl 2ml Vial) 50 mcg 1X ONCE IV Last administered on 11/05/18at 01:52; Start 11/05/18 at 01:45; Stop 11/05/18 at 01:55; Status DC Nitroglycerin (Nitro-Bid Oint) 0.5 inch 1X ONCE TP Last administered on 11/05/18at 01:51; Start 11/05/18 at 01:45; Stop 11/05/18 at 01:55; Status DC Magnesium Sulfate 50 ml @ 25 mls/hr 1X ONCE IV Last administered on 11/05/18at 02:37; Start 11/05/18 at 02:00; Stop 11/05/18 at 03:59; Status DC Ondansetron HCl (Zofran) 4 mg 1X ONCE IV Last administered on 11/05/18at 02:08; Start 11/05/18 at 02:15; Stop 11/05/18 at 02:16; Status DC Labetalol HCl (Normodyne Iv Push) 20 mg 1X ONCE IVP Last administered on 11/05/18at 02:18; Start 11/05/18 at 02:15; Stop 11/05/18 at 02:16; Status DC Ondansetron HCl (Zofran) 4 mg PRN Q8HRS PRN IV NAUSEA/VOMITING Last administered on 11/05/18at 13:50; Start 11/05/18 at 02:45; Stop 11/06/18 at 02:44; Status DC Insulin Human Lispro (HumaLOG) 0-7 UNITS TIDWMEALS SQ Last administered on 11/07/18at 08:55; Start 11/05/18 at 08:00; Stop 11/08/18 at 08:37; Status DC Dextrose (Dextrose 50%-Water Syringe) 12.5 gm PRN Q15MIN PRN IV SEE COMMENTS; Start 11/05/18 at 02:45 Labetalol HCl (Normodyne Iv Push) 10 mg PRN Q2HR PRN IVP ELEVATED BP, SEE COMMENTS Last administered on 11/05/18at 08:10; Start 11/05/18 at 02:45; Stop 11/05/18 at 08:28; Status DC Sodium Chloride 1,000 ml @ 100 mls/hr 1X ONCE IV Last administered on 11/05/18 03:16; Start 11/05/18 at 03:15; Stop 11/05/18 at 13:14; Status DC Metoclopramide HCl (Reglan Vial) 10 mg 1X ONCE IV Last administered on 11/05/18 03:37; Start 11/05/18 at 03:30; Stop 11/05/18 at 03:31; Status DC Diphenhydramine HCl (Benadryl) 25 mg 1X ONCE IVP Last administered on 11/05/18 03:37; Start 11/05/18 at 03:30; Stop 11/05/18 at 03:31; Status DC Nitroglycerin (Nitro-Bid Oint) 0.5 inch Q6HRS TP Last administered on 11/14/18 23:58; Start 11/05/18 at 12:00 Labetalol HCl (Normodyne Iv Push) 20 mg PRN Q2HR PRN IVP HYPERTENSION Last administered on 11/07/18 03:42; Start 11/05/18 at 08:30 Insulin Glargine (Lantus) 30 units DAILY SQ Last administered on 11/07/18 08:54; Start 11/05/18 at 09:00; Stop 11/08/18 at 08:37; Status DC Sodium Chloride 1,000 ml @ 100 mls/hr Q10H IV Last administered on 11/05/18 09:20; Start 11/05/18 at 08:30; Stop 11/07/18 at 00:06; Status DC Aspirin (Aspirin Rectal Supp) 300 mg DAILY LA Last administered on 11/13/18 09:29; Start 11/05/18 at 09:00; Stop 11/13/18 at 12:28; Status DC Lidocaine (Lidoderm) 1 patch DAILY TD Last administered on 11/12/18 09:45; Start 11/05/18 at 09:30 Miscellaneous (Lidoderm Patch Removal) 1 ea QHS MC Last administered on 11/14/18 21:00; Start 11/05/18 at 21:00 Metoprolol Tartrate (Lopressor Vial) 5 mg Q6HRS IVP Last administered on 11/15/18 06:08; Start 11/05/18 at 12:00 Enalaprilat (Vasotec Inj) 1.25 mg Q6HRS IVP Last administered on 11/09/18at 06:05; Start 11/05/18 at 12:00; Stop 11/09/18 at 11:55; Status DC Cefazolin Sodium 50 ml @ 100 mls/hr Q8HRS IV ; Start 11/05/18 at 14:00; Stop 11/06/18 at 18:00; Status UNV Ketorolac Tromethamine (Toradol 30mg Vial) 30 mg PRN Q6HRS PRN IV PAIN Last administered on 11/09/18at 22:37; Start 11/05/18 at 12:00; Stop 11/10/18 at 11:59; Status DC Cefazolin Sodium (Ancef) 1 gm Q8HRS IVP Last administered on 11/10/18at 06:10; Start 11/05/18 at 13:00; Stop 11/10/18 at 08:34; Status DC Barium Sulfate (Varibar Thin Liquid Apple) 148 gm 1X ONCE PO Last administered on 11/05/18at 13:45; Start 11/05/18 at 13:45; Stop 11/05/18 at 13:46; Status DC Amino Acids/ Glycerin/ Electrolytes 1,000 ml @ 100 mls/hr Q10H IV Last administered on 11/14/18at 22:40; Start 11/05/18 at 19:00 Ondansetron HCl (Zofran) 4 mg PRN Q4HRS PRN IV NAUSEA/VOMITING Last administered on 11/08/18at 09:45; Start 11/06/18 at 13:00 Clonidine HCl (Catapres Tts-1) 1 patch WEEKLY TD Last administered on 11/07/18at 12:57; Start 11/07/18 at 13:00; Stop 11/10/18 at 08:38; Status DC Enoxaparin Sodium (Lovenox Per Pharmacy Treatment Dosing) 1 each PRN DAILY PRN MC SEE COMMENTS; Start 11/07/18 at 15:15; Stop 11/13/18 at 13:15; Status DC Enoxaparin Sodium (Lovenox 100mg Syringe) 100 mg Q12HR SQ Last administered on 11/10/18at 08:53; Start 11/07/18 at 15:00; Stop 11/10/18 at 14:45; Status DC Insulin Glargine (Lantus) 26 units DAILY SQ ; Start 11/08/18 at 09:00; Stop 11/09/18 at 09:00; Status DC Lorazepam (Ativan Inj) 1 mg PRN Q6HRS PRN IV ANXIETY / AGITATION Last administered on 11/08/18at 09:44; Start 11/08/18 at 08:45 Methylprednisolone Acetate (DEPO-Medrol 40MG VIAL) 40 mg 1X ONCE IM Last administered on 11/08/18at 09:15; Start 11/08/18 at 09:15; Stop 11/08/18 at 09:16; Status DC Bupivacaine HCl (Sensorcaine-Mpf 0.25%) 10 ml 1X ONCE IJ Last administered on 11/08/18at 09:15; Start 11/08/18 at 09:15; Stop 11/08/18 at 09:16; Status DC Info (Anti-Coagulation Monitoring By Pharmacy) 1 each PRN DAILY PRN MC SEE COMMENTS Last administered on 11/10/18at 10:22; Start 11/08/18 at 12:45 Insulin Glargine (Lantus) 24 units DAILY SQ Last administered on 11/14/18 08:49; Start 11/09/18 at 09:00; Stop 11/14/18 at 10:46; Status DC Enalaprilat (Vasotec Inj) 1.25 mg Q6HRS IVP Last administered on 11/15/18 05:49; Start 11/09/18 at 12:00 Fentanyl (Duragesic 25mcg/ Hr Patch) 1 patch Q3DAYS TD Last administered on 11/13/18at 09:31; Start 11/10/18 at 09:00 Enoxaparin Sodium (Lovenox 80mg Syringe) 80 mg Q12HR SQ Last administered on 11/13/18at 21:15; Start 11/10/18 at 21:00; Stop 11/14/18 at 08:00; Status DC Clotrimazole (Mycelex) 10 mg 5XDAY MM Last administered on 11/15/18at 05:48; Start 11/10/18 at 18:00 Insulin Glargine (Lantus) 20 units DAILY SQ ; Start 11/15/18 at 09:00 Cefazolin Sodium 1 gm/Dextrose 50 ml @ 100 mls/hr Q12HR IV Last administered on 11/14/18at 21:38; Start 11/14/18 at 12:00; Stop 11/15/18 at 03:51; Status DC Cefazolin Sodium (Ancef) 1 gm Q12HR IVP ; Start 11/15/18 at 09:00 Active Scripts Active Aspirin Ec (Aspirin) 325 Mg Tablet.dr 1 Tab PO DAILY Reported Cephalexin 500 Mg Tablet 1 Tab PO TID 7 Days Prednisone 20 Mg Tablet 1 Tab PO DAILY 3 Days Mag-Oxide (Magnesium Oxide) 400 Mg Tablet 1 Tab PO DAILY Alprazolam 0.5 Mg Tablet 1 Tab PO PRN DAILY PRN Furosemide 20 Mg Tablet 1 Tab PO DAILY Zoloft (Sertraline Hcl) 50 Mg Tablet 50 Mg PO DAILY Omeprazole 40 Mg Capsule.dr 1 Cap PO DAILY Miralax (Polyethylene Glycol 3350) 17 Gm Powd.pack 1 Packet PO PRN DAILY PRN Linzess (Linaclotide) 145 Mcg Capsule 145 Mcg PO PRN DAILY PRN Metformin Hcl 1,000 Mg Tablet 1,000 Mg PO BIDWMEALS Novolog Flexpen (Insulin Aspart) 100 Unit/1 Ml Insuln.pen 0-10 Unit SQ TIDAC Levemir (Insulin Detemir) 100 Unit/1 Ml Vial 45 Unit SQ BID Simvastatin 40 Mg Tablet 40 Mg PO HS Xarelto (Rivaroxaban) 20 Mg Tablet 20 Mg PO DAILY Lyrica (Pregabalin) 200 Mg Capsule 200 Mg PO BID 30 Days Metoprolol Succinate ( Xl ) (Metoprolol Succinate) 25 Mg Tab.er.24h 50 Mg PO HS Losartan-Hctz 100-25 Mg Tab (Losartan/Hydrochlorothiazide) 1 Each Tablet 1 Each PO HS Vitals/I & O Vital Sign - Last 24 Hours 11/14/18 11/14/18 11/14/18 11/14/18 11:00 12:20 12:57 13:39 Temp 98.5 98.5 Pulse 60 66 66 66 Resp 18 B/P (MAP) 145/90 (108) 132/69 132/69 132/69 Pulse Ox 95 O2 Delivery Room Air 11/14/18 11/14/18 11/14/18 11/14/18 15:00 18:05 18:05 18:22 Temp 97.9 97.9 Pulse 62 59 62 60 Resp 18 B/P (MAP) 135/72 (93) 174/79 135/72 153/68 Pulse Ox 96 O2 Delivery Room Air 11/14/18 11/14/18 11/14/18 11/14/18 19:36 19:40 23:06 23:57 Temp 98.2 98.2 98.2 98.2 Pulse 60 60 60 Resp 16 16 B/P (MAP) 162/68 (99) 152/70 (97) 152/70 Pulse Ox 97 96 O2 Delivery Room Air Room Air Room Air 11/14/18 11/15/18 11/15/18 11/15/18 23:58 00:15 03:41 05:49 Temp 98.0 98.0 Pulse 60 60 60 60 Resp 16 B/P (MAP) 152/70 157/72 128/64 (85) 134/63 Pulse Ox 95 O2 Delivery Room Air 11/15/18 11/15/18 06:08 07:00 Temp 97.5 97.5 Pulse 60 60 Resp 14 B/P (MAP) 126/65 176/73 (107) Pulse Ox 95 O2 Delivery Room Air Intake and Output 11/14/18 11/14/18 11/15/18 15:00 23:00 07:00 Intake Total 950 ml 0 ml Output Total 575 ml 625 ml Balance 375 ml -625 ml Nutrition Consultation Dietary Evaluation: Recommendations by RD: PPN/TPN Comments: Continue w/PPN for short-term non-oral nutrition needs REC TF per following pending PEG placement: Glucerna 1.5 bolus feeds, 2 cans TID (6 cans total/day) w/75 ml water flushes before and after each can If dobhoff placed while awaiting decision regarding PEG, recommend TF per following: Glucerna 1.2@20 ml/hr, increase 10 ml q8 hrs as tolerated to goal rate 60 ml/hr w/150 ml water flushes q4 hrs Expected Outcomes/Goals: Diet advancement - not met, new goal established New goal: TF via PEG pending placement - not met, goal ongoing Malnutrition Findings: Food and Nutrition Intake (Mod: <75% est energy req 7days Weight Status: Overweight ELISEO DUENAS MD Nov 15, 2018 08:48
[2018-11-15] MEDS: INSULIN GLARGINE 300 UNITS/3 ML INSULN.PEN. SQ SCH (09:00)
--- NOTE | 2018-11-15 09:05 | PDOC ---
Provider Note Provider Note R lower leg is red, does not yecenia, not cellulitis but petechial, also bruising R lateral ankle- will dc ancef, do xr- peg pending DELROY BASS MD Nov 15, 2018 09:05
[2018-11-15] MEDS: LIDOCAINE (700MG/PATCH) PATCH. TD SCH (09:34)
[2018-11-15] MEDS: ceFAZolin SODIUM IV Push 1 GM VIAL. IVP SCH ×2 (09:41→23:04)
[2018-11-15] MEDS ORDERED: BARIUM SULFATE 40% (APPLE) 148 GM PWD. PO ONE (10:00)
[2018-11-15] MEDS: AMINO AC 3%/ELECTROLYTE/GLYCER 1,000 ML IV SCH (10:54)
--- NOTE | 2018-11-15 10:56 | PDOC ---
Subjective: Subjective: Magali says they were told PEG would be placed today and Heparin was held - she says that "everyone told him it was happening today and now it's not." Then reports still plans for videoswallow. Objective: Objective: I talked to nurse on Thursday - she told me Dr. Enciso wanted a PEG tube that day. I reminded her the family who I spoke with that day (daughter and pt) wanted to pursue another videoswallow on Thursday w/ ongoing [employer] eval/therapy prior to proceeding w/ PEG placement. D/w Dr. Nicole this morning - nurse called - will plan for PEG tomorrow. Ankle x-ray and lumbar CT ordered for today. Vital Signs: Vital Signs Date Time Temp Pulse Resp B/P (MAP) Pulse Ox O2 Delivery O2 Flow Rate FiO2 11/15/18 07:00 97.5 60 14 176/73 (107) 95 Room Air 97.5 11/14/18 08:00 2.0 Labs: Laboratory Tests Test 11/14/18 12:12 11/14/18 17:03 11/14/18 21:08 Glucose (Fingerstick) 135 mg/dL (70-99) 110 mg/dL (70-99) 93 mg/dL (70-99) PE: GEN: NAD, up to chair, PPN LUNGS: room air ABD: S/ND/NT SKIN: RLE w/ redness NEURO/PSYCH: A & O �3 A/P: CVA, dysphagia -- Family/pt now want to proceed w/ PEG... still plans for videoswallow today... PEG scheduled tentatively for tomorrow afternoon. On atbx per primary. Last INR 1.2 on 11/09. ASA and Lovenox held. Other per Dr. Nicole. TAMIKO RODRIGUEZ Nov 15, 2018 10:56
[2018-11-15 11:00] VITALS: BP 140/58
--- NOTE | 2018-11-15 11:47 | NUR ---
SS following up with discharge planning. SS phoned and faxed clinical updates to [facility]. Per notes pt now agreeable to PEG Tube. SS will await PEG tube placement and will continue to follow for discharge planning.
--- NOTE | 2018-11-15 12:12 | RAD ---
2 views right ankle 11/15/2018 9:01 AM Indication: Bruising Comparison: None available Findings: Limited two-view exam of the ankle demonstrates no fracture or dislocation. Mild diffuse soft tissue edema surrounding the ankle is present. No joint effusion is identified. Atherosclerotic vascular disease noted. IMPRESSION: Mild diffuse soft tissue edema without evidence of fracture Electronically signed by: Timothy Griffin MD (11/15/2018 12:09 PM) [id number]
--- NOTE | 2018-11-15 13:03 | RAD ---
Examination: CT of the lumbar spine without contrast HISTORY: History of subcutaneous cystic lesions about the sacroiliac joints bilaterally COMPARISON: CT of the abdomen pelvis from 11/05/2018 TECHNIQUE: Axial CT images of the lumbar spine were performed without contrast. Coronal and sagittal reformats are performed. Exposure: One or more of the following individualized dose reduction techniques were utilized for this examination: 1. Automated exposure control 2. Adjustment of the mA and/or kV according to patient size 3. Use of iterative reconstruction technique FINDINGS: The lumbar vertebral body heights are maintained. Moderate intervertebral disc height loss identified throughout the lumbar spine with mild to moderate multilevel spinal canal stenosis particularly at L3-L4, L4-L5 vertebral levels. Moderate facet degenerative changes Moderate multilevel bilateral neural foraminal narrowing identified at L3-L4, L4-L5, L5-S1 vertebral levels. Moderate aortic atherosclerosis. There is irregular appearing soft tissue densities identified in the subcutaneous region of the lower back measuring 6 cm on the right and 4.9 cm on the left in transverse dimension which are absent on the prior exam possibly subcutaneous hematomas. IMPRESSION: 1. Irregular appearing soft tissue densities identified in the subcutaneous region of the lower back measuring 6 cm on the right and 4.9 cm on the left in transverse dimension which are absent on the prior exam possibly subcutaneous hematomas. Recommend follow-up to resolution with ultrasound. 2. Moderate multilevel degenerative changes lumbar spine. Electronically signed by: Tigre Dang MD (11/15/2018 1:00 PM) [id number]
--- NOTE | 2018-11-15 14:52 | RAD ---
Exam: Video Swallowing Study Date: 11/15/2018 History: History of aspiration Comparison: Video swallow 11/05/2018 Procedure: Video fluoroscopy of the neck was performed from the lateral projection following ingestion of various consistency barium including thin, honey thick, puree consistency barium which was administered by the speech pathologist. Findings/ Impression: Aspiration was seen with the thin consistency barium. Penetration with seen with the other consistency barium without definite aspiration. Please see speech pathology's report for further details of examination. Electronically signed by: Nick Wilhelm MD (11/15/2018 2:49 PM) [facility]
[2018-11-15 15:00] VITALS: BP 117/59
[2018-11-15 19:22] VITALS: BP 117/72
[2018-11-15] MEDS: PATCH REMOVAL. MC SCH (21:00)
[2018-11-15 23:46] VITALS: BP 133/63
[2018-11-16] VITALS (10 sets, daily range): BP systolic 137–158; BP diastolic 63–75
[2018-11-16] MEDS: AMINO AC 3%/ELECTROLYTE/GLYCER 1,000 ML IV SCH ×4 (00:36→22:30)
[2018-11-16] MEDS: ENALAPRILAT 2.5 MG/2 ML VIAL. IVP SCH ×4 (00:39→18:11)
[2018-11-16] MEDS: METOPROLOL TARTRATE 5 MG/5 ML VIAL. IVP SCH ×4 (03:26→18:00)
[2018-11-16] MEDS: NITROGLYCERIN OINT 1 GM PACKET. TP SCH ×4 (06:10→18:00)
[2018-11-16] MEDS: CLOTRIMAZOLE 10 MG TROCHE. MM SCH ×5 (06:16→22:02)
[2018-11-16] MEDS ORDERED: IV RINGERS,LACTATED 1000ML 1,000 ML IV SCH (07:00)
--- NOTE | 2018-11-16 09:10 | PDOC ---
Provider Note Provider Note for peg today, then came resume meds enteral DELROY BASS MD Nov 16, 2018 09:10
[2018-11-16] MEDS: LIDOCAINE (700MG/PATCH) PATCH. TD SCH (09:25)
[2018-11-16] MEDS: fentaNYL 25MCG/HR PATCH 1 PATCH PATCH.TD72 TD SCH (09:27)
--- NOTE | 2018-11-16 09:47 | PDOC ---
PROGRESS NOTES Subjective Subjective No new complaints. Objective Objective Vital Signs Date Time Temp Pulse Resp B/P (MAP) Pulse Ox O2 Delivery O2 Flow Rate FiO2 11/16/18 09:27 Room Air 11/16/18 07:00 97.4 60 18 158/75 (102) 97 2.0 97.4 Intake and Output 11/16/18 06:59 Intake Total 2000 ml Output Total 1500 ml Balance 500 ml Intake Oral 0 ml IV Total 2000 ml Output Urine Total 1500 ml Physical Exam Physical Exam CT scan of lumbar spine revealed small hematomas over sacroiliac joint area and repeat video dysphagia study failed to reveal any significant change with his swallowing. He is participating with therapy and no change with his right upper and lower extremity [id number] and mobility and self care limitations. 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) Status: Acute (2) Cellulitis of foot, right Status: Acute (3) Dizziness Status: Acute (4) Dysphagia Status: Acute (5) Hemiparesis affecting right side as late effect of cerebrovascular accident (CVA) Status: Acute (6) Hypertensive encephalopathy Status: Acute (7) Hypertensive urgency Status: Acute (8) Hypomagnesemia Status: Acute (9) Left thalamic infarction Status: Acute (10) Leukocytosis Status: Acute (11) Malignant essential hypertension Status: Acute (12) Metabolic encephalopathy Status: Acute (13) Nausea & vomiting Status: Acute (14) Persistent atrial fibrillation Status: Acute (15) Right maxillary sinusitis Status: Acute (16) Vomiting Status: Acute (17) Weakness Status: Acute Plan Plan of Care PEG placement today and to rehab when he is tolerating tube feedings satisfact orily. Comment Review of Relevant I have reviewed the following items sara (where applicable) has been applied. Labs Laboratory Tests Test 11/14/18 12:12 11/14/18 17:03 11/14/18 21:08 11/15/18 07:32 Glucose (Fingerstick) 135 mg/dL (70-99) 110 mg/dL (70-99) 93 mg/dL (70-99) 90 mg/dL (70-99) Test 11/15/18 12:17 11/15/18 16:59 11/15/18 20:34 11/16/18 07:38 Glucose (Fingerstick) 139 mg/dL (70-99) 144 mg/dL (70-99) 131 mg/dL (70-99) 134 mg/dL (70-99) Laboratory Tests Test 11/15/18 12:17 11/15/18 16:59 11/15/18 20:34 11/16/18 07:38 Glucose (Fingerstick) 139 mg/dL (70-99) 144 mg/dL (70-99) 131 mg/dL (70-99) 134 mg/dL (70-99) Microbiology 11/05/18 Urine Culture - Final, Complete 11/05/18 Urine Culture Result 1 (MERVAT) - Final, Complete Medications Current Medications Ondansetron HCl (Zofran) 4 mg 1X ONCE IV Last administered on 11/05/18 01:41; Start 11/05/18 at 01:00; Stop 11/05/18 at 01:01; Status DC Famotidine (Pepcid Vial) 20 mg 1X ONCE IVP Last administered on 11/05/18at 01:41; Start 11/05/18 at 01:00; Stop 11/05/18 at 01:01; Status DC Sodium Chloride 1,000 ml @ 1,000 mls/hr 1X ONCE IV Last administered on 11/05/18at 01:38; Start 11/05/18 at 01:15; Stop 11/05/18 at 02:14; Status DC Iohexol (Omnipaque 300 Mg/ml) 75 ml 1X ONCE IV Last administered on 11/05/18at 01:32; Start 11/05/18 at 01:30; Stop 11/05/18 at 01:31; Status DC Info (CONTRAST GIVEN -- Rx MONITORING) 1 each PRN DAILY PRN MC SEE COMMENTS; Start 11/05/18 at 01:30; Stop 11/07/18 at 01:29; Status DC Labetalol HCl (Normodyne Iv Push) 20 mg 1X ONCE IVP Last administered on 11/05/18at 01:38; Start 11/05/18 at 01:45; Stop 11/05/18 at 01:46; Status DC Aspirin (Aspirin Rectal Supp) 300 mg 1X ONCE [place] Last administered on 11/05/18at 02:37; Start 11/05/18 at 02:00; Stop 11/05/18 at 02:01; Status DC Fentanyl Citrate (Fentanyl 2ml Vial) 50 mcg 1X ONCE IV Last administered on 11/05/18at 01:52; Start 11/05/18 at 01:45; Stop 11/05/18 at 01:55; Status DC Nitroglycerin (Nitro-Bid Oint) 0.5 inch 1X ONCE TP Last administered on 11/05/18at 01:51; Start 11/05/18 at 01:45; Stop 11/05/18 at 01:55; Status DC Magnesium Sulfate 50 ml @ 25 mls/hr 1X ONCE IV Last administered on 11/05/18at 02:37; Start 11/05/18 at 02:00; Stop 11/05/18 at 03:59; Status DC Ondansetron HCl (Zofran) 4 mg 1X ONCE IV Last administered on 11/05/18at 02:08; Start 11/05/18 at 02:15; Stop 11/05/18 at 02:16; Status DC Labetalol HCl (Normodyne Iv Push) 20 mg 1X ONCE IVP Last administered on 11/05/18at 02:18; Start 11/05/18 at 02:15; Stop 11/05/18 at 02:16; Status DC Ondansetron HCl (Zofran) 4 mg PRN Q8HRS PRN IV NAUSEA/VOMITING Last administered on 11/05/18at 13:50; Start 11/05/18 at 02:45; Stop 11/06/18 at 02:44; Status DC Insulin Human Lispro (HumaLOG) 0-7 UNITS TIDWMEALS SQ Last administered on 11/07/18at 08:55; Start 11/05/18 at 08:00; Stop 11/08/18 at 08:37; Status DC Dextrose (Dextrose 50%-Water Syringe) 12.5 gm PRN Q15MIN PRN IV SEE COMMENTS; Start 11/05/18 at 02:45 Labetalol HCl (Normodyne Iv Push) 10 mg PRN Q2HR PRN IVP ELEVATED BP, SEE COMMENTS Last administered on 11/05/18at 08:10; Start 11/05/18 at 02:45; Stop 11/05/18 at 08:28; Status DC Sodium Chloride 1,000 ml @ 100 mls/hr 1X ONCE IV Last administered on 10/23 09/10at 03:16; Start 11/05/18 at 03:15; Stop 11/05/18 at 13:14; Status DC Metoclopramide HCl (Reglan Vial) 10 mg 1X ONCE IV Last administered on 11/05/18 03:37; Start 11/05/18 at 03:30; Stop 11/05/18 at 03:31; Status DC Diphenhydramine HCl (Benadryl) 25 mg 1X ONCE IVP Last administered on 11/05/18at 03:37; Start 11/05/18 at 03:30; Stop 11/05/18 at 03:31; Status DC Nitroglycerin (Nitro-Bid Oint) 0.5 inch Q6HRS TP Last administered on 11/16/18 06:10; Start 11/05/18 at 12:00 Labetalol HCl (Normodyne Iv Push) 20 mg PRN Q2HR PRN IVP HYPERTENSION Last administered on 11/07/18 03:42; Start 11/05/18 at 08:30 Insulin Glargine (Lantus) 30 units DAILY SQ Last administered on 11/07/18 08:54; Start 11/05/18 at 09:00; Stop 11/08/18 at 08:37; Status DC Sodium Chloride 1,000 ml @ 100 mls/hr Q10H IV Last administered on 11/05/18 09:20; Start 11/05/18 at 08:30; Stop 11/07/18 at 00:06; Status DC Aspirin (Aspirin Rectal Supp) 300 mg DAILY [place] Last administered on 11/13/18 09:29; Start 11/05/18 at 09:00; Stop 11/13/18 at 12:28; Status DC Lidocaine (Lidoderm) 1 patch DAILY TD Last administered on 11/16/18 09:25; Start 11/05/18 at 09:30 Miscellaneous (Lidoderm Patch Removal) 1 ea QHS MC Last administered on 11/15/18 21:00; Start 11/05/18 at 21:00 Metoprolol Tartrate (Lopressor Vial) 5 mg Q6HRS IVP Last administered on 11/16/18 06:15; Start 11/05/18 at 12:00 Enalaprilat (Vasotec Inj) 1.25 mg Q6HRS IVP Last administered on 11/09/18at 06:05; Start 11/05/18 at 12:00; Stop 11/09/18 at 11:55; Status DC Cefazolin Sodium 50 ml @ 100 mls/hr Q8HRS IV ; Start 11/05/18 at 14:00; Stop 11/06/18 at 18:00; Status UNV Ketorolac Tromethamine (Toradol 30mg Vial) 30 mg PRN Q6HRS PRN IV PAIN Last administered on 11/09/18at 22:37; Start 11/05/18 at 12:00; Stop 11/10/18 at 11:59; Status DC Cefazolin Sodium (Ancef) 1 gm Q8HRS IVP Last administered on 11/10/18at 06:10; Start 11/05/18 at 13:00; Stop 11/10/18 at 08:34; Status DC Barium Sulfate (Varibar Thin Liquid Apple) 148 gm 1X ONCE PO Last administered on 11/05/18at 13:45; Start 11/05/18 at 13:45; Stop 11/05/18 at 13:46; Status DC Amino Acids/ Glycerin/ Electrolytes 1,000 ml @ 100 mls/hr Q10H IV Last administered on 11/16/18at 00:36; Start 11/05/18 at 19:00 Ondansetron HCl (Zofran) 4 mg PRN Q4HRS PRN IV NAUSEA/VOMITING Last a dministered on 11/08/18at 09:45; Start 11/06/18 at 13:00 Clonidine HCl (Catapres Tts-1) 1 patch WEEKLY TD Last administered on 11/07/18at 12:57; Start 11/07/18 at 13:00; Stop 11/10/18 at 08:38; Status DC Enoxaparin Sodium (Lovenox Per Pharmacy Treatment Dosing) 1 each PRN DAILY PRN MC SEE COMMENTS; Start 11/07/18 at 15:15; Stop 11/13/18 at 13:15; Status DC Enoxaparin Sodium (Lovenox 100mg Syringe) 100 mg Q12HR SQ Last administered on 11/10/18at 08:53; Start 11/07/18 at 15:00; Stop 11/10/18 at 14:45; Status DC Insulin Glargine (Lantus) 26 units DAILY SQ ; Start 11/08/18 at 09:00; Stop 11/09/18 at 09:00; Status DC Lorazepam (Ativan Inj) 1 mg PRN Q6HRS PRN IV ANXIETY / AGITATION Last administered on 11/08/18at 09:44; Start 11/08/18 at 08:45 Methylprednisolone Acetate (DEPO-Medrol 40MG VIAL) 40 mg 1X ONCE IM Last administered on 11/08/18at 09:15; Start 11/08/18 at 09:15; Stop 11/08/18 at 09:16; Status DC Bupivacaine HCl (Sensorcaine-Mpf 0.25%) 10 ml 1X ONCE IJ Last administered on 11/08/18at 09:15; Start 11/08/18 at 09:15; Stop 11/08/18 at 09:16; Status DC Info (Anti-Coagulation Monitoring By Pharmacy) 1 each PRN DAILY PRN MC SEE COMMENTS Last administered on 11/10/18at 10:22; Start 11/08/18 at 12:45 Insulin Glargine (Lantus) 24 units DAILY SQ Last administered on 11/14/18 08:49; Start 11/09/18 at 09:00; Stop 11/14/18 at 10:46; Status DC Enalaprilat (Vasotec Inj) 1.25 mg Q6HRS IVP Last administered on 11/16/18at 06:12; Start 11/09/18 at 12:00 Fentanyl (Duragesic 25mcg/ Hr Patch) 1 patch Q3DAYS TD Last administered on 11/16/18at 09:27; Start 11/10/18 at 09:00 Enoxaparin Sodium (Lovenox 80mg Syringe) 80 mg Q12HR SQ Last administered on 11/13/18at 21:15; Start 11/10/18 at 21:00; Stop 11/14/18 at 08:00; Status DC Clotrimazole (Mycelex) 10 mg 5XDAY MM Last administered on 11/16/18at 06:16; Start 11/10/18 at 18:00 Insulin Glargine (Lantus) 20 units DAILY SQ ; Start 11/15/18 at 09:00 Cefazolin Sodium 1 gm/Dextrose 50 ml @ 100 mls/hr Q12HR IV Last administered on 11/14/18at 21:38; Start 11/14/18 at 12:00; Stop 11/15/18 at 03:51; Status DC Cefazolin Sodium (Ancef) 1 gm Q12HR IVP Last administered on 11/15/18at 23:04; Start 11/15/18 at 09:00 Barium Sulfate (Varibar Thin Liquid Apple) 148 gm 1X ONCE PO Last administered on 11/15/18at 11:35; Start 11/15/18 at 10:00; Stop 11/15/18 at 10:01; Status DC Ringer's Solution 1,000 ml @ 50 mls/hr Q20H IV ; Start 11/16/18 at 07:00; Stop 11/16/18 at 18:59 Active Scripts Active Aspirin Ec (Aspirin) 325 Mg Tablet.dr 1 Tab PO DAILY Reported Cephalexin 500 Mg Tablet 1 Tab PO TID 7 Days Prednisone 20 Mg Tablet 1 Tab PO DAILY 3 Days Mag-Oxide (Magnesium Oxide) 400 Mg Tablet 1 Tab PO DAILY Alprazolam 0.5 Mg Tablet 1 Tab PO PRN DAILY PRN Furosemide 20 Mg Tablet 1 Tab PO DAILY Zoloft (Sertraline Hcl) 50 Mg Tablet 50 Mg PO DAILY Omeprazole 40 Mg Capsule.dr 1 Cap PO DAILY Miralax (Polyethylene Glycol 3350) 17 Gm Powd.pack 1 Packet PO PRN DAILY PRN Linzess (Linaclotide) 145 Mcg Capsule 145 Mcg PO PRN DAILY PRN Metformin Hcl 1,000 Mg Tablet 1,000 Mg PO BIDWMEALS Novolog Flexpen (Insulin Aspart) 100 Unit/1 Ml Insuln.pen 0-10 Unit SQ TIDAC Levemir (Insulin Detemir) 100 Unit/1 Ml Vial 45 Unit SQ BID Simvastatin 40 Mg Tablet 40 Mg PO HS Xarelto (Rivaroxaban) 20 Mg Tablet 20 Mg PO DAILY Lyrica (Pregabalin) 200 Mg Capsule 200 Mg PO BID 30 Days Metoprolol Succinate ( Xl ) (Metoprolol Succinate) 25 Mg Tab.er.24h 50 Mg PO HS Losartan-Hctz 100-25 Mg Tab (Losartan/Hydrochlorothiazide) 1 Each Tablet 1 Each PO HS Vitals/I & O Vital Sign - Last 24 Hours 11/15/18 11/15/18 11/15/18 11/15/18 11:00 13:15 14:23 15:00 Temp 97.5 97.7 97.5 97.7 Pulse 60 60 60 Resp 12 16 B/P (MAP) 140/58 (85) 137/56 128/62 117/59 (78) Pulse Ox 96 96 O2 Delivery Room Air Room Air 11/15/18 11/15/18 11/15/18 11/15/18 18:05 18:54 19:01 19:22 Temp 97.9 97.9 Pulse 60 60 60 60 Resp 20 B/P (MAP) 164/86 163/73 163/73 117/72 (87) Pulse Ox 96 O2 Delivery Room Air 11/15/18 11/15/18 11/16/18 11/16/18 20:00 23:46 00:39 03:23 Temp 97.4 98.2 97.4 98.2 Pulse 60 60 60 Resp 16 16 B/P (MAP) 133/63 (86) 133/63 150/70 (96) Pulse Ox 94 97 O2 Delivery Room Air Room Air Room Air 11/16/18 11/16/18 11/16/18 11/16/18 03:26 06:10 06:12 06:15 Pulse 60 60 60 60 B/P (MAP) 150/70 148/72 148/72 148/70 11/16/18 11/16/18 07:00 09:27 Temp 97.4 97.4 Pulse 60 Resp 18 B/P (MAP) 158/75 (102) Pulse Ox 97 O2 Delivery Room Air Room Air O2 Flow Rate 2.0 Intake and Output 11/15/18 11/15/18 11/16/18 14:59 22:59 06:59 Intake Total 1000 ml 1000 ml Output Total 550 ml 200 ml 750 ml Balance 450 ml -200 ml 250 ml Nutrition Consultation Dietary Evaluation: Recommendations by RD: PPN/TPN Comments: Continue w/PPN for short-term non-oral nutrition needs REC TF per following pending PEG placement: Glucerna 1.5 bolus feeds, 2 cans TID (6 cans total/day) w/75 ml water flushes before and after each can Expected Outcomes/Goals: New goal: TF via PEG pending placement - not met, goal ongoing Malnutrition Findings: Food and Nutrition Intake (Mod: <75% est energy req 7days Weight Status: Overweight ELISEO DUENAS MD Nov 16, 2018 09:47
--- NOTE | 2018-11-16 10:52 | PDOC ---
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) Status: Acute (2) Cellulitis of foot, right Status: Acute (3) Dizziness Status: Acute (4) Dysphagia Status: Acute (5) Hemiparesis affecting right side as late effect of cerebrovascular accident (CVA) Status: Acute (6) Hypertensive encephalopathy Status: Acute (7) Hypertensive urgency Status: Acute (8) Hypomagnesemia Status: Acute (9) Left thalamic infarction Status: Acute (10) Leukocytosis Status: Acute (11) Malignant essential hypertension Status: Acute (12) Metabolic encephalopathy Status: Acute (13) Nausea & vomiting Status: Acute (14) Persistent atrial fibrillation Status: Acute (15) Right maxillary sinusitis Status: Acute (16) Vomiting Status: Acute (17) Weakness Status: Acute Subacute left thalamus infarct, 1.2 cm. Carotid artery stenosis, left side 50-69%. 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 Dysphagia. S/P Pacemaker. Plan PEG today ASA 300 mg rectal, change to PO when PEG placed No MRI due to pacemaker. SNU Subjective No complaints Objective Vital Signs Date Time Temp Pulse Resp B/P (MAP) Pulse Ox O2 Delivery O2 Flow Rate FiO2 11/16/18 09:27 Room Air 11/16/18 07:00 97.4 60 18 158/75 (102) 97 2.0 97.4 Intake and Output 11/16/18 06:59 Intake Total 2000 ml Output Total 1500 ml Balance 500 ml Intake Oral 0 ml IV Total 2000 ml Output Urine Total 1500 ml PHYSICAL EXAM Alert. Oriented to time, place and person. PERRL. EOMI. CN: right central facial weakness, otherwise no focal findings. Muscle tone: normal. Muscle strength: 4/5 right hemiparesis, normal strength on left DTR: 1+ Plantar reflex: flexor Gait: not examined in bed. Sensory exam: no abnormal findings. Cerebellar: Dysmetric on right. Review of Relevant I have reviewed the following items sara (where applicable) has been applied. Labs Laboratory Tests Test 11/14/18 12:12 11/14/18 17:03 11/14/18 21:08 11/15/18 07:32 Glucose (Fingerstick) 135 mg/dL (70-99) 110 mg/dL (70-99) 93 mg/dL (70-99) 90 mg/dL (70-99) Test 11/15/18 12:17 11/15/18 16:59 11/15/18 20:34 11/16/18 07:38 Glucose (Fingerstick) 139 mg/dL (70-99) 144 mg/dL (70-99) 131 mg/dL (70-99) 134 mg/dL (70-99) Laboratory Tests Test 11/15/18 12:17 11/15/18 16:59 11/15/18 20:34 11/16/18 07:38 Glucose (Fingerstick) 139 mg/dL (70-99) 144 mg/dL (70-99) 131 mg/dL (70-99) 134 mg/dL (70-99) Microbiology 11/05/18 Urine Culture - Final, Complete 11/05/18 Urine Culture Result 1 (MERVAT) - Final, Complete Medications Current Medications Ondansetron HCl (Zofran) 4 mg 1X ONCE IV Last administered on 11/05/18at 01:41; Start 11/05/18 at 01:00; Stop 11/05/18 at 01:01; Status DC Famotidine (Pepcid Vial) 20 mg 1X ONCE IVP Last administered on 11/05/18at 01:41; Start 11/05/18 at 01:00; Stop 11/05/18 at 01:01; Status DC Sodium Chloride 1,000 ml @ 1,000 mls/hr 1X ONCE IV Last administered on 11/05/18at 01:38; Start 11/05/18 at 01:15; Stop 11/05/18 at 02:14; Status DC Iohexol (Omnipaque 300 Mg/ml) 75 ml 1X ONCE IV Last administered on 11/05/18at 01:32; Start 11/05/18 at 01:30; Stop 11/05/18 at 01:31; Status DC Info (CONTRAST GIVEN -- Rx MONITORING) 1 each PRN DAILY PRN MC SEE COMMENTS; Start 11/05/18 at 01:30; Stop 11/07/18 at 01:29; Status DC Labetalol HCl (Normodyne Iv Push) 20 mg 1X ONCE IVP Last administered on 11/05/18at 01:38; Start 11/05/18 at 01:45; Stop 11/05/18 at 01:46; Status DC Aspirin (Aspirin Rectal Supp) 300 mg 1X ONCE [place] Last administered on 11/05/18at 02:37; Start 11/05/18 at 02:00; Stop 11/05/18 at 02:01; Status DC Fentanyl Citrate (Fentanyl 2ml Vial) 50 mcg 1X ONCE IV Last administered on 11/05/18at 01:52; Start 11/05/18 at 01:45; Stop 11/05/18 at 01:55; Status DC Nitroglycerin (Nitro-Bid Oint) 0.5 inch 1X ONCE TP Last administered on 11/05/18at 01:51; Start 11/05/18 at 01:45; Stop 11/05/18 at 01:55; Status DC Magnesium Sulfate 50 ml @ 25 mls/hr 1X ONCE IV Last administered on 11/05/18at 02:37; Start 11/05/18 at 02:00; Stop 11/05/18 at 03:59; Status DC Ondansetron HCl (Zofran) 4 mg 1X ONCE IV Last administered on 11/05/18at 02:08; Start 11/05/18 at 02:15; Stop 11/05/18 at 02:16; Status DC Labetalol HCl (Normodyne Iv Push) 20 mg 1X ONCE IVP Last administered on 11/05/18at 02:18; Start 11/05/18 at 02:15; Stop 11/05/18 at 02:16; Status DC Ondansetron HCl (Zofran) 4 mg PRN Q8HRS PRN IV NAUSEA/VOMITING Last administered on 11/05/18at 13:50; Start 11/05/18 at 02:45; Stop 11/06/18 at 02 :44; Status DC Insulin Human Lispro (HumaLOG) 0-7 UNITS TIDWMEALS SQ Last administered on 11/07/18at 08:55; Start 11/05/18 at 08:00; Stop 11/08/18 at 08:37; Status DC Dextrose (Dextrose 50%-Water Syringe) 12.5 gm PRN Q15MIN PRN IV SEE COMMENTS; Start 11/05/18 at 02:45 Labetalol HCl (Normodyne Iv Push) 10 mg PRN Q2HR PRN IVP ELEVATED BP, SEE COMMENTS Last administered on 11/05/18at 08:10; Start 11/05/18 at 02:45; Stop 11/05/18 at 08:28; Status DC Sodium Chloride 1,000 ml @ 100 mls/hr 1X ONCE IV Last administered on 11/05/18 03:16; Start 11/05/18 at 03:15; Stop 11/05/18 at 13:14; Status DC Metoclopramide HCl (Reglan Vial) 10 mg 1X ONCE IV Last administered on 11/05/18at 03:37; Start 11/05/18 at 03:30; Stop 11/05/18 at 03:31; Status DC Diphenhydramine HCl (Benadryl) 25 mg 1X ONCE IVP Last administered on 11/05/18at 03:37; Start 11/05/18 at 03:30; Stop 11/05/18 at 03:31; Status DC Nitroglycerin (Nitro-Bid Oint) 0.5 inch Q6HRS TP Last administered on 11/16/18 06:10; Start 11/05/18 at 12:00 Labetalol HCl (Normodyne Iv Push) 20 mg PRN Q2HR PRN IVP HYPERTENSION Last administered on 11/07/18 03:42; Start 11/05/18 at 08:30 Insulin Glargine (Lantus) 30 units DAILY SQ Last administered on 11/07/18 08:54; Start 11/05/18 at 09:00; Stop 11/08/18 at 08:37; Status DC Sodium Chloride 1,000 ml @ 100 mls/hr Q10H IV Last administered on 11/05/18 09:20; Start 11/05/18 at 08:30; Stop 11/07/18 at 00:06; Status DC Aspirin (Aspirin Rectal Supp) 300 mg DAILY [place] Last administered on 11/13/18 09:29; Start 11/05/18 at 09:00; Stop 11/13/18 at 12:28; Status DC Lidocaine (Lidoderm) 1 patch DAILY TD Last administered on 11/16/18 09:25; Start 11/05/18 at 09:30 Miscellaneous (Lidoderm Patch Removal) 1 ea QHS MC Last administered on 11/15/18at 21:00; Start 11/05/18 at 21:00 Metoprolol Tartrate (Lopressor Vial) 5 mg Q6HRS IVP Last administered on 11/16/18 06:15; Start 11/05/18 at 12:00 Enalaprilat (Vasotec Inj) 1.25 mg Q6HRS IVP Last administered on 11/09/18at 06:05; Start 11/05/18 at 12:00; Stop 11/09/18 at 11:55; Status DC Cefazolin Sodium 50 ml @ 100 mls/hr Q8HRS IV ; Start 11/05/18 at 14:00; Stop 11/06/18 at 18:00; Status UNV Ketorolac Tromethamine (Toradol 30mg Vial) 30 mg PRN Q6HRS PRN IV PAIN Last administered on 11/09/18at 22:37; Start 11/05/18 at 12:00; Stop 11/10/18 at 11:59; Status DC Cefazolin Sodium (Ancef) 1 gm Q8HRS IVP Last administered on 11/10/18at 06:10; Start 11/05/18 at 13:00; Stop 11/10/18 at 08:34; Status DC Barium Sulfate (Varibar Thin Liquid Apple) 148 gm 1X ONCE PO Last administered on 11/05/18at 13:45; Start 11/05/18 at 13:45; Stop 11/05/18 at 13:46; Status DC Amino Acids/ Glycerin/ Electrolytes 1,000 ml @ 100 mls/hr Q10H IV Last administered on 11/16/18at 00:36; Start 11/05/18 at 19:00 Ondansetron HCl (Zofran) 4 mg PRN Q4HRS PRN IV NAUSEA/VOMITING Last administered on 11/08/18at 09:45; Start 11/06/18 at 13:00 Clonidine HCl (Catapres Tts-1) 1 patch WEEKLY TD Last administered on 11/07/18at 12:57; Start 11/07/18 at 13:00; Stop 11/10/18 at 08:38; Status DC Enoxaparin Sodium (Lovenox Per Pharmacy Treatment Dosing) 1 each PRN DAILY PRN MC SEE COMMENTS; Start 11/07/18 at 15:15; Stop 11/13/18 at 13:15; Status DC Enoxaparin Sodium (Lovenox 100mg Syringe) 100 mg Q12HR SQ Last administered on 11/10/18 08:53; Start 11/07/18 at 15:00; Stop 11/10/18 at 14:45; Status DC Insulin Glargine (Lantus) 26 units DAILY SQ ; Start 11/08/18 at 09:00; Stop 11/09/18 at 09:00; Status DC Lorazepam (Ativan Inj) 1 mg PRN Q6HRS PRN IV ANXIETY / AGITATION Last administered on 11/08/18at 09:44; Start 11/08/18 at 08:45 Methylprednisolone Acetate (DEPO-Medrol 40MG VIAL) 40 mg 1X ONCE IM Last administered on 11/08/18 09:15; Start 11/08/18 at 09:15; Stop 11/08/18 at 09:16; Status DC Bupivacaine HCl (Sensorcaine-Mpf 0.25%) 10 ml 1X ONCE IJ Last administered on 11/08/18at 09:15; Start 11/08/18 at 09:15; Stop 11/08/18 at 09:16; Status DC Info (Anti-Coagulation Monitoring By Pharmacy) 1 each PRN DAILY PRN MC SEE COMMENTS Last administered on 11/10/18at 10:22; Start 11/08/18 at 12:45 Insulin Glargine (Lantus) 24 units DAILY SQ Last administered on 11/14/18 08:49; Start 11/09/18 at 09:00; Stop 11/14/18 at 10:46; Status DC Enalaprilat (Vasotec Inj) 1.25 mg Q6HRS IVP Last administered on 11/16/18 06:12; Start 11/09/18 at 12:00 Fentanyl (Duragesic 25mcg/ Hr Patch) 1 patch Q3DAYS TD Last administered on 11/16/18 09:27; Start 11/10/18 at 09:00 Enoxaparin Sodium (Lovenox 80mg Syringe) 80 mg Q12HR SQ Last administered on 11/13/18 21:15; Start 11/10/18 at 21:00; Stop 11/14/18 at 08:00; Status DC Clotrimazole (Mycelex) 10 mg 5XDAY MM Last administered on 11/16/18 06:16; Start 11/10/18 at 18:00 Insulin Glargine (Lantus) 20 units DAILY SQ ; Start 11/15/18 at 09:00 Cefazolin Sodium 1 gm/Dextrose 50 ml @ 100 mls/hr Q12HR IV Last administered on 11/14/18at 21:38; Start 11/14/18 at 12:00; Stop 11/15/18 at 03:51; Status DC Cefazolin Sodium (Ancef) 1 gm Q12HR IVP Last administered on 11/15/18at 23:04; Start 11/15/18 at 09:00; Stop 11/16/18 at 09:53; Status DC Barium Sulfate (Varibar Thin Liquid Apple) 148 gm 1X ONCE PO Last administered on 11/15/18at 11:35; Start 11/15/18 at 10:00; Stop 11/15/18 at 10:01; Status DC Ringer's Solution 1,000 ml @ 50 mls/hr Q20H IV ; Start 11/16/18 at 07:00; Stop 11/16/18 at 18:59 Active Scripts Active Aspirin Ec (Aspirin) 325 Mg Tablet.dr 1 Tab PO DAILY Reported Cephalexin 500 Mg Tablet 1 Tab PO TID 7 Days Prednisone 20 Mg Tablet 1 Tab PO DAILY 3 Days Mag-Oxide (Magnesium Oxide) 400 Mg Tablet 1 Tab PO DAILY Alprazolam 0.5 Mg Tablet 1 Tab PO PRN DAILY PRN Furosemide 20 Mg Tablet 1 Tab PO DAILY Zoloft (Sertraline Hcl) 50 Mg Tablet 50 Mg PO DAILY Omeprazole 40 Mg Capsule.dr 1 Cap PO DAILY Miralax (Polyethylene Glycol 3350) 17 Gm Powd.pack 1 Packet PO PRN DAILY PRN Linzess (Linaclotide) 145 Mcg Capsule 145 Mcg PO PRN DAILY PRN Metformin Hcl 1,000 Mg Tablet 1,000 Mg PO BIDWMEALS Novolog Flexpen (Insulin Aspart) 100 Unit/1 Ml Insuln.pen 0-10 Unit SQ TIDAC Levemir (Insulin Detemir) 100 Unit/1 Ml Vial 45 Unit SQ BID Simvastatin 40 Mg Tablet 40 Mg PO HS Xarelto (Rivaroxaban) 20 Mg Tablet 20 Mg PO DAILY Lyrica (Pregabalin) 200 Mg Capsule 200 Mg PO BID 30 Days Metoprolol Succinate ( Xl ) (Metoprolol Succinate) 25 Mg Tab.er.24h 50 Mg PO HS Losartan-Hctz 100-25 Mg Tab (Losartan/Hydrochlorothiazide) 1 Each Tablet 1 Each PO HS Vitals/I & O Vital Sign - Last 24 Hours 11/15/18 11/15/18 11/15/18 11/15/18 11:00 13:15 14:23 15:00 Temp 97.5 97.7 97.5 97.7 Pulse 60 60 60 Resp 12 16 B/P (MAP) 140/58 (85) 137/56 128/62 117/59 (78) Pulse Ox 96 96 O2 Delivery Room Air Room Air 11/15/18 11/15/18 11/15/18 11/15/18 18:05 18:54 19:01 19:22 Temp 97.9 97.9 Pulse 60 60 60 60 Resp 20 B/P (MAP) 164/86 163/73 163/73 117/72 (87) Pulse Ox 96 O2 Delivery Room Air 11/15/18 11/15/18 11/16/18 11/16/18 20:00 23:46 00:39 03:23 Temp 97.4 98.2 97.4 98.2 Pulse 60 60 60 Resp 16 16 B/P (MAP) 133/63 (86) 133/63 150/70 (96) Pulse Ox 94 97 O2 Delivery Room Air Room Air Room Air 11/16/18 11/16/18 11/16/18 11/16/18 03:26 06:10 06:12 06:15 Pulse 60 60 60 60 B/P (MAP) 150/70 148/72 148/72 148/70 11/16/18 11/16/18 11/16/18 07:00 08:00 09:27 Temp 97.4 97.4 Pulse 60 Resp 18 B/P (MAP) 158/75 (102) Pulse Ox 97 O2 Delivery Room Air Room Air Room Air O2 Flow Rate 2.0 Intake and Output 11/15/18 11/15/18 11/16/18 14:59 22:59 06:59 Intake Total 1000 ml 1000 ml Output Total 550 ml 200 ml 750 ml Balance 450 ml -200 ml 250 ml DAI SMITH MD Nov 16, 2018 10:52
[2018-11-16] MEDS: INSULIN GLARGINE 300 UNITS/3 ML INSULN.PEN. SQ SCH (12:26)
[2018-11-16] MEDS ORDERED: PROPOFOL 20 ML IV ONE (15:17)
[2018-11-16] MEDS ORDERED: LIDOCAINE 2% PF 5 ML VIAL. ONE (15:17)
--- NOTE | 2018-11-16 15:24 | NUR ---
Patient's right lower anterior leg looks a little more red this afternoon. No swelling or drainage noted though. Will continue to monitor.
--- NOTE | 2018-11-16 16:08 | PDOC4 ---
Operative Note Operative Note EGD with attempted PEG Meds propofol per anesthesia Pre-op dx oropharyngeal dysphagia Post-op dx duodenitis unsuccessful peg as light reflex couldn't be visualized and anesthetic needle including 22 gauge 3.5 inch needle couldn't be passed in to gastric lumen and therefore peg trochar wasn't passed Plan surgical consult for possible peg placement either endoscopically or laparoscopically MYRTLE GAMINO MD Nov 16, 2018 16:08
[2018-11-16] MEDS ORDERED: cefOXitin SODIUM IV Push 2 GM VIAL. IVP PRN (18:00)
--- NOTE | 2018-11-16 18:02 | PDOC2 ---
CONSULT Date of Consult Date of Consult DATE: 11/16/18 TIME: 17:55 Reason for Consult Reason for Consult: Enteral access Referring Physician Referring Physician: Dr. Nicole Identification/Chief Complaint Chief Complaint back pain, leg erythema Source Source: Caregiver, Chart review, Patient History of Present Illness Reason for Visit: 68 yo M with stroke, difficulty swallowing. Schedule for PEG placement but unsuccessful secondary to body habitus. Surgical consult requested for G-tube placement. Patient also noted to have back pain and recent cortisone shot injection. Right LE with erythema. Past Medical History Cardiovascular: AFIB, CAD, HTN, Hyperlipidemia, Other Pulmonary: No pertinent hx CENTRAL NERVOUS SYSTEM: CVA GI: No pertinent hx Heme/Onc: No pertinent hx Hepatobiliary: No pertinent hx Psych: No pertinent hx Musculoskeletal: Osteoarthritis Rheumatologic: No pertinent hx Infectious disease: No pertinent hx Renal/: Other Endocrine: Diabetes Past Surgical History Past Surgical History: Pacemaker, Other Social History <1 pack per day ALCOHOL: occassional Drugs: None Lives: with Family Current Problem List Problem List Problems Medical Problems: (1) 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 (CVA) Status: Acute (2) Cellulitis of foot, right Status: Acute (3) Dizziness Status: Acute (4) Dysphagia Status: Acute (5) Hemiparesis affecting right side as late effect of cerebrovascular accident (CVA) Status: Acute (6) Hypertensive encephalopathy Status: Acute (7) Hypertensive urgency Status: Acute (8) Hypomagnesemia Status: Acute (9) Left thalamic infarction Status: Acute (10) Leukocytosis Status: Acute (11) Malignant essential hypertension Status: Acute (12) Metabolic encephalopathy Status: Acute (13) Nausea & vomiting Status: Acute (14) Persistent atrial fibrillation Status: Acute (15) Right maxillary sinusitis Status: Acute (16) Vomiting Status: Acute (17) Weakness Status: Acute Current Medications Current Medications Current Medications Ondansetron HCl (Zofran) 4 mg 1X ONCE IV Last administered on 11/05/18at 01:41; Start 11/05/18 at 01:00; Stop 11/05/18 at 01:01; Status DC Famotidine (Pepcid Vial) 20 mg 1X ONCE IVP Last administered on 11/05/18at 01:41; Start 11/05/18 at 01:00; Stop 11/05/18 at 01:01; Status DC Sodium Chloride 1,000 ml @ 1,000 mls/hr 1X ONCE IV Last administered on 11/05at 01:38; Start 11/05/18 at 01:15; Stop 11/05/18 at 02:14; Status DC Iohexol (Omnipaque 300 Mg/ml) 75 ml 1X ONCE IV Last administered on 11/05/18at 01:32; Start 11/05/18 at 01:30; Stop 11/05/18 at 01:31; Status DC Info (CONTRAST GIVEN -- Rx MONITORING) 1 each PRN DAILY PRN MC SEE COMMENTS; Start 11/05/18 at 01:30; Stop 11/07/18 at 01:29; Status DC Labetalol HCl (Normodyne Iv Push) 20 mg 1X ONCE IVP Last administered on 11/05/18at 01:38; Start 11/05/18 at 01:45; Stop 11/05/18 at 01:46; Status DC Aspirin (Aspirin Rectal Supp) 300 mg 1X ONCE WV Last administered on 11/05/18at 02:37; Start 11/05/18 at 02:00; Stop 11/05/18 at 02:01; Status DC Fentanyl Citrate (Fentanyl 2ml Vial) 50 mcg 1X ONCE IV Last administered on 11/05/18at 01:52; Start 11/05/18 at 01:45; Stop 11/05/18 at 01:55; Status DC Nitroglycerin (Nitro-Bid Oint) 0.5 inch 1X ONCE TP Last administered on 11/05/18at 01:51; Start 11/05/18 at 01:45; Stop 11/05/18 at 01:55; Status DC Magnesium Sulfate 50 ml @ 25 mls/hr 1X ONCE IV Last administered on 11/05/18at 02:37; Start 11/05/18 at 02:00; Stop 11/05/18 at 03:59; Status DC Ondansetron HCl (Zofran) 4 mg 1X ONCE IV Last administered on 11/05/18at 02:08; Start 11/05/18 at 02:15; Stop 11/05/18 at 02:16; Status DC Labetalol HCl (Normodyne Iv Push) 20 mg 1X ONCE IVP Last administered on 11/05/18at 02:18; Start 11/05/18 at 02:15; Stop 11/05/18 at 02:16; Status DC Ondansetron HCl (Zofran) 4 mg PRN Q8HRS PRN IV NAUSEA/VOMITING Last administered on 11/05/18at 13:50; Start 11/05/18 at 02:45; Stop 11/06/18 at 02:44; Status DC Insulin Human Lispro (HumaLOG) 0-7 UNITS TIDWMEALS SQ Last administered on 11/07/18 08:55; Start 11/05/18 at 08:00; Stop 11/08/18 at 08:37; Status DC Dextrose (Dextrose 50%-Water Syringe) 12.5 gm PRN Q15MIN PRN IV SEE COMMENTS; Start 11/05/18 at 02:45 Labetalol HCl (Normodyne Iv Push) 10 mg PRN Q2HR PRN IVP ELEVATED BP, SEE COMMENTS Last administered on 11/05/18at 08:10; Start 11/05/18 at 02:45; Stop 11/05/18 at 08:28; Status DC Sodium Chloride 1,000 ml @ 100 mls/hr 1X ONCE IV Last administered on 11/05/18at 03:16; Start 11/05/18 at 03:15; Stop 11/05/18 at 13:14; Status DC Metoclopramide HCl (Reglan Vial) 10 mg 1X ONCE IV Last administered on 11/05/18at 03:37; Start 11/05/18 at 03:30; Stop 11/05/18 at 03:31; Status DC Diphenhydramine HCl (Benadryl) 25 mg 1X ONCE IVP Last administered on 11/05/18at 03:37; Start 11/05/18 at 03:30; Stop 11/05/18 at 03:31; Status DC Nitroglycerin (Nitro-Bid Oint) 0.5 inch Q6HRS TP Last administered on 11/16/18 06:10; Start 11/05/18 at 12:00 Labetalol HCl (Normodyne Iv Push) 20 mg PRN Q2HR PRN IVP HYPERTENSION Last administered on 11/07/18at 03:42; Start 11/05/18 at 08:30 Insulin Glargine (Lantus) 30 units DAILY SQ Last administered on 11/07/18at 08:54; Start 11/05/18 at 09:00; Stop 11/08/18 at 08:37; Status DC Sodium Chloride 1,000 ml @ 100 mls/hr Q10H IV Last administered on 11/05/18 09:20; Start 11/05/18 at 08:30; Stop 11/07/18 at 00:06; Status DC Aspirin (Aspirin Rectal Supp) 300 mg DAILY WV Last administered on 11/13/18 09:29; Start 11/05/18 at 09:00; Stop 11/13/18 at 12:28; Status DC Lidocaine (Lidoderm) 1 patch DAILY TD Last administered on 11/16/18 09:25; Start 11/05/18 at 09:30 Miscellaneous (Lidoderm Patch Removal) 1 ea QHS MC Last administered on 11/15/18 21:00; Start 11/05/18 at 21:00 Metoprolol Tartrate (Lopressor Vial) 5 mg Q6HRS IVP Last administered on 11/16/18 06:15; Start 11/05/18 at 12:00 Enalaprilat (Vasotec Inj) 1.25 mg Q6HRS IVP Last administered on 11/09/18 06:05; Start 11/05/18 at 12:00; Stop 11/09/18 at 11:55; Status DC Cefazolin Sodium 50 ml @ 100 mls/hr Q8HRS IV ; Start 11/05/18 at 14:00; Stop 11/06/18 at 18:00; Status UNV Ketorolac Tromethamine (Toradol 30mg Vial) 30 mg PRN Q6HRS PRN IV PAIN Last administered on 11/09/18at 22:37; Start 11/05/18 at 12:00; Stop 11/10/18 at 11:59; Status DC Cefazolin Sodium (Ancef) 1 gm Q8HRS IVP Last administered on 11/10/18at 06:10; Start 11/05/18 at 13:00; Stop 11/10/18 at 08:34; Status DC Barium Sulfate (Varibar Thin Liquid Apple) 148 gm 1X ONCE PO Last administered on 11/05/18at 13:45; Start 11/05/18 at 13:45; Stop 11/05/18 at 13:46; Status DC Amino Acids/ Glycerin/ Electrolytes 1,000 ml @ 100 mls/hr Q10H IV Last administered on 11/16/18 17:49; Start 11/05/18 at 19:00 Ondansetron HCl (Zofran) 4 mg PRN Q4HRS PRN IV NAUSEA/VOMITING Last administered on 11/08/18 09:45; Start 11/06/18 at 13:00 Clonidine HCl (Catapres Tts-1) 1 patch WEEKLY TD Last administered on 11/07/18 12:57; Start 11/07/18 at 13:00; Stop 11/10/18 at 08:38; Status DC Enoxaparin Sodium (Lovenox Per Pharmacy Treatment Dosing) 1 each PRN DAILY PRN MC SEE COMMENTS; Start 11/07/18 at 15:15; Stop 11/13/18 at 13:15; Status DC Enoxaparin Sodium (Lovenox 100mg Syringe) 100 mg Q12HR SQ Last administered on 11/10/18 08:53; Start 11/07/18 at 15:00; Stop 11/10/18 at 14:45; Status DC Insulin Glargine (Lantus) 26 units DAILY SQ ; Start 11/08/18 at 09:00; Stop 11/09/18 at 09:00; Status DC Lorazepam (Ativan Inj) 1 mg PRN Q6HRS PRN IV ANXIETY / AGITATION Last administered on 11/08/18at 09:44; Start 11/08/18 at 08:45 Methylprednisolone Acetate (DEPO-Medrol 40MG VIAL) 40 mg 1X ONCE IM Last administered on 11/08/18 09:15; Start 11/08/18 at 09:15; Stop 11/08/18 at 09:16; Status DC Bupivacaine HCl (Sensorcaine-Mpf 0.25%) 10 ml 1X ONCE IJ Last administered on 11/08/18 09:15; Start 11/08/18 at 09:15; Stop 11/08/18 at 09:16; Status DC Info (Anti-Coagulation Monitoring By Pharmacy) 1 each PRN DAILY PRN MC SEE COMMENTS Last administered on 11/10/18at 10:22; Start 11/08/18 at 12:45 Insulin Glargine (Lantus) 24 units DAILY SQ Last administered on 11/14/18 08:49; Start 11/09/18 at 09:00; Stop 11/14/18 at 10:46; Status DC Enalaprilat (Vasotec Inj) 1.25 mg Q6HRS IVP Last administered on 11/16/18 12:10; Start 11/09/18 at 12:00 Fentanyl (Duragesic 25mcg/ Hr Patch) 1 patch Q3DAYS TD Last administered on 11/16/18 09:27; Start 11/10/18 at 09:00 Enoxaparin Sodium (Lovenox 80mg Syringe) 80 mg Q12HR SQ Last administered on 11/13/18 21:15; Start 11/10/18 at 21:00; Stop 11/14/18 at 08:00; Status DC Clotrimazole (Mycelex) 10 mg 5XDAY MM Last administered on 11/16/18 06:16; Start 11/10/18 at 18:00 Insulin Glargine (Lantus) 20 units DAILY SQ Last administered on 11/16/18 12:26; Start 11/15/18 at 09:00 Cefazolin Sodium 1 gm/Dextrose 50 ml @ 100 mls/hr Q12HR IV Last administered on 11/14/18 21:38; Start 11/14/18 at 12:00; Stop 11/15/18 at 03:51; Status DC Cefazolin Sodium (Ancef) 1 gm Q12HR IVP Last administered on 11/15/18 23:04; Start 11/15/18 at 09:00; Stop 11/16/18 at 09:53; Status DC Barium Sulfate (Varibar Thin Liquid Apple) 148 gm 1X ONCE PO Last administered on 11/15/18 11:35; Start 11/15/18 at 10:00; Stop 11/15/18 at 10:01; Status DC Ringer's Solution 1,000 ml @ 50 mls/hr Q20H IV Last administered on 11/16/18 14:35; Start 11/16/18 at 07:00; Stop 11/16/18 at 18:59 Cefazolin Sodium 50 ml @ 100 mls/hr 1X PREOP ONCE IV Last administered on 11/16/18 15:19; Start 11/16/18 at 14:45; Stop 11/16/18 at 15:14; Status DC Propofol 20 ml @ As Directed STK-MED ONCE IV ; Start 11/16/18 at 15:17; Stop 11/16/18 at 15:18; Status DC Lidocaine HCl (Lidocaine Pf 2% Vial) 5 ml STK-MED ONCE .ROUTE ; Start 11/16/18 at 15:17; Stop 11/16/18 at 15:18; Status DC Active Scripts Active Aspirin Ec (Aspirin) 325 Mg Tablet.dr 1 Tab PO DAILY Reported Cephalexin 500 Mg Tablet 1 Tab PO TID 7 Days Prednisone 20 Mg Tablet 1 Tab PO DAILY 3 Days Mag-Oxide (Magnesium Oxide) 400 Mg Tablet 1 Tab PO DAILY Alprazolam 0.5 Mg Tablet 1 Tab PO PRN DAILY PRN Furosemide 20 Mg Tablet 1 Tab PO DAILY Zoloft (Sertraline Hcl) 50 Mg Tablet 50 Mg PO DAILY Omeprazole 40 Mg Capsule.dr 1 Cap PO DAILY Miralax (Polyethylene Glycol 3350) 17 Gm Powd.pack 1 Packet PO PRN DAILY PRN Linzess (Linaclotide) 145 Mcg Capsule 145 Mcg PO PRN DAILY PRN Metformin Hcl 1,000 Mg Tablet 1,000 Mg PO BIDWMEALS Novolog Flexpen (Insulin Aspart) 100 Unit/1 Ml Insuln.pen 0-10 Unit SQ TIDAC Levemir (Insulin Detemir) 100 Unit/1 Ml Vial 45 Unit SQ BID Simvastatin 40 Mg Tablet 40 Mg PO HS Xarelto (Rivaroxaban) 20 Mg Tablet 20 Mg PO DAILY Lyrica (Pregabalin) 200 Mg Capsule 200 Mg PO BID 30 Days Metoprolol Succinate ( Xl ) (Metoprolol Succinate) 25 Mg Tab.er.24h 50 Mg PO HS Losartan-Hctz 100-25 Mg Tab (Losartan/Hydrochlorothiazide) 1 Each Tablet 1 Each PO HS Allergies Allergies: Coded Allergies: Penicillins (Verified Allergy, Intermediate, RASH, 11/16/18) ROS General: YES: Other (right back pain) Musculoskeletal: Yes Other (erythema in RLE) Physical Exam General: Alert, Oriented X3, Cooperative, No acute distress, Other (does not move right side well) HEENT: Atraumatic, EOMI Lungs: Normal air movement Abdomen: Soft, No tenderness, Other (LUQ signs of attepted PEG) Extremities: Other (RLE ankle erythema, mild edema) Skin: No rashes, No breakdown Neuro: Other (lower back with hematoma x 2) Psych/Mental Status: Mental status NL, Mood NL Vitals VITALS Vital Signs Date Time Temp Pulse Resp B/P (MAP) Pulse Ox O2 Delivery O2 Flow Rate FiO2 11/16/18 16:00 60 20 131/61 98 Room Air 11/16/18 15:45 97.5 2 97.5 Labs Labs Laboratory Tests Test 11/14/18 21:08 11/15/18 07:32 11/15/18 12:17 11/15/18 16:59 Glucose (Fingerstick) 93 mg/dL (70-99) 90 mg/dL (70-99) 139 mg/dL (70-99) 144 mg/dL (70-99) Test 11/15/18 20:34 11/16/18 07:38 11/16/18 12:16 11/16/18 16:32 Glucose (Fingerstick) 131 mg/dL (70-99) 134 mg/dL (70-99) 152 mg/dL (70-99) 127 mg/dL (70-99) Laboratory Tests Test 11/15/18 20:34 11/16/18 07:38 11/16/18 12:16 11/16/18 16:32 Glucose (Fingerstick) 131 mg/dL (70-99) 134 mg/dL (70-99) 152 mg/dL (70-99) 127 mg/dL (70-99) Images Images CT with concern for SQ hematomas Assessment/Plan Assessment/Plan Need for enteral access will obtain US of back lesions, as recommended by radiology will ask wound care to evaluate leg erythema and back hematomas will plan surgically placed G-tube R/R/B/A d/w pt and pt's supportive . Risks, including, but not limited to: bleeding, infection, damage to surrounding structure, risk of anesthesia. They appear to understand, their questions are answered and they elect to proceed. Thank you for allowing consultation with this pleasant patient. KEELY HAWTHORNE MD Nov 16, 2018 18:01
--- NOTE | 2018-11-16 20:04 | NUR ---
Patient left around 1420 for EGD with Peg tube placement & returned around 1620. VSS. Peg tube was unable to be completed due to subcutaneous tissue. Dr. Martinez consulted.
[2018-11-16] MEDS: PATCH REMOVAL. MC SCH (20:05)
[2018-11-17] MEDS: METOPROLOL TARTRATE 5 MG/5 ML VIAL. IVP SCH ×4 (00:12→21:05)
[2018-11-17] MEDS: ENALAPRILAT 2.5 MG/2 ML VIAL. IVP SCH ×4 (01:16→18:54)
[2018-11-17 03:52] VITALS: BP 145/78
[2018-11-17] MEDS: AMINO AC 3%/ELECTROLYTE/GLYCER 1,000 ML IV SCH ×2 (05:48→18:59)
[2018-11-17] MEDS: NITROGLYCERIN OINT 1 GM PACKET. TP SCH ×4 (06:57→08:08)
[2018-11-17] MEDS: CLOTRIMAZOLE 10 MG TROCHE. MM SCH ×5 (06:57→21:12)
[2018-11-17 07:00] VITALS: BP 150/71
[2018-11-17] MEDS: LIDOCAINE (700MG/PATCH) PATCH. TD SCH (08:29)
[2018-11-17] MEDS: INSULIN GLARGINE 300 UNITS/3 ML INSULN.PEN. SQ SCH (08:29)
--- NOTE | 2018-11-17 08:38 | RAD ---
Lower back ultrasound, 11/16/2018: HISTORY: Bilateral lumps In the area of clinical concern on the right there is a 4 x 2.8 x 2.0 subcutaneous mass which is complex. It demonstrates irregular cystic components as well as isoechoic components. Some of its margins are smooth while others are ill-defined. There is color flow are identified within some of the isoechoic components. A complex fluid collection such as a hematoma is likely. In the area of concern at a similar level in the left lower back there is a 4 x 3.3 x 2.0 cm complex mass. It demonstrates smaller fluid components and a greater isoechoic component. It also demonstrates some internal vascularity. IMPRESSION: Bilateral complex subcutaneous mass is in the lower back as described above. These likely represent hematomas, although infected hematomas or abscesses cannot be excluded. Clinical and possibly sonographic follow-up is suggested. Electronically signed by: Bart Mcmullen MD (11/17/2018 8:35 AM) [facility]
--- NOTE | 2018-11-17 09:01 | PDOC ---
Provider Note Provider Note vss, glucose ok- for surgical peg today- DELROY BASS MD Nov 17, 2018 09:01
[2018-11-17] MEDS ORDERED: IV RINGERS,LACTATED 1000ML 1,000 ML IV SCH (10:08)
[2018-11-17] MEDS ORDERED: ONDANSETRON PF 4 MG/2 ML VIAL. IV PRN ×2 (10:15→17:30)
[2018-11-17] MEDS ORDERED: MORPHINE SULFATE 2 MG/ML VIAL. IV PRN ×2 (10:15→17:30)
[2018-11-17] MEDS ORDERED: LIDOCAINE 1% PF 2 ML VIAL. ID PRN (10:15)
[2018-11-17] MEDS ORDERED: HYDROmorphone 2 MG/ML VIAL IV PRN (10:15)
[2018-11-17] MEDS ORDERED: PROCHLORPERAZINE 10 MG/2 ML VIAL. IV PRN (10:15)
[2018-11-17] MEDS ORDERED: fentaNYL PF VIAL 100 MCG/2 ML VIAL IV PRN ×2 (10:15)
--- NOTE | 2018-11-17 10:17 | PDOC ---
Subjective: Subjective: Getting a little tired of all of this. Objective: Vital Signs: Vital Signs Date Time Temp Pulse Resp B/P (MAP) Pulse Ox O2 Delivery O2 Flow Rate FiO2 11/17/18 08:26 60 157/73 11/17/18 07:00 98.0 14 96 Room Air 98.0 11/16/18 15:45 2 Labs: Laboratory Tests Test 11/16/18 12:16 11/16/18 16:32 11/16/18 18:54 11/16/18 20:48 Glucose (Fingerstick) 152 mg/dL 127 mg/dL 127 mg/dL Prothrombin Time 16.0 SEC Prothromb Time International Ratio 1.3 Test 11/17/18 07:40 Glucose (Fingerstick) 145 mg/dL Imaging: Back US IMPRESSION: Bilateral complex subcutaneous mass is in the lower back as described above. These likely represent hematomas, although infected hematomas or abscesses cannot be excluded. Clinical and possibly sonographic follow-up is suggested. EGD 11/16 duodenitis unsuccessful peg as light reflex couldn't be visualized and anesthetic needle including 22 gauge 3.5 inch needle couldn't be passed in to gastric lumen and therefore peg trochar wasn't passed PE: GEN: NAD, pleasant and polite, up to chair LUNGS: CTAB HEART: RRR ABD: S/ND/NT NEURO/PSYCH: A & O �3 A/P: CVA, dysphagia HTN -- Plans for surgical G tube placement today. TAMIKO RODRIGUEZ Nov 17, 2018 10:17
[2018-11-17 11:00] VITALS: BP 141/60
--- NOTE | 2018-11-17 11:08 | PDOC ---
PROGRESS NOTES Subjective Subjective He admits hunger pains. Objective Objective Vital Signs Date Time Temp Pulse Resp B/P (MAP) Pulse Ox O2 Delivery O2 Flow Rate FiO2 11/17/18 08:26 60 157/73 11/17/18 08:00 Room Air 11/17/18 07:00 98.0 14 96 98.0 11/16/18 15:45 2 Intake and Output 11/17/18 06:59 Intake Total 2233 ml Output Total 1555 ml Balance 678 ml Intake Oral 200 ml IV Total 2033 ml Output Urine Total 1555 ml Physical Exam Physical Exam He is alert,sitting in bedside chair and no change with his neurological status. GI had difficulty placing PEG tube and plans for surgical gastrostomy this afternoon. 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) Status: Acute (2) Cellulitis of foot, right Status: Acute (3) Dizziness Status: Acute (4) Dysphagia Status: Acute (5) Hemiparesis affecting right side as late effect of cerebrovascular accident (CVA) Status: Acute (6) Hypertensive encephalopathy Status: Acute (7) Hypertensive urgency Status: Acute (8) Hypomagnesemia Status: Acute (9) Left thalamic infarction Status: Acute (10) Leukocytosis Status: Acute (11) Malignant essential hypertension Status: Acute (12) Metabolic encephalopathy Status: Acute (13) Nausea & vomiting Status: Acute (14) Persistent atrial fibrillation Status: Acute (15) Right maxillary sinusitis Status: Acute (16) Vomiting Status: Acute (17) Weakness Status: Acute Plan Plan of Care Agree with plans. Comment Review of Relevant I have reviewed the following items sara (where applicable) has been applied. Labs Laboratory Tests Test 11/15/18 12:17 11/15/18 16:59 11/15/18 20:34 11/16/18 07:38 Glucose (Fingerstick) 139 mg/dL (70-99) 144 mg/dL (70-99) 131 mg/dL (70-99) 134 mg/dL (70-99) Test 11/16/18 12:16 11/16/18 16:32 11/16/18 18:54 11/16/18 20:48 Glucose (Fingerstick) 152 mg/dL (70-99) 127 mg/dL (70-99) 127 mg/dL (70-99) Prothrombin Time 16.0 SEC (11.7-14.0) Prothromb Time International Ratio 1.3 (0.8-1.1) Test 11/17/18 07:40 Glucose (Fingerstick) 145 mg/dL (70-99) Laboratory Tests Test 11/16/18 12:16 11/16/18 16:32 11/16/18 18:54 11/16/18 20:48 Glucose (Fingerstick) 152 mg/dL (70-99) 127 mg/dL (70-99) 127 mg/dL (70-99) Prothrombin Time 16.0 SEC (11.7-14.0) Prothromb Time International Ratio 1.3 (0.8-1.1) Test 11/17/18 07:40 Glucose (Fingerstick) 145 mg/dL (70-99) Microbiology 11/05/18 Urine Culture - Final, Complete 11/05/18 Urine Culture Result 1 (MERVAT) - Final, Complete Medications Current Medications Ondansetron HCl (Zofran) 4 mg 1X ONCE IV Last administered on 11/05/18at 01:41; Start 11/05/18 at 01:00; Stop 11/05/18 at 01:01; Status DC Famotidine (Pepcid Vial) 20 mg 1X ONCE IVP Last administered on 11/05/18at 01:41; Start 11/05/18 at 01:00; Stop 11/05/18 at 01:01; Status DC Sodium Chloride 1,000 ml @ 1,000 mls/hr 1X ONCE IV Last administered on 11/05/18at 01:38; Start 11/05/18 at 01:15; Stop 11/05/18 at 02:14; Status DC Iohexol (Omnipaque 300 Mg/ml) 75 ml 1X ONCE IV Last administered on 11/05/18at 01:32; Start 11/05/18 at 01:30; Stop 11/05/18 at 01:31; Status DC Info (CONTRAST GIVEN -- Rx MONITORING) 1 each PRN DAILY PRN MC SEE COMMENTS; Start 11/05/18 at 01:30; Stop 11/07/18 at 01:29; Status DC Labetalol HCl (Normodyne Iv Push) 20 mg 1X ONCE IVP Last administered on 11/05/18at 01:38; Start 11/05/18 at 01:45; Stop 11/05/18 at 01:46; Status DC Aspirin (Aspirin Rectal Supp) [address] Last administered on 11/05/18at 02:37; Start 11/05/18 at 02:00; Stop 11/05/18 at 02:01; Status DC Fentanyl Citrate (Fentanyl 2ml Vial) 50 mcg 1X ONCE IV Last administered on 11/05/18at 01:52; Start 11/05/18 at 01:45; Stop 11/05/18 at 01:55; Status DC Nitroglycerin (Nitro-Bid Oint) 0.5 inch 1X ONCE TP Last administered on at 01:51; Start 11/05/18 at 01:45; Stop 11/05/18 at 01:55; Status DC Magnesium Sulfate 50 ml @ 25 mls/hr 1X ONCE IV Last administered on 11/05/18at 02:37; Start 11/05/18 at 02:00; Stop 11/05/18 at 03:59; Status DC Ondansetron HCl (Zofran) 4 mg 1X ONCE IV Last administered on 11/05/18at 02:08; Start 11/05/18 at 02:15; Stop 11/05/18 at 02:16; Status DC Labetalol HCl (Normodyne Iv Push) 20 mg 1X ONCE IVP Last administered on 11/05/18at 02:18; Start 11/05/18 at 02:15; Stop 11/05/18 at 02:16; Status DC Ondansetron HCl (Zofran) 4 mg PRN Q8HRS PRN IV NAUSEA/VOMITING Last administered on 11/05/18at 13:50; Start 11/05/18 at 02:45; Stop 11/06/18 at 02:44; Status DC Insulin Human Lispro (HumaLOG) 0-7 UNITS TIDWMEALS SQ Last administered on 11/07/18at 08:55; Start 11/05/18 at 08:00; Stop 11/08/18 at 08:37; Status DC Dextrose (Dextrose 50%-Water Syringe) 12.5 gm PRN Q15MIN PRN IV SEE COMMENTS; Start 11/05/18 at 02:45 Labetalol HCl (Normodyne Iv Push) 10 mg PRN Q2HR PRN IVP ELEVATED BP, SEE COMMENTS Last administered on 11/05/18 08:10; Start 11/05/18 at 02:45; Stop 11/05/18 at 08:28; Status DC Sodium Chloride 1,000 ml @ 100 mls/hr 1X ONCE IV Last administered on 11/05/18 03:16; Start 11/05/18 at 03:15; Stop 11/05/18 at 13:14; Status DC Metoclopramide HCl (Reglan Vial) 10 mg 1X ONCE IV Last administered on 11/05/18 03:37; Start 11/05/18 at 03:30; Stop 11/05/18 at 03:31; Status DC Diphenhydramine HCl (Benadryl) 25 mg 1X ONCE IVP Last administered on 11/05/18 03:37; Start 11/05/18 at 03:30; Stop 11/05/18 at 03:31; Status DC Nitroglycerin (Nitro-Bid Oint) 0.5 inch Q6HRS TP Last administered on 11/16/18 06:10; Start 11/05/18 at 12:00 Labetalol HCl (Normodyne Iv Push) 20 mg PRN Q2HR PRN IVP HYPERTENSION Last administered on 11/07/18 03:42; Start 11/05/18 at 08:30 Insulin Glargine (Lantus) 30 units DAILY SQ Last administered on 11/07/18 08:54; Start 11/05/18 at 09:00; Stop 11/08/18 at 08:37; Status DC Sodium Chloride 1,000 ml @ 100 mls/hr Q10H IV Last administered on 11/05/18 09:20; Start 11/05/18 at 08:30; Stop 11/07/18 at 00:06; Status DC Aspirin (Aspirin Rectal Supp) [address] Last administered on 11/13/18 09:29; Start 11/05/18 at 09:00; Stop 11/13/18 at 12:28; Status DC Lidocaine (Lidoderm) 1 patch DAILY TD Last administered on 11/16/18 09:25; Start 11/05/18 at 09:30 Miscellaneous (Lidoderm Patch Removal) 1 ea QHS MC Last administered on 11/16/18 20:05; Start 11/05/18 at 21:00 Metoprolol Tartrate (Lopressor Vial) 5 mg Q6HRS IVP Last administered on 11/17/18at 08:26; Start 11/05/18 at 12:00 Enalaprilat (Vasotec Inj) 1.25 mg Q6HRS IVP Last administered on 11/09/18at 06:05; Start 11/05/18 at 12:00; Stop 11/09/18 at 11:55; Status DC Cefazolin Sodium 50 ml @ 100 mls/hr Q8HRS IV ; Start 11/05/18 at 14:00; Stop 11/06/18 at 18:00; Status UNV Ketorolac Tromethamine (Toradol 30mg Vial) 30 mg PRN Q6HRS PRN IV PAIN Last administered on 11/09/18at 22:37; Start 11/05/18 at 12:00; Stop 11/10/18 at 11:59; Status DC Cefazolin Sodium (Ancef) 1 gm Q8HRS IVP Last administered on 11/10/18at 06:10; Start 11/05/18 at 13:00; Stop 11/10/18 at 08:34; Status DC Barium Sulfate (Varibar Thin Liquid Apple) 148 gm 1X ONCE PO Last administered on 11/05/18at 13:45; Start 11/05/18 at 13:45; Stop 11/05/18 at 13:46; Status DC Amino Acids/ Glycerin/ Electrolytes 1,000 ml @ 100 mls/hr Q10H IV Last administered on 11/17/18at 05:48; Start 11/05/18 at 19:00 Ondansetron HCl (Zofran) 4 mg PRN Q4HRS PRN IV NAUSEA/VOMITING Last administered on 11/08/18at 09:45; Start 11/06/18 at 13:00 Clonidine HCl (Catapres Tts-1) 1 patch WEEKLY TD Last administered on 11/07/18at 12:57; Start 11/07/18 at 13:00; Stop 11/10/18 at 08:38; Status DC Enoxaparin Sodium (Lovenox Per Pharmacy Treatment Dosing) 1 each PRN DAILY PRN MC SEE COMMENTS; Start 11/07/18 at 15:15; Stop 11/13/18 at 13:15; Status DC Enoxaparin Sodium (Lovenox 100mg Syringe) 100 mg Q12HR SQ Last administered on 11/10/18 08:53; Start 11/07/18 at 15:00; Stop 11/10/18 at 14:45; Status DC Insulin Glargine (Lantus) 26 units DAILY SQ ; Start 11/08/18 at 09:00; Stop 11/09/18 at 09:00; Status DC Lorazepam (Ativan Inj) 1 mg PRN Q6HRS PRN IV ANXIETY / AGITATION Last administered on 11/08/18at 09:44; Start 11/08/18 at 08:45 Methylprednisolone Acetate (DEPO-Medrol 40MG VIAL) 40 mg 1X ONCE IM Last administered on 11/08/18at 09:15; Start 11/08/18 at 09:15; Stop 11/08/18 at 09:16; Status DC Bupivacaine HCl (Sensorcaine-Mpf 0.25%) 10 ml 1X ONCE IJ Last administered on 11/08/18at 09:15; Start 11/08/18 at 09:15; Stop 11/08/18 at 09:16; Status DC Info (Anti-Coagulation Monitoring By Pharmacy) 1 each PRN DAILY PRN MC SEE COMMENTS Last administered on 11/10/18at 10:22; Start 11/08/18 at 12:45 Insulin Glargine (Lantus) 24 units DAILY SQ Last administered on 11/14/18 08:49; Start 11/09/18 at 09:00; Stop 11/14/18 at 10:46; Status DC Enalaprilat (Vasotec Inj) 1.25 mg Q6HRS IVP Last administered on 11/17/18at 06:57; Start 11/09/18 at 12:00 Fentanyl (Duragesic 25mcg/ Hr Patch) 1 patch Q3DAYS TD Last administered on 11/16/18 09:27; Start 11/10/18 at 09:00 Enoxaparin Sodium (Lovenox 80mg Syringe) 80 mg Q12HR SQ Last administered on 11/13/18at 21:15; Start 11/10/18 at 21:00; Stop 11/14/18 at 08:00; Status DC Clotrimazole (Mycelex) 10 mg 5XDAY MM Last administered on 11/16/18at 06:16; Start 11/10/18 at 18:00 Insulin Glargine (Lantus) 20 units DAILY SQ Last administered on 11/16/18at 12:26; Start 11/15/18 at 09:00 Cefazolin Sodium 1 gm/Dextrose 50 ml @ 100 mls/hr Q12HR IV Last administered on 11/14/18at 21:38; Start 11/14/18 at 12:00; Stop 11/15/18 at 03:51; Status DC Cefazolin Sodium (Ancef) 1 gm Q12HR IVP Last administered on 11/15/18at 23:04; Start 11/15/18 at 09:00; Stop 11/16/18 at 09:53; Status DC Barium Sulfate (Varibar Thin Liquid Apple) 148 gm 1X ONCE PO Last administered on 11/15/18at 11:35; Start 11/15/18 at 10:00; Stop 11/15/18 at 10:01; Status DC Ringer's Solution 1,000 ml @ 50 mls/hr Q20H IV Last administered on 11/16/18at 14:35; Start 11/16/18 at 07:00; Stop 11/16/18 at 18:59; Status DC Cefazolin Sodium 50 ml @ 100 mls/hr 1X PREOP ONCE IV Last administered on 11/16/18at 15:19; Start 11/16/18 at 14:45; Stop 11/16/18 at 15:14; Status DC Propofol 20 ml @ As Directed STK-MED ONCE IV ; Start 11/16/18 at 15:17; Stop 11/16/18 at 15:18; Status DC Lidocaine HCl (Lidocaine Pf 2% Vial) 5 ml STK-MED ONCE .ROUTE ; Start 11/16/18 at 15:17; Stop 11/16/18 at 15:18; Status DC Cefoxitin Sodium (Mefoxin) 2 gm 1X PREOP PRN IVP PRIOR TO PROCEDURE; Start 11/16/18 at 18:00; Stop 11/16/18 at 23:00; Status DC Ondansetron HCl (Zofran) 4 mg PRN Q6HRS PRN IV NAUSEA/VOMITING; Start 11/17/18 at 10:15; Stop 11/18/18 at 10:14 Fentanyl Citrate (Fentanyl 2ml Vial) 25 mcg PRN Q5MIN PRN IV MILD PAIN 1-3; Start 11/17/18 at 10:15; Stop 11/18/18 at 10:14 Fentanyl Citrate (Fentanyl 2ml Vial) 50 mcg PRN Q5MIN PRN IV MODERATE TO SEVERE PAIN; Start 11/17/18 at 10:15; Stop 11/18/18 at 10:14 Morphine Sulfate (Morphine Sulfate) 1 mg PRN Q10MIN PRN IV SEVERE PAIN 7-10; Start 11/17/18 at 10:15; Stop 11/18/18 at 10:14 Ringer's Solution 1,000 ml @ 30 mls/hr Q24H IV ; Start 11/17/18 at 10:08; Stop 11/17/18 at 22:07 Lidocaine HCl (Xylocaine-Mpf 1% 2ml Vial) 2 ml 1X PRN PRN ID IV START; Start 11/17/18 at 10:15; Stop 11/18/18 at 10:14 Hydromorphone HCl (Dilaudid) 0.5 mg PRN Q10MIN PRN IV SEV PAIN, Second choice; Start 11/17/18 at 10:15; Stop 11/18/18 at 10:14 Prochlorperazine Edisylate (Compazine) 5 mg PACU PRN PRN IV NAUSEA, MRX1; Start 11/17/18 at 10:15; Stop 11/18/18 at 10:14 Famotidine (Pepcid Vial) 20 mg QHS IVP ; Start 11/17/18 at 21:00 Active Scripts Active Aspirin Ec (Aspirin) 325 Mg Tablet.dr 1 Tab PO DAILY Reported Cephalexin 500 Mg Tablet 1 Tab PO TID 7 Days Prednisone 20 Mg Tablet 1 Tab PO DAILY 3 Days Mag-Oxide (Magnesium Oxide) 400 Mg Tablet 1 Tab PO DAILY Alprazolam 0.5 Mg Tablet 1 Tab PO PRN DAILY PRN Furosemide 20 Mg Tablet 1 Tab PO DAILY Zoloft (Sertraline Hcl) 50 Mg Tablet 50 Mg PO DAILY Omeprazole 40 Mg Capsule.dr 1 Cap PO DAILY Miralax (Polyethylene Glycol 3350) 17 Gm Powd.pack 1 Packet PO PRN DAILY PRN Linzess (Linaclotide) 145 Mcg Capsule 145 Mcg PO PRN DAILY PRN Metformin Hcl 1,000 Mg Tablet 1,000 Mg PO BIDWMEALS Novolog Flexpen (Insulin Aspart) 100 Unit/1 Ml Insuln.pen 0-10 Unit SQ TIDAC Levemir (Insulin Detemir) 100 Unit/1 Ml Vial 45 Unit SQ BID Simvastatin 40 Mg Tablet 40 Mg PO HS Xarelto (Rivaroxaban) 20 Mg Tablet 20 Mg PO DAILY Lyrica (Pregabalin) 200 Mg Capsule 200 Mg PO BID 30 Days Metoprolol Succinate ( Xl ) (Metoprolol Succinate) 25 Mg Tab.er.24h 50 Mg PO HS Losartan-Hctz 100-25 Mg Tab (Losartan/Hydrochlorothiazide) 1 Each Tablet 1 Each PO HS Vitals/I & O Vital Sign - Last 24 Hours 11/16/18 11/16/18 11/16/18 11/16/18 12:10 13:27 14:30 14:30 Temp 98 98.0 Pulse 60 60 Resp 18 B/P (MAP) 156/66 Pulse Ox 91 O2 Delivery Room Air Room Air O2 Flow Rate 2.0 11/16/18 11/16/18 11/16/18 11/16/18 15:00 15:45 16:00 16:23 Temp 98.0 97.5 98.0 97.5 Pulse 58 60 60 60 Resp 18 16 20 B/P (MAP) 154/71 (98) 139/64 131/61 155/70 (98) Pulse Ox 92 97 98 O2 Delivery Room Air Nasal Cannula Room Air O2 Flow Rate 2.0 2 11/16/18 11/16/18 11/16/18 11/16/18 16:38 16:56 18:05 18:11 Pulse 60 60 60 60 B/P (MAP) 153/74 (100) 137/65 (89) 154/71 (98) 154/71 11/16/18 11/16/18 11/16/18 11/17/18 19:11 20:05 22:59 00:12 Temp 97.6 97.7 97.6 97.7 Pulse 60 60 60 Resp 18 16 B/P (MAP) 146/63 (90) 158/67 (97) 171/74 Pulse Ox 98 95 O2 Delivery Room Air Room Air Room Air 11/17/18 11/17/18 11/17/18 11/17/18 01:16 03:52 06:57 07:00 Temp 98.0 98.0 98.0 98.0 Pulse 60 60 60 60 Resp 16 14 B/P (MAP) 141/66 145/78 (100) 157/73 150/71 (97) Pulse Ox 95 96 O2 Delivery Room Air Room Air 11/17/18 11/17/18 08:00 08:26 Pulse 60 B/P (MAP) 157/73 O2 Delivery Room Air Intake and Output 11/16/18 11/16/18 11/17/18 14:59 22:59 06:59 Intake Total 500 ml 1733 ml Output Total 580 ml 200 ml 775 ml Balance -580 ml 300 ml 958 ml Nutrition Consultation Dietary Evaluation: Recommendations by RD: PPN/TPN Comments: Continue w/PPN for short-term non-oral nutrition needs REC TF per following pending PEG placement: Glucerna 1.5 bolus feeds, 2 cans TID (6 cans total/day) w/75 ml water flushes before and after each can Expected Outcomes/Goals: New goal: TF via PEG pending placement - not met, goal ongoing Malnutrition Findings: Food and Nutrition Intake (Mod: <75% est energy req 7days Weight Status: Overweight ELISEO DUENAS MD Nov 17, 2018 11:07
[2018-11-17] MEDS ORDERED: ROCURONIUM 50 MG/5 ML VIAL. ONE (13:12)
[2018-11-17] MEDS ORDERED: NEOSTIGMINE METHYLSULFATE 5 MG/5 ML SYRINGE. ONE (13:12)
[2018-11-17] MEDS ORDERED: fentaNYL PF VIAL 100 MCG/2 ML VIAL ONE ×2 (13:12→17:05)
[2018-11-17] MEDS ORDERED: SEVOFLURANE 61 TO 120 MINUTES. IH ONE (13:12)
[2018-11-17] MEDS ORDERED: DEXAMETHASONE SOD PHOS 4 MG/ML VIAL ONE (13:13)
[2018-11-17] MEDS ORDERED: MIDAZOLAM HCL/PF 2 MG/2 ML VIAL. ONE (13:13)
[2018-11-17] MEDS ORDERED: LIDOCAINE 2% PF 5 ML VIAL. ONE (13:13)
[2018-11-17] MEDS ORDERED: GLYCOPYRROLATE 1 MG/5 ML VIAL. ONE (13:13)
[2018-11-17] MEDS ORDERED: ONDANSETRON PF 4 MG/2 ML VIAL. ONE (13:13)
[2018-11-17] MEDS ORDERED: PROPOFOL 20 ML IV ONE (13:13)
--- NOTE | 2018-11-17 13:47 | PDOC ---
SURGICAL PROGRESS NOTE Subjective Pre-Op Note 68 yo M with dysphagia. TO OR for laparoscopic versus open G-tube placement. Back US c/w hematoma R/R/B/A d/w pt and pt's supportive . Risks, including, but not limited to: bleeding, infection, damage to surrounding structures, risk of anesthesia, risk of . They appear to understand, their questions are answered and they elect to proceed. Vital Signs Vital Signs Date Time Temp Pulse Resp B/P (MAP) Pulse Ox O2 Delivery O2 Flow Rate FiO2 11/17/18 13:44 60 141/60 11/17/18 11:00 97.7 14 94 Room Air 97.7 11/16/18 15:45 2 I&O Intake and Output 11/17/18 07:00 Intake Total 2233 ml Output Total 1555 ml Balance 678 ml Intake Oral 200 ml IV Total 2033 ml Output Urine Total 1555 ml Labs Laboratory Tests Test 11/15/18 16:59 11/15/18 20:34 11/16/18 07:38 11/16/18 12:16 Glucose (Fingerstick) 144 mg/dL (70-99) 131 mg/dL (70-99) 134 mg/dL (70-99) 152 mg/dL (70-99) Test 11/16/18 16:32 11/16/18 18:54 11/16/18 20:48 11/17/18 07:40 Glucose (Fingerstick) 127 mg/dL (70-99) 127 mg/dL (70-99) 145 mg/dL (70-99) Prothrombin Time 16.0 SEC (11.7-14.0) Prothromb Time International Ratio 1.3 (0.8-1.1) Test 11/17/18 12:04 Glucose (Fingerstick) 156 mg/dL (70-99) Laboratory Tests Test 11/16/18 16:32 11/16/18 18:54 11/16/18 20:48 11/17/18 07:40 Glucose (Fingerstick) 127 mg/dL (70-99) 127 mg/dL (70-99) 145 mg/dL (70-99) Prothrombin Time 16.0 SEC (11.7-14.0) Prothromb Time International Ratio 1.3 (0.8-1.1) Test 11/17/18 12:04 Glucose (Fingerstick) 156 mg/dL (70-99) Problem List Problems Medical Problems: (1) 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 (CVA) Status: Acute (2) Cellulitis of foot, right Status: Acute (3) Dizziness Status: Acute (4) Dysphagia Status: Acute (5) Hemiparesis affecting right side as late effect of cerebrovascular accident (CVA) Status: Acute (6) Hypertensive encephalopathy Status: Acute (7) Hypertensive urgency Status: Acute (8) Hypomagnesemia Status: Acute (9) Left thalamic infarction Status: Acute (10) Leukocytosis Status: Acute (11) Malignant essential hypertension Status: Acute (12) Metabolic encephalopathy Status: Acute (13) Nausea & vomiting Status: Acute (14) Persistent atrial fibrillation Status: Acute (15) Right maxillary sinusitis Status: Acute (16) Vomiting Status: Acute (17) Weakness Status: Acute KEELY HAWTHORNE MD Nov 17, 2018 13:47
[2018-11-17] MEDS ORDERED: BUPIVAC MPF-EPI 0.5%-1:200000 30 ML VIAL. ONE (14:56)
[2018-11-17 15:00] VITALS: BP 146/68
[2018-11-17] MEDS ORDERED: cefOXitin SODIUM IV Push 1 GM VIAL. IVP ONE ×2 (15:18→16:18)
--- NOTE | 2018-11-17 16:00 | NUR ---
PWound care: Attempted to see patient regarding wound care. Patient headed to surgery. Transport at nurses station to take patient. Wound care will see patient tomorrow.
[2018-11-17] MEDS ORDERED: BUPIVAC MPF-EPI 0.5%-1:200000 30 ML VIAL. INJ ONE (17:07)
--- NOTE | 2018-11-17 17:24 | PDOC4 ---
OPERATIVE NOTE Date: Date: Nov 17, 2018 Pre-Op Diagnosis: Dysphagia Post-Op Diagnosis: same Procedure Performed: Laparoscopic gastrostomy tube placement, 20F Surgeon: Stan Hawthorne Anesthesia Type: GETA plus local Blood Loss: 50 Specimans Obtained: none Findings: large amount of intraabdominal fat Complications: none Operative Note: After obtaining informed consent, patient was taken to OR, induced under GETA and prepped in the usual fashion. 5 mm port placed under laparoscopic guidance above umbilicus. Abdominal cavity briefly explored and unremarkable. Large amount of visceral fat and stomach not readily identifiable. 12 port placed LUQ. Stomach exposed and grasped, partially eviscerated through port site. Stomach tacked to surrounding fascia with 3 0 vicryl. Cautery used to make gastrotomy and 20 F gastrostomy placed under direct and laparoscopic guidance. Balloon inflated to 20 cc. Port removed without bleeding. Port site closed with 4 0 monocryl. G-tube secured with 3 0 nylon. Dressing placed. Patient tolerated procedure well and sent to PACU in stable condition. All counts correct. No immediate complications. KEELY HAWTHORNE MD Nov 17, 2018 17:24
[2018-11-17] MEDS ORDERED: 0.9 % SODIUM CHLORIDE 10 ML DISP.SYRIN. IV PRN (17:30)
[2018-11-17 19:00] VITALS: BP 142/63
[2018-11-17] MEDS ORDERED: FAMOTIDINE 20 MG/2 ML VIAL IVP SCH (21:00)
[2018-11-17] MEDS: PATCH REMOVAL. MC SCH (21:12)
[2018-11-17 23:00] VITALS: BP 138/67
[2018-11-18] MEDS: NITROGLYCERIN OINT 1 GM PACKET. TP SCH ×2 (00:47→06:14)
[2018-11-18] MEDS: ENALAPRILAT 2.5 MG/2 ML VIAL. IVP SCH ×2 (00:49→06:13)
[2018-11-18] MEDS: METOPROLOL TARTRATE 5 MG/5 ML VIAL. IVP SCH ×2 (01:49→07:17)
[2018-11-18 03:00] VITALS: BP 136/66
[2018-11-18] MEDS: AMINO AC 3%/ELECTROLYTE/GLYCER 1,000 ML IV SCH (06:11)
[2018-11-18] MEDS: CLOTRIMAZOLE 10 MG TROCHE. MM SCH ×5 (06:14→21:34)
[2018-11-18 07:00] VITALS: BP 159/79
--- NOTE | 2018-11-18 07:51 | PDOC ---
SURGICAL PROGRESS NOTE Subjective Pt without c/o, no n/V, pain controlled Vital Signs Vital Signs Date Time Temp Pulse Resp B/P (MAP) Pulse Ox O2 Delivery O2 Flow Rate FiO2 11/18/18 07:17 60 138/64 11/18/18 03:00 97.6 14 96 Room Air 97.6 11/17/18 17:40 4 I&O Intake and Output 11/18/18 06:59 Intake Total 2408 ml Output Total 1300 ml Balance 1108 ml Intake Oral 0 ml IV Total 2408 ml Output Urine Total 1250 ml Estimated Blood Loss 50 ml General: Alert, Oriented X3, Cooperative, No acute distress Abdomen: Soft, No tenderness, Other (G-tube in place) Labs Laboratory Tests Test 11/16/18 12:16 11/16/18 16:32 11/16/18 18:54 11/16/18 20:48 Glucose (Fingerstick) 152 mg/dL (70-99) 127 mg/dL (70-99) 127 mg/dL (70-99) Prothrombin Time 16.0 SEC (11.7-14.0) Prothromb Time International Ratio 1.3 (0.8-1.1) Test 11/17/18 07:40 11/17/18 12:04 11/17/18 17:35 11/17/18 20:50 Glucose (Fingerstick) 145 mg/dL (70-99) 156 mg/dL (70-99) 113 mg/dL (70-99) 180 mg/dL (70-99) Laboratory Tests Test 11/17/18 12:04 11/17/18 17:35 11/17/18 20:50 Glucose (Fingerstick) 156 mg/dL (70-99) 113 mg/dL (70-99) 180 mg/dL (70-99) Problem List Problems Medical Problems: (1) 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 (CVA) Status: Acute (2) Cellulitis of foot, right Status: Acute (3) Dizziness Status: Acute (4) Dysphagia Status: Acute (5) Hemiparesis affecting right side as late effect of cerebrovascular accident (CVA) Status: Acute (6) Hypertensive encephalopathy Status: Acute (7) Hypertensive urgency Status: Acute (8) Hypomagnesemia Status: Acute (9) Left thalamic infarction Status: Acute (10) Leukocytosis Status: Acute (11) Malignant essential hypertension Status: Acute (12) Metabolic encephalopathy Status: Acute (13) Nausea & vomiting Status: Acute (14) Persistent atrial fibrillation Status: Acute (15) Right maxillary sinusitis Status: Acute (16) Vomiting Status: Acute (17) Weakness Status: Acute Assessment/Plan s/p lap G-tube will ask nutrition to start tube feeds. KEELY HAWTHORNE MD Nov 18, 2018 07:51
[2018-11-18 08:11] LABS: COLOR,URINE AMBER
[2018-11-18 08:12] LABS: CLARITY,URINE CLEAR
[2018-11-18 08:22] LABS: SQUAMOUS EPITHELIAL CELL,UR OCC /LPF
[2018-11-18 08:23] LABS: BACTERIA,URINE 0 /HPF (0-FEW); RBC,URINE OCC /HPF (0-2); WBC,URINE OCC /HPF (0-4)
[2018-11-18] MEDS: LIDOCAINE (700MG/PATCH) PATCH. TD SCH (08:33)
--- NOTE | 2018-11-18 08:38 | PDOC ---
Provider Note Provider Note no new sxs, vss, glucose up a little- will start peg metop and losartan, hold xarelto a few more days , resume asa re risks DELROY BASS MD Nov 18, 2018 08:38
[2018-11-18 08:47] LABS: BASO % 0 % (0-3); EOS % 0 % (0-3); HEMOGLOBIN 14.2 g/dL (13.0-17.5); LYMPH # 0.8 x10^3/uL (1.0-4.8); LYMPH % 8 % (24-48); MEAN CORPUSCULAR HEMOGLOBIN 31 pg (25-35); MEAN CORPUSCULAR HGB CONC 35 g/dL (31-37); MEAN CORPUSCULAR VOLUME 89 fL (79-100); MONO # 0.7 x10^3/uL (0.0-1.1); MONO % 7 % (0-9); NEUT # 8.6 x10^3uL (1.8-7.7); NEUT % 85 % (31-73); PLATELET COUNT 199 x10^3/uL (140-400); RED BLOOD COUNT 4.61 x10^6/uL (4.30-5.70); WHITE BLOOD COUNT 10.2 x10^3/uL (4.0-11.0)
[2018-11-18 09:03] LABS: CALCIUM 8.4 mg/dL (8.5-10.1); CREATININE 0.6 mg/dL (0.7-1.3); GFR 134.8; POTASSIUM 4.6 mmol/L (3.5-5.1)
--- NOTE | 2018-11-18 09:50 | PDOC ---
Objective: Objective: Reviewed w/ nurse - plans to start tube feeds. Vital Signs: Vital Signs Date Time Temp Pulse Resp B/P (MAP) Pulse Ox O2 Delivery O2 Flow Rate FiO2 11/18/18 07:17 60 138/64 11/18/18 07:00 97.9 16 94 Room Air 97.9 11/17/18 17:40 4 Labs: Laboratory Tests Test 11/17/18 12:04 11/17/18 17:35 11/17/18 20:50 11/18/18 05:51 Glucose (Fingerstick) 156 mg/dL 113 mg/dL 180 mg/dL Urine Collection Type Unknown Urine Color Lena Urine Clarity Clear Urine pH 6.0 Urine Specific [place] 1.020 Urine Protein mg/dL Urine Glucose (UA) mg/dL Urine Ketones (Stick) mg/dL Urine Blood Urine Nitrite Urine Bilirubin Urine Urobilinogen Dipstick mg/dL Urine Leukocyte Esterase Urine RBC Occ /HPF Urine WBC Occ /HPF Urine Squamous Epithelial Cells Occ /LPF Urine Bacteria 0 /HPF Test 11/18/18 08:04 11/18/18 08:20 Glucose (Fingerstick) 205 mg/dL White Blood Count 10.2 x10^3/uL Red Blood Count 4.61 x10^6/uL Hemoglobin 14.2 g/dL Hematocrit 41.0 % Mean Corpuscular Volume 89 fL Mean Corpuscular Hemoglobin 31 pg Mean Corpuscular Hemoglobin Concent 35 g/dL Red Cell Distribution Width 14.0 % Platelet Count 199 x10^3/uL Neutrophils (%) (Auto) 85 % Lymphocytes (%) (Auto) 8 % Monocytes (%) (Auto) 7 % Eosinophils (%) (Auto) 0 % Basophils (%) (Auto) 0 % Neutrophils # (Auto) 8.6 x10^3uL Lymphocytes # (Auto) 0.8 x10^3/uL Monocytes # (Auto) 0.7 x10^3/uL Eosinophils # (Auto) 0.0 x10^3/uL Basophils # (Auto) 0.0 x10^3/uL Sodium Level 133 mmol/L Potassium Level 4.6 mmol/L Chloride Level 100 mmol/L Carbon Dioxide Level 24 mmol/L Anion Gap 9 Blood Urea Nitrogen 18 mg/dL Creatinine 0.6 mg/dL Estimated GFR (Cockcroft-Gault) 134.8 Glucose Level 203 mg/dL Calcium Level 8.4 mg/dL PE: GEN: NAD LUNGS: CTAB HEART: RRR ABD: G tube in place, some blood on gauze, mild incisional tenderness NEURO/PSYCH: A & O �3 A/P: CVA, dysphagia, s/p surgical G tube -- Stable from GI standpoint. TAMIKO RODRIGUEZ Nov 18, 2018 09:50
--- NOTE | 2018-11-18 10:38 | PDOC ---
PROGRESS NOTES Subjective Subjective No new complaints. Objective Objective Vital Signs Date Time Temp Pulse Resp B/P (MAP) Pulse Ox O2 Delivery O2 Flow Rate FiO2 11/18/18 07:17 60 138/64 11/18/18 07:00 97.9 16 94 Room Air 97.9 11/17/18 17:40 4 Intake and Output 11/18/18 07:00 Intake Total 2408 ml Output Total 1300 ml Balance 1108 ml Intake Oral 0 ml IV Total 2408 ml Output Urine Total 1250 ml Estimated Blood Loss 50 ml Physical Exam Physical Exam He is alert,supine in bed and no change with his neurological status and he is getting up with physical and occupational therapy. 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) Status: Acute (2) Cellulitis of foot, right Status: Acute (3) Dizziness Status: Acute (4) Dysphagia Status: Acute (5) Hemiparesis affecting right side as late effect of cerebrovascular accident (CVA) Status: Acute (6) Hypertensive encephalopathy Status: Acute (7) Hypertensive urgency Status: Acute (8) Hypomagnesemia Status: Acute (9) Left thalamic infarction Status: Acute (10) Leukocytosis Status: Acute (11) Malignant essential hypertension Status: Acute (12) Metabolic encephalopathy Status: Acute (13) Nausea & vomiting Status: Acute (14) Persistent atrial fibrillation Status: Acute (15) Right maxillary sinusitis Status: Acute (16) Vomiting Status: Acute (17) Weakness Status: Acute Plan Plan of Care To rehab unit when medically stable. Comment Review of Relevant I have reviewed the following items sara (where applicable) has been applied. Labs Laboratory Tests Test 11/16/18 12:16 11/16/18 16:32 11/16/18 18:54 11/16/18 20:48 Glucose (Fingerstick) 152 mg/dL (70-99) 127 mg/dL (70-99) 127 mg/dL (70-99) Prothrombin Time 16.0 SEC (11.7-14.0) Prothromb Time International Ratio 1.3 (0.8-1.1) Test 11/17/18 07:40 11/17/18 12:04 11/17/18 17:35 11/17/18 20:50 Glucose (Fingerstick) 145 mg/dL (70-99) 156 mg/dL (70-99) 113 mg/dL (70-99) 180 mg/dL (70-99) Test 11/18/18 05:51 11/18/18 08:04 11/18/18 08:20 Urine Collection Type Unknown Urine Color Lena Urine Clarity Clear Urine pH 6.0 Urine Specific [place] 1.020 Urine Protein mg/dL (NEG-TRACE) Urine Glucose (UA) mg/dL (NEG) Urine Ketones (Stick) mg/dL (NEG) Urine Blood (NEG) Urine Nitrite (NEG) Urine Bilirubin (NEG) Urine Urobilinogen Dipstick mg/dL (0.2 mg/dL) Urine Leukocyte Esterase (NEG) Urine RBC Occ /HPF (0-2) Urine WBC Occ /HPF (0-4) Urine Squamous Epithelial Cells Occ /LPF Urine Bacteria 0 /HPF (0-FEW) Glucose (Fingerstick) 205 mg/dL (70-99) White Blood Count 10.2 x10^3/uL (4.0-11.0) Red Blood Count 4.61 x10^6/uL (4.30-5.70) Hemoglobin 14.2 g/dL (13.0-17.5) Hematocrit 41.0 % (39.0-53.0) Mean Corpuscular Volume 89 fL (79-100) Mean Corpuscular Hemoglobin 31 pg (25-35) Mean Corpuscular Hemoglobin Concent 35 g/dL (31-37) Red Cell Distribution Width 14.0 % (11.5-14.5) Platelet Count 199 x10^3/uL (140-400) Neutrophils (%) (Auto) 85 % (31-73) Lymphocytes (%) (Auto) 8 % (24-48) Monocytes (%) (Auto) 7 % (0-9) Eosinophils (%) (Auto) 0 % (0-3) Basophils (%) (Auto) 0 % (0-3) Neutrophils # (Auto) 8.6 x10^3uL (1.8-7.7) Lymphocytes # (Auto) 0.8 x10^3/uL (1.0-4.8) Monocytes # (Auto) 0.7 x10^3/uL (0.0-1.1) Eosinophils # (Auto) 0.0 x10^3/uL (0.0-0.7) Basophils # (Auto) 0.0 x10^3/uL (0.0-0.2) Sodium Level 133 mmol/L (136-145) Potassium Level 4.6 mmol/L (3.5-5.1) Chloride Level 100 mmol/L (98-107) Carbon Dioxide Level 24 mmol/L (21-32) Anion Gap 9 (6-14) Blood Urea Nitrogen 18 mg/dL (8-26) Creatinine 0.6 mg/dL (0.7-1.3) Estimated GFR (Cockcroft-Gault) 134.8 Glucose Level 203 mg/dL (70-99) Calcium Level 8.4 mg/dL (8.5-10.1) Laboratory Tests Test 11/17/18 12:04 11/17/18 17:35 11/17/18 20:50 11/18/18 05:51 Glucose (Fingerstick) 156 mg/dL (70-99) 113 mg/dL (70-99) 180 mg/dL (70-99) Urine Collection Type Unknown Urine Color Lena Urine Clarity Clear Urine pH 6.0 Urine Specific [place] 1.020 Urine Protein mg/dL (NEG-TRACE) Urine Glucose (UA) mg/dL (NEG) Urine Ketones (Stick) mg/dL (NEG) Urine Blood (NEG) Urine Nitrite (NEG) Urine Bilirubin (NEG) Urine Urobilinogen Dipstick mg/dL (0.2 mg/dL) Urine Leukocyte Esterase (NEG) Urine RBC Occ /HPF (0-2) Urine WBC Occ /HPF (0-4) Urine Squamous Epithelial Cells Occ /LPF Urine Bacteria 0 /HPF (0-FEW) Test 11/18/18 08:04 11/18/18 08:20 Glucose (Fingerstick) 205 mg/dL (70-99) White Blood Count 10.2 x10^3/uL (4.0-11.0) Red Blood Count 4.61 x10^6/uL (4.30-5.70) Hemoglobin 14.2 g/dL (13.0-17.5) Hematocrit 41.0 % (39.0-53.0) Mean Corpuscular Volume 89 fL (79-100) Mean Corpuscular Hemoglobin 31 pg (25-35) Mean Corpuscular Hemoglobin Concent 35 g/dL (31-37) Red Cell Distribution Width 14.0 % (11.5-14.5) Platelet Count 199 x10^3/uL (140-400) Neutrophils (%) (Auto) 85 % (31-73) Lymphocytes (%) (Auto) 8 % (24-48) Monocytes (%) (Auto) 7 % (0-9) Eosinophils (%) (Auto) 0 % (0-3) Basophils (%) (Auto) 0 % (0-3) Neutrophils # (Auto) 8.6 x10^3uL (1.8-7.7) Lymphocytes # (Auto) 0.8 x10^3/uL (1.0-4.8) Monocytes # (Auto) 0.7 x10^3/uL (0.0-1.1) Eosinophils # (Auto) 0.0 x10^3/uL (0.0-0.7) Basophils # (Auto) 0.0 x10^3/uL (0.0-0.2) Sodium Level 133 mmol/L (136-145) Potassium Level 4.6 mmol/L (3.5-5.1) Chloride Level 100 mmol/L (98-107) Carbon Dioxide Level 24 mmol/L (21-32) Anion Gap 9 (6-14) Blood Urea Nitrogen 18 mg/dL (8-26) Creatinine 0.6 mg/dL (0.7-1.3) Estimated GFR (Cockcroft-Gault) 134.8 Glucose Level 203 mg/dL (70-99) Calcium Level 8.4 mg/dL (8.5-10.1) Microbiology 11/05/18 Urine Culture - Final, Complete 11/05/18 Urine Culture Result 1 (MERVAT) - Final, Complete Medications Current Medications Ondansetron HCl (Zofran) 4 mg 1X ONCE IV Last administered on 11/05/18at 01:41; Start 11/05/18 at 01:00; Stop 11/05/18 at 01:01; Status DC Famotidine (Pepcid Vial) 20 mg 1X ONCE IVP Last administered on 11/05/18at 01:41; Start 11/05/18 at 01:00; Stop 11/05/18 at 01:01; Status DC Sodium Chloride 1,000 ml @ 1,000 mls/hr 1X ONCE IV Last administered on 11/05/18at 01:38; Start 11/05/18 at 01:15; Stop 11/05/18 at 02:14; Status DC Iohexol (Omnipaque 300 Mg/ml) 75 ml 1X ONCE IV Last administered on 11/05/18at 01:32; Start 11/05/18 at 01:30; Stop 11/05/18 at 01:31; Status DC Info (CONTRAST GIVEN -- Rx MONITORING) 1 each PRN DAILY PRN MC SEE COMMENTS; Start 11/05/18 at 01:30; Stop 11/07/18 at 01:29; Status DC Labetalol HCl (Normodyne Iv Push) 20 mg 1X ONCE IVP Last administered on 11/05/18at 01:38; Start 11/05/18 at 01:45; Stop 11/05/18 at 01:46; Status DC Aspirin (Aspirin Rectal Supp) 300 mg 1X ONCE MI Last administered on 11/05/18at 02:37; Start 11/05/18 at 02:00; Stop 11/05/18 at 02:01; Status DC Fentanyl Citrate (Fentanyl 2ml Vial) 50 mcg 1X ONCE IV Last administered on 11/05/18at 01:52; Start 11/05/18 at 01:45; Stop 11/05/18 at 01:55; Status DC Nitroglycerin (Nitro-Bid Oint) 0.5 inch 1X ONCE TP Last administered on 11/05/18at 01:51; Start 11/05/18 at 01:45; Stop 11/05/18 at 01:55; Status DC Magnesium Sulfate 50 ml @ 25 mls/hr 1X ONCE IV Last administered on 11/05/18at 02:37; Start 11/05/18 at 02:00; Stop 11/05/18 at 03:59; Status DC Ondansetron HCl (Zofran) 4 mg 1X ONCE IV Last administered on 11/05/18 02:08; Start 11/05/18 at 02:15; Stop 11/05/18 at 02:16; Status DC Labetalol HCl (Normodyne Iv Push) 20 mg 1X ONCE IVP Last administered on 11/05/18at 02:18; Start 11/05/18 at 02:15; Stop 11/05/18 at 02:16; Status DC Ondansetron HCl (Zofran) 4 mg PRN Q8HRS PRN IV NAUSEA/VOMITING Last administered on 11/05/18at 13:50; Start 11/05/18 at 02:45; Stop 11/06/18 at 02:44; Status DC Insulin Human Lispro (HumaLOG) 0-7 UNITS TIDWMEALS SQ Last administered on 11/07/18at 08:55; Start 11/05/18 at 08:00; Stop 11/08/18 at 08:37; Status DC Dextrose (Dextrose 50%-Water Syringe) 12.5 gm PRN Q15MIN PRN IV SEE COMMENTS; Start 11/05/18 at 02:45 Labetalol HCl (Normodyne Iv Push) 10 mg PRN Q2HR PRN IVP ELEVATED BP, SEE COMMENTS Last administered on 11/05/18at 08:10; Start 11/05/18 at 02:45; Stop 11/05/18 at 08:28; Status DC Sodium Chloride 1,000 ml @ 100 mls/hr 1X ONCE IV Last administered on 11/05/18at 03:16; Start 11/05/18 at 03:15; Stop 11/05/18 at 13:14; Status DC Metoclopramide HCl (Reglan Vial) 10 mg 1X ONCE IV Last administered on 11/05/18at 03:37; Start 11/05/18 at 03:30; Stop 11/05/18 at 03:31; Status DC Diphenhydramine HCl (Benadryl) 25 mg 1X ONCE IVP Last administered on 11/05/18at 03:37; Start 11/05/18 at 03:30; Stop 11/05/18 at 03:31; Status DC Nitroglycerin (Nitro-Bid Oint) 0.5 inch Q6HRS TP Last administered on 11/16/18at 06:10; Start 11/05/18 at 12:00; Stop 11/18/18 at 08:34; Status DC Labetalol HCl (Normodyne Iv Push) 20 mg PRN Q2HR PRN IVP HYPERTENSION Last administered on 11/07/18at 03:42; Start 11/05/18 at 08:30 Insulin Glargine (Lantus) 30 units DAILY SQ Last administered on 11/07/18at 08:54; Start 11/05/18 at 09:00; Stop 11/08/18 at 08:37; Status DC Sodium Chloride 1,000 ml @ 100 mls/hr Q10H IV Last administered on 11/05/18 09:20; Start 11/05/18 at 08:30; Stop 11/07/18 at 00:06; Status DC Aspirin (Aspirin Rectal Supp) 300 mg DAILY [place] Last administered on 11/13/18 09:29; Start 11/05/18 at 09:00; Stop 11/13/18 at 12:28; Status DC Lidocaine (Lidoderm) 1 patch DAILY TD Last administered on 11/16/18 09:25; Start 11/05/18 at 09:30 Miscellaneous (Lidoderm Patch Removal) 1 ea QHS MC Last administered on 11/16/18 20:05; Start 11/05/18 at 21:00 Metoprolol Tartrate (Lopressor Vial) 5 mg Q6HRS IVP Last administered on 11/18/18 07:17; Start 11/05/18 at 12:00; Stop 11/18/18 at 08:34; Status DC Enalaprilat (Vasotec Inj) 1.25 mg Q6HRS IVP Last administered on 11/09/18 06:05; Start 11/05/18 at 12:00; Stop 11/09/18 at 11:55; Status DC Cefazolin Sodium 50 ml @ 100 mls/hr Q8HRS IV ; Start 11/05/18 at 14:00; Stop 11/06/18 at 18:00; Status UNV Ketorolac Tromethamine (Toradol 30mg Vial) 30 mg PRN Q6HRS PRN IV PAIN Last administered on 11/09/18at 22:37; Start 11/05/18 at 12:00; Stop 11/10/18 at 11:59; Status DC Cefazolin Sodium (Ancef) 1 gm Q8HRS IVP Last administered on 11/10/18at 06:10; Start 11/05/18 at 13:00; Stop 11/10/18 at 08:34; Status DC Barium Sulfate (Varibar Thin Liquid Apple) 148 gm 1X ONCE PO Last administered on 11/05/18 13:45; Start 11/05/18 at 13:45; Stop 11/05/18 at 13:46; Status DC Amino Acids/ Glycerin/ Electrolytes 1,000 ml @ 60 mls/hr [id number] IV Last administered on 11/18/18at 06:11; Start 11/05/18 at 19:00 Ondansetron HCl (Zofran) 4 mg PRN Q4HRS PRN IV NAUSEA/VOMITING Last administer ed on 11/08/18at 09:45; Start 11/06/18 at 13:00 Clonidine HCl (Catapres Tts-1) 1 patch WEEKLY TD Last administered on 11/07/18at 12:57; Start 11/07/18 at 13:00; Stop 11/10/18 at 08:38; Status DC Enoxaparin Sodium (Lovenox Per Pharmacy Treatment Dosing) 1 each PRN DAILY PRN MC SEE COMMENTS; Start 11/07/18 at 15:15; Stop 11/13/18 at 13:15; Status DC Enoxaparin Sodium (Lovenox 100mg Syringe) 100 mg Q12HR SQ Last administered on 11/10/18at 08:53; Start 11/07/18 at 15:00; Stop 11/10/18 at 14:45; Status DC Insulin Glargine (Lantus) 26 units DAILY SQ ; Start 11/08/18 at 09:00; Stop 11/09/18 at 09:00; Status DC Lorazepam (Ativan Inj) 1 mg PRN Q6HRS PRN IV ANXIETY / AGITATION Last administered on 11/08/18at 09:44; Start 11/08/18 at 08:45 Methylprednisolone Acetate (DEPO-Medrol 40MG VIAL) 40 mg 1X ONCE IM Last administered on 11/08/18at 09:15; Start 11/08/18 at 09:15; Stop 11/08/18 at 09: 16; Status DC Bupivacaine HCl (Sensorcaine-Mpf 0.25%) 10 ml 1X ONCE IJ Last administered on 11/08/18at 09:15; Start 11/08/18 at 09:15; Stop 11/08/18 at 09:16; Status DC Info (Anti-Coagulation Monitoring By Pharmacy) 1 each PRN DAILY PRN MC SEE COMMENTS Last administered on 11/10/18at 10:22; Start 11/08/18 at 12:45 Insulin Glargine (Lantus) 24 units DAILY SQ Last administered on 11/14/18 08:49; Start 11/09/18 at 09:00; Stop 11/14/18 at 10:46; Status DC Enalaprilat (Vasotec Inj) 1.25 mg Q6HRS IVP Last administered on 11/18/18 06:13; Start 11/09/18 at 12:00; Stop 11/18/18 at 08:34; Status DC Fentanyl (Duragesic 25mcg/ Hr Patch) 1 patch Q3DAYS TD Last administered on 11/16/18 09:27; Start 11/10/18 at 09:00 Enoxaparin Sodium (Lovenox 80mg Syringe) 80 mg Q12HR SQ Last administered on 11/13/18 21:15; Start 11/10/18 at 21:00; Stop 11/14/18 at 08:00; Status DC Clotrimazole (Mycelex) 10 mg 5XDAY MM Last administered on 11/16/18 06:16; Start 11/10/18 at 18:00 Insulin Glargine (Lantus) 20 units DAILY SQ Last administered on 11/16/18 12:26; Start 11/15/18 at 09:00 Cefazolin Sodium 1 gm/Dextrose 50 ml @ 100 mls/hr Q12HR IV Last administered on 11/14/18 21:38; Start 11/14/18 at 12:00; Stop 11/15/18 at 03:51; Status DC Cefazolin Sodium (Ancef) 1 gm Q12HR IVP Last administered on 11/15/18 23:04; Start 11/15/18 at 09:00; Stop 11/16/18 at 09:53; Status DC Barium Sulfate (Varibar Thin Liquid Apple) 148 gm 1X ONCE PO Last administered on 11/15/18 11:35; Start 11/15/18 at 10:00; Stop 11/15/18 at 10:01; Status DC Ringer's Solution 1,000 ml @ 50 mls/hr Q20H IV Last administered on 11/16/18 14:35; Start 11/16/18 at 07:00; Stop 11/16/18 at 18:59; Status DC Cefazolin Sodium 50 ml @ 100 mls/hr 1X PREOP ONCE IV Last administered on 11/16/18at 15:19; Start 11/16/18 at 14:45; Stop 11/16/18 at 15:14; Status DC Propofol 20 ml @ As Directed STK-MED ONCE IV ; Start 11/16/18 at 15:17; Stop 11/16/18 at 15:18; Status DC Lidocaine HCl (Lidocaine Pf 2% Vial) 5 ml STK-MED ONCE .ROUTE ; Start 11/16/18 at 15:17; Stop 11/16/18 at 15:18; Status DC Cefoxitin Sodium (Mefoxin) 2 gm 1X PREOP PRN IVP PRIOR TO PROCEDURE; Start 11/16/18 at 18:00; Stop 11/16/18 at 23:00; Status DC Ondansetron HCl (Zofran) 4 mg PRN Q6HRS PRN IV NAUSEA/VOMITING; Start 11/17/18 at 10:15; Stop 11/18/18 at 10:14; Status DC Fentanyl Citrate (Fentanyl 2ml Vial) 25 mcg PRN Q5MIN PRN IV MILD PAIN 1-3; Start 11/17/18 at 10:15; Stop 11/18/18 at 07:23; Status DC Fentanyl Citrate (Fentanyl 2ml Vial) 50 mcg PRN Q5MIN PRN IV MODERATE TO SEVERE PAIN; Start 11/17/18 at 10:15; Stop 11/18/18 at 07:28; Status DC Morphine Sulfate (Morphine Sulfate) 1 mg PRN Q10MIN PRN IV SEVERE PAIN 7-10; Start 11/17/18 at 10:15; Stop 11/18/18 at 10:14; Status DC Ringer's Solution 1,000 ml @ 30 mls/hr Q24H IV ; Start 11/17/18 at 10:08; Stop 11/17/18 at 22:07; Status DC Lidocaine HCl (Xylocaine-Mpf 1% 2ml Vial) 2 ml 1X PRN PRN ID IV START; Start at 10:15; Stop 11/18/18 at 10:14; Status DC Hydromorphone HCl (Dilaudid) 0.5 mg PRN Q10MIN PRN IV SEV PAIN, Second choice; Start 11/17/18 at 10:15; Stop 11/18/18 at 07:24; Status DC Prochlorperazine Edisylate (Compazine) 5 mg PACU PRN PRN IV NAUSEA, MRX1; Start 11/17/18 at 10:15; Stop 11/18/18 at 10:14; Status DC Famotidine (Pepcid Vial) 20 mg QHS IVP Last administered on 11/17/18at 21:00; Start 11/17/18 at 21:00; Stop 11/18/18 at 08:34; Status DC Sevoflurane (Ultane) 60 ml STK-MED ONCE IH ; Start 11/17/18 at 13:12; Stop 11/17/18 at 13:13; Status DC Rocuronium [place] (Zemuron) 50 mg STK-MED ONCE .ROUTE ; Start 11/17/18 at 13:12; Stop 11/17/18 at 13:13; Status DC Fentanyl Citrate (Fentanyl 2ml Vial) 100 mcg STK-MED ONCE .ROUTE ; Start 11/17/18 at 13:12; Stop 11/17/18 at 13:13; Status DC Neostigmine Methylsulfate (Neostigmine Methylsulfate) 5 mg STK-MED ONCE .ROUTE ; Start 11/17/18 at 13:12; Stop 11/17/18 at 13:13; Status DC Midazolam HCl (Versed) 2 mg STK-MED ONCE .ROUTE ; Start 11/17/18 at 13:13; Stop 11/17/18 at 13:14; Status DC Glycopyrrolate (Robinul) 1 mg STK-MED ONCE .ROUTE ; Start 11/17/18 at 13:13; Stop 11/17/18 at 13:14; Status DC Propofol 20 ml @ As Directed STK-MED ONCE IV ; Start 11/17/18 at 13:13; Stop 11/17/18 at 13:14; Status DC Lidocaine HCl (Lidocaine Pf 2% Vial) 5 ml STK-MED ONCE .ROUTE ; Start 11/17/18 at 13:13; Stop 11/17/18 at 13:14; Status DC Dexamethasone Sodium Phosphate (Decadron) 4 mg STK-MED ONCE .ROUTE ; Start 11/17/18 at 13:13; Stop 11/17/18 at 13:14; Status DC Ondansetron HCl (Zofran) 4 mg STK-MED ONCE .ROUTE ; Start 11/17/18 at 13:13; Stop 11/17/18 at 13:14; Status DC Bupivacaine HCl/ Epinephrine Bitart (Sensorcain-Mpf Epi 0.5%-1:206424) 30 ml STK-MED ONCE .ROUTE ; Start 11/17/18 at 14:56; Stop 11/17/18 at 15:56; Status DC Cefoxitin Sodium (Mefoxin) 1 gm STK-MED ONCE IVP ; Start 11/17/18 at 15:18; Stop 11/17/18 at 16:18; Status DC Cefoxitin Sodium (Mefoxin) 1 gm STK-MED ONCE IVP ; Start 11/17/18 at 16:18; Stop 11/17/18 at 16:19; Status DC Fentanyl Citrate (Fentanyl 2ml Vial) 100 mcg STK-MED ONCE .ROUTE ; Start 11/17/18 at 17:05; Stop 11/17/18 at 17:06; Status DC Bupivacaine HCl/ Epinephrine Bitart (Sensorcain-Mpf Epi 0.5%-1:694615) 30 ml STK-MED ONCE INJ Last administered on 11/17/18at 17:07; Start 11/17/18 at 17:07; Stop 11/17/18 at 17:31; Status DC Sodium Chloride (Normal Saline Flush) 3 ml QSHIFT PRN IV AFTER MEDS AND BLOOD DRAWS; Start 11/17/18 at 17:30 Morphine Sulfate (Morphine Sulfate) 1 mg PRN Q1HR PRN IV PAIN; Start 11/17/18 at 17:30 Ondansetron HCl (Zofran) 4 mg PRN Q6HRS PRN IV NAUESA, 1ST CHOICE; Start 11/17/18 at 17:30 Metoprolol Tartrate (Lopressor) 25 mg BID GT ; Start 11/18/18 at 09:00 Losartan Potassium (Cozaar) 50 mg DAILY FT ; Start 11/18/18 at 09:00 Simvastatin (Zocor) 40 mg QHS PO ; Start 11/18/18 at 21:00 Sertraline HCl (Zoloft) 25 mg QHS GT ; Start 11/18/18 at 21:00 Aspirin (Children'S Aspirin) 81 mg DAILYWBKFT PO ; Start 11/18/18 at 18:00 Active Scripts Active Aspirin Ec (Aspirin) 325 Mg Tablet.dr 1 Tab PO DAILY Reported Cephalexin 500 Mg Tablet 1 Tab PO TID 7 Days Prednisone 20 Mg Tablet 1 Tab PO DAILY 3 Days Mag-Oxide (Magnesium Oxide) 400 Mg Tablet 1 Tab PO DAILY Alprazolam 0.5 Mg Tablet 1 Tab PO PRN DAILY PRN Furosemide 20 Mg Tablet 1 Tab PO DAILY Zoloft (Sertraline Hcl) 50 Mg Tablet 50 Mg PO DAILY Omeprazole 40 Mg Capsule.dr 1 Cap PO DAILY Miralax (Polyethylene Glycol 3350) 17 Gm Powd.pack 1 Packet PO PRN DAILY PRN Linzess (Linaclotide) 145 Mcg Capsule 145 Mcg PO PRN DAILY PRN Metformin Hcl 1,000 Mg Tablet 1,000 Mg PO BIDWMEALS Novolog Flexpen (Insulin Aspart) 100 Unit/1 Ml Insuln.pen 0-10 Unit SQ TIDAC Levemir (Insulin Detemir) 100 Unit/1 Ml Vial 45 Unit SQ BID Simvastatin 40 Mg Tablet 40 Mg PO HS Xarelto (Rivaroxaban) 20 Mg Tablet 20 Mg PO DAILY Lyrica (Pregabalin) 200 Mg Capsule 200 Mg PO BID 30 Days Metoprolol Succinate ( Xl ) (Metoprolol Succinate) 25 Mg Tab.er.24h 50 Mg PO HS Losartan-Hctz 100-25 Mg Tab (Losartan/Hydrochlorothiazide) 1 Each Tablet 1 Each PO HS Vitals/I & O Vital Sign - Last 24 Hours 11/17/18 11/17/18 11/17/18 11/17/18 11:00 13:44 15:00 15:51 Temp 97.7 97.2 97.2 97.7 97.2 97.2 Pulse 60 60 60 60 Resp 14 12 B/P (MAP) 141/60 (87) 141/60 146/68 (94) 146/68 Pulse Ox 94 97 97 O2 Delivery Room Air Room Air Room Air O2 Flow Rate 2 11/17/18 11/17/18 11/17/18 11/17/18 17:24 17:24 17:40 17:50 Temp 98.2 98.2 98.2 98.2 98.2 98.2 Pulse 60 60 60 Resp 16 16 20 B/P (MAP) 212/80 166/66 143/58 Pulse Ox 100 99 98 O2 Delivery Mask Simple Mask Simple Mask Room Air O2 Flow Rate 8 8 4 11/17/18 11/17/18 11/17/18 11/17/18 18:54 19:00 20:30 21:05 Temp 97.4 97.4 Pulse 60 61 60 Resp 14 B/P (MAP) 143/58 142/63 (89) 152/73 Pulse Ox 96 O2 Delivery Room Air Room Air 11/17/18 11/18/18 11/18/18 11/18/18 23:00 00:49 01:49 03:00 Temp 98.3 97.6 98.3 97.6 Pulse 60 60 60 59 Resp 16 14 B/P (MAP) 138/67 (90) 149/67 145/65 136/66 (89) Pulse Ox 96 96 O2 Delivery Room Air Room Air 11/18/18 11/18/18 11/18/18 06:13 07:00 07:17 Temp 97.9 97.9 Pulse 60 60 60 Resp 16 B/P (MAP) 162/72 159/79 (105) 138/64 Pulse Ox 94 O2 Delivery Room Air Intake and Output 11/17/18 11/17/18 11/18/18 15:00 23:00 07:00 Intake Total 1000 ml 1408 ml Output Total 400 ml 50 ml 850 ml Balance -400 ml 950 ml 558 ml Nutrition Consultation Dietary Evaluation: Recommendations by RD: PPN/TPN Comments: Continue w/PPN for short-term non-oral nutrition needs REC TF per following pending PEG placement: Glucerna 1.5 bolus feeds, 2 cans TID (6 cans total/day) w/75 ml water flushes before and after each can Expected Outcomes/Goals: New goal: TF via PEG pending placement - not met, goal ongoing Malnutrition Findings: Food and Nutrition Intake (Mod: <75% est energy req 7days Weight Status: Overweight ELISEO DUENAS MD Nov 18, 2018 10:38
[2018-11-18] MEDS: LOSARTAN POTASSIUM 50 MG TABLET. FT SCH (10:51)
[2018-11-18] MEDS: METOPROLOL TART IMMED RELEASE 25 MG TABLET. GT SCH ×2 (10:51→21:33)
[2018-11-18 10:54] VITALS: BP 146/68
--- NOTE | 2018-11-18 14:01 | NUR ---
SS following up with discharge planning. Pt has PEG tube. SS phoned and faxed clinical updates to [facility]. Pt is accepted at [facility] and has insurance authorization. SS will await discharge orders signed by physician and will proceed accordingly with discharge.
[2018-11-18] MEDS ORDERED: ACETAMINOPHEN 650 MG/20.3 ML SOLUTION. PEG PRN (14:15)
[2018-11-18 15:00] VITALS: BP 126/59
--- NOTE | 2018-11-18 15:00 | NUR ---
Patient sitting up in chair watching television. Saline lock has been discontinued, as was painful with flushing, and patient requested not to have restarted. Order to dc SL was received from Dr Gannon. Patient has tolerated initial bolus feed, flushes. Patient has told nurse that he will not be smoking anymore. Related that he had smoked for 50 years.
--- NOTE | 2018-11-18 15:53 | NUR ---
Wound Care Wound care consult for reddened area to right ankle. Pt has red, swollen tight, bruised area to right lateral ankle that wraps around ankle and foot. No open areas noted, pt unable to recall how it happened. Pt also has indurated bruised areas to bilateral upper buttocks and is unable to recall how they occurred. Discussed with Ana Rosa KWON. WC will continue to follow for possible changes. PT left on his back laying flat per his request. Pt educated on PU prevention.
[2018-11-18] MEDS: ASPIRIN CHEWABLE 81 MG TABLET. PO SCH (17:11)
--- NOTE | 2018-11-18 17:12 | PDOC ---
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) Status: Acute (2) Cellulitis of foot, right Status: Acute (3) Dizziness Status: Acute (4) Dysphagia Status: Acute (5) Hemiparesis affecting right side as late effect of cerebrovascular accident (CVA) Status: Acute (6) Hypertensive encephalopathy Status: Acute (7) Hypertensive urgency Status: Acute (8) Hypomagnesemia Status: Acute (9) Left thalamic infarction Status: Acute (10) Leukocytosis Status: Acute (11) Malignant essential hypertension Status: Acute (12) Metabolic encephalopathy Status: Acute (13) Nausea & vomiting Status: Acute (14) Persistent atrial fibrillation Status: Acute (15) Right maxillary sinusitis Status: Acute (16) Vomiting Status: Acute (17) Weakness Status: Acute Subacute left thalamus infarct, 1.2 cm. Carotid artery stenosis, left side 50-69%. 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 Dysphagia. S/P Pacemaker. S/P PEG Plan ASA 300 mg rectal, change to PO when PEG placed No MRI due to pacemaker. SNU Subjective no complaints Objective Vital Signs Date Time Temp Pulse Resp B/P (MAP) Pulse Ox O2 Delivery O2 Flow Rate FiO2 11/18/18 15:00 97.6 60 16 126/59 (81) 98 Room Air 97.6 11/17/18 17:40 4 Intake and Output 11/18/18 07:00 Intake Total 2408 ml Output Total 1300 ml Balance 1108 ml Intake Oral 0 ml IV Total 2408 ml Output Urine Total 1250 ml Estimated Blood Loss 50 ml PHYSICAL EXAM Alert. Oriented to time, place and person. PERRL. EOMI. CN: right central facial weakness, otherwise no focal findings. Muscle tone: normal. Muscle strength: 4/5 right hemiparesis, normal strength on left DTR: 1+ Plantar reflex: flexor Gait: not examined in bed. Sensory exam: no abnormal findings. Cerebellar: Dysmetric on right. Review of Relevant I have reviewed the following items sara (where applicable) has been applied. Labs Laboratory Tests Test 11/16/18 18:54 11/16/18 20:48 11/17/18 07:40 11/17/18 12:04 Prothrombin Time 16.0 SEC (11.7-14.0) Prothromb Time International Ratio 1.3 (0.8-1.1) Glucose (Fingerstick) 127 mg/dL (70-99) 145 mg/dL (70-99) 156 mg/dL (70-99) Test 11/17/18 17:35 11/17/18 20:50 11/18/18 05:51 11/18/18 08:04 Glucose (Fingerstick) 113 mg/dL (70-99) 180 mg/dL (70-99) 205 mg/dL (70-99) Urine Collection Type Unknown Urine Color Lena Urine Clarity Clear Urine pH 6.0 Urine Specific [place] 1.020 Urine Protein mg/dL (NEG-TRACE) Urine Glucose (UA) mg/dL (NEG) Urine Ketones (Stick) mg/dL (NEG) Urine Blood (NEG) Urine Nitrite (NEG) Urine Bilirubin (NEG) Urine Urobilinogen Dipstick mg/dL (0.2 mg/dL) Urine Leukocyte Esterase (NEG) Urine RBC Occ /HPF (0-2) Urine WBC Occ /HPF (0-4) Urine Squamous Epithelial Cells Occ /LPF Urine Bacteria 0 /HPF (0-FEW) Test 11/18/18 08:20 11/18/18 11:54 11/18/18 12:18 White Blood Count 10.2 x10^3/uL (4.0-11.0) Red Blood Count 4.61 x10^6/uL (4.30-5.70) Hemoglobin 14.2 g/dL (13.0-17.5) Hematocrit 41.0 % (39.0-53.0) Mean Corpuscular Volume 89 fL (79-100) Mean Corpuscular Hemoglobin 31 pg (25-35) Mean Corpuscular Hemoglobin Concent 35 g/dL (31-37) Red Cell Distribution Width 14.0 % (11.5-14.5) Platelet Count 199 x10^3/uL (140-400) Neutrophils (%) (Auto) 85 % (31-73) Lymphocytes (%) (Auto) 8 % (24-48) Monocytes (%) (Auto) 7 % (0-9) Eosinophils (%) (Auto) 0 % (0-3) Basophils (%) (Auto) 0 % (0-3) Neutrophils # (Auto) 8.6 x10^3uL (1.8-7.7) Lymphocytes # (Auto) 0.8 x10^3/uL (1.0-4.8) Monocytes # (Auto) 0.7 x10^3/uL (0.0-1.1) Eosinophils # (Auto) 0.0 x10^3/uL (0.0-0.7) Basophils # (Auto) 0.0 x10^3/uL (0.0-0.2) Sodium Level 133 mmol/L (136-145) Potassium Level 4.6 mmol/L (3.5-5.1) Chloride Level 100 mmol/L (98-107) Carbon Dioxide Level 24 mmol/L (21-32) Anion Gap 9 (6-14) Blood Urea Nitrogen 18 mg/dL (8-26) Creatinine 0.6 mg/dL (0.7-1.3) Estimated GFR (Cockcroft-Gault) 134.8 Glucose Level 203 mg/dL (70-99) Calcium Level 8.4 mg/dL (8.5-10.1) Glucose (Fingerstick) 191 mg/dL (70-99) 172 mg/dL (70-99) Laboratory Tests Test 11/17/18 17:35 11/17/18 20:50 11/18/18 05:51 11/18/18 08:04 Glucose (Fingerstick) 113 mg/dL (70-99) 180 mg/dL (70-99) 205 mg/dL (70-99) Urine Collection Type Unknown Urine Color Lena Urine Clarity Clear Urine pH 6.0 Urine Specific [place] 1.020 Urine Protein mg/dL (NEG-TRACE) Urine Glucose (UA) mg/dL (NEG) Urine Ketones (Stick) mg/dL (NEG) Urine Blood (NEG) Urine Nitrite (NEG) Urine Bilirubin (NEG) Urine Urobilinogen Dipstick mg/dL (0.2 mg/dL) Urine Leukocyte Esterase (NEG) Urine RBC Occ /HPF (0-2) Urine WBC Occ /HPF (0-4) Urine Squamous Epithelial Cells Occ /LPF Urine Bacteria 0 /HPF (0-FEW) Test 11/18/18 08:20 11/18/18 11:54 11/18/18 12:18 White Blood Count 10.2 x10^3/uL (4.0-11.0) Red Blood Count 4.61 x10^6/uL (4.30-5.70) Hemoglobin 14.2 g/dL (13.0-17.5) Hematocrit 41.0 % (39.0-53.0) Mean Corpuscular Volume 89 fL (79-100) Mean Corpuscular Hemoglobin 31 pg (25-35) Mean Corpuscular Hemoglobin Concent 35 g/dL (31-37) Red Cell Distribution Width 14.0 % (11.5-14.5) Platelet Count 199 x10^3/uL (140-400) Neutrophils (%) (Auto) 85 % (31-73) Lymphocytes (%) (Auto) 8 % (24-48) Monocytes (%) (Auto) 7 % (0-9) Eosinophils (%) (Auto) 0 % (0-3) Basophils (%) (Auto) 0 % (0-3) Neutrophils # (Auto) 8.6 x10^3uL (1.8-7.7) Lymphocytes # (Auto) 0.8 x10^3/uL (1.0-4.8) Monocytes # (Auto) 0.7 x10^3/uL (0.0-1.1) Eosinophils # (Auto) 0.0 x10^3/uL (0.0-0.7) Basophils # (Auto) 0.0 x10^3/uL (0.0-0.2) Sodium Level 133 mmol/L (136-145) Potassium Level 4.6 mmol/L (3.5-5.1) Chloride Level 100 mmol/L (98-107) Carbon Dioxide Level 24 mmol/L (21-32) Anion Gap 9 (6-14) Blood Urea Nitrogen 18 mg/dL (8-26) Creatinine 0.6 mg/dL (0.7-1.3) Estimated GFR (Cockcroft-Gault) 134.8 Glucose Level 203 mg/dL (70-99) Calcium Level 8.4 mg/dL (8.5-10.1) Glucose (Fingerstick) 191 mg/dL (70-99) 172 mg/dL (70-99) Microbiology 11/05/18 Urine Culture - Final, Complete 11/05/18 Urine Culture Result 1 (MERVAT) - Final, Complete Medications Current Medications Ondansetron HCl (Zofran) 4 mg 1X ONCE IV Last administered on 11/05/18 01:41; Start 11/05/18 at 01:00; Stop 11/05/18 at 01:01; Status DC Famotidine (Pepcid Vial) 20 mg 1X ONCE IVP Last administered on 11/05/18at 01: 41; Start 11/05/18 at 01:00; Stop 11/05/18 at 01:01; Status DC Sodium Chloride 1,000 ml @ 1,000 mls/hr 1X ONCE IV Last administered on 11/05/18at 01:38; Start 11/05/18 at 01:15; Stop 11/05/18 at 02:14; Status DC Iohexol (Omnipaque 300 Mg/ml) 75 ml 1X ONCE IV Last administered on 11/05/18at 01:32; Start 11/05/18 at 01:30; Stop 11/05/18 at 01:31; Status DC Info (CONTRAST GIVEN -- Rx MONITORING) 1 each PRN DAILY PRN MC SEE COMMENTS; Start 11/05/18 at 01:30; Stop 11/07/18 at 01:29; Status DC Labetalol HCl (Normodyne Iv Push) 20 mg 1X ONCE IVP Last administered on 11/05/18at 01:38; Start 11/05/18 at 01:45; Stop 11/05/18 at 01:46; Status DC Aspirin (Aspirin Rectal Supp) 300 mg 1X ONCE AR Last administered on 11/05/18at 02:37; Start 11/05/18 at 02:00; Stop 11/05/18 at 02:01; Status DC Fentanyl Citrate (Fentanyl 2ml Vial) 50 mcg 1X ONCE IV Last administered on 11/05/18at 01:52; Start 11/05/18 at 01:45; Stop 11/05/18 at 01:55; Status DC Nitroglycerin (Nitro-Bid Oint) 0.5 inch 1X ONCE TP Last administered on 11/05/18at 01:51; Start 11/05/18 at 01:45; Stop 11/05/18 at 01:55; Status DC Magnesium Sulfate 50 ml @ 25 mls/hr 1X ONCE IV Last administered on 11/05/18at 02:37; Start 11/05/18 at 02:00; Stop 11/05/18 at 03:59; Status DC Ondansetron HCl (Zofran) 4 mg 1X ONCE IV Last administered on 11/05/18at 02:08; Start 11/05/18 at 02:15; Stop 11/05/18 at 02:16; Status DC Labetalol HCl (Normodyne Iv Push) 20 mg 1X ONCE IVP Last administered on 11/05/18at 02:18; Start 11/05/18 at 02:15; Stop 11/05/18 at 02:16; Status DC Ondansetron HCl (Zofran) 4 mg PRN Q8HRS PRN IV NAUSEA/VOMITING Last administered on 11/05/18at 13:50; Start 11/05/18 at 02:45; Stop 11/06/18 at 02:44; Status DC Insulin Human Lispro (HumaLOG) 0-7 UNITS TIDWMEALS SQ Last administered on 11/07/18at 08:55; Start 11/05/18 at 08:00; Stop 11/08/18 at 08:37; Status DC Dextrose (Dextrose 50%-Water Syringe) 12.5 gm PRN Q15MIN PRN IV SEE COMMENTS; Start 11/05/18 at 02:45 Labetalol HCl (Normodyne Iv Push) 10 mg PRN Q2HR PRN IVP ELEVATED BP, SEE COMMENTS Last administered on 11/05/18at 08:10; Start 11/05/18 at 02:45; Stop 11/05/18 at 08:28; Status DC Sodium Chloride 1,000 ml @ 100 mls/hr 1X ONCE IV Last administered on 11/05/18at 03:16; Start 11/05/18 at 03:15; Stop 11/05/18 at 13:14; Status DC Metoclopramide HCl (Reglan Vial) 10 mg 1X ONCE IV Last administered on 11/05/18at 03:37; Start 11/05/18 at 03:30; Stop 11/05/18 at 03:31; Status DC Diphenhydramine HCl (Benadryl) 25 mg 1X ONCE IVP Last administered on 11/05/18at 03:37; Start 11/05/18 at 03:30; Stop 11/05/18 at 03:31; Status DC Nitroglycerin (Nitro-Bid Oint) 0.5 inch Q6HRS TP Last administered on 11/16/18at 06:10; Start 11/05/18 at 12:00; Stop 11/18/18 at 08:34; Status DC Labetalol HCl (Normodyne Iv Push) 20 mg PRN Q2HR PRN IVP HYPERTENSION Last administered on 11/07/18 03:42; Start 11/05/18 at 08:30 Insulin Glargine (Lantus) 30 units DAILY SQ Last administered on 11/07/18 08:54; Start 11/05/18 at 09:00; Stop 11/08/18 at 08:37; Status DC Sodium Chloride 1,000 ml @ 100 mls/hr Q10H IV Last administered on 11/05/18 09:20; Start 11/05/18 at 08:30; Stop 11/07/18 at 00:06; Status DC Aspirin (Aspirin Rectal Supp) 300 mg DAILY AR Last administered on 11/13/18 09:29; Start 11/05/18 at 09:00; Stop 11/13/18 at 12:28; Status DC Lidocaine (Lidoderm) 1 patch DAILY TD Last administered on 11/16/18 09:25; Start 11/05/18 at 09:30 Miscellaneous (Lidoderm Patch Removal) 1 ea QHS MC Last administered on 11/16/18 20:05; Start 11/05/18 at 21:00 Metoprolol Tartrate (Lopressor Vial) 5 mg Q6HRS IVP Last administered on 11/18/18 07:17; Start 11/05/18 at 12:00; Stop 11/18/18 at 08:34; Status DC Enalaprilat (Vasotec Inj) 1.25 mg Q6HRS IVP Last administered on 11/09/18 06:05; Start 11/05/18 at 12:00; Stop 11/09/18 at 11:55; Status DC Cefazolin Sodium 50 ml @ 100 mls/hr Q8HRS IV ; Start 11/05/18 at 14:00; Stop 11/06/18 at 18:00; Status UNV Ketorolac Tromethamine (Toradol 30mg Vial) 30 mg PRN Q6HRS PRN IV PAIN Last administered on 11/09/18at 22:37; Start 11/05/18 at 12:00; Stop 11/10/18 at 11:59; Status DC Cefazolin Sodium (Ancef) 1 gm Q8HRS IVP Last administered on 11/10/18 06:10; Start 11/05/18 at 13:00; Stop 11/10/18 at 08:34; Status DC Barium Sulfate (Varibar Thin Liquid Apple) 148 gm 1X ONCE PO Last administered on 11/05/18at 13:45; Start 11/05/18 at 13:45; Stop 11/05/18 at 13:46; Status DC Amino Acids/ Glycerin/ Electrolytes 1,000 ml @ 60 mls/hr [id number] IV Last administered on 11/18/18at 06:11; Start 11/05/18 at 19:00 Ondansetron HCl (Zofran) 4 mg PRN Q4HRS PRN IV NAUSEA/VOMITING Last administ ered on 11/08/18at 09:45; Start 11/06/18 at 13:00; Stop 11/18/18 at 12:50; Status DC Clonidine HCl (Catapres Tts-1) 1 patch WEEKLY TD Last administered on 11/07/18at 12:57; Start 11/07/18 at 13:00; Stop 11/10/18 at 08:38; Status DC Enoxaparin Sodium (Lovenox Per Pharmacy Treatment Dosing) 1 each PRN DAILY PRN MC SEE COMMENTS; Start 11/07/18 at 15:15; Stop 11/13/18 at 13:15; Status DC Enoxaparin Sodium (Lovenox 100mg Syringe) 100 mg Q12HR SQ Last administered on 11/10/18at 08:53; Start 11/07/18 at 15:00; Stop 11/10/18 at 14:45; Status DC Insulin Glargine (Lantus) 26 units DAILY SQ ; Start 11/08/18 at 09:00; Stop 11/09/18 at 09:00; Status DC Lorazepam (Ativan Inj) 1 mg PRN Q6HRS PRN IV ANXIETY / AGITATION Last administered on 11/08/18at 09:44; Start 11/08/18 at 08:45 Methylprednisolone Acetate (DEPO-Medrol 40MG VIAL) 40 mg 1X ONCE IM Last administered on 11/08/18at 09:15; Start 11/08/18 at 09:15; Stop 11/08/18 at 09:16; Status DC Bupivacaine HCl (Sensorcaine-Mpf 0.25%) 10 ml 1X ONCE IJ Last administered on 11/08/18at 09:15; Start 11/08/18 at 09:15; Stop 11/08/18 at 09:16; Status DC Info (Anti-Coagulation Monitoring By Pharmacy) 1 each PRN DAILY PRN MC SEE COMMENTS Last administered on 11/10/18at 10:22; Start 11/08/18 at 12:45 Insulin Glargine (Lantus) 24 units DAILY SQ Last administered on 11/14/18 08:49; Start 11/09/18 at 09:00; Stop 11/14/18 at 10:46; Status DC Enalaprilat (Vasotec Inj) 1.25 mg Q6HRS IVP Last administered on 11/18/18 06:13; Start 11/09/18 at 12:00; Stop 11/18/18 at 08:34; Status DC Fentanyl (Duragesic 25mcg/ Hr Patch) 1 patch Q3DAYS TD Last administered on 11/16/18 09:27; Start 11/10/18 at 09:00 Enoxaparin Sodium (Lovenox 80mg Syringe) 80 mg Q12HR SQ Last administered on 11/13/18 21:15; Start 11/10/18 at 21:00; Stop 11/14/18 at 08:00; Status DC Clotrimazole (Mycelex) 10 mg 5XDAY MM Last administered on 11/16/18 06:16; Start 11/10/18 at 18:00 Insulin Glargine (Lantus) 20 units DAILY SQ Last administered on 11/16/18 12:26; Start 11/15/18 at 09:00; Stop 11/18/18 at 12:39; Status DC Cefazolin Sodium 1 gm/Dextrose 50 ml @ 100 mls/hr Q12HR IV Last administered on 11/14/18at 21:38; Start 11/14/18 at 12:00; Stop 11/15/18 at 03:51; Status DC Cefazolin Sodium (Ancef) 1 gm Q12HR IVP Last administered on 11/15/18at 23:04; Start 11/15/18 at 09:00; Stop 11/16/18 at 09:53; Status DC Barium Sulfate (Varibar Thin Liquid Apple) 148 gm 1X ONCE PO Last administered on 11/15/18at 11:35; Start 11/15/18 at 10:00; Stop 11/15/18 at 10:01; Status DC Ringer's Solution 1,000 ml @ 50 mls/hr Q20H IV Last administered on 11/16/18at 14:35; Start 11/16/18 at 07:00; Stop 11/16/18 at 18:59; Status DC Cefazolin Sodium 50 ml @ 100 mls/hr 1X PREOP ONCE IV Last administered on 11/16/18at 15:19; Start 11/16/18 at 14:45; Stop 11/16/18 at 15:14; Status DC Propofol 20 ml @ As Directed STK-MED ONCE IV ; Start 11/16/18 at 15:17; Stop 11/16/18 at 15:18; Status DC Lidocaine HCl (Lidocaine Pf 2% Vial) 5 ml STK-MED ONCE .ROUTE ; Start 11/16/18 at 15:17; Stop 11/16/18 at 15:18; Status DC Cefoxitin Sodium (Mefoxin) 2 gm 1X PREOP PRN IVP PRIOR TO PROCEDURE; Start 11/16/18 at 18:00; Stop 11/16/18 at 23:00; Status DC Ondansetron HCl (Zofran) 4 mg PRN Q6HRS PRN IV NAUSEA/VOMITING; Start 11/17/18 at 10:15; Stop 11/18/18 at 10:14; Status DC Fentanyl Citrate (Fentanyl 2ml Vial) 25 mcg PRN Q5MIN PRN IV MILD PAIN 1-3; Start 11/17/18 at 10:15; Stop 11/18/18 at 07:23; Status DC Fentanyl Citrate (Fentanyl 2ml Vial) 50 mcg PRN Q5MIN PRN IV MODERATE TO SEVERE PAIN; Start 11/17/18 at 10:15; Stop 11/18/18 at 07:28; Status DC Morphine Sulfate (Morphine Sulfate) 1 mg PRN Q10MIN PRN IV SEVERE PAIN 7-10; Start 11/17/18 at 10:15; Stop 11/18/18 at 10:14; Status DC Ringer's Solution 1,000 ml @ 30 mls/hr Q24H IV ; Start 11/17/18 at 10:08; Stop 11/17/18 at 22:07; Status DC Lidocaine HCl (Xylocaine-Mpf 1% 2ml Vial) 2 ml 1X PRN PRN ID IV START; Start 11/17/18 at 10:15; Stop 11/18/18 at 10:14; Status DC Hydromorphone HCl (Dilaudid) 0.5 mg PRN Q10MIN PRN IV SEV PAIN, Second choice; Start 11/17/18 at 10:15; Stop 11/18/18 at 07:24; Status DC Prochlorperazine Edisylate (Compazine) 5 mg PACU PRN PRN IV NAUSEA, MRX1; Start 11/17/18 at 10:15; Stop 11/18/18 at 10:14; Status DC Famotidine (Pepcid Vial) 20 mg QHS IVP Last administered on 11/17/18at 21:00; Start 11/17/18 at 21:00; Stop 11/18/18 at 08:34; Status DC Sevoflurane (Ultane) 60 ml STK-MED ONCE IH ; Start 11/17/18 at 13:12; Stop 11/17/18 at 13:13; Status DC Rocuronium [place] (Zemuron) 50 mg STK-MED ONCE .ROUTE ; Start 11/17/18 at 13:12; Stop 11/17/18 at 13:13; Status DC Fentanyl Citrate (Fentanyl 2ml Vial) 100 mcg STK-MED ONCE .ROUTE ; Start 11/17/18 at 13:12; Stop 11/17/18 at 13:13; Status DC Neostigmine Methylsulfate (Neostigmine Methylsulfate) 5 mg STK-MED ONCE .ROUTE ; Start 11/17/18 at 13:12; Stop 11/17/18 at 13:13; Status DC Midazolam HCl (Versed) 2 mg STK-MED ONCE .ROUTE ; Start 11/17/18 at 13:13; Stop 11/17/18 at 13:14; Status DC Glycopyrrolate (Robinul) 1 mg STK-MED ONCE .ROUTE ; Start 11/17/18 at 13:13; Stop 11/17/18 at 13:14; Status DC Propofol 20 ml @ As Directed STK-MED ONCE IV ; Start 11/17/18 at 13:13; Stop 11/17/18 at 13:14; Status DC Lidocaine HCl (Lidocaine Pf 2% Vial) 5 ml STK-MED ONCE .ROUTE ; Start 11/17/18 at 13:13; Stop 11/17/18 at 13:14; Status DC Dexamethasone Sodium Phosphate (Decadron) 4 mg STK-MED ONCE .ROUTE ; Start 11/17/18 at 13:13; Stop 11/17/18 at 13:14; Status DC Ondansetron HCl (Zofran) 4 mg STK-MED ONCE .ROUTE ; Start 11/17/18 at 13:13; Stop 11/17/18 at 13:14; Status DC Bupivacaine HCl/ Epinephrine Bitart (Sensorcain-Mpf Epi 0.5%-1:[id number]) 30 ml STK-MED ONCE .ROUTE ; Start 11/17/18 at 14:56; Stop 11/17/18 at 15:56; Status DC Cefoxitin Sodium (Mefoxin) 1 gm STK-MED ONCE IVP ; Start 11/17/18 at 15:18; Stop 11/17/18 at 16:18; Status DC Cefoxitin Sodium (Mefoxin) 1 gm STK-MED ONCE IVP ; Start 11/17/18 at 16:18; Stop 11/17/18 at 16:19; Status DC Fentanyl Citrate (Fentanyl 2ml Vial) 100 mcg STK-MED ONCE .ROUTE ; Start 11/17/18 at 17:05; Stop 11/17/18 at 17:06; Status DC Bupivacaine HCl/ Epinephrine Bitart (Sensorcain-Mpf Epi 0.5%-1:[id number]) 30 ml STK-MED ONCE INJ Last administered on 11/17/18at 17:07; Start 11/17/18 at 17:07; Stop 11/17/18 at 17:31; Status DC Sodium Chloride (Normal Saline Flush) 3 ml QSHIFT PRN IV AFTER MEDS AND BLOOD DRAWS; Start 11/17/18 at 17:30 Morphine Sulfate (Morphine Sulfate) 1 mg PRN Q1HR PRN IV PAIN; Start 11/17/18 at 17:30 Ondansetron HCl (Zofran) 4 mg PRN Q6HRS PRN IV NAUESA, 1ST CHOICE; Start 11/17/18 at 17:30 Metoprolol Tartrate (Lopressor) 25 mg BID GT Last administered on 11/18/18at 10:51; Start 11/18/18 at 09:00 Losartan Potassium (Cozaar) 50 mg DAILY FT Last administered on 11/18/18at 10:51; Start 11/18/18 at 09:00 Simvastatin (Zocor) 40 mg QHS PO ; Start 11/18/18 at 21:00 Sertraline HCl (Zoloft) 25 mg QHS GT ; Start 11/18/18 at 21:00 Aspirin (Children'S Aspirin) 81 mg DAILYWBKFT PO ; Start 11/18/18 at 18:00 Insulin Glargine (Lantus) 20 units HS SQ ; Start 11/18/18 at 21:00 Acetaminophen (Tylenol) 650 mg PRN QID PRN PEG MILD PAIN / TEMP Last administered on 11/18/18at 16:03; Start 11/18/18 at 14:15 Active Scripts Active Aspirin Ec (Aspirin) 325 Mg Tablet.dr 1 Tab PO DAILY Reported Cephalexin 500 Mg Tablet 1 Tab PO TID 7 Days Prednisone 20 Mg Tablet 1 Tab PO DAILY 3 Days Mag-Oxide (Magnesium Oxide) 400 Mg Tablet 1 Tab PO DAILY Alprazolam 0.5 Mg Tablet 1 Tab PO PRN DAILY PRN Furosemide 20 Mg Tablet 1 Tab PO DAILY Zoloft (Sertraline Hcl) 50 Mg Tablet 50 Mg PO DAILY Omeprazole 40 Mg Capsule.dr 1 Cap PO DAILY Miralax (Polyethylene Glycol 3350) 17 Gm Powd.pack 1 Packet PO PRN DAILY PRN Linzess (Linaclotide) 145 Mcg Capsule 145 Mcg PO PRN DAILY PRN Metformin Hcl 1,000 Mg Tablet 1,000 Mg PO BIDWMEALS Novolog Flexpen (Insulin Aspart) 100 Unit/1 Ml Insuln.pen 0-10 Unit SQ TIDAC Levemir (Insulin Detemir) 100 Unit/1 Ml Vial 45 Unit SQ BID Simvastatin 40 Mg Tablet 40 Mg PO HS Xarelto (Rivaroxaban) 20 Mg Tablet 20 Mg PO DAILY Lyrica (Pregabalin) 200 Mg Capsule 200 Mg PO BID 30 Days Metoprolol Succinate ( Xl ) (Metoprolol Succinate) 25 Mg Tab.er.24h 50 Mg PO HS Losartan-Hctz 100-25 Mg Tab (Losartan/Hydrochlorothiazide) 1 Each Tablet 1 Each PO HS Vitals/I & O Vital Sign - Last 24 Hours 11/17/18 11/17/18 11/17/18 11/17/18 17:24 17:24 17:40 17:50 Temp 98.2 98.2 98.2 98.2 98.2 98.2 Pulse 60 60 60 Resp 16 16 20 B/P (MAP) 212/80 166/66 143/58 Pulse Ox 100 99 98 O2 Delivery Mask Simple Mask Simple Mask Room Air O2 Flow Rate 8 8 4 11/17/18 11/17/18 11/17/18 11/17/18 18:54 19:00 20:30 21:05 Temp 97.4 97.4 Pulse 60 61 60 Resp 14 B/P (MAP) 143/58 142/63 (89) 152/73 Pulse Ox 96 O2 Delivery Room Air Room Air 11/17/18 11/18/18 11/18/18 11/18/18 23:00 00:49 01:49 03:00 Temp 98.3 97.6 98.3 97.6 Pulse 60 60 60 59 Resp 16 14 B/P (MAP) 138/67 (90) 149/67 145/65 136/66 (89) Pulse Ox 96 96 O2 Delivery Room Air Room Air 11/18/18 11/18/18 11/18/18 11/18/18 06:13 07:00 07:17 08:00 Temp 97.9 97.9 Pulse 60 60 60 Resp 16 B/P (MAP) 162/72 159/79 (105) 138/64 Pulse Ox 94 O2 Delivery Room Air Room Air 11/18/18 11/18/18 11/18/18 11/18/18 10:51 10:51 10:54 15:00 Temp 97.6 97.6 97.6 97.6 Pulse 60 60 60 60 Resp 16 16 B/P (MAP) 138/64 138/64 146/68 (94) 126/59 (81) Pulse Ox 97 98 O2 Delivery Room Air Room Air Intake and Output 11/17/18 11/17/18 11/18/18 15:00 23:00 07:00 Intake Total 1000 ml 1408 ml Output Total 400 ml 50 ml 850 ml Balance -400 ml 950 ml 558 ml DAI SMITH MD Nov 18, 2018 17:12
[2018-11-18 19:55] VITALS: BP 126/58
[2018-11-18] MEDS ORDERED: SIMVASTATIN 40 MG TABLET. PO SCH (21:00)
[2018-11-18] MEDS: PATCH REMOVAL. MC SCH (21:00)
[2018-11-18] MEDS ORDERED: INSULIN GLARGINE 300 UNITS/3 ML INSULN.PEN. SQ SCH (21:00)
[2018-11-18] MEDS ORDERED: SERTRALINE 25 MG TABLET. GT SCH (21:00)
[2018-11-18 22:41] VITALS: BP 123/57
[2018-11-19 03:18] VITALS: BP 147/70
[2018-11-19] MEDS: CLOTRIMAZOLE 10 MG TROCHE. MM SCH ×2 (06:00→09:34)
[2018-11-19 07:00] VITALS: BP 138/67
[2018-11-19] MEDS ORDERED: INSULIN GLARGINE 300 UNITS/3 ML INSULN.PEN. SQ ONE (08:45)
--- NOTE | 2018-11-19 08:45 | PDOC ---
Provider Note Provider Note [id number] DELROY BASS MD Nov 19, 2018 08:45
[2018-11-19] MEDS: LIDOCAINE (700MG/PATCH) PATCH. TD SCH (09:00)
--- NOTE | 2018-11-19 09:22 | PDOC ---
Subjective: Subjective: Walking the [place] w/ therapy w/ walker - says doing better. Objective: Vital Signs: Vital Signs Date Time Temp Pulse Resp B/P (MAP) Pulse Ox O2 Delivery O2 Flow Rate FiO2 11/19/18 07:00 97.4 60 18 138/67 (90) 96 Room Air 97.4 Labs: Laboratory Tests Test 11/18/18 11:54 11/18/18 12:18 11/18/18 20:55 11/19/18 07:43 Glucose (Fingerstick) 191 mg/dL 172 mg/dL 215 mg/dL 135 mg/dL PE: GEN: NAD - walking w/ therapy LUNGS: room air NEURO/PSYCH: A & O �3 A/P: CVA, s/p surgical G tube -- DC per primary. TAMIKO RODRIGUEZ Nov 19, 2018 09:22
[2018-11-19] MEDS: LOSARTAN POTASSIUM 50 MG TABLET. FT SCH (09:35)
[2018-11-19] MEDS: METOPROLOL TART IMMED RELEASE 25 MG TABLET. GT SCH (09:35)
[2018-11-19] MEDS: ASPIRIN CHEWABLE 81 MG TABLET. PO SCH (09:35)
[2018-11-19] MEDS: fentaNYL 25MCG/HR PATCH 1 PATCH PATCH.TD72 TD SCH (09:36)
--- NOTE | 2018-11-19 09:48 | DS ---
DATE OF DISCHARGE: 11/19/2018 HOSPITAL SUMMARY: A 68-year-old white male with poorly controlled diabetes and hypertension and hyperlipidemia, who came in with aphasia and right-sided weakness, primarily in the face and arm consistent with acute CVA. CT showed no acute change and no bleeding. Chest x-ray was clear, as was the foot x-ray. Carotid Dopplers were generally unremarkable. Repeat CT showed a subacute 12 mm infarct in the left thalamus consistent with his current medical status as well as old infarcts in the left basal ganglia and in the occipital area and maxillary sinusitis. MRI could not be done because of pacemaker in place. Laboratory studies were all unremarkable with a high hemoglobin initially of 18, came down to 14. Blood sugars remained well controlled on low-dose insulin. Cholesterol was low at 110, HDL 24, LDL 61, on statin therapy. Echocardiogram showed no sign of thrombus or PFO that could account for stroke. He was treated medically with IV hypertensive meds, and as his swallowing did not improve despite therapy and swallow evaluation, he finally decided to undergo endoscopic feeding tube placement. This could not be accomplished endoscopically, and Dr. Martinez took him to surgery and performed a percutaneous gastrostomy. This is functioning well, and he is able to be discharged and recovers as an outpatient at this point. His current neurologic status is improved with moderate right arm weakness and very mild aphasia, and his right leg is relatively strong. FINAL DIAGNOSES: 1. Acute cerebrovascular accident of the left thalamus with secondary aphasia, dysphagia and right-sided hemiparesis. 2. Poorly controlled type 2 diabetes mellitus. 3. Hypertension. 4. Nonsurgical left carotid stenosis. OPERATIONS AND PROCEDURES: EGD and percutaneous gastrostomy placement surgically. CONSULTATIONS: Dr. Martinez, Dr. Nicole, Dr. Mack and Dr. Cummings and Dr. Rider. DISPOSITION: He is back on Xarelto for his chronic atrial fibrillation as well as aspirin 81 mg and all meds remain the same. Insulin will be low dose 20 units for now, but will need higher amounts as he is back on tube feedings and insulin needs are likely to change. Prognosis is guarded and hopefully his speech and swallowing will improve enough where he can resume his p.o. intake. DELROY BASS MD DR: RIZWANA/gary JOB#: [id number] / [id number]
--- NOTE | 2018-11-19 09:48 | PDOC ---
SURGICAL PROGRESS NOTE Subjective tolerating TF no stool, however + flatus Vital Signs Vital Signs Date Time Temp Pulse Resp B/P (MAP) Pulse Ox O2 Delivery O2 Flow Rate FiO2 11/19/18 07:00 97.4 60 18 138/67 (90) 96 Room Air 97.4 I&O Intake and Output 11/19/18 06:59 Intake Total 1595 ml Output Total 1520 ml Balance 75 ml Intake Oral 0 ml IV Total 475 ml Tube Feeding 720 ml Other 400 ml Output Urine Total 1460 ml Gastric Drainage Total 60 ml Abdomen: Soft, Other (g tube in place) Labs Laboratory Tests Test 11/17/18 12:04 11/17/18 17:35 11/17/18 20:50 11/18/18 05:51 Glucose (Fingerstick) 156 mg/dL (70-99) 113 mg/dL (70-99) 180 mg/dL (70-99) Urine Collection Type Unknown Urine Color Lena Urine Clarity Clear Urine pH 6.0 Urine Specific [place] 1.020 Urine Protein mg/dL (NEG-TRACE) Urine Glucose (UA) mg/dL (NEG) Urine Ketones (Stick) mg/dL (NEG) Urine Blood (NEG) Urine Nitrite (NEG) Urine Bilirubin (NEG) Urine Urobilinogen Dipstick mg/dL (0.2 mg/dL) Urine Leukocyte Esterase (NEG) Urine RBC Occ /HPF (0-2) Urine WBC Occ /HPF (0-4) Urine Squamous Epithelial Cells Occ /LPF Urine Bacteria 0 /HPF (0-FEW) Test 11/18/18 08:04 11/18/18 08:20 11/18/18 11:54 11/18/18 12:18 Glucose (Fingerstick) 205 mg/dL (70-99) 191 mg/dL (70-99) 172 mg/dL (70-99) White Blood Count 10.2 x10^3/uL (4.0-11.0) Red Blood Count 4.61 x10^6/uL (4.30-5.70) Hemoglobin 14.2 g/dL (13.0-17.5) Hematocrit 41.0 % (39.0-53.0) Mean Corpuscular Volume 89 fL (79-100) Mean Corpuscular Hemoglobin 31 pg (25-35) Mean Corpuscular Hemoglobin Concent 35 g/dL (31-37) Red Cell Distribution Width 14.0 % (11.5-14.5) Platelet Count 199 x10^3/uL (140-400) Neutrophils (%) (Auto) 85 % (31-73) Lymphocytes (%) (Auto) 8 % (24-48) Monocytes (%) (Auto) 7 % (0-9) Eosinophils (%) (Auto) 0 % (0-3) Basophils (%) (Auto) 0 % (0-3) Neutrophils # (Auto) 8.6 x10^3uL (1.8-7.7) Lymphocytes # (Auto) 0.8 x10^3/uL (1.0-4.8) Monocytes # (Auto) 0.7 x10^3/uL (0.0-1.1) Eosinophils # (Auto) 0.0 x10^3/uL (0.0-0.7) Basophils # (Auto) 0.0 x10^3/uL (0.0-0.2) Sodium Level 133 mmol/L (136-145) Potassium Level 4.6 mmol/L (3.5-5.1) Chloride Level 100 mmol/L (98-107) Carbon Dioxide Level 24 mmol/L (21-32) Anion Gap 9 (6-14) Blood Urea Nitrogen 18 mg/dL (8-26) Creatinine 0.6 mg/dL (0.7-1.3) Estimated GFR (Cockcroft-Gault) 134.8 Glucose Level 203 mg/dL (70-99) Calcium Level 8.4 mg/dL (8.5-10.1) Test 11/18/18 20:55 11/19/18 07:43 Glucose (Fingerstick) 215 mg/dL (70-99) 135 mg/dL (70-99) Laboratory Tests Test 11/18/18 11:54 11/18/18 12:18 11/18/18 20:55 11/19/18 07:43 Glucose (Fingerstick) 191 mg/dL (70-99) 172 mg/dL (70-99) 215 mg/dL (70-99) 135 mg/dL (70-99) Problem List Problems Medical Problems: (1) 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 (CVA) Status: Acute (2) Cellulitis of foot, right Status: Acute (3) Dizziness Status: Acute (4) Dysphagia Status: Acute (5) Hemiparesis affecting right side as late effect of cerebrovascular accident (CVA) Status: Acute (6) Hypertensive encephalopathy Status: Acute (7) Hypertensive urgency Status: Acute (8) Hypomagnesemia Status: Acute (9) Left thalamic infarction Status: Acute (10) Leukocytosis Status: Acute (11) Malignant essential hypertension Status: Acute (12) Metabolic encephalopathy Status: Acute (13) Nausea & vomiting Status: Acute (14) Persistent atrial fibrillation Status: Acute (15) Right maxillary sinusitis Status: Acute (16) Vomiting Status: Acute (17) Weakness Status: Acute Assessment/Plan s/p g tube stable surgically tolerating tfs will be available as needed, possible dc today DIANN GREGORY APRN Nov 19, 2018 09:48
--- NOTE | 2018-11-19 10:32 | NUR ---
SS following up with discharge planning. Discharge orders received for [facility], ; fax [phone]. SS phoned and faxed discharge orders to [facility]. Pt will discharge today and go to [facility] at [address] [facility] to provide transport. Pt, pt's RN, and pt's family notified.
--- NOTE | 2018-11-19 10:39 | PDOC ---
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) Status: Acute (2) Cellulitis of foot, right Status: Acute (3) Dizziness Status: Acute (4) Dysphagia Status: Acute (5) Hemiparesis affecting right side as late effect of cerebrovascular accident (CVA) Status: Acute (6) Hypertensive encephalopathy Status: Acute (7) Hypertensive urgency Status: Acute (8) Hypomagnesemia Status: Acute (9) Left thalamic infarction Status: Acute (10) Leukocytosis Status: Acute (11) Malignant essential hypertension Status: Acute (12) Metabolic encephalopathy Status: Acute (13) Nausea & vomiting Status: Acute (14) Persistent atrial fibrillation Status: Acute (15) Right maxillary sinusitis Status: Acute (16) Vomiting Status: Acute (17) Weakness Status: Acute Subacute left thalamus infarct, 1.2 cm. Carotid artery stenosis, left side 50-69%. 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 Dysphagia. S/P Pacemaker. S/P PEG Plan ASA via PEG No MRI due to pacemaker. SNU Subjective No complaints Objective Vital Signs Date Time Temp Pulse Resp B/P (MAP) Pulse Ox O2 Delivery O2 Flow Rate FiO2 11/19/18 09:36 Room Air 11/19/18 09:35 60 138/67 11/19/18 07:00 97.4 18 96 97.4 Intake and Output 11/19/18 06:59 Intake Total 1595 ml Output Total 1520 ml Balance 75 ml Intake Oral 0 ml IV Total 475 ml Tube Feeding 720 ml Other 400 ml Output Urine Total 1460 ml Gastric Drainage Total 60 ml PHYSICAL EXAM Alert. Oriented to time, place and person. PERRL. EOMI. CN: right central facial weakness, otherwise no focal findings. Muscle tone: normal. Muscle strength: 4/5 right hemiparesis, normal strength on left DTR: 1+ Plantar reflex: flexor Gait: not examined in bed. Sensory exam: no abnormal findings. Cerebellar: Dysmetric on right. Review of Relevant I have reviewed the following items sara (where applicable) has been applied. Labs Laboratory Tests Test 11/17/18 12:04 11/17/18 17:35 11/17/18 20:50 11/18/18 05:51 Glucose (Fingerstick) 156 mg/dL (70-99) 113 mg/dL (70-99) 180 mg/dL (70-99) Urine Collection Type Unknown Urine Color Lena Urine Clarity Clear Urine pH 6.0 Urine Specific [place] 1.020 Urine Protein mg/dL (NEG-TRACE) Urine Glucose (UA) mg/dL (NEG) Urine Ketones (Stick) mg/dL (NEG) Urine Blood (NEG) Urine Nitrite (NEG) Urine Bilirubin (NEG) Urine Urobilinogen Dipstick mg/dL (0.2 mg/dL) Urine Leukocyte Esterase (NEG) Urine RBC Occ /HPF (0-2) Urine WBC Occ /HPF (0-4) Urine Squamous Epithelial Cells Occ /LPF Urine Bacteria 0 /HPF (0-FEW) Test 11/18/18 08:04 11/18/18 08:20 11/18/18 11:54 11/18/18 12:18 Glucose (Fingerstick) 205 mg/dL (70-99) 191 mg/dL (70-99) 172 mg/dL (70-99) White Blood Count 10.2 x10^3/uL (4.0-11.0) Red Blood Count 4.61 x10^6/uL (4.30-5.70) Hemoglobin 14.2 g/dL (13.0-17.5) Hematocrit 41.0 % (39.0-53.0) Mean Corpuscular Volume 89 fL (79-100) Mean Corpuscular Hemoglobin 31 pg (25-35) Mean Corpuscular Hemoglobin Concent 35 g/dL (31-37) Red Cell Distribution Width 14.0 % (11.5-14.5) Platelet Count 199 x10^3/uL (140-400) Neutrophils (%) (Auto) 85 % (31-73) Lymphocytes (%) (Auto) 8 % (24-48) Monocytes (%) (Auto) 7 % (0-9) Eosinophils (%) (Auto) 0 % (0-3) Basophils (%) (Auto) 0 % (0-3) Neutrophils # (Auto) 8.6 x10^3uL (1.8-7.7) Lymphocytes # (Auto) 0.8 x10^3/uL (1.0-4.8) Monocytes # (Auto) 0.7 x10^3/uL (0.0-1.1) Eosinophils # (Auto) 0.0 x10^3/uL (0.0-0.7) Basophils # (Auto) 0.0 x10^3/uL (0.0-0.2) Sodium Level 133 mmol/L (136-145) Potassium Level 4.6 mmol/L (3.5-5.1) Chloride Level 100 mmol/L (98-107) Carbon Dioxide Level 24 mmol/L (21-32) Anion Gap 9 (6-14) Blood Urea Nitrogen 18 mg/dL (8-26) Creatinine 0.6 mg/dL (0.7-1.3) Estimated GFR (Cockcroft-Gault) 134.8 Glucose Level 203 mg/dL (70-99) Calcium Level 8.4 mg/dL (8.5-10.1) Test 11/18/18 20:55 11/19/18 07:43 Glucose (Fingerstick) 215 mg/dL (70-99) 135 mg/dL (70-99) Laboratory Tests Test 11/18/18 11:54 11/18/18 12:18 11/18/18 20:55 11/19/18 07:43 Glucose (Fingerstick) 191 mg/dL (70-99) 172 mg/dL (70-99) 215 mg/dL (70-99) 135 mg/dL (70-99) Microbiology 11/05/18 Urine Culture - Final, Complete 11/05/18 Urine Culture Result 1 (MERVAT) - Final, Complete Medications Current Medications Ondansetron HCl (Zofran) 4 mg 1X ONCE IV Last administered on 11/05/18at 01:41; Start 11/05/18 at 01:00; Stop 11/05/18 at 01:01; Status DC Famotidine (Pepcid Vial) 20 mg 1X ONCE IVP Last administered on 11/05/18at 01:41; Start 11/05/18 at 01:00; Stop 11/05/18 at 01:01; Status DC Sodium Chloride 1,000 ml @ 1,000 mls/hr 1X ONCE IV Last administered on 11/05/18at 01:38; Start 11/05/18 at 01:15; Stop 11/05/18 at 02:14; Status DC Iohexol (Omnipaque 300 Mg/ml) 75 ml 1X ONCE IV Last administered on 11/05/18at 01:32; Start 11/05/18 at 01:30; Stop 11/05/18 at 01:31; Status DC Info (CONTRAST GIVEN -- Rx MONITORING) 1 each PRN DAILY PRN MC SEE COMMENTS; Start 11/05/18 at 01:30; Stop 11/07/18 at 01:29; Status DC Labetalol HCl (Normodyne Iv Push) 20 mg 1X ONCE IVP Last administered on 11/05/18at 01:38; Start 11/05/18 at 01:45; Stop 11/05/18 at 01:46; Status DC Aspirin (Aspirin Rectal Supp) 300 mg 1X ONCE OH Last administered on 11/05/18at 02:37; Start 11/05/18 at 02:00; Stop 11/05/18 at 02:01; Status DC Fentanyl Citrate (Fentanyl 2ml Vial) 50 mcg 1X ONCE IV Last administered on 11/05/18at 01:52; Start 11/05/18 at 01:45; Stop 11/05/18 at 01:55; Status DC Nitroglycerin (Nitro-Bid Oint) 0.5 inch 1X ONCE TP Last administered on 11/05/18at 01:51; Start 11/05/18 at 01:45; Stop 11/05/18 at 01:55; Status DC Magnesium Sulfate 50 ml @ 25 mls/hr 1X ONCE IV Last administered on 11/05/18at 02:37; Start 11/05/18 at 02:00; Stop 11/05/18 at 03:59; Status DC Ondansetron HCl (Zofran) 4 mg 1X ONCE IV Last administered on 11/05/18at 02:08; Start 11/05/18 at 02:15; Stop 11/05/18 at 02:16; Status DC Labetalol HCl (Normodyne Iv Push) 20 mg 1X ONCE IVP Last administered on 11/05/18at 02:18; Start 11/05/18 at 02:15; Stop 11/05/18 at 02:16; Status DC Ondansetron HCl (Zofran) 4 mg PRN Q8HRS PRN IV NAUSEA/VOMITING Last administered on 11/05/18at 13:50; Start 11/05/18 at 02:45; Stop 11/06/18 at 02:44; Status DC Insulin Human Lispro (HumaLOG) 0-7 UNITS TIDWMEALS SQ Last administered on 11/07/18 08:55; Start 11/05/18 at 08:00; Stop 11/08/18 at 08:37; Status DC Dextrose (Dextrose 50%-Water Syringe) 12.5 gm PRN Q15MIN PRN IV SEE COMMENTS; Start 11/05/18 at 02:45 Labetalol HCl (Normodyne Iv Push) 10 mg PRN Q2HR PRN IVP ELEVATED BP, SEE COMMENTS Last administered on 11/05/18at 08:10; Start 11/05/18 at 02:45; Stop 11/05/18 at 08:28; Status DC Sodium Chloride 1,000 ml @ 100 mls/hr 1X ONCE IV Last administered on 11/05/18at 03:16; Start 11/05/18 at 03:15; Stop 11/05/18 at 13:14; Status DC Metoclopramide HCl (Reglan Vial) 10 mg 1X ONCE IV Last administered on 11/05/18at 03:37; Start 11/05/18 at 03:30; Stop 11/05/18 at 03:31; Status DC Diphenhydramine HCl (Benadryl) 25 mg 1X ONCE IVP Last administered on 11/05/18at 03:37; Start 11/05/18 at 03:30; Stop 11/05/18 at 03:31; Status DC Nitroglycerin (Nitro-Bid Oint) 0.5 inch Q6HRS TP Last administered on 11/16/18at 06:10; Start 11/05/18 at 12:00; Stop 11/18/18 at 08:34; Status DC Labetalol HCl (Normodyne Iv Push) 20 mg PRN Q2HR PRN IVP HYPERTENSION Last administered on 11/07/18at 03:42; Start 11/05/18 at 08:30 Insulin Glargine (Lantus) 30 units DAILY SQ Last administered on 11/07/18at 08:54; Start 11/05/18 at 09:00; Stop 11/08/18 at 08:37; Status DC Sodium Chloride 1,000 ml @ 100 mls/hr Q10H IV Last administered on 11/05/18at 09:20; Start 11/05/18 at 08:30; Stop 11/07/18 at 00:06; Status DC Aspirin (Aspirin Rectal Supp) 300 mg DAILY OH Last administered on 11/13/18 09:29; Start 11/05/18 at 09:00; Stop 11/13/18 at 12:28; Status DC Lidocaine (Lidoderm) 1 patch DAILY TD Last administered on 11/16/18 09:25; Start 11/05/18 at 09:30 Miscellaneous (Lidoderm Patch Removal) 1 ea QHS MC Last administered on 11/16/18at 20:05; Start 11/05/18 at 21:00 Metoprolol Tartrate (Lopressor Vial) 5 mg Q6HRS IVP Last administered on 11/18/18 07:17; Start 11/05/18 at 12:00; Stop 11/18/18 at 08:34; Status DC Enalaprilat (Vasotec Inj) 1.25 mg Q6HRS IVP Last administered on 11/09/18 06:05; Start 11/05/18 at 12:00; Stop 11/09/18 at 11:55; Status DC Cefazolin Sodium 50 ml @ 100 mls/hr Q8HRS IV ; Start 11/05/18 at 14:00; Stop 11/06/18 at 18:00; Status UNV Ketorolac Tromethamine (Toradol 30mg Vial) 30 mg PRN Q6HRS PRN IV PAIN Last administered on 11/09/18at 22:37; Start 11/05/18 at 12:00; Stop 11/10/18 at 11:59; Status DC Cefazolin Sodium (Ancef) 1 gm Q8HRS IVP Last administered on 11/10/18at 06:10; Start 11/05/18 at 13:00; Stop 11/10/18 at 08:34; Status DC Barium Sulfate (Varibar Thin Liquid Apple) 148 gm 1X ONCE PO Last administered on 11/05/18 13:45; Start 11/05/18 at 13:45; Stop 11/05/18 at 13:46; Status DC Amino Acids/ Glycerin/ Electrolytes 1,000 ml @ 60 mls/hr [id number] IV Last administered on 11/18/18at 06:11; Start 11/05/18 at 19:00; Stop 11/18/18 at 18:17; Status DC Ondansetron HCl (Zofran) 4 mg PRN Q4HRS PRN IV NAUSEA/VOMITING Last administered on 11/08/18 09:45; Start 11/06/18 at 13:00; Stop 11/18/18 at 12:50; Status DC Clonidine HCl (Catapres Tts-1) 1 patch WEEKLY TD Last administered on 11/07/18at 12:57; Start 11/07/18 at 13:00; Stop 11/10/18 at 08:38; Status DC Enoxaparin Sodium (Lovenox Per Pharmacy Treatment Dosing) 1 each PRN DAILY PRN MC SEE COMMENTS; Start 11/07/18 at 15:15; Stop 11/13/18 at 13:15; Status DC Enoxaparin Sodium (Lovenox 100mg Syringe) 100 mg Q12HR SQ Last administered on 11/10/18 08:53; Start 11/07/18 at 15:00; Stop 11/10/18 at 14:45; Status DC Insulin Glargine (Lantus) 26 units DAILY SQ ; Start 11/08/18 at 09:00; Stop 11/09/18 at 09:00; Status DC Lorazepam (Ativan Inj) 1 mg PRN Q6HRS PRN IV ANXIETY / AGITATION Last administered on 11/08/18at 09:44; Start 11/08/18 at 08:45 Methylprednisolone Acetate (DEPO-Medrol 40MG VIAL) 40 mg 1X ONCE IM Last administered on 11/08/18at 09:15; Start 11/08/18 at 09:15; Stop 11/08/18 at 09:16; Status DC Bupivacaine HCl (Sensorcaine-Mpf 0.25%) 10 ml 1X ONCE IJ Last administered on 11/08/18at 09:15; Start 11/08/18 at 09:15; Stop 11/08/18 at 09:16; Status DC Info (Anti-Coagulation Monitoring By Pharmacy) 1 each PRN DAILY PRN MC SEE COMMENTS Last administered on 11/10/18at 10:22; Start 11/08/18 at 12:45 Insulin Glargine (Lantus) 24 units DAILY SQ Last administered on 11/14/18at 08:49; Start 11/09/18 at 09:00; Stop 11/14/18 at 10:46; Status DC Enalaprilat (Vasotec Inj) 1.25 mg Q6HRS IVP Last administered on 11/18/18 06:13; Start 11/09/18 at 12:00; Stop 11/18/18 at 08:34; Status DC Fentanyl (Duragesic 25mcg/ Hr Patch) 1 patch Q3DAYS TD Last administered on 11/19/18 09:36; Start 11/10/18 at 09:00 Enoxaparin Sodium (Lovenox 80mg Syringe) 80 mg Q12HR SQ Last administered on 11/13/18 21:15; Start 11/10/18 at 21:00; Stop 11/14/18 at 08:00; Status DC Clotrimazole (Mycelex) 10 mg 5XDAY MM Last administered on 11/19/18 09:34; Start 11/10/18 at 18:00 Insulin Glargine (Lantus) 20 units DAILY SQ Last administered on 11/16/18 12:26; Start 11/15/18 at 09:00; Stop 11/18/18 at 12:39; Status DC Cefazolin Sodium 1 gm/Dextrose 50 ml @ 100 mls/hr Q12HR IV Last administered on 11/14/18at 21:38; Start 11/14/18 at 12:00; Stop 11/15/18 at 03:51; Status DC Cefazolin Sodium (Ancef) 1 gm Q12HR IVP Last administered on 11/15/18at 23:04; Start 11/15/18 at 09:00; Stop 11/16/18 at 09:53; Status DC Barium Sulfate (Varibar Thin Liquid Apple) 148 gm 1X ONCE PO Last administered on 11/15/18 11:35; Start 11/15/18 at 10:00; Stop 11/15/18 at 10:01; Status DC Ringer's Solution 1,000 ml @ 50 mls/hr Q20H IV Last administered on 11/16/18at 14:35; Start 11/16/18 at 07:00; Stop 11/16/18 at 18:59; Status DC Cefazolin Sodium 50 ml @ 100 mls/hr 1X PREOP ONCE IV Last administered on 11/16/18at 15:19; Start 11/16/18 at 14:45; Stop 11/16/18 at 15:14; Status DC Propofol 20 ml @ As Directed STK-MED ONCE IV ; Start 11/16/18 at 15:17; Stop 11/16/18 at 15:18; Status DC Lidocaine HCl (Lidocaine Pf 2% Vial) 5 ml STK-MED ONCE .ROUTE ; Start 11/16/18 at 15:17; Stop 11/16/18 at 15:18; Status DC Cefoxitin Sodium (Mefoxin) 2 gm 1X PREOP PRN IVP PRIOR TO PROCEDURE; Start 11/16/18 at 18:00; Stop 11/16/18 at 23:00; Status DC Ondansetron HCl (Zofran) 4 mg PRN Q6HRS PRN IV NAUSEA/VOMITING; Start 11/17/18 at 10:15; Stop 11/18/18 at 10:14; Status DC Fentanyl Citrate (Fentanyl 2ml Vial) 25 mcg PRN Q5MIN PRN IV MILD PAIN 1-3; Start 11/17/18 at 10:15; Stop 11/18/18 at 07:23; Status DC Fentanyl Citrate (Fentanyl 2ml Vial) 50 mcg PRN Q5MIN PRN IV MODERATE TO SEVERE PAIN; Start 11/17/18 at 10:15; Stop 11/18/18 at 07:28; Status DC Morphine Sulfate (Morphine Sulfate) 1 mg PRN Q10MIN PRN IV SEVERE PAIN 7-10; Start 11/17/18 at 10:15; Stop 11/18/18 at 10:14; Status DC Ringer's Solution 1,000 ml @ 30 mls/hr Q24H IV ; Start 11/17/18 at 10:08; Stop 11/17/18 at 22:07; Status DC Lidocaine HCl (Xylocaine-Mpf 1% 2ml Vial) 2 ml 1X PRN PRN ID IV START; Start 11/17/18 at 10:15; Stop 11/18/18 at 10:14; Status DC Hydromorphone HCl (Dilaudid) 0.5 mg PRN Q10MIN PRN IV SEV PAIN, Second choice; Start 11/17/18 at 10:15; Stop 11/18/18 at 07:24; Status DC Prochlorperazine Edisylate (Compazine) 5 mg PACU PRN PRN IV NAUSEA, MRX1; Start 11/17/18 at 10:15; Stop 11/18/18 at 10:14; Status DC Famotidine (Pepcid Vial) 20 mg QHS IVP Last administered on 11/17/18at 21:00; Start 11/17/18 at 21:00; Stop 11/18/18 at 08:34; Status DC Sevoflurane (Ultane) 60 ml STK-MED ONCE IH ; Start 11/17/18 at 13:12; Stop 11/17/18 at 13:13; Status DC Rocuronium [place] (Zemuron) 50 mg STK-MED ONCE .ROUTE ; Start 11/17/18 at 13:12; Stop 11/17/18 at 13:13; Status DC Fentanyl Citrate (Fentanyl 2ml Vial) 100 mcg STK-MED ONCE .ROUTE ; Start 11/17/18 at 13:12; Stop 11/17/18 at 13:13; Status DC Neostigmine Methylsulfate (Neostigmine Methylsulfate) 5 mg STK-MED ONCE .ROUTE ; Start 11/17/18 at 13:12; Stop 11/17/18 at 13:13; Status DC Midazolam HCl (Versed) 2 mg STK-MED ONCE .ROUTE ; Start 11/17/18 at 13:13; Stop 11/17/18 at 13:14; Status DC Glycopyrrolate (Robinul) 1 mg STK-MED ONCE .ROUTE ; Start 11/17/18 at 13:13; Stop 11/17/18 at 13:14; Status DC Propofol 20 ml @ As Directed STK-MED ONCE IV ; Start 11/17/18 at 13:13; Stop 11/17/18 at 13:14; Status DC Lidocaine HCl (Lidocaine Pf 2% Vial) 5 ml STK-MED ONCE .ROUTE ; Start 11/17/18 at 13:13; Stop 11/17/18 at 13:14; Status DC Dexamethasone Sodium Phosphate (Decadron) 4 mg STK-MED ONCE .ROUTE ; Start 11/17/18 at 13:13; Stop 11/17/18 at 13:14; Status DC Ondansetron HCl (Zofran) 4 mg STK-MED ONCE .ROUTE ; Start 11/17/18 at 13:13; Stop 11/17/18 at 13:14; Status DC Bupivacaine HCl/ Epinephrine Bitart (Sensorcain-Mpf Epi 0.5%-1:[id number]) 30 ml STK-MED ONCE .ROUTE ; Start 11/17/18 at 14:56; Stop 11/17/18 at 15:56; Status DC Cefoxitin Sodium (Mefoxin) 1 gm STK-MED ONCE IVP ; Start 11/17/18 at 15:18; Stop 11/17/18 at 16:18; Status DC Cefoxitin Sodium (Mefoxin) 1 gm STK-MED ONCE IVP ; Start 11/17/18 at 16:18; Stop 11/17/18 at 16:19; Status DC Fentanyl Citrate (Fentanyl 2ml Vial) 100 mcg STK-MED ONCE .ROUTE ; Start 11/17/18 at 17:05; Stop 11/17/18 at 17:06; Status DC Bupivacaine HCl/ Epinephrine Bitart (Sensorcain-Mpf Epi 0.5%-1:[id number]) 30 ml STK-MED ONCE INJ Last administered on 11/17/18at 17:07; Start 11/17/18 at 17:07; Stop 11/17/18 at 17:31; Status DC Sodium Chloride (Normal Saline Flush) 3 ml QSHIFT PRN IV AFTER MEDS AND BLOOD DRAWS; Start 11/17/18 at 17:30 Morphine Sulfate (Morphine Sulfate) 1 mg PRN Q1HR PRN IV PAIN; Start 11/17/18 at 17:30 Ondansetron HCl (Zofran) 4 mg PRN Q6HRS PRN IV NAUESA, 1ST CHOICE; Start 11/17/18 at 17:30 Metoprolol Tartrate (Lopressor) 25 mg BID GT Last administered on 11/19/18at 09:35; Start 11/18/18 at 09:00 Losartan Potassium (Cozaar) 50 mg DAILY FT Last administered on 11/19/18at 09:35; Start 11/18/18 at 09:00 Simvastatin (Zocor) 40 mg QHS PO Last administered on 11/18/18at 21:33; Start 11/18/18 at 21:00 Sertraline HCl (Zoloft) 25 mg QHS GT Last administered on 11/18/18at 21:33; Start 11/18/18 at 21:00 Aspirin (Children'S Aspirin) 81 mg DAILYWBKFT PO Last administered on 11/19/18at 09:35; Start 11/18/18 at 18:00 Insulin Glargine (Lantus) 20 units HS SQ Last administered on 11/18/18at 22:04; Start 11/18/18 at 21:00 Acetaminophen (Tylenol) 650 mg PRN QID PRN PEG MILD PAIN / TEMP Last administered on 11/18/18at 16:03; Start 11/18/18 at 14:15 Rivaroxaban (Xarelto) 20 mg DAILYWSUP PO ; Start 11/19/18 at 17:00 Insulin Glargine (Lantus) 10 units 1X ONCE SQ ; Start 11/19/18 at 08:45; Stop 11/19/18 at 10:10; Status DC Active Scripts Active Aspirin Ec (Aspirin) 325 Mg Tablet.dr 1 Tab PO DAILY Reported Cephalexin 500 Mg Tablet 1 Tab PO TID 7 Days Prednisone 20 Mg Tablet 1 Tab PO DAILY 3 Days Mag-Oxide (Magnesium Oxide) 400 Mg Tablet 1 Tab PO DAILY Alprazolam 0.5 Mg Tablet 1 Tab PO PRN DAILY PRN Furosemide 20 Mg Tablet 1 Tab PO DAILY Zoloft (Sertraline Hcl) 50 Mg Tablet 50 Mg PO DAILY Omeprazole 40 Mg Capsule.dr 1 Cap PO DAILY Miralax (Polyethylene Glycol 3350) 17 Gm Powd.pack 1 Packet PO PRN DAILY PRN Linzess (Linaclotide) 145 Mcg Capsule 145 Mcg PO PRN DAILY PRN Metformin Hcl 1,000 Mg Tablet 1,000 Mg PO BIDWMEALS Novolog Flexpen (Insulin Aspart) 100 Unit/1 Ml Insuln.pen 0-10 Unit SQ TIDAC Levemir (Insulin Detemir) 100 Unit/1 Ml Vial 45 Unit SQ BID Simvastatin 40 Mg Tablet 40 Mg PO HS Xarelto (Rivaroxaban) 20 Mg Tablet 20 Mg PO DAILY Lyrica (Pregabalin) 200 Mg Capsule 200 Mg PO BID 30 Days Metoprolol Succinate ( Xl ) (Metoprolol Succinate) 25 Mg Tab.er.24h 50 Mg PO HS Losartan-Hctz 100-25 Mg Tab (Losartan/Hydrochlorothiazide) 1 Each Tablet 1 Each PO HS Vitals/I & O Vital Sign - Last 24 Hours 11/18/18 11/18/18 11/18/1811/18/19 10:51 10:51 10:54 15:00 Temp 97.6 97.6 97.6 97.6 Pulse 60 60 60 60 Resp 16 16 B/P (MAP) 138/64 138/64 146/68 (94) 126/59 (81) Pulse Ox 97 98 O2 Delivery Room Air Room Air 11/18/18 11/18/18 11/18/18 11/19/18 19:55 21:33 22:41 03:18 Temp 97.7 97.9 98.1 97.7 97.9 98.1 Pulse 60 60 60 60 Resp 16 16 16 B/P (MAP) 126/58 (80) 126/58 123/57 (79) 147/70 (95) Pulse Ox 97 96 97 O2 Delivery Room Air Room Air Room Air 11/19/18 11/19/18 11/19/18 11/19/18 07:00 09:35 09:35 09:36 Temp 97.4 97.4 Pulse 60 60 60 Resp 18 B/P (MAP) 138/67 (90) 138/67 138/67 Pulse Ox 96 O2 Delivery Room Air Room Air Intake and Output 11/18/18 11/18/18 11/19/18 14:59 22:59 06:59 Intake Total 865 ml 730 ml 0 ml Output Total 210 ml 510 ml 800 ml Balance 655 ml 220 ml -800 ml DAI SMTIH MD Nov 19, 2018 10:39
[2018-11-19 11:00] VITALS: BP 115/71
--- NOTE | 2018-11-19 12:33 | NUR ---
Discharge Note: [facility] Discharge instructions and discharge home medications reviewed with Other facility and a copy given. All questions have been answered and understanding verbalized. The following instructions and handouts were given: Stroke after care Patient discharged to Rehab Facility with transport via Wheelchair
[2018-11-19] MEDS ORDERED: RIVAROXABAN 10 MG TABLET. PO SCH (17:00)
== END 2018-11-19 12:20 | DRG 64 ==
LOC: ER 00:42 → 2 SOUTH 02:30
PROVIDERS: ADMIT Family Medicine; ATTEND Family Medicine
PROC: 3E0U33Z Introduction of Anti-inflammatory into Joints, Percutaneous Approach (ICD-10-PCS; principal; 2018-11-08)
PROC: 3E0U3BZ Introduction of Anesthetic Agent into Joints, Percutaneous Approach (ICD-10-PCS; 2018-11-08)
PROC: 0DJ08ZZ Inspection of Upper Intestinal Tract, Via Natural or Artificial Opening Endoscopic (ICD-10-PCS; 2018-11-16)
PROC: 0DH63UZ Insertion of Feeding Device into Stomach, Percutaneous Approach (ICD-10-PCS; 2018-11-17)
DX: I63.9 Cerebral infarction, unspecified (principal); G93.41 Metabolic encephalopathy; E87.2 Acidosis; I48.1 Persistent atrial fibrillation; I69.351 Hemiplegia and hemiparesis following cerebral infarction affecting right dominant side; J44.1 Chronic obstructive pulmonary disease with (acute) exacerbation; L03.115 Cellulitis of right lower limb; I16.0 Hypertensive urgency; R47.01 Aphasia; E11.42 Type 2 diabetes mellitus with diabetic polyneuropathy; E11.65 Type 2 diabetes mellitus with hyperglycemia; E78.00 Pure hypercholesterolemia, unspecified; E78.5 Hyperlipidemia, unspecified; E83.42 Hypomagnesemia; E86.0 Dehydration; F17.210 Nicotine dependence, cigarettes, uncomplicated; F43.10 Post-traumatic stress disorder, unspecified; G51.0 Bell's palsy; M19.90 Unspecified osteoarthritis, unspecified site; G93.89 Other specified disorders of brain; I11.0 Hypertensive heart disease with heart failure; I25.10 Atherosclerotic heart disease of native coronary artery without angina pectoris; I48.2 Chronic atrial fibrillation; I50.9 Heart failure, unspecified; I65.22 Occlusion and stenosis of left carotid artery; J01.00 Acute maxillary sinusitis, unspecified; J32.0 Chronic maxillary sinusitis; K29.80 Duodenitis without bleeding; M51.36 Other intervertebral disc degeneration, lumbar region; N40.0 Benign prostatic hyperplasia without lower urinary tract symptoms; R13.12 Dysphagia, oropharyngeal phase; Z79.01 Long term (current) use of anticoagulants; Z80.9 Family history of malignant neoplasm, unspecified; Z95.0 Presence of cardiac pacemaker; Z95.5 Presence of coronary angioplasty implant and graft; Z88.0 Allergy status to penicillin
CPT/HCPCS: 36415; 43235; 70450; 71260; 72131; 73600; 73620; 74177; 74230; 76705; 80048; 80053; 80061; 80307; 81001; 82553; 82962; 83605; 83690; 83735; 83880; 84484; 85007; 85025; 85520; 85610; 85730; 87086; 93005; 93880; 96361; 96365; 96375; 96376; A7015; J0690; J0694; J1030; J1100; J1200; J1650; J1815; J1885; J2001; J2060; J2250; J2405; J2704; J2710; J2765; J3010; J3475; J3490; J7030; J7120; Q9967; 92526; 92610; 92611; 97110; 97116; 97530; 97535; 99291-25

== ENCOUNTER 2019-02-18 20:48 | Emergency (ER) | payer MEDICARE ==
[~2019-02-18] VITALS: Ht 182.9 cm; Wt 98.0 kg
[~2019-02-18 20:48] MED LIST changes: +ALPR0.5T6 PO; +CEPH500T PO; +FURO20TA3 PO; +MAGN400T22 PO; +OMEP40CA45 PO; -OMEP40CA5 PO; +PRED20TA PO; +SERT50TA PO; +SIMV40TA18 PO; -SIMV40TA3 PO
--- NOTE | 2019-02-18 22:57 | RAD ---
Left lower extremity venous Doppler dated 02/18/2019. No comparison available. Clinical data indication: Left ankle swelling and discoloration. FINDINGS: Grayscale, color-flow and spectral waveform analysis performed to include the deep venous system of the left lower extremity. There is normal compressibility, phasicity and augmentation of flow throughout. No filling defects are seen. IMPRESSION: No evidence of left lower extremity deep vein thrombosis. Electronically signed by: Cory Cameron MD (02/18/2019 10:54 PM) [id number]
--- NOTE | 2019-02-18 23:01 | RAD ---
Left lower extremity arterial Doppler dated 02/18/2019. No comparison available. Clinical data indication: Left ankle swelling and discoloration. History PVD with left SFA stent. FINDINGS: Grayscale, color-flow and spectral waveform analysis performed to include the left lower extremity arterial tree. Diffuse luminal irregularity suggesting multifocal atherosclerotic plaquing. There is biphasic flow within the common femoral artery and deep profundus femoris proximally. There is monophasic flow in the superficial femoral artery, popliteal artery and arteries of left calf. A stent is visualized at the distal SFA. Low velocity monophasic flow within the posterior tibial artery and peroneal artery. No focal high-grade stenosis is visualized. IMPRESSION: 1. Monophasic flow throughout the left lower extremity arterial tree consistent with moderate to severe diffuse disease. A discrete hemodynamically significant stenosis is not visualized. Electronically signed by: Cory Cameron MD (02/18/2019 10:58 PM) [facility]
[2019-02-18 23:40] VITALS: BP 118/64
[2019-02-18] MEDS ORDERED: SULF1TAB24 PO (23:42)
--- NOTE | 2019-02-18 23:42 | PHYS DOC ---
Past Medical History Past Medical History: Anxiety, CAD, COPD, CVA, Diabetes-Type II, High Cho lesterol, Hypertension Additional Past Medical Histor: PTSD, PAD Past Surgical History: Pacemaker Additional Past Surgical Histo: Cardiac Stents, Leg bypass grafts Alcohol Use: None Drug Use: None Adult General Chief Complaint Chief Complaint: LOWER EXTREMITY SWELLING HPI HPI Patient is a 68 year old male with history of CVA in October 2018 with right sided weakness, hypertension, high cholesterol, CAD, diabetes type 2, COPD, who presents to the ED today with redness on the left lateral ankle/foot that noted today. Patient denies any known injury. reports the area is warm. Review of Systems Review of Systems Constitutional: Denies fever or chills [] Eyes: Denies change in visual acuity, redness, or eye pain [] HENT: Denies nasal congestion or sore throat [] Respiratory: Denies cough or shortness of breath [] Cardiovascular: No additional information not addressed in HPI [] GI: Denies abdominal pain, nausea, vomiting, bloody stools or diarrhea [] : Denies dysuria or hematuria [] Musculoskeletal: Denies back pain or joint pain [] Integument: Reports redness in the left lateral foot and ankle. Neurologic: Denies headache, focal weakness or sensory changes [] All other systems were reviewed and found to be within normal limits, except as documented in this note. Allergies Allergies Allergies Coded Allergies Type Severity Reaction Last Updated Verified Penicillins Allergy Intermediate RASH 11/16/18 Yes Physical Exam Physical Exam Constitutional: Well developed, well nourished, no acute distress, non-toxic appearance. [] HENT: Normocephalic, atraumatic, bilateral external ears normal, oropharynx moist, no oral exudates, nose normal. [] Eyes: PERRLA, EOMI, conjunctiva normal, no discharge. [] Neck: Normal range of motion, no tenderness, supple, no stridor. [] Cardiovascular:Heart rate regular rhythm, no murmur [] Lungs & Thorax: Bilateral breath sounds clear to auscultation [] Abdomen: Bowel sounds normal, soft, no tenderness, no masses, no pulsatile masses. [] Skin: Warm, dry, no erythema, no rash. [] Back: No tenderness, no CVA tenderness. [] Extremities: No tenderness, no cyanosis, no clubbing, patient has right-sided deficits from the CVA. Left lateral ankle and foot with redness suspicious of cellulitis. This appears very superficial. There is also old bruising noted on t he left ankle as well as the right upper extremity. Slight warmth noted over this region. Full range of motion to the left foot. Full range of motion to the ankle. +2 left pedal pulse. Cap refill less than 2 seconds the left lower extremity. Neurologic: Alert and oriented X 3, normal motor function, normal sensory function, no focal deficits noted. [] Psychologic: Affect normal, judgement normal, mood normal. [] Current Patient Data Vital Signs Vital Signs Date Time Temp Pulse Resp B/P (MAP) Pulse Ox O2 Delivery O2 Flow Rate FiO2 02/18/19 23:05 68 21 117/54 (75) 99 Room Air 02/18/19 20:49 97.7 97.7 EKG EKG [] Radiology/Procedures Radiology/Procedures []PROCEDURE: VENOUS LOWER EXTREMITY LEFT Left lower extremity venous Doppler dated 02/18/2019. No comparison available. Clinical data indication: Left ankle swelling and discoloration. FINDINGS: Grayscale, color-flow and spectral waveform analysis performed to include the deep venous system of the left lower extremity. There is normal compressibility, phasicity and augmentation of flow throughout. No filling defects are seen. IMPRESSION: No evidence of left lower extremity deep vein thrombosis. Electronically signed by: Mary Grace Cameron MD (02/18/2019 10:54 PM) [facility] DICTATED and SIGNED BY: MARY GRACE CAMERON MD DATE: 02/18/19 2254 PROCEDURE: ARTERIAL STUDY LOWER EXT LEFT Left lower extremity arterial Doppler dated 02/18/2019. No comparison available. Clinical data indication: Left ankle swelling and discoloration. History PVD with left SFA stent. FINDINGS: Grayscale, color-flow and spectral waveform analysis performed to include the left lower extremity arterial tree. Diffuse luminal irregularity suggesting multifocal atherosclerotic plaquing. There is biphasic flow within the common femoral artery and deep profundus femoris proximally. There is monophasic flow in the superficial femoral artery, popliteal artery and arteries of left calf. A stent is visualized at the distal SFA. Low velocity monophasic flow within the posterior tibial artery and peroneal artery. No focal high-grade stenosis is visualized. IMPRESSION: 1. Monophasic flow throughout the left lower extremity arterial tree consistent with moderate to severe diffuse disease. A discrete hemodynamically significant stenosis is not visualized. Electronically signed by: Mary Grace Cameron MD (02/18/2019 10:58 PM) [facility] DICTATED and SIGNED BY: MARY GRACE CAMERON MD DATE: 02/18/19 5901 Course & Med Decision Making Course & Med Decision Making Pertinent Labs and Imaging studies reviewed. (See chart for details) This is a 68-year-old male patient who presents to the ED today complaining of redness of the left lateral foot/ankle that was noted today. No known injury. Venous as well as arterial Dopplers of the left lower extremity was done- negative for any acute findings. Patient will be put on Bactrim for possible cellulitis. Instructed to follow-up with the primary care doctor in the course of next week. Dragon Disclaimer Dragon Disclaimer This electronic medical record was generated, in whole or in part, using a voice recognition dictation system. Departure Departure Impression: Primary Impression: Cellulitis of left foot Additional Impressions: Cellulitis of left leg without foot Bruising Disposition: 01 HOME, SELF-CARE Condition: STABLE Referrals: ILIR WASSERMAN MD (PCP) follow up next week Patient Instructions: Cellulitis, [id number] Additional Instructions: You were evaluated in the emergency room on noted to have a superficial area of redness on the left foot/ankle. This could be an early cellulitis though bruising cannot be ruled out. We put you on antibiotics, ensure you complete them. Follow-up with your doctor in 1-2 weeks. Scripts Sulfamethoxazole/Trimethoprim (BACTRIM DS TABLET) 1 Each Tablet 1 TAB PO BID, #20 TAB Prov: FROILAN BURR APRN 02/18/19 Problem Qualifiers FROILAN BURR APRN Feb 18, 2019 23:42
== END 2019-02-18 23:45 | disposition home or self-care (01) ==
LOC: ER 20:48
DX: L03.116 Cellulitis of left lower limb (principal); S90.02XA Contusion of left ankle, initial encounter; R53.1 Weakness; M79.89 Other specified soft tissue disorders; F41.9 Anxiety disorder, unspecified; I25.10 Atherosclerotic heart disease of native coronary artery without angina pectoris; I10 Essential (primary) hypertension; E78.00 Pure hypercholesterolemia, unspecified; J44.9 Chronic obstructive pulmonary disease, unspecified; E11.9 Type 2 diabetes mellitus without complications; Z86.73 Personal history of transient ischemic attack (TIA), and cerebral infarction without residual deficits; Z95.0 Presence of cardiac pacemaker; Z88.0 Allergy status to penicillin; X58.XXXA Exposure to other specified factors, initial encounter; Y93.89 Activity, other specified; Y92.89 Other specified places as the place of occurrence of the external cause; Y99.8 Other external cause status
CPT/HCPCS: 93923; 93971; 99284

== ENCOUNTER 2019-03-17 12:32 | Inpatient (IN) | payer MEDICARE ==
[~2019-03-17] VITALS: Ht 182.9 cm; Wt 72.8 kg
[~2019-03-17 12:32] MED LIST changes: +SULF1TAB24 PO
[2019-03-17] MEDS ORDERED: IV NORMAL SALINE 1000ML BAG 1,000 ML IV SCH (12:47)
[2019-03-17 13:01] LABS: BASO # 0.2 x10^3/uL (0.0-0.2); BASO % 1 % (0-3); EOS # 0.1 x10^3/uL (0.0-0.7); EOS % 1 % (0-3); LYMPH # 2.5 x10^3/uL (1.0-4.8); LYMPH % 18 % (24-48); MEAN CORPUSCULAR HEMOGLOBIN 30 pg (25-35); MEAN CORPUSCULAR HGB CONC 33 g/dL (31-37); MEAN CORPUSCULAR VOLUME 90 fL (79-100); MONO # 1.3 x10^3/uL (0.0-1.1); MONO % 9 % (0-9); NEUT # 9.8 x10^3/uL (1.8-7.7); NEUT % 70 % (31-73); PLATELET COUNT 309 x10^3/uL (140-400); RED BLOOD COUNT 4.03 x10^6/uL (4.30-5.70); RED CELL DISTRIBUTION WIDTH 14.3 % (11.5-14.5); WHITE BLOOD COUNT 13.9 x10^3/uL (4.0-11.0)
[2019-03-17 13:05] LABS: PROTHROMBIN TIME PATIENT 33.6 SEC (11.7-14.0)
[2019-03-17 13:06] LABS: CREATININE 3.3 mg/dL (0.7-1.3); GFR 18.8; POTASSIUM 4.8 mmol/L (3.5-5.1)
[2019-03-17 13:13] LABS: ALBUMIN 2.8 g/dL (3.4-5.0); ALBUMIN/GLOBULIN RATIO 0.6 (1.0-1.7); MAGNESIUM 1.6 mg/dL (1.8-2.4); TOTAL BILIRUBIN 0.6 mg/dL (0.2-1.0); TOTAL PROTEIN 7.7 g/dL (6.4-8.2)
[2019-03-17 13:21] LABS: % BANDS 3 % (0-9); % EOS 1 % (0-5); % LYMPHS 20 % (24-48); % MONOS 6 % (0-10); % SEGS 70 % (35-66); PLT ESTIMATE ADEQUATE (ADEQUATE)
--- NOTE | 2019-03-17 13:21 | RAD ---
EXAM: Chest, single view. HISTORY: Weakness. COMPARISON: 10/26/2018. FINDINGS: A frontal view of the chest is obtained. There is no infiltrate, pleural effusion or pneumothorax. The heart is normal in size. There is a cardiac pacemaker with leads in expected position. IMPRESSION: No acute pulmonary finding. Electronically signed by: Faviola Warren MD (03/17/2019 1:18 PM) [facility]
--- NOTE | 2019-03-17 13:48 | RAD ---
EXAM: Head CT without contrast. HISTORY: Right-sided weakness. TECHNIQUE: Computed tomographic images of the head were obtained without contrast. *One or more of the following individualized dose reduction techniques were utilized for this examination: 1. Automated exposure control. 2. Adjustment of the mA and/or kV according to patient size. 3. Use of iterative reconstruction technique. COMPARISON: None. FINDINGS: There is no acute or subacute hemorrhage. There is no mass effect or midline shift. There is no hydrocephalus. There is cerebral atrophy with compensatory enlargement of the extra-axial space. There are scattered areas of hypodensity within the cerebral white matter, likely due to chronic small vessel disease. There are chronic appearing infarcts within the left thalamus, left greater than right occipital lobes, cerebellar hemispheres and possibly the left lana. The visualized portions of the orbits and mastoid air cells are unremarkable. No suspicious calvarial lesion is seen. There is opacification of the left aspect of the sphenoid sinus. There is a suspected empty or partially empty sella. IMPRESSION: 1. No acute intracranial finding. Note is made that MRI is more sensitive for acute infarction. 2. Chronic appearing infarcts within the left thalamus, left greater than right occipital lobes, cerebellar hemispheres and possibly the left lana. 3. Cerebral atrophy. Electronically signed by: Faviola Warren MD (03/17/2019 1:45 PM) [place] [id number]
--- NOTE | 2019-03-17 14:04 | PHYS DOC ---
Past Medical History Past Medical History: Anxiety, CAD, COPD, CVA, Diabetes-Type II, High Cholesterol, Hypertension, Other Additional Past Medical Histor: PTSD, PAD Past Surgical History: Pacemaker, Other Additional Past Surgical Histo: Cardiac Stents, Leg bypass grafts Alcohol Use: None Drug Use: None Adult General Chief Complaint Chief Complaint: NEURO SYMPTOMS/DEFICITS [facility] HPI Patient is a 69-year-old male who presents from Dr. kaplan's office with report of worsened right sided facial droop and more difficulty coordinating movements with his right leg. Patient does admit to feeling an increase in weakness at this time. He denies any headache, chest pain or shortness of breath. Patient was recently admitted for left-sided infarct. Patient's indicates that she is noting an increase in that right leg weakness and she thinks that she notices some increase in the right sided facial droop as well. She is not sure of exact onset but states that she noticed these things this morning when they were on their way to his doctor's office.[] Review of Systems Review of Systems Constitutional: Denies fever or chills [] Respiratory: Denies cough or shortness of breath [] Cardiovascular: No additional information not addressed in HPI [] GI: Denies abdominal pain, nausea, vomiting or diarrhea [] Musculoskeletal: Denies back pain or joint pain [] Integument: Denies rash or skin lesions [] Neurologic: Denies headache, positive increase in right sided weakness and facial droop[] All other systems were reviewed and found to be within normal limits, except as documented in this note. Current Medications Current Medications Current Medications Medications (Trade) Dose Ordered Sig/[facility] Start Time Stop Time Status Last Admin Dose Admin Sodium Chloride 1,000 ml @ 1,000 mls/hr Q1H 03/17/19 12:47 03/17/19 13:46 DC 03/17/19 12:47 1,000 MLS/HR Allergies Allergies Allergies Coded Allergies Type Severity Reaction Last Updated Verified Penicillins Allergy Intermediate RASH 11/16/18 Yes Physical Exam Physical Exam Constitutional: Well developed, well nourished, no acute distress, non-toxic appearance. [] HENT: Normocephalic, atraumatic, bilateral external ears normal, oropharynx moist, no oral exudates, nose normal. [] Eyes: PERRLA, EOMI, conjunctiva normal, no discharge. [] Neck: Normal range of motion, no tenderness, supple. [] Cardiovascular: Regular rate and rhythm[] Lungs & Thorax: Bilateral breath sounds clear to auscultation [] Abdomen: Bowel sounds normal, soft, no tenderness. [] Skin: Warm, dry, no erythema, no rash. [] Extremities: No tenderness, no cyanosis, no clubbing, ROM intact. [] Neurologic: Alert and oriented X 3, there is weakness noted to the right lower extremity on plantar flexion, cranial nerves II through XII demonstrate right sided facial droop. [] Current Patient Data Vital Signs Vital Signs Date Time Temp Pulse Resp B/P (MAP) Pulse Ox O2 Delivery O2 Flow Rate FiO2 03/17/19 13:00 60 18 99 03/17/19 12:34 97.4 71/43 (52) Room Air 97.4 Lab Values Laboratory Tests Test 03/17/19 12:37 03/17/19 12:43 Glucose (Fingerstick) 195 mg/dL (70-99) H White Blood Count 13.9 x10^3/uL (4.0-11.0) H Red Blood Count 4.03 x10^6/uL (4.30-5.70) L Hemoglobin 12.0 g/dL (13.0-17.5) L Hematocrit 36.0 % (39.0-53.0) L Mean Corpuscular Volume 90 fL (79-100) Mean Corpuscular Hemoglobin 30 pg (25-35) Mean Corpuscular Hemoglobin Concent 33 g/dL (31-37) Red Cell Distribution Width 14.3 % (11.5-14.5) Platelet Count 309 x10^3/uL (140-400) Neutrophils (%) (Auto) 70 % (31-73) Lymphocytes (%) (Auto) 18 % (24-48) L Monocytes (%) (Auto) 9 % (0-9) Eosinophils (%) (Auto) 1 % (0-3) Basophils (%) (Auto) 1 % (0-3) Neutrophils # (Auto) 9.8 x10^3/uL (1.8-7.7) H Lymphocytes # (Auto) 2.5 x10^3/uL (1.0-4.8) Monocytes # (Auto) 1.3 x10^3/uL (0.0-1.1) H Eosinophils # (Auto) 0.1 x10^3/uL (0.0-0.7) Basophils # (Auto) 0.2 x10^3/uL (0.0-0.2) Segmented Neutrophils % 70 % (35-66) H Band Neutrophils % 3 % (0-9) Lymphocytes % 20 % (24-48) L Monocytes % 6 % (0-10) Eosinophils % 1 % (0-5) Platelet Estimate Adequate (ADEQUATE) Prothrombin Time 33.6 SEC (11.7-14.0) H Prothrombin Time INR 3.3 (0.8-1.1) H Sodium Level 129 mmol/L (136-145) L Potassium Level 4.8 mmol/L (3.5-5.1) Chloride Level 93 mmol/L (98-107) L Carbon Dioxide Level 22 mmol/L (21-32) Anion Gap 14 (6-14) Blood Urea Nitrogen 76 mg/dL (8-26) H Creatinine 3.3 mg/dL (0.7-1.3) H Estimated GFR (Cockcroft-Gault) 18.8 BUN/Creatinine Ratio 23 (6-20) H Glucose Level 232 mg/dL (70-99) H Lactic Acid Level 3.5 mmol/L (0.4-2.0) H Calcium Level 9.0 mg/dL (8.5-10.1) Magnesium Level 1.6 mg/dL (1.8-2.4) L Total Bilirubin 0.6 mg/dL (0.2-1.0) Aspartate Amino Transferase (AST) 41 U/L (15-37) H Alanine Aminotransferase (ALT) 49 U/L (16-63) Alkaline Phosphatase 135 U/L (46-116) H Troponin I Quantitative < 0.017 ng/mL (0.000-0.055) Total Protein 7.7 g/dL (6.4-8.2) Albumin 2.8 g/dL (3.4-5.0) L Albumin/Globulin Ratio 0.6 (1.0-1.7) L Laboratory Tests 03/17/19 12:43 Laboratory Tests 03/17/19 12:43 EKG EKG [] Interpretation Time: EKG demonstrates a ventricular paced rhythm with rate of 60. Radiology/Procedures Radiology/Procedures [] Impressions: PROCEDURE: CT HEAD WO CONTRAST EXAM: Head CT without contrast. HISTORY: Right-sided weakness. TECHNIQUE: Computed tomographic images of the head were obtained without contrast. *One or more of the following individualized dose reduction techniques were utilized for this examination: 1. Automated exposure control. 2. Adjustment of the mA and/or kV according to patient size. 3. Use of iterative reconstruction technique. COMPARISON: None. FINDINGS: There is no acute or subacute hemorrhage. There is no mass effect or midline shift. There is no hydrocephalus. There is cerebral atrophy with compensatory enlargement of the extra-axial space. There are scattered areas of hypodensity within the cerebral white matter, likely due to chronic small vessel disease. There are chronic appearing infarcts within the left thalamus, left greater than right occipital lobes, cerebellar hemispheres and possibly the left lana. The visualized portions of the orbits and mastoid air cells are unremarkable. No suspicious calvarial lesion is seen. There is opacification of the left aspect of the sphenoid sinus. There is a suspected empty or partially empty sella. IMPRESSION: 1. No acute intracranial finding. Note is made that MRI is more sensitive for acute infarction. 2. Chronic appearing infarcts within the left thalamus, left greater than right occipital lobes, cerebellar hemispheres and possibly the left lana. 3. Cerebral atrophy. Electronically signed by: Faviola Warren MD (03/17/2019 1:45 PM) [place] [id number] Course & Med Decision Making Course & Med Decision Making Pertinent Labs and Imaging studies reviewed. (See chart for details) [] Dragon Disclaimer Dragon Disclaimer This electronic medical record was generated, in whole or in part, using a voice recognition dictation system. Departure Departure Impression: Primary Impression: Acute kidney injury Additional Impressions: Right sided weakness Hypotension Dehydration Disposition: ADMITTED INPATIENT Admitting Physician: Ilir Kaplan Condition: GOOD Referrals: ILIR KAPLAN MD (PCP) Problem Qualifiers Additional Impressions: Hypotension Hypotension type: unspecified hypotension type Qualified Codes: I95.9 - Hypotension, unspecified LILLIANA BETANCOURT Jr. DO Mar 17, 2019 14:04
[2019-03-17] MEDS: IV NORMAL SALINE 1000ML BAG 1,000 ML IV SCH ×2 (15:17→21:52)
--- NOTE | 2019-03-17 15:22 | EKG ---
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
[2019-03-17 18:22] VITALS: BP 93/63
[2019-03-17 19:35] VITALS: BP 107/63
[2019-03-17] MEDS ORDERED: ASPI81TA59 PO (21:38)
[2019-03-17] MEDS ORDERED: ALPRAZolam 0.5 MG TABLET PO PRN (22:15)
[2019-03-17] MEDS ORDERED: POLYETHYLENE GLYCOL 3350 17 GM PACKET. PO PRN (22:15)
[2019-03-17] MEDS ORDERED: SIMVASTATIN 40 MG TABLET. PO SCH (23:00)
[2019-03-17 23:35] VITALS: BP 115/93
[2019-03-17] MEDS: PREGABALIN 50 MG CAPSULE PO SCH (23:45)
[2019-03-17] MEDS: INSULIN GLARGINE SYRINGE. SQ SCH (23:53)
[2019-03-18 03:35] VITALS: BP 122/65
[2019-03-18 04:41] LABS: BASO # 0.1 x10^3/uL (0.0-0.2); BASO % 1 % (0-3); EOS # 0.2 x10^3/uL (0.0-0.7); EOS % 2 % (0-3); HEMATOCRIT 35.3 % (39.0-53.0); HEMOGLOBIN 11.8 g/dL (13.0-17.5); LYMPH % 21 % (24-48); MEAN CORPUSCULAR HEMOGLOBIN 30 pg (25-35); MEAN CORPUSCULAR HGB CONC 33 g/dL (31-37); MEAN CORPUSCULAR VOLUME 90 fL (79-100); MONO # 1.1 x10^3/uL (0.0-1.1); MONO % 12 % (0-9); NEUT # 6.1 x10^3/uL (1.8-7.7); NEUT % 65 % (31-73); PLATELET COUNT 235 x10^3/uL (140-400); RED BLOOD COUNT 3.93 x10^6/uL (4.30-5.70); RED CELL DISTRIBUTION WIDTH 14.6 % (11.5-14.5); WHITE BLOOD COUNT 9.5 x10^3/uL (4.0-11.0)
[2019-03-18 04:43] LABS: BILIRUBIN,URINE SMALL (NEG); CLARITY,URINE CLEAR; COLOR,URINE AMBER; NITRITE,URINE NEGATIVE (NEG); PROTEIN,URINE NEGATIVE (NEG-TRACE)
[2019-03-18 04:49] LABS: SQUAMOUS EPITHELIAL CELL,UR FEW /LPF
[2019-03-18 04:50] LABS: AMORPHOUS SEDIMENT,UR PRESENT /HPF; BACTERIA,URINE FEW /HPF (0-FEW); RBC,URINE RARE /HPF (0-2)
[2019-03-18 04:51] LABS: HYALINE CASTS, URINE MANY /HPF
[2019-03-18 04:52] LABS: CALCIUM 8.3 mg/dL (8.5-10.1); CREATININE 2.3 mg/dL (0.7-1.3); GFR 28.5; POTASSIUM 4.3 mmol/L (3.5-5.1)
--- NOTE | 2019-03-18 04:58 | NUR ---
Late note input: Dr. Garner paged around [phone] regarding patient's home medications. Home medications reviewed and orders received on restarting and holding medications. Patient's Levemir order addressed, given the okay to keep at home regimen regarding dosing of long acting insulin. Patient's blood sugar 268. Per significant other, 15units would be given at home, this nurse administered that dose. No complaints at this time.
[2019-03-18] MEDS ORDERED: DEXTROSE 50% 25 GM / 50ML DISP.SYRIN. IV PRN (06:15)
[2019-03-18] MEDS: IV NORMAL SALINE 1000ML BAG 1,000 ML IV SCH ×2 (06:24→14:16)
[2019-03-18 07:00] VITALS: BP 119/71
[2019-03-18] MEDS ORDERED: NON FORMULARY ITEM (Insulin Aspart (Novolog Flexpen) 0 UNIT) SQ SCH (07:30)
[2019-03-18] MEDS ORDERED: LUBIPROSTONE 24 MCG CAPSULE PO PRN (08:00)
--- NOTE | 2019-03-18 08:20 | PDOC1 ---
H & P H&P HISTORY OF PRESENT ILLNESS: A 69-year-old white male with hx of recent CVA, COPD, type 2 diabetes complicated by diabetic neuropathy, HTN, HLD, CAD s/p stent placement, PAD, GERD, CHF and atrial fibrillation, who presented to the clinic yesterday for oliguria for about 20 hours prior to presentation, weakness, possibly increased right facial droop from baseline status post CVA and some mild chest pain. He was noted to have hypotension, increased right facial droop, and he was directed to the emergency room for workup and admission. His labs were significant for acute renal failure with creatinine 3.3 and BUN greater than 70. This is likely due to overdiuresis with Lasix. A CT of the head showed no acute changes. Chest x-ray was unremarkable. He also had lactic acidosis with initial lactic acid at 3.5, which has subsequently normalized. His creatinine is improved to 2.3 this morning. PAST MEDICAL HISTORY: Well documented in the old record. He has a pacemaker in place. ALLERGIES: HE HAS ALLERGIES TO PENICILLIN. MEDICATIONS: He is on multiple meds including insulin, but has been poorly compliant in the past. SOCIAL HISTORY: Heavy smoker who quit after his stroke 11/10, , nondrinker. FAMILY HISTORY: Unremarkable. REVIEW OF SYSTEMS: Negative except as documented in HPI. OBJECTIVE: HEENT: He has right-sided lower facial weakness. Pupils round and reactive. EOMs are full. NECK: Revealed no carotid bruits, nodes or thyroid enlargement. LUNGS: Clear with faint wheezes noted and no tachypnea. CARDIOVASCULAR: Irregular rate, pacemaker dependent. ABDOMEN: Benign, soft, nontender. NEUROLOGIC: Chronic R sided hemiparesis. Some chronic dysarthria. No edema ASSESSMENT: Acute renal failure likely secondary to overdiuresis with Lasix Hypertension, holding antihypertensives Uncontrolled type 2 diabetes, poorly metformin Recent CVA with chronic baseline changes and no acute findings COPD not an exacerbation Hyperlipidemia Coronary artery disease status post stent placement Peripheral artery disease GERD CHF not in acute exacerbation A. fib, rate controlled History of nicotine dependence Continue to hold Lasix and allow patient to drink as desired. Rehydrate gently given history of CHF. Pt would like to go home jessica. Will recheck bmp this PM and can dc if Cr continues to improve. Then plan for follow up Thu/ next week with repeat labs ILIR WASSERMAN MD Mar 18, 2019 08:20
[2019-03-18] MEDS ORDERED: ASPIRIN CHEWABLE 81 MG TABLET. PO SCH (09:00)
[2019-03-18] MEDS ORDERED: SERTRALINE 50 MG TABLET. PO SCH (09:00)
[2019-03-18] MEDS: INSULIN GLARGINE SYRINGE. SQ SCH (09:00)
[2019-03-18] MEDS: PREGABALIN 50 MG CAPSULE PO SCH (10:13)
[2019-03-18] MEDS: INSULIN LISPRO 300 UNITS/3 ML VIAL. SQ SCH ×2 (10:17→14:21)
--- NOTE | 2019-03-18 10:35 | NUR ---
SS following for discharge planning. SS reviewed pt chart. Pt is from home and is currently on room air. Rehab screen ordered. Pt had previous stay at [facility] in October and November of 2018. SS will continue to follow for discharge planning.
[2019-03-18 11:00] VITALS: BP 110/66
--- NOTE | 2019-03-18 12:42 | PDOC2 ---
CONSULT Date of Consult Date of Consult DATE: 03/18/19 TIME: 12:18 Reason for Consult Reason for Consult: chen Source Source: Chart review, Patient History of Present Illness Reason for Visit: 69-year-old white male with hx of recent CVA, COPD, type 2 diabetes complicated by diabetic neuropathy, HTN, CAD s/p stent placement, PAD, GERD, CHF and atrial fibrillation, who presented to tPCP's office for oliguria for about 20 hours prior to presentation, weakness, possibly increased right facial droop from baseline status post CVA and some mild chest pain. He was noted to have hypotension, increased right facial droop, and he was directed to the emergency room for workup and admission. His labs were significant for acute renal failure with creatinine 3.3 and BUN greater than 70. Denies any symptoms of UTI . Home med list - LoosartaN. hctz, Lasix . Bactrim also listed Past Medical History Cardiovascular: AFIB, CAD, HTN, Hyperlipidemia, Other Pulmonary: No pertinent hx CENTRAL NERVOUS SYSTEM: CVA GI: No pertinent hx Heme/Onc: No pertinent hx Hepatobiliary: No pertinent hx Psych: No pertinent hx Musculoskeletal: Osteoarthritis Rheumatologic: No pertinent hx Infectious disease: No pertinent hx Renal/: Other Endocrine: Diabetes Past Surgical History Past Surgical History: Pacemaker, Other Social History ALCOHOL: occassional Drugs: None Lives: with Family Current Problem List Problem List Problems Medical Problems: (1) Acute kidney injury Status: Acute (2) Dehydration Status: Acute (3) Hypotension Status: Acute (4) Right sided weakness Status: Acute Current Medications Current Medications Current Medications Sodium Chloride 1,000 ml @ 1,000 mls/hr Q1H IV Last administered on 03/17/19at 12:47; Start 03/17/19 at 12:47; Stop 03/17/19 at 13:46; Status DC Sodium Chloride 1,000 ml @ 150 mls/hr Q6H40M IV Last administered on at 06:24; Start 03/17/19 at 14:48; Stop 03/18/19 at 14:47 Alprazolam (Xanax) 0.5 mg PRN DAILY PRN PO ANXIETY / AGITATION; Start 03/17/19 at 22:15 Aspirin (Children'S Aspirin) 81 mg DAILY PO Last administered on 03/18/19at 08:57; Start 03/18/19 at 09:00 Polyethylene Glycol (miraLAX PACKET) 17 gm PRN DAILY PRN PO CONSTIPATION 1ST CHOICE; Start 03/17/19 at 22:15 Sertraline HCl (Zoloft) 50 mg DAILY PO Last administered on 03/18/19at 08:57; Start 03/18/19 at 09:00 Simvastatin (Zocor) 40 mg HS PO Last administered on 03/17/19at 23:45; Start 03/17/19 at 23:00 Non-Formulary Medication (Insulin Aspart (Novolog Flexpen)) Sliding Scale TIDAC SQ ; Start 03/18/19 at 07:30; Status UNV Insulin Glargine (Lantus Syringe) 26 unit BID SQ Last administered on 1 at 23:53; Start 03/17/19 at 23:00 Lubiprostone (Amitiza) 24 mcg PRN BID PRN PO CONSTIPATION; Start 03/18/19 at 08:00; Stop 03/18/19 at 11:06; Status DC Pregabalin (Lyrica) 200 mg BID PO Last administered on 03/18/19at 10:13; Start 03/17/19 at 23:00 Insulin Human Lispro (HumaLOG) 0-9 UNITS TIDWMEALS SQ Last administered on 03/18/19at 10:17; Start 03/18/19 at 08:00 Dextrose (Dextrose 50%-Water Syringe) 12.5 gm PRN Q15MIN PRN IV SEE COMMENTS; Start 03/18/19 at 06:15 Lubiprostone (Amitiza) 24 mcg BIDWMEALS PO ; Start 03/18/19 at 17:00 Active Scripts Active Bactrim Ds Tablet (Sulfamethoxazole/Trimethoprim) 1 Each Tablet 1 Tab PO BID Aspirin Ec (Aspirin) 325 Mg Tablet.dr 1 Tab PO DAILY Reported Children's Aspirin (Aspirin) 81 Mg Tab.chew 1 Tab PO DAILY 30 Days Cephalexin 500 Mg Tablet 1 Tab PO TID 7 Days Prednisone 20 Mg Tablet 1 Tab PO DAILY 3 Days Mag-Oxide (Magnesium Oxide) 400 Mg Tablet 1 Tab PO DAILY Alprazolam 0.5 Mg Tablet 1 Tab PO PRN DAILY PRN Furosemide 20 Mg Tablet 1 Tab PO DAILY Zoloft (Sertraline Hcl) 50 Mg Tablet 50 Mg PO DAILY Omeprazole 40 Mg Capsule.dr 1 Cap PO DAILY Miralax (Polyethylene Glycol 3350) 17 Gm Powd.pack 1 Packet PO PRN DAILY PRN Linzess (Linaclotide) 145 Mcg Capsule 145 Mcg PO PRN DAILY PRN Metformin Hcl 1,000 Mg Tablet 1,000 Mg PO BIDWMEALS Novolog Flexpen (Insulin Aspart) 100 Unit/1 Ml Insuln.pen 0-10 Unit SQ TIDAC Levemir (Insulin Detemir) 100 Unit/1 Ml Vial 26 Unit SQ BID Simvastatin 40 Mg Tablet 40 Mg PO HS Xarelto (Rivaroxaban) 20 Mg Tablet 20 Mg PO DAILY Lyrica (Pregabalin) 200 Mg Capsule 200 Mg PO BID Metoprolol Succinate ( Xl ) (Metoprolol Succinate) 25 Mg Tab.er.24h 25 Mg PO HS Losartan-Hctz 100-25 Mg Tab (Losartan/Hydrochlorothiazide) 1 Each Tablet 1 Each PO HS Allergies Allergies: Coded Allergies: Penicillins (Verified Allergy, Intermediate, RASH, 11/16/18) ROS Review of System Per HPI Physical Exam Physical Exam GEN- NAD HEENT: He has right-sided lower facial weakness, OM moist NECK: supple LUNGS: Clear with faint wheezes noted and no tachypnea. CARDIOVASCULAR: Irregular rate, pacemaker dependent. ABDOMEN: Benign, soft, nontender. NEUROLOGIC: Chronic R sided hemiparesis. Some chronic dysarthria. Ext No edema No Black , No CVA or sp tenderness Skin no rash Vital Signs Vital Signs Date Time Temp Pulse Resp B/P (MAP) Pulse Ox O2 Delivery O2 Flow Rate FiO2 03/18/19 11:00 98.1 60 18 110/66 (81) 96 Room Air 98.1 03/17/19 23:35 2.0 Assessment & Plan CHEN- Pre-renal/ Hypotension / Overdiuresed Decreased UOP at presentation , Bladder scan negative, Per RN good UOP since this am UA unremarkable , baseline unknown to me Home med list - Losartan. hctz, Lasix . Bactrim also listed E-Lytes and stable, Supportive care, IVF , Strict I/O.Avoid nephrotoxins, Monitor, if inadequate UOP- bladder scan Hyponatremia- at presentation Na 129 Improving with IVF,corrected for glucose normal Metabolic acidosis - Bicarb mildly low, Monitor Hypertension- antihypertensives held as Hypotensive BP as low in 70's Uncontrolled type 2 diabetes, poorly - recommend to hold Metformin Recent CVA with chronic baseline changes and no acute findings COPD not an exacerbation Coronary artery disease status post stent placement Peripheral artery disease CHF compensated A. fib, rate controlled History of nicotine dependence DW RN Labs Labs Laboratory Tests Test 03/17/19 12:37 03/17/19 12:43 03/17/19 16:10 03/17/19 17:40 Glucose (Fingerstick) 195 mg/dL (70-99) 169 mg/dL (70-99) White Blood Count 13.9 x10^3/uL (4.0-11.0) Red Blood Count 4.03 x10^6/uL (4.30-5.70) Hemoglobin 12.0 g/dL (13.0-17.5) Hematocrit 36.0 % (39.0-53.0) Mean Corpuscular Volume 90 fL (79-100) Mean Corpuscular Hemoglobin 30 pg (25-35) Mean Corpuscular Hemoglobin Concent 33 g/dL (31-37) Red Cell Distribution Width 14.3 % (11.5-14.5) Platelet Count 309 x10^3/uL (140-400) Neutrophils (%) (Auto) 70 % (31-73) Lymphocytes (%) (Auto) 18 % (24-48) Monocytes (%) (Auto) 9 % (0-9) Eosinophils (%) (Auto) 1 % (0-3) Basophils (%) (Auto) 1 % (0-3) Neutrophils # (Auto) 9.8 x10^3/uL (1.8-7.7) Lymphocytes # (Auto) 2.5 x10^3/uL (1.0-4.8) Monocytes # (Auto) 1.3 x10^3/uL (0.0-1.1) Eosinophils # (Auto) 0.1 x10^3/uL (0.0-0.7) Basophils # (Auto) 0.2 x10^3/uL (0.0-0.2) Segmented Neutrophils % 70 % (35-66) Band Neutrophils % 3 % (0-9) Lymphocytes % 20 % (24-48) Monocytes % 6 % (0-10) Eosinophils % 1 % (0-5) Platelet Estimate Adequate (ADEQUATE) Prothrombin Time 33.6 SEC (11.7-14.0) Prothromb Time International Ratio 3.3 (0.8-1.1) Sodium Level 129 mmol/L (136-145) Potassium Level 4.8 mmol/L (3.5-5.1) Chloride Level 93 mmol/L (98-107) Carbon Dioxide Level 22 mmol/L (21-32) Anion Gap 14 (6-14) Blood Urea Nitrogen 76 mg/dL (8-26) Creatinine 3.3 mg/dL (0.7-1.3) Estimated GFR (Cockcroft-Gault) 18.8 BUN/Creatinine Ratio 23 (6-20) Glucose Level 232 mg/dL (70-99) Lactic Acid Level 3.5 mmol/L (0.4-2.0) 1.5 mmol/L (0.4-2.0) Calcium Level 9.0 mg/dL (8.5-10.1) Magnesium Level 1.6 mg/dL (1.8-2.4) Total Bilirubin 0.6 mg/dL (0.2-1.0) Aspartate Amino Transf (AST/SGOT) 41 U/L (15-37) Alanine Aminotransferase (ALT/SGPT) 49 U/L (16-63) Alkaline Phosphatase 135 U/L (46-116) Troponin I Quantitative < 0.017 ng/mL (0.000-0.055) Total Protein 7.7 g/dL (6.4-8.2) Albumin 2.8 g/dL (3.4-5.0) Albumin/Globulin Ratio 0.6 (1.0-1.7) Test 03/17/19 20:32 03/17/19 23:12 03/18/19 04:30 03/18/19 08:28 Glucose (Fingerstick) 213 mg/dL (70-99) 268 mg/dL (70-99) 194 mg/dL (70-99) White Blood Count 9.5 x10^3/uL (4.0-11.0) Red Blood Count 3.93 x10^6/uL (4.30-5.70) Hemoglobin 11.8 g/dL (13.0-17.5) Hematocrit 35.3 % (39.0-53.0) Mean Corpuscular Volume 90 fL (79-100) Mean Corpuscular Hemoglobin 30 pg (25-35) Mean Corpuscular Hemoglobin Concent 33 g/dL (31-37) Red Cell Distribution Width 14.6 % (11.5-14.5) Platelet Count 235 x10^3/uL (140-400) Neutrophils (%) (Auto) 65 % (31-73) Lymphocytes (%) (Auto) 21 % (24-48) Monocytes (%) (Auto) 12 % (0-9) Eosinophils (%) (Auto) 2 % (0-3) Basophils (%) (Auto) 1 % (0-3) Neutrophils # (Auto) 6.1 x10^3/uL (1.8-7.7) Lymphocytes # (Auto) 2.0 x10^3/uL (1.0-4.8) Monocytes # (Auto) 1.1 x10^3/uL (0.0-1.1) Eosinophils # (Auto) 0.2 x10^3/uL (0.0-0.7) Basophils # (Auto) 0.1 x10^3/uL (0.0-0.2) Urine Collection Type Unknown Urine Color Lena Urine Clarity Clear Urine pH 5.0 Urine Specific Gordon 1.020 Urine Protein Negative mg/dL (NEG-TRACE) Urine Glucose (UA) Negative mg/dL (NEG) Urine Ketones (Stick) Negative mg/dL (NEG) Urine Blood Negative (NEG) Urine Nitrite Negative (NEG) Urine Bilirubin Small (NEG) Urine Urobilinogen Dipstick 1.0 mg/dL (0.2 mg/dL) Urine Leukocyte Esterase Negative (NEG) Urine RBC Rare /HPF (0-2) Urine WBC 1-4 /HPF (0-4) Urine Squamous Epithelial Cells Few /LPF Urine Amorphous Sediment Present /HPF Urine Bacteria Few /HPF (0-FEW) Urine Hyaline Casts Many /HPF Urine Mucus Mod /LPF Sodium Level 132 mmol/L (136-145) Potassium Level 4.3 mmol/L (3.5-5.1) Chloride Level 98 mmol/L (98-107) Carbon Dioxide Level 19 mmol/L (21-32) Anion Gap 15 (6-14) Blood Urea Nitrogen 76 mg/dL (8-26) Creatinine 2.3 mg/dL (0.7-1.3) Estimated GFR (Cockcroft-Gault) 28.5 Glucose Level 230 mg/dL (70-99) Calcium Level 8.3 mg/dL (8.5-10.1) Laboratory Tests Test 03/17/19 12:37 03/17/19 12:43 03/17/19 16:10 03/17/19 17:40 Glucose (Fingerstick) 195 mg/dL (70-99) 169 mg/dL (70-99) White Blood Count 13.9 x10^3/uL (4.0-11.0) Red Blood Count 4.03 x10^6/uL (4.30-5.70) Hemoglobin 12.0 g/dL (13.0-17.5) Hematocrit 36.0 % (39.0-53.0) Mean Corpuscular Volume 90 fL (79-100) Mean Corpuscular Hemoglobin 30 pg (25-35) Mean Corpuscular Hemoglobin Concent 33 g/dL (31-37) Red Cell Distribution Width 14.3 % (11.5-14.5) Platelet Count 309 x10^3/uL (140-400) Neutrophils (%) (Auto) 70 % (31-73) Lymphocytes (%) (Auto) 18 % (24-48) Monocytes (%) (Auto) 9 % (0-9) Eosinophils (%) (Auto) 1 % (0-3) Basophils (%) (Auto) 1 % (0-3) Neutrophils # (Auto) 9.8 x10^3/uL (1.8-7.7) Lymphocytes # (Auto) 2.5 x10^3/uL (1.0-4.8) Monocytes # (Auto) 1.3 x10^3/uL (0.0-1.1) Eosinophils # (Auto) 0.1 x10^3/uL (0.0-0.7) Basophils # (Auto) 0.2 x10^3/uL (0.0-0.2) Segmented Neutrophils % 70 % (35-66) Band Neutrophils % 3 % (0-9) Lymphocytes % 20 % (24-48) Monocytes % 6 % (0-10) Eosinophils % 1 % (0-5) Platelet Estimate Adequate (ADEQUATE) Prothrombin Time 33.6 SEC (11.7-14.0) Prothromb Time International Ratio 3.3 (0.8-1.1) Sodium Level 129 mmol/L (136-145) Potassium Level 4.8 mmol/L (3.5-5.1) Chloride Level 93 mmol/L (98-107) Carbon Dioxide Level 22 mmol/L (21-32) Anion Gap 14 (6-14) Blood Urea Nitrogen 76 mg/dL (8-26) Creatinine 3.3 mg/dL (0.7-1.3) Estimated GFR (Cockcroft-Gault) 18.8 BUN/Creatinine Ratio 23 (6-20) Glucose Level 232 mg/dL (70-99) Lactic Acid Level 3.5 mmol/L (0.4-2.0) 1.5 mmol/L (0.4-2.0) Calcium Level 9.0 mg/dL (8.5-10.1) Magnesium Level 1.6 mg/dL (1.8-2.4) Total Bilirubin 0.6 mg/dL (0.2-1.0) Aspartate Amino Transf (AST/SGOT) 41 U/L (15-37) Alanine Aminotransferase (ALT/SGPT) 49 U/L (16-63) Alkaline Phosphatase 135 U/L (46-116) Troponin I Quantitative < 0.017 ng/mL (0.000-0.055) Total Protein 7.7 g/dL (6.4-8.2) Albumin 2.8 g/dL (3.4-5.0) Albumin/Globulin Ratio 0.6 (1.0-1.7) Test 03/17/19 20:32 03/17/19 23:12 03/18/19 04:30 03/18/19 08:28 Glucose (Fingerstick) 213 mg/dL (70-99) 268 mg/dL (70-99) 194 mg/dL (70-99) White Blood Count 9.5 x10^3/uL (4.0-11.0) Red Blood Count 3.93 x10^6/uL (4.30-5.70) Hemoglobin 11.8 g/dL (13.0-17.5) Hematocrit 35.3 % (39.0-53.0) Mean Corpuscular Volume 90 fL (79-100) Mean Corpuscular Hemoglobin 30 pg (25-35) Mean Corpuscular Hemoglobin Concent 33 g/dL (31-37) Red Cell Distribution Width 14.6 % (11.5-14.5) Platelet Count 235 x10^3/uL (140-400) Neutrophils (%) (Auto) 65 % (31-73) Lymphocytes (%) (Auto) 21 % (24-48) Monocytes (%) (Auto) 12 % (0-9) Eosinophils (%) (Auto) 2 % (0-3) Basophils (%) (Auto) 1 % (0-3) Neutrophils # (Auto) 6.1 x10^3/uL (1.8-7.7) Lymphocytes # (Auto) 2.0 x10^3/uL (1.0-4.8) Monocytes # (Auto) 1.1 x10^3/uL (0.0-1.1) Eosinophils # (Auto) 0.2 x10^3/uL (0.0-0.7) Basophils # (Auto) 0.1 x10^3/uL (0.0-0.2) Urine Collection Type Unknown Urine Color Lena Urine Clarity Clear Urine pH 5.0 Urine Specific Gordon 1.020 Urine Protein Negative mg/dL (NEG-TRACE) Urine Glucose (UA) Negative mg/dL (NEG) Urine Ketones (Stick) Negative mg/dL (NEG) Urine Blood Negative (NEG) Urine Nitrite Negative (NEG) Urine Bilirubin Small (NEG) Urine Urobilinogen Dipstick 1.0 mg/dL (0.2 mg/dL) Urine Leukocyte Esterase Negative (NEG) Urine RBC Rare /HPF (0-2) Urine WBC 1-4 /HPF (0-4) Urine Squamous Epithelial Cells Few /LPF Urine Amorphous Sediment Present /HPF Urine Bacteria Few /HPF (0-FEW) Urine Hyaline Casts Many /HPF Urine Mucus Mod /LPF Sodium Level 132 mmol/L (136-145) Potassium Level 4.3 mmol/L (3.5-5.1) Chloride Level 98 mmol/L (98-107) Carbon Dioxide Level 19 mmol/L (21-32) Anion Gap 15 (6-14) Blood Urea Nitrogen 76 mg/dL (8-26) Creatinine 2.3 mg/dL (0.7-1.3) Estimated GFR (Cockcroft-Gault) 28.5 Glucose Level 230 mg/dL (70-99) Calcium Level 8.3 mg/dL (8.5-10.1) Review All relevant outside records, renal labs, imaging studies, telemetry/EKG's were reviewed. Images Images IMPRESSION: No acute pulmonary finding. CT head-- 1. No acute intracranial finding. Note is made that MRI is more sensitive for acute infarction. 2. Chronic appearing infarcts within the left thalamus, left greater than right occipital lobes, cerebellar hemispheres and possibly the left lana. 3. Cerebral atrophy. CANDIS LIMON MD Mar 18, 2019 12:42
[2019-03-18 15:00] VITALS: BP 120/78
[2019-03-18 15:54] LABS: CALCIUM 8.7 mg/dL (8.5-10.1); CREATININE 1.7 mg/dL (0.7-1.3); GFR 40.4
[2019-03-18] MEDS ORDERED: LUBIPROSTONE 24 MCG CAPSULE PO SCH (17:00)
--- NOTE | 2019-03-18 17:29 | NUR ---
Pt discharged to home. Discharge teaching and follow ups gone over with pt and spouse. Pt taken out by wheelchair with transportation provided by spouse.
== END 2019-03-18 17:35 | disposition home or self-care (01) | DRG 683 ==
LOC: ER 12:32 → 6 SOUTH 14:46
PROVIDERS: ADMIT Family Medicine; ATTEND Family Medicine
DX: N17.9 Acute kidney failure, unspecified (principal); E87.2 Acidosis; E11.40 Type 2 diabetes mellitus with diabetic neuropathy, unspecified; E11.51 Type 2 diabetes mellitus with diabetic peripheral angiopathy without gangrene; E11.65 Type 2 diabetes mellitus with hyperglycemia; E78.00 Pure hypercholesterolemia, unspecified; E78.5 Hyperlipidemia, unspecified; E86.0 Dehydration; I11.0 Hypertensive heart disease with heart failure; I25.10 Atherosclerotic heart disease of native coronary artery without angina pectoris; I48.91 Unspecified atrial fibrillation; I50.9 Heart failure, unspecified; J44.9 Chronic obstructive pulmonary disease, unspecified; K21.9 Gastro-esophageal reflux disease without esophagitis; R29.810 Facial weakness; T50.2X5A Adverse effect of carbonic-anhydrase inhibitors, benzothiadiazides and other diuretics, initial encounter; Z86.73 Personal history of transient ischemic attack (TIA), and cerebral infarction without residual deficits; Z87.891 Personal history of nicotine dependence; Z95.0 Presence of cardiac pacemaker; Z95.5 Presence of coronary angioplasty implant and graft; F41.9 Anxiety disorder, unspecified; M19.90 Unspecified osteoarthritis, unspecified site; I95.9 Hypotension, unspecified; Z88.0 Allergy status to penicillin
CPT/HCPCS: 36415; 70450; 71045; 80048; 80053; 81001; 82962; 83605; 83735; 84484; 85007; 85025; 85610; 93005; 96360; J1815; J7030; 99285-25; G0378

== ENCOUNTER 2019-04-10 14:05 | Emergency (ER) | payer MEDICARE ==
[~2019-04-10] VITALS: Ht 182.9 cm; Wt 81.6 kg
[~2019-04-10 14:05] MED LIST changes: +ASPI81TA59 PO
[2019-04-10] MEDS ORDERED: DOCUSATE SODIUM 283 MG/5 ML ENEMA. PR ONE (15:00)
[2019-04-10] MEDS ORDERED: fentaNYL PF VIAL 100 MCG/2 ML VIAL IVP ONE (15:30)
[2019-04-10] MEDS ORDERED: IV NORMAL SALINE 1000ML BAG 1,000 ML IV ONE (15:30)
--- NOTE | 2019-04-10 15:42 | PHYS DOC ---
Past Medical History Past Medical History: Anxiety, CAD, COPD, CVA, Diabetes-Type II, High Cho lesterol, Hypertension, Other Additional Past Medical Histor: PTSD,PAD,CVA W/RESIDUAL WEAKNESS Past Surgical History: Pacemaker, Other Additional Past Surgical Histo: Cardiac Stents,Leg bypass grafts/STENTS,ENDARECTOMY Alcohol Use: None Drug Use: None Adult General Chief Complaint Chief Complaint: CONSTIPATION HPI HPI Patient is a 69 year old male who presents with constipation for the last 4 days. Patient states he was able to disimpact stool from his rectal vault but he has not had a bowel movement. Patient states that he took many laxatives and a prescription of a laxative that Dr. kaplan gave him the last week all of which she could not name to me. Patient states he had no results. Patient states this morning he did a enema and had no results. Patient denies abdominal pain, nausea, vomiting. States he just has discomfort. Review of Systems Review of Systems GI: Constipation. Denies abdominal pain, nausea, vomiting, bloody stools or diarrhea [] All other systems were reviewed and found to be within normal limits, except as documented in this note. Current Medications Current Medications Current Medications Medications (Trade) Dose Ordered Sig/Joi Start Time Stop Time Status Last Admin Dose Admin Docusate Sodium (Enemeez) 283 mg 1X ONCE 04/10/19 15:00 04/10/19 15:01 DC 04/10/19 15:10 283 MG Fentanyl Citrate (Fentanyl 2ml Vial) 50 mcg 1X ONCE 04/10/19 15:30 04/10/19 15:33 DC 04/10/19 15:36 50 MCG Sodium Chloride 1,000 ml @ 1,000 mls/hr 1X ONCE 04/10/19 15:30 04/10/19 16:29 DC 04/10/19 15:36 1,000 MLS/HR Allergies Allergies Allergies Coded Allergies Type Severity Reaction Last Updated Verified Penicillins Allergy Intermediate RASH 11/16/18 Yes Physical Exam Physical Exam Constitutional: Well developed, well nourished, no acute distress, non-toxic appearance. [] HENT: Normocephalic, atraumatic, bilateral external ears normal, oropharynx moist, no oral exudates, nose normal. [] Eyes: PERRLA, EOMI, conjunctiva normal, no discharge. [] Cardiovascular:Heart rate regular rhythm, no murmur [] Lungs & Thorax: Bilateral breath sounds clear to auscultation [] Abdomen: Bowel sounds normal, soft, no tenderness, slightly distended, no masses, no pulsatile masses. [] Skin: Warm, dry, erythema to bilateral buttocks and covered in wound bandages, no rash. [] Neurologic: Alert and oriented X 3, normal motor function, normal sensory function, no focal deficits noted. [] Psychologic: Affect normal, judgement normal, mood normal. [] Current Patient Data Vital Signs Vital Signs Date Time Temp Pulse Resp B/P (MAP) Pulse Ox O2 Delivery O2 Flow Rate FiO2 04/10/19 14:15 98.0 60 18 170/72 (104 94 Room Air 98.0 EKG EKG [] Radiology/Procedures Radiology/Procedures [] Impressions: [facility] [address] [place] [address] IMAGING REPORT Signed PATIENT: GILES STOUT OACCOUNT: [id number] : 1950 LOCATION: ER AGE: 69 SEX: M EXAM STATUS: REG ER ORD. PHYSICIAN: TRINY MOORE APRN REASON: CONSTIPATION PROCEDURE: KUB Exam performed: X-ray abdomen KUB. Clinical Indication: Constipation Date of Service: 04/10/2019 Comparison: Not available FINDINGS: Supine radiograph of the abdomen and pelvis reveals no evidence of ileus or obstruction. Definite pathologic calcification or organomegaly is not identified. There are spondylotic changes involving the lumbar spine.. Impression: 1. Nonspecific bowel gas pattern. No acute abnormality seen Electronically signed by: Yenni Enriquez MD (04/10/2019 3:48 PM) [facility] DICTATED and SIGNED BY: YENNI ENRIQUEZ MD DATE: 04/10/19 1548 Course & Med Decision Making Course & Med Decision Making Alert and oriented. Abdomen is soft and non-tender but slightly distended. Vital signs within normal limits. With the nurse in the room I checked his rectal full for stool with the tip of my index finger can feel hard stool but could not reach the stool and patient was not tolerating it well. No blood was seen on my finger and patient denies any blood being in his stool. There are no hemorrhoids. Skin pink warm and dry. Speaks in full clear sentences. I have ordered a enema for the patient. Patient states after enema patient was able to get 3 big chunks of stool and patient is feeling much better. Patient denies any pain. Rectal Exam: Normal tone, No mass, Positive control Stool: Brown Guaiac: Not indicated Dragon Disclaimer Dragon Disclaimer This electronic medical record was generated, in whole or in part, using a voice recognition dictation system. Departure Departure Impression: Primary Impression: Constipation Disposition: 01 HOME, SELF-CARE Condition: STABLE Referrals: ILIR KAPLAN MD (PCP) Patient Instructions: Constipation, Adult Additional Instructions: Follow-up with primary care provider if needed. Drink Plenty of fluids. Problem Qualifiers Primary Impression: Constipation Constipation type: unspecified constipation type Qualified Codes: K59.00 - Constipation, unspecified TRINY MOORE APRN Apr 10, 2019 15:42
--- NOTE | 2019-04-10 15:51 | RAD ---
Exam performed: X-ray abdomen KUB. Clinical Indication: Constipation Date of Service: 04/10/2019 Comparison: Not available FINDINGS: Supine radiograph of the abdomen and pelvis reveals no evidence of ileus or obstruction. Definite pathologic calcification or organomegaly is not identified. There are spondylotic changes involving the lumbar spine.. Impression: 1. Nonspecific bowel gas pattern. No acute abnormality seen Electronically signed by: Yenni Enriquez MD (04/10/2019 3:48 PM) [facility]
[2019-04-10 16:45] VITALS: BP 141/82
[2019-04-10 17:07] LABS: BILIRUBIN,URINE SMALL (NEG); CLARITY,URINE CLEAR; COLOR,URINE YELLOW; NITRITE,URINE NEGATIVE (NEG); PROTEIN,URINE 30 mg/dL (NEG-TRACE)
[2019-04-10 17:19] LABS: BACTERIA,URINE 0 /HPF (0-FEW); HYALINE CASTS, URINE FEW /HPF; WBC,URINE 0 /HPF (0-4)
== END 2019-04-10 17:26 | disposition home or self-care (01) ==
LOC: ER 14:05
DX: K59.00 Constipation, unspecified (principal); I25.10 Atherosclerotic heart disease of native coronary artery without angina pectoris; E11.9 Type 2 diabetes mellitus without complications; E78.00 Pure hypercholesterolemia, unspecified; I10 Essential (primary) hypertension; J44.9 Chronic obstructive pulmonary disease, unspecified; Z95.0 Presence of cardiac pacemaker; Z88.0 Allergy status to penicillin
CPT/HCPCS: 74018; 81001; 96374; 99285; J3010; J7030